=== PATIENT | male | born 1950 | race Caucasian/White ===

== ENCOUNTER 2021-10-22 11:35 | Emergency (ER) | payer MEDICARE, BC, SELFPAY ==
--- NOTE | ~2021-10-22 | XR_ITS ---
EXAMINATION: XR SHOULDER, RIGHT CLINICAL INFORMATION: Right shoulder pain. COMPARISON: None TECHNIQUE: Three views of the right shoulder. FINDINGS: Mild glenohumeral and acromioclavicular degenerative joint changes are seen. Mild calcifications are noted at the insertion of the rotator cuff on the greater tuberosity. No acute fracture or dislocation. The visualized right ribs are intact. The soft tissues are unremarkable. XR/XR shoulder RT min 2V IMPRESSION: Mild degenerative joint changes without acute abnormality.
[2021-10-22 12:38] VITALS: BP 130/67; PULSE 84; RESP 18; TEMP 36.7; O2SAT 96; BMI 29.2
--- NOTE | 2021-10-22 13:32 | ED_ITS ---
HPI - General Adult General Chief complaint: Extremity Injury, Upper Stated complaint: Numb R shoulder Time Seen by Provider: 10/22/21 13:21 Source: patient Mode of arrival: ambulatory Limitations: no limitations History of Present Illness HPI narrative: 70-year-old male with history of hypertension, asthma, congestive heart failure presents with right shoulder pain the last few days with radiation down the inner upper arm. No known injury or trauma. No numbness, tingling or weakness. Patient taking Tylenol home with continued symptoms. Related Data Previous Rx's Medication Instructions Recorded oxycodone 5 mg tablet 5 mg PO BEDTIME PRN pain #14 tabs 10/22/21 Allergies Allergy/AdvReac Type Severity Reaction Status Date / Time meperidine [From Demerol] Allergy Intermediate Rash Verified 10/22/21 12:37 Review of Systems Review of Systems: Yes all other systems are reviewed and are negative Constitutional: Constitutional: Reports no additional constitutional complaints, Denies body ache(s), Denies chills, Denies fever(s), Denies headache(s) and Denies weakness Eyes: Eyes: Reports no additional eye complaints and Denies change in vision ENT: Reports system reviewed and no additional complaints, except as documented, Denies dizziness, Denies headache(s), Denies nasal congestion, Ranjeet es nasal discharge and Denies neck pain Cardiovascular: Cardiovascular: Reports no additional cardiovascular complaints, Denies chest pain, Denies leg edema and Denies dyspnea Respiratory: Respiratory: Reports no additional respiratory complaints, Denies cough and Denies dyspnea Gastrointestinal: Gastrointestinal: Reports no additional gastrointestinal complaints, Denies abdominal pain, Denies diarrhea, Denies nausea and Denies vomiting Genitourinary: Genitourinary: Denies urinary incontinence Musculoskeletal: Musculoskeletal: Reports no additional musculoskeletal complaints, Denies back pain, Reports arthralgias, Denies joint swelling, Denies neck pain, Denies numbness and Denies tingling Integumentary/Breasts: Skin/Breast: Reports system reviewed and no additional complaints, except as docu and Denies rash Neurologic: Reports system reviewed and no additional complaints, except as documented, Denies dizziness, Denies headache(s), Denies numbness, Denies tingling and Denies weakness [facility] Past Medical History Attestation statement: The following information was validated with the patient. Source: old records reviewed and nursing notes reviewed Social History Social History Advance Directives: No Advance Directives Information Provided: Yes Physical Exam ED Vital Signs: Vital Signs - 24 hr 10/22/21 12:38 Temperature 98.1 F Pulse Rate 84 Respiratory Rate 18 Blood Pressure 130/67 Pulse Oximetry 96 Oxygen Delivery Method Room Air BMI result Body Mass Index 29.2 Const General: cooperative, healthy appearing, comfortable and no acute distress Orientation/consciousness: patient oriented x3 Limitations: no limitations HENMT Head: Yes normal to inspection Ears: hearing grossly normal bilaterally Eyes General: appearance normal, both eyes and all related structures Pupils: Equal, round and reactive pupils present Neck Neck: Yes normal visual inspection, Yes full ROM, Yes no lymphadenopathy and Yes no meningeal signs Chest Chest palpation & inspection: normal inspection of the chest Resp Effort & Inspection: normal respiratory effort Auscultation: clear to auscultation bilaterally Cardio Rate: regular rate Rhythm: regular rhythm Peripheral pulses: Peripheral pulses 2+ throughout GI Inspection: Yes normal to inspection Palpation (GI): Soft to palpation and nontender Back/Spine/Pelvis Thoracic/Lumbar Spine: thoracic and lumbar spine normal to inspection Skin General skin exam: no rashes or lesions noted Neuro General: patient oriented x3, moves all extremities and no meningeal signs Cranial nerves: Yes Equal, round and reactive pupils present Cognition (Neuro): normal cognition Gait exam (Neuro): Normal gait present Extrem Other: Tenderness over the proximal humerus of the right upper extremity. Pain is worsened with abduction of the extremity. Palpable radial and ulnar pulses. S ensation intact. 5/5 strength upper extremities Mild swelling noted dependently No warmth or redness General: Yes normal to inspection Course Course Course Narrative: X-ray show Mild glenohumeral and acromioclavicular degenerative joint changes are seen. Mild calcifications are noted at the insertion of the rotator cuff on the greater tuberosity. N -no acute fracture or dislocation -there is slight swelling to the hand which is likely dependent. No redness or warmth or swelling concerning for DVT. I spoke to patient. He did speak to his orthopedic doctor adriana at [facility]. He has appointment with him in 2 weeks. He tells me he has been taking Tylenol but having difficulty sleeping due to pain. Will give small supply of oxycodone which she has tolerated in the past before. He does have a cardiac MRI in the next upcoming weeks and so I did remind him to speak to his orthopedic before any procedures. Reviewed worrisome signs and symptoms of when to return to the emergency department. Comfortable discharge home. Medical Decision Making MDM Narrative Medical decision making narrative: 70-year-old male here with atraumatic right shoulder pain for the last few days unrelieved with home Tylenol. Will check x-rays Consider bursitis, tendonitis, OA Medical Records Medical records reviewed: Yes I reviewed the patient's medical records. Lab Data Lab results reviewed: Yes I reviewed the patient's lab results. Imaging Data shoulder x-ray: Attestation: I personally reviewed and interpreted this imaging study as follows: Radiologist's impression: [address] [address] XRay Report Signed Patient: Alfonzo Matute MR#: [id number] : 1950 Acct:[id number] Age/Sex: 70 / M ADM Date: 10/22/21 Loc: HO.ED Attending Dr: Ordering Physician: Vincent Stubbs MD Date of Service: 10/22/21 Procedure(s): XR shoulder RT min 2V Accession Number(s): [id number] cc: Vincent Stubbs MD~ EXAMINATION: XR SHOULDER, RIGHT CLINICAL INFORMATION: Right shoulder pain.? COMPARISON: None? TECHNIQUE: Three views of the right shoulder. FINDINGS: Mild glenohumeral and acromioclavicular degenerative joint changes are seen. Mild calcifications are noted at the insertion of the rotator cuff on the greater tuberosity. No acute fracture or dislocation. The visualized right ribs are intact. The soft tissues are unremarkable. XR/XR shoulder RT min 2V IMPRESSION: Mild degenerative joint changes without acute abnormality. Discharge Plan Discharge Clinical Impression: Osteoarthritis of right shoulder region, Rotator cuff arthropathy of right shoulder Patient Disposition: Home, Self-Care Instructions: Osteoarthritis (ED), Shoulder Pain (ED), Rotator Cuff Injury Exercises (DC) Additional Instructions: Follow-up with your own orthopedic Heat to the area See stretches attached Continue Tylenol throughout the day Prescriptions: New oxycodone 5 mg tablet 5 mg PO BEDTIME PRN (Reason: pain) Qty: 14 0RF Rx Instructions: Partial Fill upon patient request. Referrals: [facility] [Provider Group] Interventions: ED Discharge Assessment Last Done: 10/22/21 14:42 Discharge Date/Time: 10/22/21 14:43
== END 2021-10-22 14:43 | disposition home or self-care (01) ==
PROVIDERS: Emergency Provider Internal Medicine; PCP Internal Medicine
DX: M19.011 Primary osteoarthritis, right shoulder (principal); M25.511 Pain in right shoulder
CPT/HCPCS: 73030; 99282; 99283

== ENCOUNTER 2023-05-12 08:17 | Outpatient (AMB) | payer MEDICARE, BC, SELFPAY ==
--- NOTE | 2023-05-12 08:19 | MHC.OFFVIS ---
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 The patient has had cortisone injections given into both of his shoulders in the past. He states that he 1st noticed his left shoulder pain several weeks ago when he was put on levofloxacin for treatment of a renal stone. The patient states that when he stopped the levofloxacin his pain dissipated significantly. At this point he has minimal discomfort. He denies any weakness. Allergies meperidine [From Demerol] Allergy (Intermediate, Verified 10/22/21 12:37) Rash Medication List - Last Reconciled 05/12/23 by Bandar Carroll MD atorvastatin 20 mg PO DAILY clotrimazole-betamethasone 1-0.05 % appl topical BEDTIME dapagliflozin propanediol (Farxiga) 10 mg PO DAILY fluticasone propion-salmeterol 100-50 mcg/dose (Wixela Inhub) 1 ea inhalation BID furosemide 20 mg PO DAILY hydrocortisone-acetic acid 1-2 % 3 drps otic (ears) QID PRN levofloxacin mg PO sacubitril-valsartan 49-51 mg (Entresto) 1 tab PO BID spironolactone 12.5 mg PO DAILY tiotropium bromide 1 cap inhalation DAILY PFSH Surgical History (Updated 05/12/23 @ 08:36 by Kristine Murphy CMA) Hx of cardiac catheterization (~05/2021) Social History (Updated 05/12/23 @ 08:33 by Kristine Murphy CMA) Patient Tobacco Use Status: Never used Tobacco Physical Exam Vital Signs: BMI result Body Mass Index 27.2 Const Other: Well-nourished well-developed very friendly male awake alert and oriented x3 in no acute distress Extrem Other: Bilateral upper extremity examination shows good capillary refill, no skin lesions noted, normal sensation light touch Left shoulder examination shows almost full range of motion when compared to his right shoulder, minimal discomfort with range of motion, positive impingement signs, 5/5 strength with supraspinatus testing, no instability Results Reviewed Results Reviewed: X-rays of the patient's left shoulder taken today show moderate acromioclavicular joint narrowing, a type 2 acromion, no acute bony abnormalities Assessment & Plan Assessment & Plan (1) Left shoulder pain: Code(s): M25.512 - Pain in left shoulder Plan Mr. Matute presents with left shoulder discomfort most likely due to impingement syndrome and possible side effect from the levofloxacin. I had a lengthy discussion with the patient regarding the treatment options. At this point the patient's symptoms are tolerable to him. We will hold off on a cortisone injection. Will continue with his home stretching program to prevent stiffness. He will follow up with me on an as-needed basis should his symptoms worsen in any way. Feel free to call me time should questions regarding his orthopedic management arise. I spent 22 minutes in reviewing the patient's records and imaging studies, seeing the patient and documenting in the medical record. Orders: Orders XR shoulder LT min 2V Today M25.512 - Pain in left shoulder Coding Level of Care Code New Pt Level 2 (99664) Diagnoses Left shoulder pain M25.512
[2023-05-12 08:27] VITALS: BMI 27.2
== END 2023-05-12 08:57 | disposition home or self-care (01) ==
PROVIDERS: PCP Internal Medicine; Visit Provider Orthopaedic Surgery
DX: M25.512 Pain in left shoulder (principal)
CPT/HCPCS: 99202

== ENCOUNTER 2023-05-12 13:51 | Outpatient (REF) | payer MEDICARE, BC, SELFPAY ==
--- NOTE | ~2023-05-12 | XR_ITS ---
EXAMINATION: XR SHOULDER, LEFT CLINICAL INFORMATION: Pain. COMPARISON: None available. TECHNIQUE: AP neutral and scapular Y views of the left shoulder are submitted. FINDINGS: Bony alignment and mineralization are normal. The glenohumeral joint is intact. The acromioclavicular and coracoclavicular intervals are normal. No fracture or dislocation is seen. There is mild cortical irregularity of the greater tuberosity of the proximal left humerus. No soft tissue calcification or foreign body is seen. There is no left pneumothorax. XR/XR shoulder LT min 2V IMPRESSION: 1. No acute fracture or spondylolisthesis is seen. 2. Findings suggest possible mild left rotator cuff impingement, without christ calcific tendinitis noted.
== END 2023-05-12 13:52 | disposition home or self-care (01) ==
LOC: HO.HOSX 13:51
PROVIDERS: Visit Provider Orthopaedic Surgery
DX: M25.512 Pain in left shoulder (principal); Z79.899 Other long term (current) drug therapy
CPT/HCPCS: 73030; 99202

== ENCOUNTER 2023-07-05 10:40 | Inpatient (IN) | payer MEDICARE, BC, SELFPAY ==
--- NOTE | ~2023-07-05 | XR_ITS ---
EXAMINATION: XR FOOT, RIGHT CLINICAL INFORMATION: Pain. COMPARISON: None available. TECHNIQUE: AP, lateral, and oblique views of the right foot. FINDINGS: The bones and soft tissues are normal. No fracture. There is a prominent heel spur. Alignment is anatomic. Joint spaces are maintained. XR/XR foot RT 2V IMPRESSION: No significant abnormality identified.
--- NOTE | ~2023-07-05 | US_ITS ---
EXAMINATION: US VENOUS ULTRASOUND WITH DOPPLER LOWER EXTREMITY, BILATERAL CLINICAL INFORMATION: Bilateral leg pain. COMPARISON: None available. TECHNIQUE: Ultrasound of the deep veins is performed from the hip to the calf with compression sonography and color and pulse Doppler assessment. Spectral analysis with color-flow imaging is performed. FINDINGS: RIGHT: There is normal venous compression and respiratory variation and augmented flow. The visualized common femoral vein, superficial femoral vein, profunda femoral vein, popliteal vein, and the trifurcation region shows no evidence of deep venous thrombosis. There is no significant popliteal fossa cyst. LEFT: There is normal venous compression and respiratory variation and augmented flow. The visualized common femoral vein, superficial femoral vein, profunda femoral vein, popliteal vein, and the trifurcation region shows no evidence of deep venous thrombosis. There is no significant popliteal fossa cyst. If the patient's symptoms persist, followup ultrasound in 5 days 7 days might be of value to exclude proximal propagation from a non-visualized calf vein. US/US venous duplex LE BI IMPRESSION: No DVT demonstrated in the bilateral lower extremities.
--- NOTE | ~2023-07-05 | XR_ITS ---
EXAMINATION: XR TIBIA AND FIBULA, RIGHT CLINICAL INFORMATION: Pain. COMPARISON: None available. TECHNIQUE: AP and lateral views of the right tibia and fibula were obtained. FINDINGS: The bones and soft tissues are normal. No fracture. No osseous lesions. XR/XR tibia fibula RT 2V IMPRESSION: No significant abnormality identified.
--- NOTE | ~2023-07-05 | CT_ITS ---
EXAMINATION: CT ABDOMEN AND PELVIS WITHOUT CONTRAST CLINICAL INFORMATION: Elevated white blood cell count. COMPARISON: None available. TECHNIQUE: Multidetector volumetric imaging was performed from the superior aspect of the liver through the pubic symphysis. Sagittal and coronal reformatted images were obtained on the technologist's workstation. This CT examination was performed using dose optimization techniques as appropriate, variously including the following: *Automated exposure control *Adjustment of mA and/or kV according to patient size (this includes techniques or standardized protocols for targeted exams where dose is matched to indication/reason for exam; i.e. extremities or head) *Use of iterative reconstruction technique DLP: 549 mGy-cm FINDINGS: LUNG BASES: There is scarring and/or subsegmental atelectasis at the right base. LIVER, GALLBLADDER, AND BILIARY TREE: There is a 3 cm cyst left lobe of the liver and a 2.3 cm cyst right lobe of the liver. There is no intrahepatic biliary duct dilatation. The gallbladder is unremarkable with no evidence of radiopaque gallstones, gallbladder wall thickening, or obvious pericholecystic inflammatory changes. PANCREAS: Fatty infiltrated. SPLEEN: Unremarkable. ADRENAL GLANDS: Unremarkable. KIDNEYS AND URETERS: The kidneys are normal in size, shape, and attenuation. There is a 2 mm nonobstructing calculus lower pole right kidney. There is a 2.7 cm cyst lower pole right kidney. There is no hydronephrosis. BLADDER: There is mild urinary bladder wall thickening. GASTROINTESTINAL TRACT: There are diverticula of the transverse, descending and the sigmoid colon without diverticulitis. The appendix is not confidently seen as a separate structure. ABDOMINAL WALL: There is a small umbilical hernia containing fat. LYMPH NODES: Normal. VASCULAR: Unremarkable. PELVIC VISCERA: There is mild prostate gland enlargement with multiple prostate calcifications. OSSEOUS STRUCTURES: Unremarkable. CT/CT abdomen pelvis wo IV con IMPRESSION: Diverticulosis without evidence of diverticulitis. Small nonobstructing right renal calculus. Mild urinary bladder wall thickening. Fleischner guidelines were followed.
--- NOTE | ~2023-07-05 | XR_ITS ---
EXAMINATION: XR FOOT, LEFT CLINICAL INFORMATION: Pain. COMPARISON: None available. TECHNIQUE: AP, lateral, and oblique views of the left foot. FINDINGS: The bones and soft tissues are normal. No fracture. Alignment is anatomic. Joint spaces are maintained. XR/XR foot LT 2V IMPRESSION: No significant abnormality identified.
--- NOTE | ~2023-07-05 | XR_ITS ---
EXAMINATION: XR TIBIA AND FIBULA, LEFT CLINICAL INFORMATION: Pain. COMPARISON: None available. TECHNIQUE: AP and lateral views of the left tibia and fibula were obtained. FINDINGS: The bones and soft tissues are normal. No fracture. No osseous lesions. XR/XR tibia fibula LT 2V IMPRESSION: No significant abnormality identified.
[2023-07-05 10:56] VITALS: BP 120/80; PULSE 97; O2SAT 96
[2023-07-05 11:14] VITALS: BP 114/67; PULSE 92; RESP 18; TEMP 36.6; O2SAT 98; BMI 27.2
--- NOTE | 2023-07-05 11:14 | ED_ITS ---
HPI - General Adult General Chief complaint: General Medical Stated complaint: BILATERAL FOOT PAIN Time Seen by Provider: 07/05/23 23:53 Source: patient Mode of arrival: ambulatory Limitations: no limitations History of Present Illness HPI narrative: 72-year-old male with past medical history my cholesterol, CHF, kidney steones presents to ED for multiple complaints such as bilateral foot pain, mild hematuria, and painful to walk on feet, and bilateral flank pain. Patient denies any recent trauma, chest pain, shortness of breath, weakness, or dizziness. Related Data Home Medications Medication Instructions Recorded Confirmed atorvastatin 20 mg tablet 20 mg PO DAILY 05/12/23 07/06/23 dapagliflozin propanediol 10 mg 10 mg PO DAILY 05/12/23 07/06/23 tablet (Farxiga) fluticasone 100 mcg-salmeterol 50 1 ea inhalation BID 05/12/23 07/06/23 mcg/dose blistr powdr for inhalation (Wixela Inhub) furosemide 20 mg tablet 20 mg PO DAILY 05/12/23 07/06/23 sacubitril 49 mg-valsartan 51 mg 1 tab PO BID 05/12/23 07/06/23 tablet (Entresto) spironolactone 25 mg tablet 12.5 mg PO DAILY 05/12/23 07/06/23 tiotropium bromide 18 mcg capsule 1 cap inhalation DAILY 05/12/23 07/06/23 with inhalation device carvedilol 6.25 mg tablet 6.25 mg PO BID 07/06/23 07/06/23 Previous Rx's Medication Instructions Recorded cefuroxime axetil 250 mg tablet 250 mg PO BID #14 tabs 07/06/23 naproxen 500 mg tablet 500 mg PO BID PRN pain 7 days #14 07/06/23 tabs Allergies Allergy/AdvReac Type Severity Reaction Status Date / Time meperidine [From Demerol] Allergy Intermediate Rash Verified 10/22/21 12:37 levofloxacin Allergy Swelling Verified 07/05/23 11:14 Penicillins Allergy Unknown Verified 07/05/23 11:14 Review of Systems 2 Review of Systems: bilateral feet pain, bliateral flank pain, mild hematuria Yes all other systems are reviewed and are negative PMFSH Past Medical History Surgical History Hx of cardiac catheterization (~05/2021) Social History Social History Household Members: Spouse Housing: Apartment Do you presently have visiting nurse or other home services: No Patient Tobacco Use Status: Former Tobacco user service: No Physical Exam ED Vital Signs: Vital Signs - 24 hr 07/05/23 11:14 07/05/23 18:52 07/05/23 22:59 Temperature 97.8 F 97.4 F 97.8 F Pulse Rate 92 90 99 Respiratory Rate 18 18 18 Blood Pressure 114/67 110/60 128/74 Pulse Oximetry 98 97 99 Oxygen Delivery Method Room Air Room Air Room Air 07/05/23 22:59 07/06/23 02:42 Temperature 97.8 F 99.4 F Pulse Rate 99 76 Respiratory Rate 18 18 Blood Pressure 128/74 120/71 Pulse Oximetry 99 99 Oxygen Delivery Method Room Air Room Air BMI result Body Mass Index 27.2 Const General: cooperative, healthy appearing, comfortable, no acute distress, well developed, alert and awake Orientation/consciousness: oriented to person, oriented to place, oriented to time and patient oriented x3 HENIN Head: Yes normal to inspection, Yes No palpable skull fracture present, Yes normocephalic and Yes atraumatic Eyes General: appearance normal, both eyes and all related structures Neck Neck: Yes normal visual inspection, Yes full ROM, Yes no lymphadenopathy, Yes no meningeal signs, Yes trachea midline, Yes supple, No anterior neck swelling and No tender Chest Chest palpation & inspection: normal inspection of the chest and normal palpation of entire chest wall Resp Effort & Inspection: normal respiratory effort and able to speak in complete sentences Auscultation: clear to auscultation bilaterally Cardio Jugular venous distension: no JVD Heart sounds: S1 normal heart sound present and S2 normal heart sound present GI Inspection: Yes normal to inspection Palpation (GI): Soft to palpation, not firm, nontender, no guarding and not rigid General: No CVA tenderness and Yes no CVA tenderness Back/Spine/Pelvis Back: no CVA tenderness, No CVA tenderness and No back tenderness Skin General skin exam: no rashes or lesions noted, elasticity normal and turgor normal Neuro General: oriented to person, oriented to place, oriented to time, patient oriented x3, gait normal, tone normal, moves all extremities, Normal light touch and pain sensation, no meningeal signs, no focal motor deficits, CN's II-XI intact bilaterally and normal sensation to monofilament Extrem Other: Positive for bilateral foot tenderness on palpation. Negative for any swelling, redness, ecchymosis, crepitus, or deformity right foot and right lower extremity. Motor/neuro/vascular exam intact. Psych Appearance: grossly normal, well kempt and not disheveled Course Course Course Narrative: RME performed by Ashley Sweet PA-C. Patient is a 72 year old assigned male at presenting to the emergency department with bilateral foot pain and hematuria. Detailed physical exam and review of systems are deferred to the corpsman. Labs ordered. Patient placed back in the waiting room pending room availability and results. Medications Administered Generic Name Dose Route Start Last Admin Trade Name Freq PRN Reason Stop Dose Admin Atorvastatin Calcium 20 mg 07/06/23 15:30 07/07/23 07:56 Atorvastatin Calcium 20 Mg Tablet PO 20 mg DAILY UNRULY Administration Carvedilol 6.25 mg 07/06/23 21:00 07/07/23 21:19 Carvedilol 6.25 Mg Tablet PO 6.25 mg BID UNRULY Administration Protocol Empagliflozin 10 mg 07/07/23 09:00 07/07/23 07:55 Empagliflozin 10 Mg Tablet PO 10 mg DAILY UNRULY Administration Fluticasone/Vilanterol 1 puff 07/07/23 08:00 07/07/23 08:18 Fluticasone/Vilanterol 100/25 Blst.W.Dev INHALE 1 puff RDAILY UNRULY Administration Furosemide 20 mg 07/06/23 15:30 07/07/23 07:57 Furosemide 20 Mg Tablet PO 20 mg DAILY UNRULY Administration Protocol Heparin Sodium (Porcine) 5,000 unit 07/06/23 06:15 07/07/23 21:08 Heparin Sodium,Porcine 5,000 Unit/Ml Vial SUBCUT 5,000 unit Q8H UNRULY Administration Ceftriaxone Sodium 1 gm/ 50 mls @ 100 mls/hr 07/07/23 08:00 07/07/23 09:29 Sodium Chloride IV Infused Q24H UNRULY Infusion Methylprednisolone Sodium Succinate 60 mg 07/06/23 20:15 07/07/23 21:21 Methylprednisolone Sod Succ 125 Mg/2 Ml Vial IVPUSH 60 mg Q6H UNRULY Administration Oxycodone HCl 5 mg 07/06/23 13:56 07/06/23 23:09 Oxycodone Hcl Immed Release 5 Mg Tablet PO 5 mg Q4H PRN Administration Pain, Moderate(Pain Scale 4-6) Sacubitril/Valsartan 1 tab 07/06/23 21:00 07/07/23 21:20 Sacubitril/Valsartan 49/51 1 Tab Tablet PO 1 tab BID UNRULY Administration Protocol Sodium Chloride 3 ml 07/06/23 08:00 07/07/23 21:06 0.9 % Sodium Chloride Flush 3 Ml Syringe IVFLUSH 3 ml QSHIFT [facility] Administration Spironolactone 12.5 mg 07/06/23 15:30 07/07/23 07:55 Spironolactone 25 Mg Tablet PO 12.5 mg DAILY [facility] Administration Protocol Discontinued Medications Generic Name Dose Route Start Last Admin Trade Name Freq PRN Reason Stop Dose Admin Carvedilol 6.25 mg 07/06/23 03:23 07/06/23 03:32 Carvedilol 6.25 Mg Tablet PO 07/06/23 03:24 6.25 mg ONCE ONE Administration Protocol Cefuroxime Axetil 250 mg 07/06/23 03:23 07/06/23 03:32 Cefuroxime Axetil 250 Mg Tablet PO 07/06/23 03:24 250 mg ONCE ONE Administration Sodium Chloride 1,000 mls @ 999 mls/hr 07/06/23 06:05 07/06/23 08:19 Ns IVCONT 07/06/23 07:05 Infused .Q1H1M ONE Infusion Ceftriaxone Sodium 1 gm/ 50 mls @ 100 mls/hr 07/06/23 06:05 07/06/23 08:19 Sodium Chloride IV 07/06/23 06:34 Infused ONCE ONE Infusion Methylprednisolone Sodium Succinate 125 mg 07/06/23 14:06 07/06/23 15:03 Methylprednisolone Sod Succ 125 Mg/2 Ml Vial IVPUSH 07/06/23 14:07 125 mg ONCE ONE Administration Morphine Sulfate 4 mg 07/06/23 08:40 07/06/23 09:00 Morphine Sulfate 4 Mg/Ml Cartridge IVPUSH 07/06/23 08:41 4 mg ONCE ONE Administration Protocol Sacubitril/Valsartan 1 tab 07/06/23 03:23 07/06/23 03:53 Sacubitril/Valsartan 49/51 1 Tab Tablet PO 07/06/23 03:24 1 tab ONCE ONE Administration Protocol Medical Decision Making Medical Decision Making [facility] Narrative: 9-year-old male presents to ED for bilateral feet pain, bilateral flank pain, in mild hematuria on urination. Patient has history of kidney stones. Patient denies any trauma. Patient states no fever or chills. Lower extremity negative for signs of DVT or fracture but was sent for x-ray and ultrasound. Will sent for abdominal CT scan to rule out kidney stone I received sign-out from my colleague JEFRY virk -my interpretation of CT scan: No kidney stones -my interpretation of ultrasound of the lower extremities, no obvious DVT -patient was given p.o. cefuroxime. Plan per JEFRY virk, patient's will slate picker the patient in the morning. -patient's vitals stable, no fever, no episodes of hypotension. Given patient's set of symptoms and a positive urine, patient clinically has pyelonephritis. Sepsis is not suspected. -at 06:00, I was informed by the patient's nurses and techs that the patient is too weak to walk. I spoke with the patient, patient states that he has been weak since yesterday. 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 Every day he tries to get 10,000 steps in, but since yesterday he has been too fatigued to do so I discussed with the patient that his weakness is likely secondary to the UTI/pyelonephritis. -patient will be giving fluids based on ideal weight of 64 kg, patient will be given IV antibiotics. As mentioned above, vitals stable, sepsis not suspected, lactic acid and blood cultures are pending -I discussed the patient with Dr. Stokes from the Medicine team, patient being admitted for symptomatic UTI/pyelonephritis Differential Diagnosis Differential Diagnoses: The differential diagnosis associated with the presentation includes (UTI, pyelonephritis, lower extremity DVT) Admission/Observation Consideration of admission/observation: Escalation of care including admission/observation considered Consult Healthcare Provider Management of the patient was discussed with: Hospitalist Lab Data [facility] Lab Attestation statement: I reviewed the patient's lab results. 07/07/23 06:06 07/07/23 06:06 Labs: Lab Results 07/05/23 07/06/23 Range/Units 11:42 02:44 WBC 15.8 H (4.8-10.8) X10*3/uL RBC 5.75 (4.60-5.80) X10*6/uL Hgb 17.1 (14.0-18.0) g/dl Hct 51.1 (42.0-52.0) % MCV 88.9 (80.0-98.0) fL MCH 29.7 (27.0-33.0) pg MCHC 33.5 (31.0-36.0) g/dl RDW 13.6 (11.0-16.0) % Plt Count 334 (160-400) X10*3/uL MPV 9.8 (9.4-12.4) fL Immature Gran % (Auto) 0.4 (0.0-0.4) % Neut % (Auto) 76.6 H (45-73) % Lymph % (Auto) 10.4 L (20-40) % [place] % (Auto) 9.6 (2-11) % Eos % (Auto) 2.5 (0-4) % Baso % (Auto) 0.5 (0-2) % Lymph # (Auto) 1.6 (1.2-4.9) X10*3/uL [place] # (Auto) 1.5 H (0.1-1.2) X10*3/uL Eos # (Auto) 0.4 (0.0-0.4) X10*3/uL Baso # (Auto) 0.1 (0.0-0.2) X10*3/uL Abs Immat Gran (auto) 0.06 H (0.00-0.03) X10*3/uL Absolute Neuts (auto) 12.1 H (2.0-8.3) x10*3/uL Absolute Nucleated RBC 0.000 (0.0-0.012) X10*3/uL Nucleated RBC % (auto) 0.0 (0.0-0.2) /100WBC Smear Tech's Comments VERIFIED Sodium 138 (135-145) mmol/L Potassium 4.6 (3.3-5.1) mmol/L Chloride 103 (96-108) mmol/L Carbon Dioxide 27 (22-29) mmol/L Anion Gap 13 (12-20) BUN 24 H (9-16) mg/dL Creatinine 1.03 (0.5-1.4) mg/dL Estim Creat Clear Calc 71.0 Estimated GFR > 60 Random Glucose 106 (60-115) mg/dL Calcium 10.1 (8.4-10.2) mg/dL Magnesium 2.1 (1.6-2.6) mg/dL Total Bilirubin 1.1 H (0.0-1.0) mg/dL AST 21 (5-37) U/L ALT 27 (0-40) U/L Alkaline Phosphatase 81 (39-117) U/L Troponin I High Sens < 2.7 (<3.5-35.0) ng/L Total Protein 8.3 H (6.5-8.0) g/dL Albumin 4.0 (3.5-5.0) g/dL Urine Color Yellow Urine Appearance Turbid Urine pH 5.5 (5.0-9.0) Ur Specific [place] >= 1.030 H (1.005-1.025) Urine Protein 30 (1+) H (Neg-Trace) mg/dL Urine Glucose (UA) >=1000 H (Negative) mg/dL Urine Ketones Trace (Negative) mg/dL Urine Blood Small (1+) H (Negative) Urine Nitrite Negative (Negative) Ur Leukocyte Esterase Moderate (2+) H (Negative) Urine RBC 3-5 H (0-2) /HPF Urine WBC >50 (0-5) /HPF Ur Squamous Epith Cells 3-5 (0-2) /HPF Urine Bacteria Trace (None Seen) Hyaline Casts 0-2 (0-2) /LPF Influenza Type A (PCR) NEGATIVE (Negative) Influenza Type B (PCR) NEGATIVE (Negative) RSV RNA Qual (PCR) NEGATIVE (Negative) SARS-CoV-2 RNA (RT-PCR) NEGATIVE (Negative) Independent Interpretation I performed an independent interpretation of an: Ultrasound and CT Scan Radiology Impression Discussion of test interpretation with radiology: I have reviewed the radiologist's reading. Radiologist Impression: RIGHT: There is normal venous compression and respiratory variation and augmented flow. The visualized common femoral vein, superficial femoral vein, profunda femoral vein, popliteal vein, and the trifurcation region shows no evidence of deep venous thrombosis. There is no significant popliteal fossa cyst. LEFT: There is normal venous compression and respiratory variation and augmented flow. The visualized common femoral vein, superficial femoral vein, profunda femoral vein, popliteal vein, and the trifurcation region shows no evidence of deep venous thrombosis. There is no significant popliteal fossa cyst. If the patient's symptoms persist, followup ultrasound in 5 days 7 days might be of value to exclude proximal propagation from a non-visualized calf vein. US/US venous duplex LE BI IMPRESSION: No DVT demonstrated in the bilateral lower extremities. FINDINGS: LUNG BASES: There is scarring and/or subsegmental atelectasis at the right base. LIVER, GALLBLADDER, AND BILIARY TREE: There is a 3 cm cyst left lobe of the liver and a 2.3 cm cyst right lobe of the liver. There is no intrahepatic biliary duct dilatation. The gallbladder is unremarkable with no evidence of radiopaque gallstones, gallbladder wall thickening, or obvious pericholecystic inflammatory changes. PANCREAS: Fatty infiltrated. SPLEEN: Unremarkable. ADRENAL GLANDS: Unremarkable. KIDNEYS AND URETERS: The kidneys are normal in size, shape, and attenuation. There is a 2 mm nonobstructing calculus lower pole right kidney. There is a 2.7 cm cyst lower pole right kidney. There is no hydronephrosis. BLADDER: There is mild urinary bladder wall thickening. GASTROINTESTINAL TRACT: There are diverticula of the transverse, descending and the sigmoid colon without diverticulitis. The appendix is not confidently seen as a separate structure. ABDOMINAL WALL: There is a small umbilical hernia containing fat. LYMPH NODES: Normal. VASCULAR: Unremarkable. PELVIC VISCERA: There is mild prostate gland enlargement with multiple prostate calcifications. OSSEOUS STRUCTURES: Unremarkable. CT/CT abdomen pelvis wo IV con IMPRESSION: Diverticulosis without evidence of diverticulitis. Small nonobstructing right renal calculus. Mild urinary bladder wall thickening. Fleischner guidelines were followed. Critical Care Time Critical Care Time Critical Care Time: Yes Total Critical Care Time: 60 Attestation: I have personally provided critical care time. Time includes review of lab data, radiology results, discussion with consultants, and monitoring for potential decompensation. Intervention performed as documented. Discharge Plan Discharge Clinical Impression: Bilateral foot pain, Heel spur, Acute pyelonephritis, Weakness Patient Disposition: Admitted As Inpatient Interventions: Admission Worksheet (ED) Last Done: 07/06/23 20:27 Discharge Date/Time: 07/06/23 21:36
[2023-07-05 11:51] LABS: Basophils Absolute Auto 0.1 X10*3/uL (0.0-0.2); Basophils Percent Auto 0.5 % (0-2); Eosinophils Absolute Auto 0.4 X10*3/uL (0.0-0.4); Eosinophils Percent Auto 2.5 % (0-4); Hematocrit 51.1 % (42.0-52.0); Hemoglobin 17.1 g/dl (14.0-18.0); Imm Gran Abs Auto 0.06 X10*3/uL (0.00-0.03); Imm Gran Pct Auto 0.4 % (0.0-0.4); Lymphocytes Absolute Auto 1.6 X10*3/uL (1.2-4.9); Lymphocytes Percent Auto 10.4 % (20-40); MANUAL DIFF FLAG SCAN; Mean Corpuscular HGB Conc 33.5 g/dl (31.0-36.0); Mean Corpuscular Hemoglobin 29.7 pg (27.0-33.0); Mean Corpuscular Volume 88.9 fL (80.0-98.0); Mean Platelet Volume 9.8 fL (9.4-12.4); Monocytes Absolute Auto 1.5 X10*3/uL (0.1-1.2); Monocytes Percent Auto 9.6 % (2-11); Neutrophils Absolute Auto 12.1 x10*3/uL (2.0-8.3); Neutrophils Percent Auto 76.6 % (45-73); Platelet Count 334 X10*3/uL (160-400); Red Blood Count 5.75 X10*6/uL (4.60-5.80); Red Cell Distribution Width 13.6 % (11.0-16.0); SCAN SMEAR FLAG 1; White Blood Count 15.8 X10*3/uL (4.8-10.8)
[2023-07-05 12:04] LABS: Alanine Aminotransferase 27 U/L (0-40); Alkaline Phosphatase 81 U/L (39-117); Anion Gap 13 (12-20); Aspartate Amino Transferase 21 U/L (5-37); Bilirubin Total 1.1 mg/dL (0.0-1.0); Blood Urea Nitrogen 24 mg/dL (9-16); Calcium 10.1 mg/dL (8.4-10.2); Carbon Dioxide 27 mmol/L (22-29); Chloride 103 mmol/L (96-108); Estimated Glomerular Filt Rate > 60; Glucose Random 106 mg/dL (60-115); Magnesium 2.1 mg/dL (1.6-2.6); Potassium 4.6 mmol/L (3.3-5.1); Sodium 138 mmol/L (135-145); Total Protein 8.3 g/dL (6.5-8.0)
[2023-07-05 12:14] LABS: Troponin-I High Sensitivity < 2.7 ng/L (<3.5-35.0)
[2023-07-05 12:19] LABS: SLIDE REVIEW VERIFIED
[2023-07-05 12:32] LABS: Influenza A PCR NEGATIVE (Negative); Influenza B PCR NEGATIVE (Negative); Resp Syncy Virus RNA Qual PCR NEGATIVE (Negative); SARS COV2 PCR INHOUSE NEGATIVE (Negative)
[2023-07-05 18:52] VITALS: BP 110/60; PULSE 90; RESP 18; TEMP 36.3; O2SAT 97
[2023-07-05 22:59] VITALS: BP 128/74; PULSE 99; RESP 18; TEMP 36.6; O2SAT 99
--- NOTE | 2023-07-06 02:24 | ECG_ITS ---
Test Reason : FOOT PAIN Blood Pressure : / mmHG Vent. Rate : 104 BPM Atrial Rate : 104 BPM P-R Int : 152 ms QRS Dur : 132 ms QT Int : 382 ms P-R-T Axes : 049 -12 124 degrees QTc Int : 502 ms Sinus tachycardia Left bundle branch block Abnormal ECG No previous ECGs available Referred By: Riky Hong Electronically Signed By:ANNETTE NIETO
[2023-07-06 02:42] VITALS: BP 120/71; PULSE 76; RESP 18; TEMP 37.4; O2SAT 99
[2023-07-06 02:54] LABS: Appearance Urine Turbid; Color Urine Yellow; Glucose Urine UA >=1000 mg/dL (Negative); Leukocyte Esterase Urine Moderate (2+) (Negative); Nitrite Urine Negative (Negative); PH 5.5 (5.0-9.0); Specific Gravity - Urine >= 1.030 (1.005-1.025); UMIC TRIGGER UACC YES; Urine Blood Small (1+) (Negative); Urine Ketones Trace mg/dL (Negative); Urine Protein 30 (1+) mg/dL (Neg-Trace)
[2023-07-06 03:19] LABS: Bacteria Urine Trace (None Seen); Hyaline Casts Urine 0-2 /LPF (0-2); UACC Culture Trigger YES; WBC Urine >50 /HPF (0-5)
[2023-07-06] MEDS: carvediloL 6.25 MG TABLET PO ×2 (03:32→22:48)
[2023-07-06] MEDS: cefuroxime axetiL 250 MG TABLET PO (03:32)
[2023-07-06] MEDS: Sacubitril/Valsartan 49/51 1 TAB TABLET PO ×2 (03:53→22:49)
--- NOTE | 2023-07-06 05:38 | MHC.EDTECH ---
Late Entry, this tech took over care of patient at 0130AM,hourly rounds completed, patient was given a cup of gingerale and crackers. Patient urinated 300mls in urinal. Call felix in reach
[2023-07-06 06:00] VITALS: BP 115/61; PULSE 95; RESP 18; TEMP 37.1; O2SAT 98
--- NOTE | 2023-07-06 06:05 | PC.NURSE ---
attempted to ambulate with patient prior to possible discharge however pt extremely weak, reports pain/pressure to knees when trying to bear weight. difficulty ambulating even with 2 staff assist. MD Laura aware - pt to be admitted medically for UTI requiring iv abx . pt aware of plan
[2023-07-06] MEDS: Heparin Sodium,Porcine 5,000 UNIT/ML VIAL 5000 UNIT SUBCUT ×3 (06:23→22:49)
[2023-07-06] MEDS: cefTRIAXone sodium 1 GM in 0.9 % Sodium Chloride 50 ML IV (06:23)
[2023-07-06] MEDS: 0.9 % Sodium Chloride 1,000 ML 999 ML IVCONT (06:23)
--- NOTE | 2023-07-06 06:27 | MHC.EDTECH ---
This tech attempted to ambulate patient,patient was unsteady and unable to bear weight on feet RN at bedside to assist. Patient brought to bathroom in a wheelchair, patient urinated. Blood Cultures and lactic obtained and sent to lab. Belongings list completed. Vitals taken and call felix in reach.
[2023-07-06 06:46] LABS: Lactic Acid 1.5 mmol/L (0.5-2.0)
[2023-07-06] MEDS: 0.9 % Sodium Chloride Flush 3 ML SYRINGE IVFLUSH ×3 (08:25→22:49)
[2023-07-06] MEDS: Morphine Sulfate 4 MG/ML CARTRIDGE IVPUSH (09:00)
--- NOTE | 2023-07-06 09:02 | PC.NURSE ---
this RN resumed care of pt at this time. a&ox4. vss and up to date. pt c/o 01/26 left foot pain. admitting provider notified/aware that pt is requesting medication. medication administered per provider order. effectiveness pending. pt repositioned/pillow placed under pt's LLE. no sob/wob noted. respirations even and unlabored. pt waiting to be seen by admitting provider. plan of care ongoing. call felix placed within reach.
--- NOTE | 2023-07-06 09:40 | PC.NURSE ---
pt verbalizing no change of pain level despite medication administration. pt still verbalizing 9/10 pain. pt seen by admitting provider/aware of plan of care in regards to being admitted at this time. plan of care ongoing. respirations even and unlabored. call felix placed within reach.
--- NOTE | 2023-07-06 09:49 | PHA.MEDREC ---
Pharmacy Consult ? Medication Reconciliation Pharmacy has completed the medication reconciliation.
--- NOTE | 2023-07-06 12:11 | PC.NURSE ---
pt speaking w/ case management at this time.
--- NOTE | 2023-07-06 12:28 | MHC.CM.PN ---
PT REPORTS HE LIVES WITH HIS AND IS INDEPENDENT WITH CARE HE USES NO DME AND HAS NO SERVICES HE REPORTS HE HAS A HCP, COPY REQUESTED PCP: ANNE MARIE SETH IMM DELIVERED DCP PENDING PT EVAL HOME ? [facility] VS STR VS SHUTTLE TRANSPORT ( RECOVERING FROM SHOULDER SURGERY AND CURRENTLY ILL, SO MAY NOT BE AVAILABLE TO TRANSPORT)
[2023-07-06 13:22] VITALS: BP 105/69; PULSE 92; RESP 16; TEMP 36.9; O2SAT 97
--- NOTE | 2023-07-06 13:57 | P.HPHOSP_ITS ---
History of Present Illness Date of Service: 07/06/23 Chief Complaint: Bilateral foot pain 72-year-old male with past medical history my cholesterol, CHF, kidney steones presents to ED for multiple complaints such as bilateral foot pain, mild hematuria, and painful to walk on feet, and bilateral flank pain. Patient denies any recent trauma, chest pain, shortness of breath, weakness, or dizziness. When questioned, does endorse history of gout. In the emergency room workup consistent with active urinary sediment. Attempted to ambulate patient on successfully. Given history of gout, 1 dose methylprednisolone and morphine for pain. Review of Systems 2 Review of Systems: Denies chest pain Denies shortness of breath Denies nausea vomiting diarrhea Denies fever chills PMFSH Surgical History Hx of cardiac catheterization (~05/2021) Social History Patient Tobacco Use Status: Never used Tobacco Smoked in Last 30 Days: No Use of substances other than those prescribed or required for medical reasons: No Advance Directives: No Advance Directives Information Provided: Yes Nutrition Risks: No Nutritional Risk service: No Meds Allergies Allergy/AdvReac Type Severity Reaction Status Date / Time meperidine [From Demerol] Allergy Intermediate Rash Verified 10/22/21 12:37 levofloxacin Allergy Swelling Verified 07/05/23 11:14 Penicillins Allergy Unknown Verified 07/05/23 11:14 Active Medications: Current Medications Heparin Sodium (Porcine) (Heparin Sodium,Porcine 5,000 Unit/Ml Vial) 5,000 unit SUBCUT Q8H [facility] Last Admin: 07/06/23 06:23 Dose: 5,000 unit Ceftriaxone Sodium 1 gm/ (Sodium Chloride) 50 mls @ 100 mls/hr IV Q24H [facility] Oxycodone HCl (Oxycodone Hcl Immed Release 5 Mg Tablet) 5 mg PO Q4H PRN PRN Reason: Pain, Moderate(Pain Scale 4-6) Sodium Chloride (0.9 % Sodium Chloride Flush 3 Ml Syringe) 3 ml IVFLUSH QSHIFT [facility] Last Admin: 07/06/23 08:25 Dose: 3 ml Home Medications Medication Instructions Recorded Confirmed Last Taken Type atorvastatin 20 mg tablet 20 mg PO DAILY 05/12/23 07/06/23 07/05/23 History dapagliflozin propanediol 10 mg 10 mg PO DAILY 05/12/23 07/06/23 Unknown History tablet (Farxiga) fluticasone 100 mcg-salmeterol 50 1 ea inhalation BID 05/12/23 07/06/23 07/05/23 History mcg/dose blistr powdr for inhalation ([place] Inhub) furosemide 20 mg tablet 20 mg PO DAILY 05/12/23 07/06/23 07/05/23 History sacubitril 49 mg-valsartan 51 mg 1 tab PO BID 05/12/23 07/06/23 07/05/23 History tablet (Entresto) spironolactone 25 mg tablet 12.5 mg PO DAILY 05/12/23 07/06/23 07/05/23 History tiotropium bromide 18 mcg capsule 1 cap inhalation DAILY 05/12/23 07/06/23 07/05/23 History with inhalation device carvedilol 6.25 mg tablet 6.25 mg PO BID 07/06/23 07/06/23 07/05/23 History Physical Exam 2 Vital Signs and Narrative: Vital Signs: Last Vital Signs Temp 98.4 F 07/06/23 13:22 Pulse 92 07/06/23 13:22 Resp 16 07/06/23 13:22 BP 105/69 07/06/23 13:22 Pulse Ox 97 07/06/23 13:22 O2 Del Method Room Air 07/06/23 13:22 BMI result Body Mass Index 27.2 Const: Other: Awake alert uncomfortable appearing Resp: Other: Clear to auscultation bilaterally no rales rhonchi or wheezes Cardio: Other: No S4; positive S1-S2; no S3 murmurs rubs or gallops GI: Other: Soft nontender nondistended normoactive bowel sounds Extrem: Other: Tender bilaterally right greater than left 1st MTP Results Labs 07/05/23 11:42 07/05/23 11:42 Labs: Laboratory Results - last 24 hr 07/06/23 07/06/23 02:44 06:22 Lactic Acid 1.5 Urine Color Yellow Urine Appearance Turbid Urine pH 5.5 Ur Specific [place] >= 1.030 H Urine Protein 30 (1+) H Urine Glucose (UA) >=1000 H Urine Ketones Trace Urine Blood Small (1+) H Urine Nitrite Negative Ur Leukocyte Esterase Moderate (2+) H Urine RBC 3-5 H Urine WBC >50 Ur Squamous Epith Cells 3-5 Urine Bacteria Trace Hyaline Casts 0-2 Imaging Radiologist's Impressions: Impressions Foot X-Ray 07/06/23 00:54 IMPRESSION: No significant abnormality identified. Foot X-Ray 07/06/23 00:54 IMPRESSION: No significant abnormality identified. Tibia/Fibula X-Ray 07/06/23 00:54 IMPRESSION: No significant abnormality identified. Tibia/Fibula X-Ray 07/06/23 00:54 IMPRESSION: No significant abnormality identified. Abdomen/Pelvis CT 07/06/23 01:15 IMPRESSION: Diverticulosis without evidence of diverticulitis. Small nonobstructing right renal calculus. Mild urinary bladder wall thickening. Fleischner guidelines were followed. Venous Duplex 07/06/23 02:20 IMPRESSION: No DVT demonstrated in the bilateral lower extremities. Assessment and Plan (1) Bilateral foot pain: Status: Acute (2) CAD (coronary artery disease): Qualifiers: Coronary Disease-Associated Artery/Lesion type: unspecified vessel or lesion type [place] vs. transplanted heart: [place] heart Associated angina: w [facility] angina Qualified Code(s): I25.10 - Atherosclerotic heart disease of [place] coronary artery without angina pectoris Status: Acute (3) Diabetes type 2, controlled: Qualifiers: Diabetes mellitus prison insulin use: without long term care phlebotomist use Diabetes mellitus complication status: without complication Qualified Code(s): E11.9 - Type 2 diabetes mellitus without complications Status: Acute Plan 72-year-old male with past medical history my cholesterol,kidney steones presents to ED for multiple complaints such as bilateral foot pain, mild hematuria, and painful to walk on feet, and bilateral flank pain. Unable to ambulate in ER secondary to pain. Workup consistent with a urinalysis demonstrating active urinary sediment likely UTI. 1. Active urinary sediment -admit to general medical floor -ceftriaxone 1 g IV daily (2) -await urine and blood cultures 2. CAD -stable and well compensated -continue current therapies adjust as indicated -cardiology follow-up at [facility] 3. Diabetes type 2 -acceptable control on current therapies -lispro correctional scale -adjust as indicated 4. Bilateral foot pain (over MTPs ) question gout -IV methylprednisolone -follow clinically Full code Lovenox Patient requires 2 midnights going for inpatient stay to treat UTI with IV antibiotics pending cultures. He also will be receiving IV steroids for likely acute gouty flare. This can not be achieved a lesser acute setting Quality Stroke Does the patient have a stroke diagnosis?: No VTE Prior VTE?: No VTE Risk Level:: Medical - moderate - high VTE Device Contraindication: Treatment Not Indicated VTE Drug Contraindication: N/A - Med Ordered
[2023-07-06] MEDS: methylPREDNISolone Sod Succ 125 MG/2 ML VIAL IVPUSH (15:03)
[2023-07-06 15:09] VITALS: BP 126/70; PULSE 95; RESP 16; TEMP 36.9; O2SAT 98
--- NOTE | 2023-07-06 15:11 | PC.NURSE ---
vss and up to date. medication administered per provider order. pt continues to wait for bed assignment at this time. respirations remain even and unlabored. call felix placed within reach.
[2023-07-06] MEDS: Furosemide 20 MG TABLET PO (16:39)
[2023-07-06] MEDS: Atorvastatin Calcium 20 MG TABLET PO (16:39)
[2023-07-06] MEDS: Spironolactone 25 MG TABLET 12.5 MG PO (16:39)
--- NOTE | 2023-07-06 16:42 | PC.NURSE ---
medication administered per provider order.
--- NOTE | 2023-07-06 18:01 | PC.NURSE ---
pt resting comfortably w/ eyes closed/in no apparent distress at this time. respirations remain even and unlabored. plan of care ongoing. call felix placed within reach.
[2023-07-06 18:44] VITALS: BP 117/67; PULSE 98; RESP 16; TEMP 37.4; O2SAT 96
[2023-07-06] MEDS: methylPREDNISolone Sod Succ 125 MG/2 ML VIAL 60 MG IVPUSH (20:34)
[2023-07-06 22:25] VITALS: BP 120/62; PULSE 99; RESP 18; TEMP 36.6; O2SAT 93
[2023-07-06] MEDS: oxyCODONE HCl Immed Release 5 MG TABLET PO (23:09)
[2023-07-07] VITALS: BP 116/55; PULSE 104; RESP 16; TEMP 36.8; O2SAT 95
[2023-07-07] MEDS: methylPREDNISolone Sod Succ 125 MG/2 ML VIAL 60 MG IVPUSH ×4 (02:06→21:21)
[2023-07-07 03:07] VITALS: BP 116/63; PULSE 96; RESP 16; TEMP 36.3; O2SAT 93
[2023-07-07] MEDS: Heparin Sodium,Porcine 5,000 UNIT/ML VIAL 5000 UNIT SUBCUT ×3 (06:06→21:08)
[2023-07-07 06:37] LABS: MANUAL DIFF FLAG NO
[2023-07-07 06:41] LABS: Basophils Percent Auto 0.1 % (0-2); Hematocrit 44.3 % (42.0-52.0); Hemoglobin 14.9 g/dl (14.0-18.0); Imm Gran Abs Auto 0.17 X10*3/uL (0.00-0.03); Imm Gran Pct Auto 0.9 % (0.0-0.4); Lymphocytes Absolute Auto 1.3 X10*3/uL (1.2-4.9); Lymphocytes Percent Auto 6.9 % (20-40); Mean Corpuscular HGB Conc 33.6 g/dl (31.0-36.0); Mean Corpuscular Hemoglobin 29.4 pg (27.0-33.0); Mean Corpuscular Volume 87.4 fL (80.0-98.0); Mean Platelet Volume 11.3 fL (9.4-12.4); Monocytes Absolute Auto 0.5 X10*3/uL (0.1-1.2); Monocytes Percent Auto 2.9 % (2-11); Neutrophils Absolute Auto 16.7 x10*3/uL (2.0-8.3); Neutrophils Percent Auto 89.2 % (45-73); Platelet Count 239 X10*3/uL (160-400); Red Blood Count 5.07 X10*6/uL (4.60-5.80); Red Cell Distribution Width 13.4 % (11.0-16.0); White Blood Count 18.7 X10*3/uL (4.8-10.8)
[2023-07-07 06:54] VITALS: BP 127/60; PULSE 84; RESP 16; TEMP 36.1; O2SAT 93
[2023-07-07 07:04] LABS: Alanine Aminotransferase 17 U/L (0-40); Albumin Level 3.3 g/dL (3.5-5.0); Alkaline Phosphatase 63 U/L (39-117); Anion Gap 12 (12-20); Aspartate Amino Transferase 15 U/L (5-37); Bilirubin Total 0.6 mg/dL (0.0-1.0); Blood Urea Nitrogen 29 mg/dL (9-16); Calcium 9.4 mg/dL (8.4-10.2); Carbon Dioxide 22 mmol/L (22-29); Chloride 103 mmol/L (96-108); Creatinine Clr Calc Pharmacy 88.2; Estimated Glomerular Filt Rate > 60; Glucose Random 205 mg/dL (60-115); Potassium 4.2 mmol/L (3.3-5.1); Sodium 133 mmol/L (135-145); Total Protein 7.3 g/dL (6.5-8.0)
[2023-07-07] MEDS: cefTRIAXone sodium 1 GM in 0.9 % Sodium Chloride 50 ML IV (07:52)
[2023-07-07] MEDS: 0.9 % Sodium Chloride Flush 3 ML SYRINGE IVFLUSH ×3 (07:52→21:06)
[2023-07-07] MEDS: Spironolactone 25 MG TABLET 12.5 MG PO (07:55)
[2023-07-07] MEDS: Empagliflozin 10 MG TABLET PO (07:55)
[2023-07-07] MEDS: Atorvastatin Calcium 20 MG TABLET PO (07:56)
[2023-07-07] MEDS: Sacubitril/Valsartan 49/51 1 TAB TABLET PO ×2 (07:56→21:20)
[2023-07-07] MEDS: carvediloL 6.25 MG TABLET PO ×2 (07:56→21:19)
[2023-07-07] MEDS: Furosemide 20 MG TABLET PO (07:57)
[2023-07-07] MEDS: Fluticasone/Vilanterol 100/25 BLST.W.DEV 1 PUFF INHALE (08:18)
[2023-07-07 08:21] VITALS: PULSE 84; RESP 16
--- NOTE | 2023-07-07 12:54 | MHC.CM.PN ---
PER MEDICAL ROUNDS, PLAN IS DC HOME BY TOMORROW (07/08/23) PENDING CULTURES.
--- NOTE | 2023-07-07 15:05 | HO.PM.IMPN ---
Subjective Subjective Date of Service: 07/07/23 Interval History: Notes marked improvement in foot pain overnight with steroid; able to ambulate with walker Review of Systems Denies chest pain Denies shortness of breath Denies nausea vomiting diarrhea Denies fever chills Physical Exam Vital Signs: Vital Signs: Last Vital Signs Temp 97 F 07/07/23 06:54 Pulse 84 07/07/23 06:54 Resp 16 07/07/23 08:21 BP 127/60 07/07/23 06:54 Pulse Ox 93 07/07/23 06:54 O2 Del Method Room Air 07/07/23 06:54 BMI result Body Mass Index 27.2 Const: Other: Awake alert uncomfortable appearing Resp: Other: Clear to auscultation bilaterally no rales rhonchi or wheezes Cardio: Other: No S4; positive S1-S2; no S3 murmurs rubs or gallops GI: Other: Soft nontender nondistended normoactive bowel sounds Extrem: Other: Tender bilaterally right greater than left 1st MTP Objective Data Active Medications Atorvastatin Calcium (Atorvastatin Calcium 20 Mg Tablet) 20 mg PO DAILY [facility] Last Admin: 07/07/23 07:56 Dose: 20 mg Documented By: CLARE Carvedilol (Carvedilol 6.25 Mg Tablet) 6.25 mg PO BID [facility]; Protocol Last Admin: 07/07/23 07:56 Dose: 6.25 mg Documented By: CLARE Empagliflozin (Empagliflozin 10 Mg Tablet) 10 mg PO DAILY [facility] Last Admin: 07/07/23 07:55 Dose: 10 mg Documented By: CLARE Fluticasone/Vilanterol (Fluticasone/Vilanterol 100/25 Blst.W.Dev) 1 puff INHALE RDAILY [facility] Last Admin: 07/07/23 08:18 Dose: 1 puff Documented By: BABS Furosemide (Furosemide 20 Mg Tablet) 20 mg PO DAILY [facility]; Protocol Last Admin: 07/07/23 07:57 Dose: 20 mg Documented By: CLARE Heparin Sodium (Porcine) (Heparin Sodium,Porcine 5,000 Unit/Ml Vial) 5,000 unit SUBCUT Q8H [facility] Last Admin: 07/07/23 13:43 Dose: 5,000 unit Documented By: CLARE Ceftriaxone Sodium 1 gm/ (Sodium Chloride) 50 mls @ 100 mls/hr IV Q24H [facility] Last Infusion: 07/07/23 09:29 Dose: Infused Documented By: CLARE Methylprednisolone Sodium Succinate (Methylprednisolone Sod Succ 125 Mg/2 Ml Vial) 60 mg IVPUSH Q6H [facility] Last Admin: 07/07/23 13:43 Dose: 60 mg Documented By: CLARE Oxycodone HCl (Oxycodone Hcl Immed Release 5 Mg Tablet) 5 mg PO Q4H PRN PRN Reason: Pain, Moderate(Pain Scale 4-6) Last Admin: 07/06/23 23:09 Dose: 5 mg Documented By: TONY Sacubitril/Valsartan (Sacubitril/Valsartan 49/51 1 Tab Tablet) 1 tab PO BID [facility]; Protocol Last Admin: 07/07/23 07:56 Dose: 1 tab Documented By: CLARE Sodium Chloride (0.9 % Sodium Chloride Flush 3 Ml Syringe) 3 ml IVFLUSH QSHIFT [facility] Last Admin: 07/07/23 07:52 Dose: 3 ml Documented By: CLARE Spironolactone (Spironolactone 25 Mg Tablet) 12.5 mg PO DAILY [facility]; Protocol Last Admin: 07/07/23 07:55 Dose: 12.5 mg Documented By: CLARE Labs 07/07/23 06:06 07/07/23 06:06 Labs: Laboratory Results - last 24 hr 07/07/23 06:06 MCV 87.4 MCH 29.4 MCHC 33.6 RDW 13.4 Plt Count 239 D MPV 11.3 Immature Gran % (Auto) 0.9 H Neut % (Auto) 89.2 H Lymph % (Auto) 6.9 L [place] % (Auto) 2.9 Eos % (Auto) 0.0 Baso % (Auto) 0.1 Lymph # (Auto) 1.3 [place] # (Auto) 0.5 Eos # (Auto) 0.0 Baso # (Auto) 0.0 Abs Immat Gran (auto) 0.17 H Absolute Neuts (auto) 16.7 H Absolute Nucleated RBC 0.000 Nucleated RBC % (auto) 0.0 Anion Gap 12 Estim Creat Clear Calc 88.2 Estimated GFR > 60 Random Glucose 205 H Calcium 9.4 D Total Bilirubin 0.6 AST 15 ALT 17 Alkaline Phosphatase 63 Total Protein 7.3 Albumin 3.3 L Microbiology Microbiology Results: Microbiology 07/06/23 Unknown Urine Culture - Preliminary Urine clean catch - Urine brownlee top Enterococcus/Streptococcus sp 07/06/23 06:22 Blood Culture - Preliminary Blood - Venous No growth after 24 hours. 07/06/23 06:22 Blood Culture - Preliminary Blood - Venous No growth after 24 hours. Assessment and Plan (1) UTI (urinary tract infection): Status: Acute (2) Bilateral foot pain: Status: Acute Plan 72-year-old male with past medical history my cholesterol,kidney steones presents to ED for multiple complaints such as bilateral foot pain, mild hematuria, and painful to walk on feet, and bilateral flank pain. Unable to ambulate in ER secondary to pain. Workup consistent with a urinalysis demonstrating active urinary sediment likely UTI. 1. UTI; prelim Enterococcus/Streptococcus -ceftriaxone 1 g IV daily (2) -await urine and blood cultures 2. CAD -stable and well compensated -continue current therapies adjust as indicated -cardiology follow-up at [facility] 3. Diabetes type 2 -acceptable control on current therapies -lispro correctional scale -adjust as indicated 4. Bilateral foot pain (over MTPs ) likely gout given response to steroids -IV methylprednisolone with good results -follow clinically Full code Myranox Requires ongoing hospitalization for IV antibiotics pending identification of urological pathogen and IV steroids for acute gouty inflammation Quality Stroke Does the patient have a stroke diagnosis?: No VTE Prior VTE?: No VTE Risk Level:: Medical - moderate - high VTE Device Contraindication: Treatment Not Indicated VTE Drug Contraindication: N/A - Med Ordered
[2023-07-07 15:49] VITALS: BP 109/64; PULSE 92; RESP 18; TEMP 36.6; O2SAT 92
[2023-07-07 19:47] VITALS: BP 135/63; PULSE 96; RESP 18; TEMP 36.5; O2SAT 93
[2023-07-08] MEDS: methylPREDNISolone Sod Succ 125 MG/2 ML VIAL 60 MG IVPUSH ×3 (02:23→13:38)
[2023-07-08 03:03] VITALS: BP 129/72; PULSE 79; RESP 16; TEMP 36.1; O2SAT 94
[2023-07-08] MEDS: Heparin Sodium,Porcine 5,000 UNIT/ML VIAL 5000 UNIT SUBCUT (06:20)
[2023-07-08 06:32] LABS: Basophils Percent Auto 0.2 % (0-2); Hematocrit 44.5 % (42.0-52.0); Hemoglobin 15.3 g/dl (14.0-18.0); Imm Gran Abs Auto 0.17 X10*3/uL (0.00-0.03); Imm Gran Pct Auto 0.7 % (0.0-0.4); Lymphocytes Absolute Auto 1.1 X10*3/uL (1.2-4.9); Lymphocytes Percent Auto 4.4 % (20-40); MANUAL DIFF FLAG SCAN; Mean Corpuscular HGB Conc 34.4 g/dl (31.0-36.0); Mean Corpuscular Hemoglobin 29.7 pg (27.0-33.0); Mean Corpuscular Volume 86.4 fL (80.0-98.0); Monocytes Absolute Auto 0.8 X10*3/uL (0.1-1.2); Monocytes Percent Auto 3.1 % (2-11); Neutrophils Absolute Auto 22.5 x10*3/uL (2.0-8.3); Neutrophils Percent Auto 91.6 % (45-73); Platelet Count 375 X10*3/uL (160-400); Red Blood Count 5.15 X10*6/uL (4.60-5.80); Red Cell Distribution Width 13.5 % (11.0-16.0); SCAN SMEAR FLAG 1; White Blood Count 24.6 X10*3/uL (4.8-10.8)
[2023-07-08 06:46] LABS: Alanine Aminotransferase 41 U/L (0-40); Albumin Level 3.4 g/dL (3.5-5.0); Alkaline Phosphatase 72 U/L (39-117); Anion Gap 14 (12-20); Aspartate Amino Transferase 35 U/L (5-37); Bilirubin Total 0.3 mg/dL (0.0-1.0); Blood Urea Nitrogen 35 mg/dL (9-16); Calcium 9.4 mg/dL (8.4-10.2); Carbon Dioxide 19 mmol/L (22-29); Chloride 107 mmol/L (96-108); Creatinine Clr Calc Pharmacy 96.3; Estimated Glomerular Filt Rate > 60; Glucose Fasting 181 mg/dL (60-99); Potassium 3.9 mmol/L (3.3-5.1); Sodium 136 mmol/L (135-145); Total Protein 7.3 g/dL (6.5-8.0)
[2023-07-08 06:49] LABS: SLIDE REVIEW VERIFIED
[2023-07-08 07:08] VITALS: BP 132/74; PULSE 76; RESP 14; TEMP 36.3; O2SAT 95
[2023-07-08] MEDS: cefTRIAXone sodium 1 GM in 0.9 % Sodium Chloride 50 ML IV (08:11)
[2023-07-08] MEDS: Spironolactone 25 MG TABLET 12.5 MG PO (08:11)
[2023-07-08] MEDS: Empagliflozin 10 MG TABLET PO (08:12)
[2023-07-08] MEDS: Furosemide 20 MG TABLET PO (08:12)
[2023-07-08] MEDS: carvediloL 6.25 MG TABLET PO (08:12)
[2023-07-08] MEDS: Atorvastatin Calcium 20 MG TABLET PO (08:12)
[2023-07-08] MEDS: Sacubitril/Valsartan 49/51 1 TAB TABLET PO (08:13)
[2023-07-08] MEDS: 0.9 % Sodium Chloride Flush 3 ML SYRINGE IVFLUSH (08:14)
[2023-07-08 09:12] VITALS: PULSE 88; RESP 18; O2SAT 94
[2023-07-08] MEDS: Fluticasone/Vilanterol 100/25 BLST.W.DEV 1 PUFF INHALE (09:12)
--- NOTE | 2023-07-08 13:08 | P.DS_ITS ---
DS: Providers Provider Date of Service: 07/08/23 Date of admission: 07/06/23 06:08 Date of discharge: 07/08/23 Primary care physician: Beatriz Bee MD Attending physician on discharge: Anthony Tesfaye Discharging clinician: Janel Padilla DS: Diagnosis Discharge Diagnosis (1) UTI (urinary tract infection): Status: Acute (2) Bilateral foot pain: Status: Acute DS: Summary Hospital Course Hospital Course: From H&P on the day of admission 72-year-old male with past medical history my cholesterol, CHF, kidney steones presents to ED for multiple complaints such as bilateral foot pain, mild hematuria, and painful to walk on feet, and bilateral flank pain. Patient denies any recent trauma, chest pain, shortness of breath, weakness, or dizziness. When questioned, does endorse history of gout. In the emergency room workup consistent with active urinary sediment. Attempted to ambulate patient on successfully. Given history of gout, 1 dose methy lprednisolone and morphine for pain. UTI growing Enterococcus faecalis CT with small nonobstructing right renal calculus. No sepsis. Initially treated with IV ceftriaxone. UTI grew enterococcus faecalis 50,000 to 1000,000 CFU but due to symptoms of dysuria will treat with course of antibiotics. allergy to Levaquin and penicillin. Blood cultures negative to date. Has outpatient follow-up with urologist next week. Will discharge to complete course of antibiotics. White count trending up likely due to steroids. has remained afebrile. Bilateral foot pain likely gout given response to steroids Initially treated with IV Solu-Medrol. Will discharge with course of prednisone. Will recommend outpatient follow-up with PCP. Time Attestation Discharge Coordination Time (in mins): 35 Quality: Safe Use of Opioids Does Pt have an Active Cancer Diagnosis on the Problem List?: No Quality: Stroke Does the patient have a stroke diagnosis?: No Physical Exam Vital Signs: Vital Signs: Last Vital Signs Temp 97.3 F 07/08/23 07:08 Pulse 76 07/08/23 07:08 Resp 18 07/08/23 09:12 BP 132/74 07/08/23 07:08 Pulse Ox 95 07/08/23 07:08 O2 Del Method Room Air 07/08/23 07:08 BMI result Body Mass Index 27.2 Const: General: cooperative, comfortable, no acute distress, alert and awake Nutritional Appearance: average body habitus Orientation/consciousness: patient oriented x3 Resp: Effort & Inspection: normal respiratory effort, able to speak in complete sentences, no respiratory distress and no use of accessory muscles Cardio: Rate: regular rate GI: Inspection: No distended Palpation (GI): Soft to palpation and nontender Neuro: General: patient oriented x3, moves all extremities and CN's II-XI intact bilaterally Extrem: General: Yes no pedal edema DS: Data Data Completed and Pending Labs on day of discharge: Laboratory Results - last 24 hr 07/08/23 06:13 WBC 24.6 H RBC 5.15 Hgb 15.3 Hct 44.5 MCV 86.4 MCH 29.7 MCHC 34.4 RDW 13.5 Plt Count 375 D MPV 10.0 Immature Gran % (Auto) 0.7 H Neut % (Auto) 91.6 H Lymph % (Auto) 4.4 L [place] % (Auto) 3.1 Eos % (Auto) 0.0 Baso % (Auto) 0.2 Lymph # (Auto) 1.1 L [place] # (Auto) 0.8 Eos # (Auto) 0.0 Baso # (Auto) 0.0 Abs Immat Gran (auto) 0.17 H Absolute Neuts (auto) 22.5 H Absolute Nucleated RBC 0.000 Nucleated RBC % (auto) 0.0 Smear Tech's Comments VERIFIED Sodium 136 Potassium 3.9 Chloride 107 Carbon Dioxide 19 L Anion Gap 14 BUN 35 H Creatinine 0.76 Estim Creat Clear Calc 96.3 Estimated GFR > 60 Fasting Glucose 181 H Calcium 9.4 Total Bilirubin 0.3 AST 35 ALT 41 H Alkaline Phosphatase 72 Total Protein 7.3 Albumin 3.4 L Preliminary micro results at discharge 07/06/23 06:22 Blood Culture - Preliminary Blood - Venous No growth after 48 hours. 07/06/23 06:22 Blood Culture - Preliminary Blood - Venous No growth after 48 hours. Discharge Plan Discharge Anticipated Discharge Date/Time: 07/08/23 13:16 Patient Disposition: Home, Self-Care Discharge Diagnosis: UTI bilateral foot pain possible gout Referrals: Beatriz Bee MD [Primary Care Provider] - 1 Week Discharge Medications: New nitrofurantoin monohyd/m-cryst [Macrobid] 100 mg capsule 100 mg PO Q12H 10 Days Qty: 20 0RF Rx Instructions: must administer with a meal/food prednisone 10 mg tablet See Taper PO DIRECTED Qty: 30 0RF Taper: Prednisone 40 mg daily for 3 Days and 0 Hour 30 mg daily for 3 Days and 0 Hour 20 mg daily for 3 Days and 0 Hour 10 mg daily for 3 Days and 0 Hour Rx Instructions: see taper instructions Continued carvedilol 6.25 mg tablet 6.25 mg PO BID Entresto 49-51 mg tablet 1 tab PO BID furosemide 20 mg tablet 20 mg PO DAILY fluticasone propion-salmeterol [[place] Inhub] 100-50 mcg/dose blister with device 1 ea inhalation BID Farxiga 10 mg tablet 10 mg PO DAILY atorvastatin 20 mg tablet 20 mg PO DAILY spironolactone 25 mg tablet 12.5 mg PO DAILY tiotropium bromide 18 mcg capsule, w/inhalation device 1 cap inhalation DAILY Discharge Orders: Discharge Order (Routine); Ordered 07/08/23 Ordered By: Janel Padilla Activity on Discharge: As tolerated Print Language: Hungarian Care Plan Goals: see below Health Concerns: UTI probable gout Plan of Treatment: Complete course of antibiotics as prescribed Take prednisone as prescribed for possible gout Keep follow-up appointment with urologist Call to schedule follow-up appointment with PCP Assessment: see discharge summary Patient Instructions: Urinary Tract Infection in Men (ED), Arthralgia (ED), Heel Spur (ED)
--- NOTE | 2023-07-08 13:52 | MHC.CM.PN ---
PT CLEARED TO DC HOME TODAY WITH NO SERVICES
--- NOTE | 2023-07-09 04:04 | PM.EVENT ---
Event Note Date of Service: 07/09/23 Event Note: 3:50 AM - I contacted Mr. Matute after I was informed that BC X1 growing gram (+) cocci in clusters. I advised him to return to the emergency department to repeat his blood culture and treatment empirically. He agreed and told me he will come back to the hospital for further evaluation and treatment. Time Spent With Patient Time: Total time managing care of this patient today ____ minutes.
== END 2023-07-08 14:30 | disposition home or self-care (01) | DRG 554 ==
LOC: HO.ED 07-06 06:11 → HO.EDOVER 07-06 06:14 → HO.S3 07-06 20:10
PROVIDERS: Emergency Medicine; Hospitalist; Physician Assistant Medical; Admitting Provider Internal Medicine; Emergency Provider Internal Medicine; PCP Internal Medicine; Visit Provider Physician Assistant Medical
DX: M10.9 Gout, unspecified (principal); N39.0 Urinary tract infection, site not specified; R78.81 Bacteremia; R31.9 Hematuria, unspecified; E11.9 Type 2 diabetes mellitus without complications; I25.10 Atherosclerotic heart disease of native coronary artery without angina pectoris; B95.2 Enterococcus as the cause of diseases classified elsewhere; Z20.822 Contact with and (suspected) exposure to COVID-19; Z87.891 Personal history of nicotine dependence; Z88.0 Allergy status to penicillin; Z79.51 Long term (current) use of inhaled steroids; Z79.899 Other long term (current) drug therapy
CPT/HCPCS: 0241U; 36415; 73590; 73620; 74176; 80053; 81001; 83605; 83735; 84484; 85025; 87040; 87086; 87088; 87147; 87186; 87205; 93005; 93970; 94640; 99285; J0696; J1644; J2270; J2930; J3370

== ENCOUNTER → 2023-07-06 02:24 | Outpatient (BNV) | payer MEDICARE, BC, SELFPAY | PROVIDERS: Admitting Provider Internal Medicine; Emergency Provider Internal Medicine; Visit Provider Internal Medicine | DX: M79.671 Pain in right foot (principal); M79.672 Pain in left foot | CPT/HCPCS: 93010 ==

== ENCOUNTER → 2023-07-06 06:08 | Outpatient (BNV) | payer MEDICARE, BC, SELFPAY | PROVIDERS: Admitting Provider Internal Medicine; Emergency Provider Internal Medicine; Visit Provider Hospitalist | DX: N39.0 Urinary tract infection, site not specified (principal); M79.671 Pain in right foot; M79.672 Pain in left foot | CPT/HCPCS: 99222; 99223; 99239 ==

== ENCOUNTER 2023-07-09 04:46 | Inpatient (IN) | payer MEDICARE, BC, SELFPAY ==
[2023-07-09] VITALS (7 sets, daily range): BP systolic 109–137; BP diastolic 58–82; PULSE 52–83; RESP 16–20; TEMP 36.1–36.4; O2SAT 94–97; BMI 26.5; BMI 26.0
--- NOTE | 2023-07-09 04:51 | ED_ITS ---
HPI - Male Genitourinary General Chief complaint: Recheck/Abnormal Lab/Rx Stated complaint: abnormal labs Time Seen by Provider: 07/09/23 04:48 Source: patient Mode of arrival: ambulatory History of Present Illness HPI Narrative: 72-year-old male who was called back in for bacteremia from a urinary source, patient states that he has not been feeling very well. Related Data Home Medications Medication Instructions Recorded Confirmed atorvastatin 20 mg tablet 20 mg PO DAILY 05/12/23 07/09/23 dapagliflozin propanediol 10 mg 10 mg PO DAILY 05/12/23 07/09/23 tablet (Farxiga) fluticasone 100 mcg-salmeterol 50 1 ea inhalation BID 05/12/23 07/09/23 mcg/dose blistr powdr for inhalation (Wixela Inhub) furosemide 20 mg tablet 20 mg PO DAILY 05/12/23 07/09/23 sacubitril 49 mg-valsartan 51 mg 1 tab PO BID 05/12/23 07/09/23 tablet (Entresto) spironolactone 25 mg tablet 12.5 mg PO DAILY 05/12/23 07/09/23 tiotropium bromide 18 mcg capsule 1 cap inhalation DAILY 05/12/23 07/09/23 with inhalation device carvedilol 6.25 mg tablet 6.25 mg PO BID 07/06/23 07/09/23 Previous Rx's Medication Instructions Recorded nitrofurantoin 100 mg PO Q12H 10 days #20 caps 07/08/23 monohydrate/macrocrystals 100 mg capsule (Macrobid) prednisone 10 mg tablet See Taper PO DIRECTED #30 tabs 07/08/23 Allergies Allergy/AdvReac Type Severity Reaction Status Date / Time meperidine [From Demerol] Allergy Intermediate Rash Verified 07/09/23 04:51 levofloxacin Allergy Swelling Verified 07/09/23 04:51 Penicillins Allergy Unknown Verified 07/09/23 04:51 Review of Systems 2 Review of Systems: Pertinent positives and negatives as stated in HPI [facility] Past Medical History Source: nursing notes reviewed Surgical History Hx of cardiac catheterization (~05/2021) Social History Social History Household Members: Spouse Housing: Apartment Do you presently have visiting nurse or other home services: No Alcohol intake: never Patient Tobacco Use Status: Former Tobacco user Smoked in Last 30 Days: No Use of substances other than those prescribed or required for medical reasons: No Advance Directives: Yes Advance Directives Information Provided: Yes Advance Directives on File: No Nutrition Risks: No Nutritional Risk service: No Physical Exam 2 Vital Signs: Vital Signs: Last Vital Signs Temp 97.5 F 07/09/23 04:51 Pulse 79 07/09/23 04:51 Resp 20 07/09/23 04:51 BP 117/74 07/09/23 04:51 Pulse Ox 94 07/09/23 04:51 O2 Del Method Room Air 07/09/23 04:51 BMI result Body Mass Index 26.5 VITAL SIGNS: Reviewed. GENERAL: Well developed, well nourished, in no acute distress. HEAD: Normocephalic/atraumatic EYES: PERRLA, EOMI LUNGS: Normal breath sounds. No adventitious sounds or accessory muscle use. SpO2<94> CARDIOVASCULAR: Regular rate and rhythm without noted murmurs ABDOMEN: Soft, non-tender, non-distended with bowel sounds. MUSCULOSKELETAL: No tenderness, deformities, or effusions noted on gross inspection. EXTREMITIES: No cyanosis, clubbing or edema. SKIN: Inspection of the skin reveals no rashes NEUROLOGIC: Alert and oriented x 4. Strength and sensation to light touch were grossly intact x 4. Medical Decision Making Medical Decision Making [facility] Narrative: 72-year-old male with history and clinical presentation consistent with bacteremia secondary to urinary tract infection, lactic acid/blood culture/antibiotics ordered and initiated. Inpatient hospitalist is currently at bedside and has admitted the patient. Differential Diagnosis Differential Diagnoses: The differential diagnosis associated with the presentation includes Please see the discussion above Admission/Observation Consideration of admission/observation: Escalation of care including admission/observation considered Please see the discussion Consult Healthcare Provider Management of the patient was discussed with: Hospitalist Please see the discussion above Lab Data [facility] Lab Attestation statement: I reviewed the patient's lab results. Please see the discussion above 07/09/23 05:20 07/09/23 05:20 Labs: Lab Results 07/09/23 Range/Units 05:20 WBC 17.0 H (4.8-10.8) X10*3/uL RBC 5.29 (4.60-5.80) X10*6/uL Hgb 15.5 (14.0-18.0) g/dl Hct 45.3 (42.0-52.0) % MCV 85.6 (80.0-98.0) fL MCH 29.3 (27.0-33.0) pg MCHC 34.2 (31.0-36.0) g/dl RDW 13.6 (11.0-16.0) % Plt Count 390 (160-400) X10*3/uL MPV 9.9 (9.4-12.4) fL Immature Gran % (Auto) 0.6 H (0.0-0.4) % Neut % (Auto) 88.6 H (45-73) % Lymph % (Auto) 5.3 L (20-40) % [place] % (Auto) 5.1 (2-11) % Eos % (Auto) 0.3 (0-4) % Baso % (Auto) 0.1 (0-2) % Lymph # (Auto) 0.9 L (1.2-4.9) X10*3/uL [place] # (Auto) 0.9 (0.1-1.2) X10*3/uL Eos # (Auto) 0.1 (0.0-0.4) X10*3/uL Baso # (Auto) 0.0 (0.0-0.2) X10*3/uL Abs Immat Gran (auto) 0.10 H (0.00-0.03) X10*3/uL Absolute Neuts (auto) 15.1 H (2.0-8.3) x10*3/uL Absolute Nucleated RBC 0.000 (0.0-0.012) X10*3/uL Nucleated RBC % (auto) 0.0 (0.0-0.2) /100WBC Sodium 138 (135-145) mmol/L Potassium 4.0 (3.3-5.1) mmol/L Chloride 108 (96-108) mmol/L Carbon Dioxide 20 L (22-29) mmol/L Anion Gap 14 (12-20) BUN 31 H (9-16) mg/dL Creatinine 0.83 (0.5-1.4) mg/dL Estim Creat Clear Calc 88.2 Estimated GFR > 60 Random Glucose 155 H (60-115) mg/dL Lactic Acid 1.2 (0.5-2.0) mmol/L Calcium 10.8 H D (8.4-10.2) mg/dL Total Bilirubin 0.5 (0.0-1.0) mg/dL AST 43 H (5-37) U/L ALT 65 H (0-40) U/L Alkaline Phosphatase 63 (39-117) U/L Total Protein 7.4 (6.5-8.0) g/dL Albumin 3.5 (3.5-5.0) g/dL External Record Review External record reviewed: Inpatient record, Outpatient record and Prior outpatient labs Critical Care Time Critical Care Time Critical Care Time: Yes Total Critical Care Time: 30 Attestation: I personally attest to this time spent taking care of the patient. Discharge Plan Discharge Clinical Impression: Acute UTI, Bacteremia Patient Disposition: Admitted As Inpatient
--- NOTE | 2023-07-09 05:12 | PC.NURSE ---
Med rec complete, Pt provided list and able to confirm meds.
[2023-07-09 05:26] LABS: MANUAL DIFF FLAG NO
[2023-07-09 05:27] LABS: Basophils Percent Auto 0.1 % (0-2); Eosinophils Absolute Auto 0.1 X10*3/uL (0.0-0.4); Eosinophils Percent Auto 0.3 % (0-4); Hematocrit 45.3 % (42.0-52.0); Hemoglobin 15.5 g/dl (14.0-18.0); Imm Gran Pct Auto 0.6 % (0.0-0.4); Lymphocytes Absolute Auto 0.9 X10*3/uL (1.2-4.9); Lymphocytes Percent Auto 5.3 % (20-40); Mean Corpuscular HGB Conc 34.2 g/dl (31.0-36.0); Mean Corpuscular Hemoglobin 29.3 pg (27.0-33.0); Mean Corpuscular Volume 85.6 fL (80.0-98.0); Mean Platelet Volume 9.9 fL (9.4-12.4); Monocytes Absolute Auto 0.9 X10*3/uL (0.1-1.2); Monocytes Percent Auto 5.1 % (2-11); Neutrophils Absolute Auto 15.1 x10*3/uL (2.0-8.3); Neutrophils Percent Auto 88.6 % (45-73); Platelet Count 390 X10*3/uL (160-400); Red Blood Count 5.29 X10*6/uL (4.60-5.80); Red Cell Distribution Width 13.6 % (11.0-16.0)
[2023-07-09 05:37] LABS: Lactic Acid 1.2 mmol/L (0.5-2.0)
[2023-07-09 05:42] LABS: Alanine Aminotransferase 65 U/L (0-40); Albumin Level 3.5 g/dL (3.5-5.0); Alkaline Phosphatase 63 U/L (39-117); Anion Gap 14 (12-20); Aspartate Amino Transferase 43 U/L (5-37); Bilirubin Total 0.5 mg/dL (0.0-1.0); Blood Urea Nitrogen 31 mg/dL (9-16); Calcium 10.8 mg/dL (8.4-10.2); Carbon Dioxide 20 mmol/L (22-29); Chloride 108 mmol/L (96-108); Creatinine Clr Calc Pharmacy 88.2; Estimated Glomerular Filt Rate > 60; Glucose Random 155 mg/dL (60-115); Sodium 138 mmol/L (135-145); Total Protein 7.4 g/dL (6.5-8.0)
[2023-07-09] MEDS: vancomycin/NS 2,000 MG/500 ML PLAST..BAG 250 MG IV (05:46)
--- NOTE | 2023-07-09 07:06 | PHA.PROG ---
Admission Date/Time: July 09, 2023 05:23 Indication: Bacteremia Weight in k.6 kg Adjusted body weight in Kg: [place] body weight in Kg: Obesity Dosing Indication % IBW: Serum Creatinine - Last 168 Hours 07/09/23 05:20 Creatinine 0.83 Estimated CrCl and GFR - Last 168 Hours 07/09/23 05:20 Estim Creat Clear Calc 88.2 Estimated GFR > 60 Vancomycin Loading Dose: 2000mg x 1 Current Vancomycin Dosing Regimen: 1000mg Q12H Vancomycin Monitoring using AUC goal of 400 - 600 range with trough as surrogate marker: 515 mg/L Date and Time for next Vancomycin Level to be drawn: 07/09 @1600 Pharmacist Comments on Vancomycin Plan: predicted trough of 16.5 mg/L; will continue to monitor renal function and adjust as necessary Vancomycin dosing will take advantage of [employer] as a clinical decision support tool that uses Bayesian modeling to calculate individual patient's pharmacokinetic parameters and forecast the patient's drug concentration time course with the target goal AUC 24 range of 400 - 600 mg/L/hr.
--- NOTE | 2023-07-09 07:15 | PHA.MEDREC ---
Pharmacy Consult ? Medication Reconciliation Pharmacy has reviewed the medication reconciliation.
--- NOTE | 2023-07-09 07:36 | PM.IMHP ---
History of Present Illness Date of Service: 07/09/23 Attending physician on admission: Bora Leo Chief Complaint: Abnormal blood culture Alfonzo Matute he is a 72 years old man with past medical history significant CHF, CAD, type 2 diabetes mellitus and hypercholesterolemia presents to emergency department after he was found to have Gram-positive cocci in clusters in a recent blood culture. He was recently hospitalized with diagnosis of urinary tract infection secondary to Enterococcus. He stated that he has not been feeling very well and has generalized weakness. He did not report any headache, shortness of breath, chest pain or palpitations He did receive IV steroids during recent hospitalization for presumed gout to his ankles. There is no fever or chills. In the ED, he was found to have normal vital signs. Blood workup showed leukocytosis, 17.0. Hemoglobin and lipase are normal. Transaminases slightly elevated. There is no lactic acidosis. Review of Systems Review of Systems: All 12 systems were reviewed and normal except as noted in HPI. [facility] Surgical History Hx of cardiac catheterization (~05/2021) Social History Household Members: Spouse Housing: Apartment Do you presently have visiting nurse or other home services: No Alcohol intake: never Patient Tobacco Use Status: Former Tobacco user Tobacco use type: Cigarette Smoked in Last 30 Days: No Second Hand Smoke Exposure: No Use of substances other than those prescribed or required for medical reasons: No Currently Displaying Signs/Symptoms of Drug Intoxication Withdrawal: No Any prior treatment program specific to substance use: No Have you been hit, kicked, punched, or otherwise hurt by someone within the past year? If so, by whom?: No Do you feel safe in your current relationship?: Yes Is there a partner from a previous relationship who is making you feel unsafe now?: No Are you made to feel afraid or neglected: No Advance Directives: Yes Advance Directives Information Provided: Yes Advance Directives on File: No Advance Directives Date on File: 07/09/23 Do you have thoughts of harming others: None Do you have a plan to hurt others: No Plan Recently lost weight without trying: No Eating poorly because of decreased appetite: No Nutrition Risks: No Nutritional Risk Poor oral hygiene: No service: No Meds Allergies Allergy/AdvReac Type Severity Reaction Status Date / Time meperidine [From Demerol] Allergy Intermediate Rash Verified 07/09/23 04:51 levofloxacin Allergy Swelling Verified 07/09/23 04:51 Penicillins Allergy Unknown Verified 07/09/23 04:51 Active Medications: Current Medications Acetaminophen (Acetaminophen 325 Mg Tablet) 650 mg PO Q6H PRN PRN Reason: Pain, Mild (Pain Scale 1-3) Atorvastatin Calcium (Atorvastatin Calcium 20 Mg Tablet) 20 mg PO DAILY [facility] Carvedilol (Carvedilol 6.25 Mg Tablet) 6.25 mg PO BID [facility]; Protocol Empagliflozin (Empagliflozin 10 Mg Tablet) 10 mg PO DAILY [facility] Fluticasone/Vilanterol (Fluticasone/Vilanterol 100/25 Blst.W.Dev) 1 puff INHALE RBID [facility] Furosemide (Furosemide 20 Mg Tablet) 20 mg PO DAILY [facility]; Protocol Vancomycin HCl (Vancomycin/Ns) 2,000 mg in 500 mls @ 250 mls/hr IV ONCE ONE Stop: 07/09/23 07:59 Last Admin: 07/09/23 05:46 Dose: 250 mls/hr Vancomycin HCl 1,000 mg/ (Sodium Chloride) 270 mls @ 270 mls/hr IV Q12H [facility] Pharmacy Consult (Consult Rx Vancomycin Dosing) 1 each MISCELLANE DAILY PRN PRN Reason: Consult order Sacubitril/Valsartan (Sacubitril/Valsartan 49/51 1 Tab Tablet) 1 tab PO BID [facility]; Protocol Sodium Chloride (0.9 % Sodium Chloride Flush 3 Ml Syringe) 3 ml IVFLUSH QSHIFT [facility] Spironolactone (Spironolactone 25 Mg Tablet) 12.5 mg PO DAILY [facility]; Protocol Tiotropium [place] (Tiotropium [place] 2.5 Mcg 1 Puff/2.5 Mcg Mist.Inhal) 2 puff INHALE DAILY [facility] Home Medications Medication Instructions Recorded Confirmed Last Taken Type atorvastatin 20 mg tablet 20 mg PO DAILY 05/12/23 07/09/23 1 Day Ago History ~07/08/23 dapagliflozin propanediol 10 mg 10 mg PO DAILY 05/12/23 07/09/23 1 Day Ago History tablet (Farxiga) ~07/08/23 fluticasone 100 mcg-salmeterol 50 1 ea inhalation BID 05/12/23 07/09/23 1 Day Ago History mcg/dose blistr powdr for ~07/08/23 inhalation (Moiambikaearl Inhleyla) furosemide 20 mg tablet 20 mg PO DAILY 05/12/23 07/09/23 1 Day Ago History ~07/08/23 sacubitril 49 mg-valsartan 51 mg 1 tab PO BID 05/12/23 07/09/23 1 Day Ago History tablet (Entresto) ~07/08/23 spironolactone 25 mg tablet 12.5 mg PO DAILY 05/12/23 07/09/23 1 Day Ago History ~07/08/23 tiotropium bromide 18 mcg capsule 1 cap inhalation DAILY 05/12/23 07/09/23 1 Day Ago History with inhalation device ~07/08/23 carvedilol 6.25 mg tablet 6.25 mg PO BID 07/06/23 07/09/23 1 Day Ago History ~07/08/23 Physical Exam Vital Signs and Narrative: Vital Signs: Last Vital Signs Temp 97.6 F 07/09/23 07:30 Pulse 53 07/09/23 07:30 Resp 18 07/09/23 07:30 BP 120/62 07/09/23 07:30 Pulse Ox 96 07/09/23 07:30 O2 Del Method Room Air 07/09/23 07:30 BMI result Body Mass Index 26.0 Results Labs 07/09/23 05:20 07/09/23 05:20 Labs: Laboratory Results - last 24 hr 07/09/23 05:20 MCV 85.6 MCH 29.3 MCHC 34.2 RDW 13.6 Plt Count 390 MPV 9.9 Immature Gran % (Auto) 0.6 H Neut % (Auto) 88.6 H Lymph % (Auto) 5.3 L [place] % (Auto) 5.1 Eos % (Auto) 0.3 Baso % (Auto) 0.1 Lymph # (Auto) 0.9 L [place] # (Auto) 0.9 Eos # (Auto) 0.1 Baso # (Auto) 0.0 Abs Immat Gran (auto) 0.10 H Absolute Neuts (auto) 15.1 H Absolute Nucleated RBC 0.000 Nucleated RBC % (auto) 0.0 Anion Gap 14 Estim Creat Clear Calc 88.2 Estimated GFR > 60 Random Glucose 155 H Lactic Acid 1.2 Calcium 10.8 H D Total Bilirubin 0.5 AST 43 H ALT 65 H Alkaline Phosphatase 63 Total Protein 7.4 Albumin 3.5 Assessment and Plan (1) Bacteremia: Status: Acute (2) Acute UTI: Status: Acute (3) UTI (urinary tract infection): Qualifiers: Urinary tract infection type: acute cystitis Hematuria presence: without hematuria Qualified Code(s): N30.00 - Acute cystitis without hematuria Status: Acute (4) Diabetes type 2, controlled: Qualifiers: Diabetes mellitus layout former insulin use: without layout former use Diabetes mellitus complication status: without complication Qualified Code(s): E11.9 - Type 2 diabetes mellitus without complications Status: Acute (5) CAD (coronary artery disease): Qualifiers: Coronary Disease-Associated Artery/Lesion type: unspecified vessel or lesion type [place] vs. transplanted heart: [place] heart Associated angina: without angina Qualified Code(s): I25.10 - Atherosclerotic heart disease of [place] coronary artery without angina pectoris Status: Acute Plan Alfonzo Matute he is a 72 years old man with past medical history significant CHF, CAD, type 2 diabetes mellitus and hypercholesterolemia Positive blood culture X1: Gram-positive cocci in clusters. Admit to hospitalist service. Blood cultures were repeated -will follow results. Start empiric IV antibiotic therapy with vancomycin. Urinary tract infection secondary to Enterococcus. Continue vancomycin. Type 2 diabetes mellitus. Continue Jardiance. Hyperlipidemia. Continue atorvastatin. Minimal ankle swelling. CAD/cardiomyopathy. Continue Entresto, statin and Coreg. Patient will need hospitalization for at least 2 midnights possible bacteremia tremor with IV antibiotics. Quality Stroke Does the patient have a stroke diagnosis?: No VTE Prior VTE?: No VTE Risk Level:: Medical - moderate - high VTE Device Contraindication: Treatment Not Indicated VTE Drug Contraindication: N/A - Med Ordered
[2023-07-09 07:59] LABS: Appearance Urine Clear; Color Urine Yellow; Glucose Urine UA >=1000 mg/dL (Negative); Leukocyte Esterase Urine Small (1+) (Negative); Nitrite Urine Negative (Negative); PH 5.5 (5.0-9.0); Specific Gravity - Urine >= 1.030 (1.005-1.025); UMIC TRIGGER UACC YES; Urine Blood Negative (Negative); Urine Ketones Negative (Negative); Urine Protein Negative (Neg-Trace)
[2023-07-09 08:02] LABS: Bacteria Urine None Seen (None Seen); Hyaline Casts Urine 0-2 /LPF (0-2); RBC Urine 0-2 /HPF (0-2); Squamous Epithelial Cell Urine 0-2 /HPF (0-2); UACC Culture Trigger YES; WBC Urine >50 /HPF (0-5)
[2023-07-09] MEDS: Sacubitril/Valsartan 49/51 1 TAB TABLET PO ×2 (09:10→20:53)
[2023-07-09] MEDS: Empagliflozin 10 MG TABLET PO (09:10)
[2023-07-09] MEDS: Spironolactone 25 MG TABLET 12.5 MG PO (09:10)
[2023-07-09] MEDS: Furosemide 20 MG TABLET PO (09:10)
[2023-07-09] MEDS: Atorvastatin Calcium 20 MG TABLET PO (09:11)
[2023-07-09] MEDS: carvediloL 6.25 MG TABLET PO ×2 (09:12→20:54)
[2023-07-09] MEDS: 0.9 % Sodium Chloride Flush 3 ML SYRINGE IVFLUSH (09:14)
--- NOTE | 2023-07-09 09:33 | MHC.CM.PN ---
IMM DELIVERED. PATIENT FROM HOME W/ . INDEPENDENT. DENIES USE OF SERVICES OR DME. PCP ANNE MARIE SETH MD PATIENT COMPLETED HCP NAMING AGENTS: 1) STARR AND 2) SON MADISON FLORES [phone] DP: GOAL IS HOME SELF CARE. TO TRANSPORT. CM WILL CONTINUE TO FOLLOW FOR DC NEEDS.
--- NOTE | 2023-07-09 10:19 | MHC.CLN ---
NUTRITION ADDED DM 2000 KCAL TO DIET ORDER. DIET=DIABETIC 2000 KCALS, CARDIAC.
[2023-07-09] MEDS: Fluticasone/Vilanterol 100/25 BLST.W.DEV 1 PUFF INHALE (12:16)
--- NOTE | 2023-07-09 13:19 | P.PNIM_ITS ---
Subjective Subjective Date of Service: 07/09/23 Interval History: seen and examined this morning follow up for bacteremia denies fever, chills; overall feels well Review of Systems Review of Systems: Yes all other systems are reviewed and are negative Constitutional Constitutional: Denies chills and Denies fever(s) Cardiovascular Cardiovascular: Denies chest pain, Denies palpitations and Denies dyspnea Respiratory Respiratory: Denies cough and Denies dyspnea Gastrointestinal Gastrointestinal: Denies abdominal pain Endocrine Endocrine: Denies palpitations Physical Exam 2 Vital Signs: Vital Signs: Last Vital Signs Temp 97.6 F 07/09/23 07:30 Pulse 83 07/09/23 12:16 Resp 16 07/09/23 12:16 BP 120/62 07/09/23 07:30 Pulse Ox 96 07/09/23 07:30 O2 Del Method Room Air 07/09/23 07:30 BMI result Body Mass Index 26.0 Const: General: cooperative, comfortable, no acute distress, alert and awake Nutritional Appearance: average body habitus Orientation/consciousness: p atient oriented x3 Resp: Effort & Inspection: normal respiratory effort, able to speak in complete sentences, no respiratory distress and no use of accessory muscles Cardio: Rate: regular rate GI: Inspection: No distended Palpation (GI): Soft to palpation and nontender Neuro: General: patient oriented x3, moves all extremities and CN's II-XI intact bilaterally Extrem: General: Yes no pedal edema Objective Data Active Medications Acetaminophen (Acetaminophen 325 Mg Tablet) 650 mg PO Q6H PRN PRN Reason: Pain, Mild (Pain Scale 1-3) Atorvastatin Calcium (Atorvastatin Calcium 20 Mg Tablet) 20 mg PO DAILY [facility] Last Admin: 07/09/23 09:11 Dose: 20 mg Documented By: KELLEE Carvedilol (Carvedilol 6.25 Mg Tablet) 6.25 mg PO BID [facility]; Protocol Last Admin: 07/09/23 09:12 Dose: 6.25 mg Documented By: KELLEE Empagliflozin (Empagliflozin 10 Mg Tablet) 10 mg PO DAILY [facility] Last Admin: 07/09/23 09:10 Dose: 10 mg Documented By: KELLEE Fluticasone/Vilanterol (Fluticasone/Vilanterol 100/25 Blst.W.Dev) 1 puff INHALE RBID [facility] Last Admin: 07/09/23 12:16 Dose: 1 puff Documented By: IRIS Furosemide (Furosemide 20 Mg Tablet) 20 mg PO DAILY [facility]; Protocol Last Admin: 07/09/23 09:10 Dose: 20 mg Documented By: KELLEE Vancomycin HCl 1,000 mg/ (Sodium Chloride) 270 mls @ 270 mls/hr IV Q12H [facility] Pharmacy Consult (Consult Rx Vancomycin Dosing) 1 each MISCELLANE DAILY PRN PRN Reason: Consult order Sacubitril/Valsartan (Sacubitril/Valsartan 49/51 1 Tab Tablet) 1 tab PO BID [facility]; Protocol Last Admin: 07/09/23 09:10 Dose: 1 tab Documented By: KELLEE Sodium Chloride (0.9 % Sodium Chloride Flush 3 Ml Syringe) 3 ml IVFLUSH QSHIFT [facility] Last Admin: 07/09/23 09:14 Dose: 3 ml Documented By: KELLEE Spironolactone (Spironolactone 25 Mg Tablet) 12.5 mg PO DAILY [facility]; Protocol Last Admin: 07/09/23 09:10 Dose: 12.5 mg Documented By: KELLEE Comments: Tiotropium [place] (Tiotropium [place] 2.5 Mcg 1 Puff/2.5 Mcg Mist.Inhal) 2 puff INHALE DAILY [facility] Last Admin: 07/09/23 12:17 Dose: Not Given Documented By: IRIS Non-Admin Reason: Med Not Available Labs 07/09/23 05:20 07/09/23 05:20 Labs: Laboratory Results - last 24 hr 07/09/23 07/09/23 05:20 07:48 MCV 85.6 MCH 29.3 MCHC 34.2 RDW 13.6 Plt Count 390 MPV 9.9 Immature Gran % (Auto) 0.6 H Neut % (Auto) 88.6 H Lymph % (Auto) 5.3 L [place] % (Auto) 5.1 Eos % (Auto) 0.3 Baso % (Auto) 0.1 Lymph # (Auto) 0.9 L [place] # (Auto) 0.9 Eos # (Auto) 0.1 Baso # (Auto) 0.0 Abs Immat Gran (auto) 0.10 H Absolute Neuts (auto) 15.1 H Absolute Nucleated RBC 0.000 Nucleated RBC % (auto) 0.0 Anion Gap 14 Estim Creat Clear Calc 88.2 Estimated GFR > 60 Random Glucose 155 H Lactic Acid 1.2 Calcium 10.8 H D Total Bilirubin 0.5 AST 43 H ALT 65 H Alkaline Phosphatase 63 Total Protein 7.4 Albumin 3.5 Urine Color Yellow Urine Appearance Clear Urine pH 5.5 Ur Specific [place] >= 1.030 H Urine Protein Negative Urine Glucose (UA) >=1000 H Urine Ketones Negative Urine Blood Negative Urine Nitrite Negative Ur Leukocyte Esterase Small (1+) H Urine RBC 0-2 Urine WBC >50 H Ur Squamous Epith Cells 0-2 Urine Bacteria None Seen Hyaline Casts 0-2 Assessment and Plan (1) Bacteremia: Status: Acute (2) Acute UTI: Status: Acute Plan This is a 72 year old male with history of CHF, CAD, and hypercholesterolemia, discharged from hospital 07/07 after treatment for UTI/gout and called to return after blood cultures turned positive Bacteremia 1/2 growing Gram-positive cocci in clusters continue IV vancomycin. Urinary tract infection secondary to Enterococcus. Continue vancomycin. gout flare diagnosed previous admission. foot pain improved continue po prednisone taper prilosec for GI ppx Hyperlipidemia. Continue atorvastatin. CAD/cardiomyopathy. Continue Entresto, statin and Coreg, jardiance denies history of DM takes jardiance for heart disease dvt ppx - early ambulation, mechanical devices Patient requires ongoing inpatient stay for possible bacteremia for treatment with IV antibiotics. Quality Stroke Does the patient have a stroke diagnosis?: No VTE Prior VTE?: No VTE Risk Level:: Medical - moderate - high VTE Device Contraindication: Treatment Not Indicated VTE Drug Contraindication: N/A - Med Ordered
[2023-07-09] MEDS: vancomycin HCL 1,000 MG in 0.9 % Sodium Chloride 250 ML 270 MG IV (18:16)
[2023-07-10 03:35] VITALS: BP 102/66; PULSE 60; RESP 18; TEMP 36.3; O2SAT 95
[2023-07-10] MEDS: vancomycin HCL 1,000 MG in 0.9 % Sodium Chloride 250 ML 270 MG IV (05:38)
[2023-07-10] MEDS: Omeprazole 20 MG CAPSULE.DR PO (05:40)
[2023-07-10 05:51] LABS: MANUAL DIFF FLAG NO
[2023-07-10 06:00] LABS: Basophils Percent Auto 0.1 % (0-2); Eosinophils Absolute Auto 0.2 X10*3/uL (0.0-0.4); Eosinophils Percent Auto 1.3 % (0-4); Hematocrit 46.9 % (42.0-52.0); Hemoglobin 15.4 g/dl (14.0-18.0); Imm Gran Abs Auto 0.05 X10*3/uL (0.00-0.03); Imm Gran Pct Auto 0.4 % (0.0-0.4); Lymphocytes Absolute Auto 2.8 X10*3/uL (1.2-4.9); Lymphocytes Percent Auto 24.3 % (20-40); Mean Corpuscular HGB Conc 32.8 g/dl (31.0-36.0); Mean Corpuscular Hemoglobin 29.1 pg (27.0-33.0); Mean Corpuscular Volume 88.5 fL (80.0-98.0); Mean Platelet Volume 9.6 fL (9.4-12.4); Monocytes Absolute Auto 1.3 X10*3/uL (0.1-1.2); Monocytes Percent Auto 11.1 % (2-11); Neutrophils Absolute Auto 7.3 x10*3/uL (2.0-8.3); Neutrophils Percent Auto 62.8 % (45-73); Platelet Count 396 X10*3/uL (160-400); Red Cell Distribution Width 13.8 % (11.0-16.0); White Blood Count 11.7 X10*3/uL (4.8-10.8)
[2023-07-10 07:16] VITALS: BP 123/73; PULSE 62; RESP 18; TEMP 36.1; O2SAT 95
[2023-07-10] MEDS: Tiotropium Bromide 2.5 mcg 1 PUFF/2.5 MCG MIST.INHAL 2 PUFF INHALE (08:25)
[2023-07-10 08:28] VITALS: PULSE 64; RESP 16; O2SAT 96
[2023-07-10] MEDS: 0.9 % Sodium Chloride Flush 3 ML SYRINGE IVFLUSH (09:28)
[2023-07-10] MEDS: Sacubitril/Valsartan 49/51 1 TAB TABLET PO (09:29)
[2023-07-10] MEDS: carvediloL 6.25 MG TABLET PO (09:29)
[2023-07-10] MEDS: predniSONE 20 MG TABLET 40 MG PO (09:29)
[2023-07-10] MEDS: Spironolactone 25 MG TABLET 12.5 MG PO (09:29)
[2023-07-10] MEDS: Atorvastatin Calcium 20 MG TABLET PO (09:29)
[2023-07-10] MEDS: Furosemide 20 MG TABLET PO (09:29)
[2023-07-10] MEDS: Empagliflozin 10 MG TABLET PO (09:29)
--- NOTE | 2023-07-10 10:26 | P.DS_ITS ---
DS: Providers Provider Date of Service: 07/10/23 Date of admission: 07/09/23 05:23 Date of discharge: 07/10/23 Primary care physician: Beatriz Bee MD Attending physician on discharge: Jenny Lizarraga Discharging clinician: Janel Padilla DS: Diagnosis Discharge Diagnosis (1) Bacteremia: Status: Acute (2) Acute UTI: Status: Acute DS: Summary Hospital Course Hospital Course: From H&P on the day of admission Alfonoz Matute he is a 72 years old man with past medical history significant CHF, CAD, type 2 diabetes mellitus and hypercholesterolemia presents to emergency department after he was found to have Gram-positive cocci in clusters in a recent blood culture. He was recently hospitalized with diagnosis of urinary tract infection secondary to Enterococcus. He stated that he has not been feeling very well and has generalized weakness. He did not report any headache, shortness of breath, chest pain or palpitations He did receive IV steroids during recent hospitalization for presumed gout to his ankles. There is no fever or chills. In the ED, he was found to have normal vital signs. Blood workup showed leukocytosis, 17.0. Hemoglobin and lipase are normal. Transaminases slightly elevated. There is no lactic acidosis. Bacteremia. / blood cultures from 07/05 (from previous admission) were positive and growing Gram-positive cocci in clusters, he was initially treated with IV vancomycin. Blood culture ultimately grew coagulase negative staph, likely contaminant. Repeat blood cultures from 07/08 05/21 negative x 24 hours. Patient has remained afebrile and feels weel. White count likely due to steroid use but also trending down to 11.7. Urinary tract infection secondary to Enterococcus. diagnosed on previous admission, treated with vancomycin during this admission. can resume previous antibiotics as previously prescribed. gout flare. diagnosed previous admission. foot pain improved. Can continue po prednisone taper as previously prescribed. mild transaminitis. recommend outpatient follow up with PCP Time Attestation Discharge Coordination Time (in mins): 32 Quality: Safe Use of Opioids Does Pt have an Active Cancer Diagnosis on the Problem List?: No Quality: Stroke Does the patient have a stroke diagnosis?: No Physical Exam Vital Signs: Vital Signs: Last Vital Signs Temp 96.9 F 07/10/23 07:16 Pulse 64 07/10/23 08:28 Resp 16 07/10/23 08:28 BP 123/73 07/10/23 07:16 Pulse Ox 95 07/10/23 07:16 O2 Del Method Room Air 07/10/23 07:16 BMI result Body Mass Index 26.0 Const: General: cooperative, comfortable, no acute distress, alert and awake Nutritional Appearance: average body habitus Orientation/consciousness: patient oriented x3 Resp: Effort & Inspection: normal respiratory effort, able to speak in complete sentences, no respiratory distress and no use of accessory muscles Cardio: Rate: regular rate GI: Inspection: No distended Palpation (GI): Soft to palpation and nontender Neuro: General: patient oriented x3, moves all extremities and CN's II-XI intact bilaterally Extrem: General: Yes no pedal edema DS: Data Data Completed and Pending Labs on day of discharge: Laboratory Results - last 24 hr 07/10/23 05:18 WBC 11.7 H RBC 5.30 Hgb 15.4 Hct 46.9 MCV 88.5 MCH 29.1 MCHC 32.8 RDW 13.8 Plt Count 396 MPV 9.6 Immature Gran % (Auto) 0.4 Neut % (Auto) 62.8 Lymph % (Auto) 24.3 [place] % (Auto) 11.1 H Eos % (Auto) 1.3 Baso % (Auto) 0.1 Lymph # (Auto) 2.8 [place] # (Auto) 1.3 H Eos # (Auto) 0.2 Baso # (Auto) 0.0 Abs Immat Gran (auto) 0.05 H Absolute Neuts (auto) 7.3 Absolute Nucleated RBC 0.000 Nucleated RBC % (auto) 0.0 Preliminary micro results at discharge 07/09/23 05:28 Blood Culture - Preliminary Blood - Venous No growth after 24 hours. 07/09/23 05:20 Blood Culture - Preliminary Blood - Venous No growth after 24 hours. Discharge Plan Discharge Anticipated Discharge Date/Time: 07/10/23 10:35 Patient Disposition: Home, Self-Care Discharge Diagnosis: bacteremia Referrals: Beatriz Bee MD [Primary Care Provider] - 1 Week Discharge Medications: New omeprazole 20 mg Capsule,Delayed Release(Dr/Ec) 20 mg PO DAILY@0630 10 Days Qty: 10 0RF Continued carvedilol 6.25 mg tablet 6.25 mg PO BID nitrofurantoin monohyd/m-cryst [Macrobid] 100 mg capsule 100 mg PO Q12H 10 Days Qty: 20 0RF Rx Instructions: must administer with a meal/food prednisone 10 mg tablet See Taper PO DIRECTED Qty: 30 0RF Taper: Prednisone 40 mg daily for 3 Days and 0 Hour 30 mg daily for 3 Days and 0 Hour 20 mg daily for 3 Days and 0 Hour 10 mg daily for 3 Days and 0 Hour Rx Instructions: see taper instructions Entresto 49-51 mg tablet 1 tab PO BID furosemide 20 mg tablet 20 mg PO DAILY fluticasone propion-salmeterol [Wixela Inhub] 100-50 mcg/dose blister with device 1 ea inhalation BID Farxiga 10 mg tablet 10 mg PO DAILY atorvastatin 20 mg tablet 20 mg PO DAILY spironolactone 25 mg tablet 12.5 mg PO DAILY tiotropium bromide 18 mcg capsule, w/inhalation device 1 cap inhalation DAILY Discharge Orders: Discharge Order (Routine); Ordered 07/10/23 Ordered By: Janel Padilla Activity on Discharge: As tolerated Stand Alone Forms: Patient Portal Discharge page Care Plan Goals: see below Health Concerns: concern for bacteremia - ruled out, bacteria in blood culture is due to contamination. No change to antibiotics necessary Plan of Treatment: UTI - previously diagnosed continue antibiotics as previously prescribed, as he received 1 additional day of antibiotics in the hospital can decrease oral antibiotics by 1 day Gout flare-resume prednisone taper at 30 mg dose and incomplete as previously prescribed. can use prilosec daily while taking steroids for GI protection. call to schedule follow up appointment with your PCP mild elevation in liver enzymes - follow up with PCP Assessment: see discharge summary
--- NOTE | 2023-07-10 11:33 | MHC.CM.PN ---
IMM 07/08/22 Patient is discharged to home self care. He has arranged for his to povide transportation home.
[2023-07-10] MEDS: Fluticasone/Vilanterol 100/25 BLST.W.DEV 1 PUFF INHALE (12:24)
[2023-07-10 12:26] VITALS: PULSE 88; RESP 18; O2SAT 97
== END 2023-07-10 13:35 | disposition home or self-care (01) | DRG 690 ==
LOC: HO.ED 05:16 → HO.EDOVER 05:30 → HO.S3 05:48
PROVIDERS: Admitting Provider Internal Medicine; Emergency Provider Student in an Organized Health Care Education/Training Program; PCP Internal Medicine; Visit Provider Physician Assistant Medical
DX: N39.0 Urinary tract infection, site not specified (principal); R78.81 Bacteremia; I42.9 Cardiomyopathy, unspecified; M10.9 Gout, unspecified; R74.01 Elevation of levels of liver transaminase levels; E78.00 Pure hypercholesterolemia, unspecified; I25.10 Atherosclerotic heart disease of native coronary artery without angina pectoris; B95.2 Enterococcus as the cause of diseases classified elsewhere; Z88.0 Allergy status to penicillin; Z88.1 Allergy status to other antibiotic agents; Z79.51 Long term (current) use of inhaled steroids; Z79.899 Other long term (current) drug therapy
CPT/HCPCS: 36415; 80053; 81001; 81003; 83605; 85025; 87040; 87086; 94640; 99285; J3370

== ENCOUNTER → 2023-07-09 05:23 | Outpatient (BNV) | payer MEDICARE, BC, SELFPAY | PROVIDERS: Admitting Provider Internal Medicine; Emergency Provider Student in an Organized Health Care Education/Training Program; PCP Internal Medicine; Visit Provider Internal Medicine | DX: R78.81 Bacteremia (principal); N39.0 Urinary tract infection, site not specified | CPT/HCPCS: 99221; 99239; 99499 ==

== ENCOUNTER 2023-07-27 13:25 | Outpatient (REF) | payer MEDICARE, BC, SELFPAY ==
--- NOTE | ~2023-07-27 | XR_ITS ---
EXAMINATION: XR FOOT, RIGHT CLINICAL INFORMATION: Pain, swelling and difficulty walking COMPARISON: Previous x-ray June 2023 TECHNIQUE: AP, lateral, and oblique views of the right foot. FINDINGS: Bone alignment is normal. No fracture or dislocation. Mild degenerative changes at the first MTP and naviculocuneiform joints. Joint spaces otherwise normal. Large plantar calcaneal spurs. Soft tissues otherwise unremarkable. XR/XR foot RT min 3V IMPRESSION: No fracture or dislocation. Mild degenerative changes of the first MTP and navicular cuneiform joints. Large plantar calcaneal spurs.
[2023-07-27 13:47] LABS: MANUAL DIFF FLAG NO
[2023-07-27 13:58] LABS: Basophils Percent Auto 0.3 % (0-2); Eosinophils Absolute Auto 0.4 X10*3/uL (0.0-0.4); Eosinophils Percent Auto 5.5 % (0-4); Hematocrit 42.4 % (42.0-52.0); Hemoglobin 14.2 g/dl (14.0-18.0); Imm Gran Abs Auto 0.02 X10*3/uL (0.00-0.03); Imm Gran Pct Auto 0.3 % (0.0-0.4); Lymphocytes Absolute Auto 1.7 X10*3/uL (1.2-4.9); Lymphocytes Percent Auto 23.3 % (20-40); Mean Corpuscular HGB Conc 33.5 g/dl (31.0-36.0); Mean Corpuscular Hemoglobin 29.8 pg (27.0-33.0); Mean Corpuscular Volume 88.9 fL (80.0-98.0); Mean Platelet Volume 9.2 fL (9.4-12.4); Monocytes Absolute Auto 0.8 X10*3/uL (0.1-1.2); Monocytes Percent Auto 10.8 % (2-11); Neutrophils Absolute Auto 4.4 x10*3/uL (2.0-8.3); Neutrophils Percent Auto 59.8 % (45-73); Platelet Count 288 X10*3/uL (160-400); Red Blood Count 4.77 X10*6/uL (4.60-5.80); Red Cell Distribution Width 13.8 % (11.0-16.0); White Blood Count 7.3 X10*3/uL (4.8-10.8)
[2023-07-27 14:18] LABS: C Reactive Protein 6.14 mg/dL (< or = 0.50)
[2023-07-27 14:46] LABS: Erythrocyte Sedimentation Rate 45 MM/HR (0-15)
[2023-07-27 15:42] LABS: Appearance Urine Clear; Color Urine Yellow; Glucose Urine UA >=1000 mg/dL (Negative); Leukocyte Esterase Urine Moderate (2+) (Negative); Nitrite Urine Negative (Negative); Specific Gravity - Urine 1.015 (1.005-1.025); UMIC TRIGGER UACC YES; Urine Blood Negative (Negative); Urine Ketones Negative (Negative); Urine Protein Negative (Neg-Trace)
[2023-07-27 16:34] LABS: Bacteria Urine None Seen (None Seen); Hyaline Casts Urine 0-2 /LPF (0-2); RBC Urine 0-2 /HPF (0-2); Squamous Epithelial Cell Urine 0-2 /HPF (0-2); UACC Culture Trigger YES
== END 2023-07-27 13:26 | disposition home or self-care (01) ==
LOC: HO.LAB 13:25
PROVIDERS: PCP Internal Medicine; Visit Provider Internal Medicine
DX: M79.671 Pain in right foot (principal); R78.81 Bacteremia; N39.0 Urinary tract infection, site not specified
CPT/HCPCS: 36415; 73630; 81001; 85025; 85652; 86140; 87086

== ENCOUNTER 2024-05-10 13:30 | Outpatient (REF) | payer MEDICARE, BC, SELFPAY ==
--- OUTSIDE RECORDS SUMMARY | 2024-05-10 16:45 | XMS_ITS | Clinical Summary ---
Author Organization [address] Address [address] [place] [address] Phone Care Team Providers Care Chief Of Internal Medicine Name Role Phone Beatriz Bee MD Primary Care Provider [phone] Allergies Active Allergy Reactions Criticality Noted Date [...] Department Care Team Description 04/28/2024 Lab Requisition [facility] - Main Lab [address] [facility] [place] [phone] Gigi Leung MD Gross hematuria [facility] [address] [phone] Britton Knowles [place] [facility] [address] [place] [phone] Britton Knowles MA from Last 3 Months Surgical History Surgery Date Site/Laterality Comments APPENDECTOMY PROCEDURE:APPENDECTOMY OTHER SURGICAL HISTORY PROCEDURE:cardiac cath APPENDECTOMY PROCEDURE: HISTORICAL APPENDECTOMY LITHOTRIPSY PROCEDURE: HISTORICAL LITHOTRIPSY Medical History Medical History Date Comments Asthma DX:Asthma COPD (chronic obstructive pu lmonary disease) ([facility]) DX:COPD (chronic obstructive pulmonary disease) ([facility]) High blood pressure DX:High bloo d pressure Arthritis DX:Arthritis Chronic obstructive pulmonar y disease ([facility]) 11/09/2016 DX:Chronic obstructive pulmo nary disease ([facility]) Alopecia DX:Alopecia KASSANDRA (obstructive sleep apnea) 07/01/2016 [...] 8:45 AM EDT Office Visit Pulmonolgy - [place] 175 [facility] [address] [place] [phone] Zonia Concepcion MD 175 [facility] [address] [place] [address] Health Maintenance Due Date Last Done Comments [...] Acute inflammation present. 05/01/2024 6:02 PM EST [facility] Clinical Information Gross hematuria R31.0 Urine cytology with reflex UroVysion (AUC/SHGUC) 05/01/2024 6:02 PM EST [facility] Gross Description A. Urine, Voided, (UP25-7): Received is one ThinPrep slide for cytology. 05/01/2024 6:02 PM EST [facility] Disclaimer Unless otherwise specified, all tissue is 10% NB formalin fixed and paraffin embedded. Technical pathology services provided by [facility] at [address], [place] [address] (CLIA #[id number]/Paolo Omer MD, Hay Stacker) 05/01/2024 6:02 PM EST [facility] Tissue Urine specimen from urethra / Unknown 04/20/2024 04/28/2024 9:55 AM EST Gigi Leung MD LAB PATHOLOGY ORDERA BLES [facility] [address] [place] [address], from Last 3 Months Care Teams Chief Of Internal Medicine Relationship Specialty Start Date End Date Beatriz Bee MD [address] [place] [address] PCP - General Internal Medicine 02/17/17
--- OUTSIDE RECORDS SUMMARY | 2024-05-10 16:45 | XMS_ITS | Clinical Summary ---
Author Organization [facility] Address [address] [place] [address] Care Team Providers Care Accordion Repairer Name Role Phone Beatriz Bee MD Primary Care Provider [phone] Allergies Active Allergy Reactions Criticality Noted Date Comments Meperidine 04/02/2017 Penicillins 04/02/2017 Medications Medication Sig Dispensed Refills Start Date End Date Status baclofen (LIORESAL) 10 MG tablet TAKE 1 TABLET BY MOUTH AT BEDTIME NEEDED 0 03/01/2017 Active ADVAIR DISKUS 100-50 MCG/DOSE DISKUS 0 04/02/2017 Active ibuprofen (ADVIL,MOTRIN) 600 MG tablet TAKE 1 TABLET BY MOUTH EVERY 6 HOURS NEEDED FOR SEVERE PAIN (MAX 4 A DAY) 0 02/23/2017 Active methocarbamol (ROBAXIN) 750 MG tablet TAKE 1 TABLET BY MOUTH 4 TIMES A DAY NEEDED FOR SPASMS 0 02/23/2017 Active SPIRIVA HANDIHALER 18 MCG inhalation capsule USE 1 INHALATION DAILY 11 03/21/2017 Active albuterol 108 (90 Base) MCG/ACT inhaler Inhale 2 puffs into the lungs. 0 08/07/2021 Active carvedilol (COREG) 6.25 MG tablet TAKE 1 TABLET BY MOUTH TWICE A DAY WITH FOOD FOR 90 DAYS 0 10/16/2021 Active furosemide (LASIX) 20 MG tablet TAKE 1 TABLET (20 MG) BY ORAL ROUTE ONCE PER DAY 0 10/06/2021 Active oxyCODONE (ROXICODONE) 5 MG immediate release tablet TAKE 1 TABLET BY MOUTH DAILY AT BEDTIME NEEDED FOR PAIN PARTIAL FILL UPON PATIENT REQUEST. 0 10/22/2021 Active sacubitril-valsartan (ENTRESTO) 49-51 MG per tablet Take by mouth. 0 07/02/2021 Active spironolactone (ALDACTONE) tablet 25 mg TAKE 1/2 TABLET BY MOUTH DAILY 0 10/16/2021 Active tiotropium (Spiriva HandiHaler) [address] 18 mcg into inhaler and inhale. 0 02/07/2021 Active Active Problems Problem Noted Date Diagnosed Date Biceps tendinitis of left shoulder 04/02/2017 Subacromial bursitis of left shoulder joint 03/19 Calcific tendinitis of left shoulder 04/02/2017 Family History Medical History Relation Name Comments ALS Mother Cancer Mother Relation Name Status Comments Mother Social History Tobacco Use Types Packs/Day Years Used Date Smoking Tobacco: Never Assessed Sex and Gender Information Value Date Recorded Sex Assigned at Not on file Gender Identity Not on file Sexual Orientation Not on file Job Start Date Occupation Industry Not on file Not on file Not on file Last Filed Vital Signs Vital Sign Reading Time Taken Comments Blood Pressure - - Pulse - - Temperature - - Respiratory Rate - - Oxygen Saturation - - Inhaled Oxygen Concentration - - Weight 90.7 kg (200 lb) 11/04/2021 1:10 PM EDT Height 180.3 cm (5' 11 ) 11/04/2021 1:10 PM EDT Body Mass Index 27.89 11/04/2021 1:10 PM EDT Plan of Treatment Health Maintenance Due Date Last Done Comments Hepatitis C Screening 1950 COVID-19 Vaccine (#1) 04/30/1951 Depression Screening 1964 Preventative Health Evaluation 1970 DTap / Tdap / Td (1 - Tdap) 10/29/1971 Colon Cancer Screening (Colonoscopy) 1997 Shingrix-Zoster Vaccine (1 of 2) 2002 Fall Risk Assessment 2017 Pneumococcal Vaccine (2 of 2 - PCV) 2017 10/10/2009 Influenza Vaccine (#1) 2023 RSV Adult > 60+ Yrs or Pregn ant (1 - 1-dose 75+ series) 10/29/2027 Hepatitis B Vaccines Aged Out No long er eligible based on patient's age to complete this topic RSV Ped < 20 months Aged Out No longe r eligible based on patient's age to complete this topic Care Teams Accordion Repairer Relationship Specialty Start Date End Date Beatriz Bee MD [address] [place] [address] [address] [place] [address] PCP - General Internal Medicine 02/23/17
--- OUTSIDE RECORDS SUMMARY | 2024-05-10 16:45 | XMS_ITS | Encounter Summary ---
Author Organization [facility] Address [address] [place] [address] Care Team Providers Care Food Safety Officer Name Role Phone Beatriz Bee MD Primary Care Provider [phone] Encounter Details Date Type Department Care Team (Late st Contact Info) Description 04/28/2024 Lab Requisition [facility] - Main Lab [address] [facility] [place] [address] Gigi Leung MD 100 [facility] [address] [place] [address] Gross hematuria Social History Tobacco [...] 8:45 AM EDT Office Visit Pulmonol - [place] 175 [facility] [address] [place] [address] Zonia Concepcion MD 175 [facility] [address] [place] [address] documented as of this encounter Procedures Procedure Name Priority Date/Time Associated Diagnosis Comments AP OUTSIDE CONSULT Routine 04/20/2024 12 :00 AM EST Gross hematuria documented in this encounter Results * Anatomic pathology outside consult (04/20/2024 12:00 AM EST) Final Diagnosis A. Urine, Voided, (UP25-7): Negative for high grade urothelial carcinoma. Acute inflammation present. 05/01/2024 6:02 PM EST [facility] Clinical Information Gross hematuria R31.0 Urine cytology with reflex UroVysion (AUC/SHGUC) 05/01/2024 6:02 PM EST [facility] Gross Description A. Urine, Voided, (UP25-7): Received is one ThinPrep slide for cytology. 05/01/2024 6:02 PM EST [facility] Disclaimer Unless otherwise specified, all tissue is 10% NB formalin fixed and paraffin embedded. Technical pathology services provided by [facility] [address] [facility] [address] [place] [address] (CLIA #[id number]/Paolo Omer MD, Honing Job Setter) 05/01/2024 6:02 PM EST [facility] Tissue Urine specimen from urethra / Unknown 04/20/2024 04/28/2024 9:55 AM EST Gigi Leung MD LAB PATHOLOGY ORDERA BLES [facility] [address] [place] [address], documented in this encounter Visit Diagnoses Diagnosis Gross hematuria documented in this encounter Care Teams Food Safety Officer Relationship Specialty Start Date End Date Beatriz Bee MD [address] [place] [address] PCP - General Internal Medicine 02/17/17 documented as of this encounter
[2024-05-10 17:42] LABS: MANUAL DIFF FLAG NO
[2024-05-10 17:49] LABS: Basophils Absolute Auto 0.1 X10*3/uL (0.0-0.2); Basophils Percent Auto 0.8 % (0-2); Eosinophils Absolute Auto 0.7 X10*3/uL (0.0-0.4); Eosinophils Percent Auto 8.6 % (0-4); Hematocrit 49.6 % (42.0-52.0); Hemoglobin 16.3 g/dl (14.0-18.0); Imm Gran Abs Auto 0.01 X10*3/uL (0.00-0.03); Imm Gran Pct Auto 0.1 % (0.0-0.4); Lymphocytes Absolute Auto 1.8 X10*3/uL (1.2-4.9); Lymphocytes Percent Auto 21.9 % (20-40); Mean Corpuscular HGB Conc 32.9 g/dl (31.0-36.0); Mean Corpuscular Hemoglobin 29.2 pg (27.0-33.0); Mean Corpuscular Volume 88.9 fL (80.0-98.0); Monocytes Absolute Auto 0.7 X10*3/uL (0.1-1.2); Monocytes Percent Auto 9.3 % (2-11); Neutrophils Absolute Auto 4.8 x10*3/uL (2.0-8.3); Neutrophils Percent Auto 59.3 % (45-73); Platelet Count 333 X10*3/uL (160-400); Red Blood Count 5.58 X10*6/uL (4.60-5.80); Red Cell Distribution Width 13.2 % (11.0-16.0)
[2024-05-10 17:57] LABS: Alanine Aminotransferase 29 U/L (0-40); Aspartate Amino Transferase 29 U/L (5-37); C Reactive Protein 0.26 mg/dL (< or = 0.50); Estimated Glomerular Filt Rate > 60
[2024-05-10 18:44] LABS: Erythrocyte Sedimentation Rate 7 MM/HR (0-15)
[2024-05-11 07:59] LABS: HBS Num1 0.23 mIU/mL (0-7.99); HBc Num1 0.22 S/CO (0.00-0.79); HBsAGNum1 0.49 S/CO (0.00-0.99); Hepatitis B Core Antibody Nonreactive (Nonreactive); Hepatitis B Surface Antigen Negative (Negative); ~HepC Num1 0.11 S/CO (0.00-0.79); ~Hepatitis B Surface Antibody NONREACTIVE (Nonreactive); ~Hepatitis C Antibody Nonreactive (Nonreactive)
[2024-05-13 12:54] LABS: TS Negative Control Passed; TS Panel A 3; TS Panel B 1; TS Positive Control Passed; TSpotTB Negative (Negative)
== END 2024-05-10 13:31 | disposition home or self-care (01) ==
LOC: HO.HKASLDS 13:30
PROVIDERS: PCP Internal Medicine; Visit Provider Internal Medicine Rheumatology
DX: M02.3 Reiter's disease (principal); M65.341 Trigger finger, right ring finger; Z79.60 Long term (current) use of unspecified immunomodulators and immunosuppressants; Z79.899 Other long term (current) drug therapy
CPT/HCPCS: 36415; 82565; 84450; 84460; 85025; 85652; 86140; 86481; 86704; 86706; 86803; 87340; 99212

== ENCOUNTER 2024-05-10 13:30 | Outpatient (AMB) | payer MEDICARE, BC, SELFPAY ==
[2024-05-10 13:41] VITALS: BP 118/68; PULSE 68; O2SAT 97; BMI 27.5
--- NOTE | 2024-05-10 13:41 | MHC.OFFVIS ---
Vital Signs 05/10/24 13:41 Height 5 ft 11 in Weight 197 lb BMI 27.5 BP 118/68 Blood Pressure Location Lt brachial Position Sitting Pulse 68 Pulse Source Pulse Oximeter Pulse Oximetry (%) 97 Oxygen Delivery Method Room Air Intake Visit Reasons: RA Intake Note: Patient presents for follow up on RA today. Patient last saw Dr. Lomas on 10/2023. Patient would like to talk about Naproxen, has medical questions. Allergies meperidine [From Demerol] Allergy (Intermediate, Verified 05/10/24 13:47) Rash levofloxacin Allergy (Verified 05/10/24 13:47) Swelling Penicillins Allergy (Verified 05/10/24 13:47) Unknown HPI HPI RA: Details: He was on naproxen 500mg BID for 6 weeks after October 2023 appointment. He saw chromosomal disorders counselor who told him to be cautious with NSAIDs so he discontinued it for a month. He restarted it due to increase foot, ankle, calf pain and stiffness. No new joint swelling. Right 4th finger started triggering yesterday. [facility] Medical History (Updated 05/10/24 @ 21:51 by Tyree Lomas MD) Diabetes type 2, controlled CAD (coronary artery disease) Surgical History Hx of cardiac catheterization (~05/2021) Social History Household Members: Spouse Housing: Apartment Do you presently have visiting nurse or other home services: No Alcohol intake: never Patient Tobacco Use Status: Former Tobacco user Tobacco use type: Cigarette Second Hand Smoke Exposure: No Advance Directives Date on File: 07/09/23 service: No Review of Systems Const All systems reviewed & are unremarkable except as noted in HPI and below Physical Exam Vital Signs: Last Vital Signs Pulse 68 05/10/24 13:41 BP 118/68 05/10/24 13:41 Pulse Ox 97 05/10/24 13:41 Oxygen Delivery Method Room Air 05/10/24 13:41 BMI result Body Mass Index 27.5 Const Other: General: Comfortable CVS: RRR Respiratory: clear to auscultation bilaterally. Good respiratory effort Skin: No lesions seen MSK: Right 4th fingers triggering. He has tenderness on palpation of palmar aspect of 4th MCP without nodule palpated. Shoulder abduction 160 degrees bilateral. Good internal external rotation. No synovitis of any joints. Limited full external rotation of bilateral hips. Good knee flexion. Tender bilateral ankles and MTPs. Assessment & Plan Assessment & Plan (1) Reactive arthritis: Comment: Affecting bilateral feet and ankle with onset 07/05/2023 while having UTI with bacteremia. He presented to ER and received nitrofurantoin and prednisone course, with resolution of joint swelling. Diagnostic arthrocentesis right first MTP 07/29/2023 did not reveal crystals. He only had enough synovial fluid to do crystal analysis. He had multiple recurrent episodes of synovitis in bilateral ankles and feet, which responded to Depo-Medrol, prednisone course and naproxen on separate occasions. Off of naproxen he has had increase pain and stiffness. We discussed next steps in management with DMARD therapy sulfasalazine. Discussed side effects, benefits and drug monitoring. Code(s): M02.30 - Park's disease, unspecified site Category: Medical Qualifiers: Reactive arthritis location: foot Laterality: unspecified laterality Qualified Code(s): M02.379 - Park's disease, unspecified ankle and foot Plan: He will continues naproxen 500 mg twice a day with food with plan to discontinue once his symptoms are controlled on DMARD therapy Baseline labs ordered prior to starting DMARD therapy. After lab results are back, I will send prescription for sulfasalazine 500 mg twice a day 1 month supply. He will also need labs 1 month after starting sulfasalazine (CBC, creatinine, AST, ALT, ESR, CRP). PT ordered for strengthening exercise program of lower extremities Return to clinic in 3 month (2) Other superintendent terminal (current) drug therapy: Comment: NSAID Code(s): Z79.899 - Other care home (current) drug therapy Category: Medical Plan: Labs ordered for drug monitoring on chronic NSAID See above (3) Trigger finger, right ring finger: Comment: Recurrent. He received cortisone injection to right ring finger 05/08/2020 and 09/2023 in the past for treatment of trigger finger. We discussed conservative management. 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) use of unspecified immunomodulators and immunosuppressants Aspartate Amino Transferase Today Z79.60 - 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 (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) use of unspecified immunomodulators and immunosuppressants Creatinine Today Z79.60 - care home (current) use of unspecified immunomodulators and immunosuppressants T Spot TB Today M02.30 - Park's disease, unspecified site, Z79.899 - Other superintendent terminal (current) drug therapy Hepatitis B,C Profile Today M02.30 - Park's disease, unspecified site, Z79.899 - Other superintendent terminal (current) drug therapy PT Evaluation and Treatment Today M02.30 - Park's disease, unspecified site, Z79.899 - Other superintendent terminal (current) drug therapy Complete Blood Count Auto Diff Today Z79.60 - 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
--- OUTSIDE RECORDS SUMMARY | 2024-05-10 15:36 | XMS_ITS | Data Portability ---
Author Organization [place] - [facility], Allergy Address [address] [place] [address] Care Team Providers Care Helper Shear Operator Name Role Phone ANNE MARIE SETH Primary Care Provider Assessment Encounter Date Assessment Date Assessment LastModified by Organization Details LastModified Time 01/13/2024 01/13/2024 Physical exam reveals evidence of eczematous and ceruminous debris, which was cleared from the ears to achieve a limited view of the medial canal. Audiometric testing demonstrates neurosensory loss on the right and mixed loss on the left. Suspect there is residual debris in the left medial EAC. Recommend mineral oil QHS x 7-10 days and return for further debridement and repeat audiometric testing on the left. In future, patient likely would benefit from cerumen removal under the microscope. Not available 01/13/2024 13:11:22 02/10/2024 02/10/2024 Cerumen and squamous debris removed in routine fashion, which patient tolerated well. Skin intact today without significant erythema. No evidence of otitis externa. Recommend continued dry ear precautions and intermittent use of fluocinolone. No refills needed today. Recommend 3 month recheck, sooner with issues. Not available 02/10/2024 13:08:59 Plan of Treatment Reminders Order Date Submit Date Provider Last Modified By Organization Details Last Modified Time Details Appointments Establish ed 15 2024 10:30A M DEEDEE MIRANDA PA-C Not available Not available Not available Lab None recorded. Referral None recorded. Procedures None recorded. Surgeries None recorded. Imaging None recorded. Medication Orders fluocinol one acetonide oil 0.01 % ear drops 2023 [facility]/Pharmacy #[id number], [address] [place], [address], 10/13/2023 11:43:13 clotrimaz ole-betam ethasone 1 %-0.05 % topical cream 2023 024 [facility]/Pharmacy #[id number], [address] [place], [address], 10/13/2023 11:43:14 Patient TargetsNo targets recorded. Patient Instructions Encounter Date Encounter Id Patient Instructions Last Modified By Organization Details Last Modified Time 10/13/2023 [id number] Reviewed pathophysiology of eczema and the rationale for Q-tip avoidance and dry ear precautions. Recommend a few drops of fluocinolone twice daily for 2 weeks then as needed, and Lotrisone cream applied to meatus with a clean finger twice daily for two weeks then as needed. Follow up in 3 months, sooner with concerns Not available 10/13/2023 11:58:30 Reason for Referral None Reported. Results Created Date Observation Date Name Description Value Unit Range Abnormal Flag Note LastModifiedBy Organization Detail LastModifiedTime 12/09/19 24 06/21/2020 carleyi belem/miladys chavez tic resul t No observ ation record ed. [email or web address] Not Available 19:35:33 01/14/20 24 audio gram No observ ation record ed. [email or web address] Not Available 2023 16:31:00 Result Notes None recorded. 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 76502093874 51704 Active 2019 Other acquired stenosis of external ear canal, bilateral ; Note: Date Diagnosed : 0 10:53 AM (H61.393) Not Available [facility] 4 02:56:30 Scar condition s and fibrosis of skin 967342978 Active 2020 Scar condition s and fibrosis of skin; Note: Date Diagnosed : 05/16/2020 5:22 PM (L90.5) Not Available [facility] 4 02:56:28 Itching of skin 188110895 Active 2022 Other pruritus; Note: Date Diagnosed : 3 3:01 PM (L29.8) Not Available [facility] 4 02:56:28 Dermatiti s NOS Active 2019 Dermatiti s, unspecifi ed; Note: Date Diagnosed : 0 10:53 AM (L30.9) Not Available [facility] 4 02:56:27 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 28171659624 42361 Active 2020 Acquired stenosis of external ear canal secondary to inflammat ion and infection , bilateral ; Note: Date Diagnosed : 05/16/2020 5:22 PM (H61.323) Not Available [facility] 4 02:56:30 Stenosis of bilateral external ear canals due to and following inflammat ion 36023982812 84903 Active 2020 Acquired stenosis of external ear canal secondary to inflammat ion and infection , bilateral ; Note: Date Diagnosed : 05/16/2020 5:22 PM (H61.323) Not Available [facility] 4 02:56:30 Impacted cerumen of bilateral ears 61485952714 20530 Active 2022 Impacted cerumen, bilateral ; Note: Date Diagnosed : 3 3:00 PM (H61.23) Not Available [facility] 4 02:56:29 Otorrhea of bilateral ears 69358773819 02372 Active 2020 Otorrhea, bilateral ; Note: Date Diagnosed : 05/16/2020 5:22 PM (H92.13) Not Available [facility] 4 02:56:29 Eczema 27370921 Active 2020 Other specified dermatiti s; Note: Date Diagnosed : 05/16/2020 5:22 PM (L30.8) Not Available [facility] 4 02:56:30 Superfici al mycosis 531490204 Active 2020 Other specified superfici al mycoses; Note: Date Diagnosed : 05/16/2020 5:22 PM (B36.8) Not Available [facility] 4 02:56:27 Chronic eczema of external auditory canal 391156198 Active 2023 DEEDEE MIRANDA PA-C [address], [place], [address] , [place] - [facility] 4 11:42:00 Sensorine ural hearing loss of bilateral ears 158791048 Active 2023 AGNES CHRISTIANSEN, AUD [address], [facility] [place], [address] , [place] - [facility] 4 11:35:19 Mixed conductiv e and sensorine ural hearing loss of left ear 52971440722 107 Active 2023 AGNES CHRISTIANSEN, AUD [address], [place], [address] , [place] - [facility] 4 11:40:54 Mixed conductiv e and sensorine ural hearing loss, bilateral 175727873 Active 2023 AGNES CHRISTIANSEN, AUD [address] [facility][note 3], [facility] [place], [address] , [place] - [facility] 4 11:45:31 Problem Notes None recorded. Procedures Surgical History Date Name Laterality Status Provider Name and Address Organization Details Recorded Time 4 Cerumen removal without microscope bilat completed DEEDEE MIRANDA PA-C [address],[place] [address], [place], [address], [place] - [facility] 02/10/2024 13:06:49 4 Comp Audio with Tymps (70987 & 31551) completed AGNES CHRISTIANSEN AUD [address] [facility] [address] [facility][note 3], [place], [address], [place] - [facility] 01/13/2024 11:35:22 4 Cerumen removal without microscope bilat completed DEEDEE MIRANDA PA-C [address] [facility] [address] [facility][note 3], [place], [address], [place] - [facility] 01/13/2024 11:56:50 Imaging Results Imaging Date Name Status LastModified by Organiz ation Details LastModified Time 06/21/2020 imaging/diagno stic result completed [email or web address] Information not available 12/09/2023 19:35:33 01/14/2024 audiogram completed [email or web address] Information no t available 01/14/2024 16:31:00 Procedure Notes None recorded. Medical Equipment None Reported. Allergies Allergen ID Allergen Name Allergen Category Reaction Reaction Severity Criticality Documentation Date Start Date Code Code System Note Provider Name and Address Organization Details Recorded Time 217095 Demerol medicatio n other Not available Not available 08/31/2023 71573 1 RxNorm React ion: other react ion, Unkno wn; Not Available [facility] 4 01:14:39 987968 Product containin g penicilli n and antibioti c (product) medicatio n other Not available Not available 08/31/2023 44522 05 SNOMED React ion: other react ion, Unkno wn; Not Available [facility] 4 01:14:43 Medications Name Sig Start Date Stop Date Status Note LastModified by Organization Details LastModified Time carvedilo l 6.25 mg tablet TAKE 1 TABLET BY MOUTH TWICE A DAY WITH FOOD FOR 90 DAYS active Not Available Not Available No t Available prednison e 10 mg tablet PLEASE SEE ATTACHED FOR DETAILED DIRECTIO NS active Not Available Not Available No t Available atorvasta tin 20 mg tablet TAKE 1 TABLET BY MOUTH EVERY DAY FOR 90 DAYS active Not Available Not Available No t Available azithromy bennett 250 mg tablet active Not Available Not Available No t Available prednison e 5 mg tablet PLEASE SEE ATTACHED FOR DETAILED DIRECTIO NS active Not Available Not Available No t Available levofloxa bennett 250 mg tablet TAKE 2 TABLETS BY MOUTH EVERY DAY active Not Available Not Available No t Available doxycycli ne monohydra te 100 mg tablet TAKE 1 TABLET BY MOUTH TWICE A DAY FOR 7 DAYS 01/12 completed Not Available Not Available Not Available spironola ctone 25 mg tablet TAKE 1/2 TABLET BY MOUTH DAILY active Not Available Not Available No t Available tamsulosi n 0.4 mg capsule 2019 active Medicati on ID: [id number] B rand Name: tamsulos in Send Method: E-Prescr ibed Sub s Allowed: subs OK Medic ationGen ericName : tamsulos in Not Available Not Available Not Available hydrocort isone-jelly tic acid 1 %-2 % ear drops INSTILL 3 DROP INTO BOTH EARS FOUR TIMES A DAY NEEDED FOR ITCHY EARS active Not Available Not Available No t Available benzonata te 100 mg capsule TAKE 1 CAPSULE BY MOUTH 3 TIMES A DAY NEEDED COUGH active Not Available Not Available No t Available clotrimaz ole-betam ethasone 1 %-0.05 % topical cream PLEASE SEE ATTACHED FOR DETAILED DIRECTIO NS active Not Available Not Available No t Available metronida zole 0.75 % topical cream APPLY TO THE AFFECTED AREAS OF THE FACE BEFORE BEDTIME active Not Available Not Available No t Available clotrimaz ole 1 % topical solution 2020 active Medicati on ID: [id number] D uration Value: 14 Prescri bed By Name: RACHEL Stokes nd Name: clotridylan [place] Method: E-Prescr ibed Sub s Allowed: subs OK Speci al Instruct ion: 4 drops to affected ear three times a day X 14 days Med icationG enericNa me: clotrima zole Not Available Not Available Not Available gabapenti n 300 mg capsule TAKE 1 CAPSULE BY MOUTH EVERYDAY AT BEDTIME active Not Available Not Available No t Available omeprazol e 20 mg capsule,d elayed release TAKE 1 CAPSULE BY MOUTH EVERY DAY AT 6:30AM FOR 10 DAYS 01/12 completed Not Available Not Available Not Available ammonium lactate 12 % topical cream APPLY TO AFFECTED AREA EXTERNAL LY TWICE A DAY TO DRY AREAS OF SKIN ON FEET active Not Available Not Available No t Available codeine 10 mg-guaife nesin 100 mg/5 mL oral liquid TAKE 2 TEASPOON SFUL (10 ML) BY MOUTH EVERY 4 TO 6 HOURS FOR 4 DAYS 01/12 completed Not Available Not Available Not Available furosemid e 20 mg tablet TAKE 1 TABLET BY MOUTH EVERY DAY active Not Available Not Available No t Available loratadin e 10 mg tablet 2019 active Medicati on ID: [id number] B rand Name: caprice griffin Send Method: E-Prescr ibed Sub s Allowed: subs OK Speci al Instruct ion: TAKE 1 TABLET BY MOUTH EVERY DAY Medi cationGe nericNam e: loratadi ne Not Available Not Available Not Available naproxen 500 mg tablet TAKE 1 TABLET TWICE A DAY BY MOUTH WITH FOOD UNTIL FOOT PAIN RESOLVES active Not Available Not Available No t Available tiotropiu m bromide 18 mcg capsule with inhalatio n device INHALE THE CONTENTS OF ONE CAPSULE VIA INHALER EVERY DAY active Not Available Not Available No t Available nitrofura ntoin monohydra te/macroc rystals 100 mg capsule TAKE 1 CAPSULE ORALLY EVERY 12 HOURS FOR 10 DAYS MUST ADMINIST ER WITH A MEAL/PAT D active Not Available Not Available No t Available fluocinol one acetonide oil 0.01 % ear drops Instill 2 drop into both ears twice a week as directed active Not Available Not Available No t Available Advair HFA 2019 active Medicati on ID: [id number] B rand Name: Advair HFA Send Method: E-Prescr ibed Sub s Allowed: subs OK Medic ationGen ericName : Advair HFA Not Available Not Available Not Available Farxiga 10 mg tablet TAKE 1 TABLET BY MOUTH EVERY DAY FOR 90 DAYS active Not Available Not Available No t Available Entresto 49 mg-51 mg tablet TAKE 1 TABLET TWICE A DAY active Not Available Not Available No t Available Wixela Inhub 100 mcg-50 mcg/dose powder for inhalatio n INHALE 1 PUFF BY MOUTH TWICE A DAY active Not Available Not Available No t Available Paxlovid 300 mg (150 mg x 2)-100 mg tablets in a dose pack TAKE 2 NIRMATRE LVIR TABS BY MOUTH W/1 RITONAVI R TAB,WITH ALL 3 TABS TAKEN TOGETHER 2X DAILY X5 DAYS active Not Available Not Available No t Available Vitals Date Recorded Body height Body mass index (BMI) Body weight Provider Name and Address Organization Details Last Updated DateTime 10/13/2023 180.34 cm 26.5 kg/m2 93294.55 g Shayna Avina [place] - [facility] 10/13/2023 11:38:33 Date Recorded Body height Body mass index (BMI) Body weight Provider Name and Address Organization Details Last Updated DateTime 01/13/2024 180.34 cm 26.5 kg/m2 47995.55 g Tristan Dudley [facility] 01/13/2024 11:01:57 Date Recorded Body height Body mass index (BMI) Body weight Provider Name and Address Organization Details Last Updated DateTime 02/10/2024 180.34 cm 26.5 kg/m2 26570.55 g Ai Andrews [place] - [facility] 02/10/2024 11:37:16 Social History None recorded. Functional Status None recorded. Mental Status None recorded. Family History Nothing Reported. Medical History No medical history recorded. 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 112 Alfonzo F Giovani [id number] Alfonzo F Giovani 01/13/2024 1 [place] [facility] Alfonzo F Giovani [id number] Alfonzo F Giovani 01/13/2024 2 [place] [employer] [facility] 112 Alfonzo F Giovani [id number] Alfonzo F Giovani 01/13/2024 1 [place] [facility] Alfonzo F Giovani [id number] Alfonzo F Giovani 01/13/2024 2 [place] 112 Alfonzo F Giovani [id number] Alfonzo F Giovani 02/10/[address] [facility] 112 Alfonzo F Giovani [id number] Alfonzo F Giovani 02/10/2024 1 [place] [facility] Alfonzo F Giovani [id number] Alfonzo F Giovani Notes Date Note Type Note Provider Name and Address Organization Details Recorded Time 10/13/2023 text/html 72 year old male presents for evaluation of ears. Reports the canal is often somewhat tender and there is flaking skin and some discharge at times. He intermittently uses Vaseline-coated cotton ball for bathing. No christ otorrhea nor otalgia recently. Hearing is at baseline. Patient reports that he recently underwent a course of oral prednisone for another issue and this cleared up the skin of the ears nicely. CRUZ ALVES MD [address] [facility],[address], [address], [facility] 10/13/2023 12:29:33 01/13/2024 text/html 73-year-old male presents for evaluation of the ears. Reports decrease in hearing in the past few days; concurs. There is no otalgia nor otorrhea but the ears feel full and itchy. Reports he has been using fluocinolone and Lotrisone intermittently with partial relief. He does not wear hearing aids but thinks perhaps he might need them. Denies Q-tip use. BIMAL ALVARADO MD [address] [place] [address],[address], [address], [facility] 01/14/2024 09:20:07 02/10/2024 text/html 73 year old male presents for cerumen removal. History of eczema in the ear canal, uses his fluocinolone sometimes with good effect. Denies current otalgia, otorrhea, itching, and change in hearing. DALLIN KIRKLAND MD [address] [place] [address],[address], [address], [facility] 02/10/2024 17:30:09
--- OUTSIDE RECORDS SUMMARY | 2024-05-10 15:37 | XMS_ITS ---
Author Organization [facility] Address [address] [place] [address] Care Team Providers Care General Road Production Manager Name Role Phone Beatriz Bee MD Primary Care Provider Unavailabl e Black, Crista Unavailable [phone] Allergies Allergen (clinical drug ingredient) Drug/Non Drug Allergy documented on EMR Reaction Allergy Type Onset Date Status meperidine Demerol rash Drug Allergy Active Penicillin Unknown Drug Allergy Active REASON FOR VISIT Painful nail(s) aggrevated by shoes and causing difficulty standing/walking., Skin problem(s) Medications Medication SIG (Take, Route, Frequency, Duration) Notes Start Date End Date Status Co Q 10 Active Advair HFA Active Spiriva HandiHaler 18 MCG 1 capsule by i nhaling the contents of the capsule using the HandiHaler device Inhalation Once a day Active Loratadine 10 MG 1 tablet Orally Once a day for 30 day(s) Active Wixela Inhub spiriva Active Vitamin C Active Albuterol Sulfate HFA Active Ammonium Lactate 12 % 1 application to a ffected area Externally Twice a day to dry areas of skin on feet for 30 days Active Naproxen 500 MG Oral for 30 Days Active Social History Tobacco Use: Social History Observation Description Date Details (start date - stop date) Former Smoker NA - NA Tobacco Use/Smoking Question Answer Notes Are you a: former smoker Additional Findings: Tobacco Non-User Current no n-smoker Alcohol Screen Question Answer Notes Did you have a drink containing alcohol in the p ast year? No Points 0 Interpretation Negative Tobacco use other than smoking: Question Answer Notes Are you an other tobacco user? No Vital Signs Height 6ft in 02/28/2024 Weight 188 lbs 02/28/2024 BMI 25.49 kg/m2 02/28/2024 Blood pressure systolic 120 mm Hg 02/28/20 24 Blood pressure diastolic 75 mm Hg 024 Procedures Procedure Date Ordered Date Performed Result Body Sit e 50295-JBVUOCD NAIL, 6 OR MORE 02/28/2024 N/A Encounters Encounter Location Date Provider Diagnosis [facility] [address] [address] 02/28/2024 Crista Garcia Tinea unguium B35.1 ; Xerosis cutis L85.3 ; Pain in right toe(s) M79.674 and Pain in left toe(s) M79.675 Assessments Encounter Date Diagnosis (ICD Code) Assessment Notes Treatment Notes Treatment Clinical Notes Section Notes 02/28/2024 Tinea unguium (ICD-10 - B35.1) 02/28/2024 Xerosis cutis (ICD-10 - L85.3) 02/28/2024 Pain in right toe(s) (ICD-10 - M79.674) 02/28/2024 Pain in left toe(s) (ICD-10 - M79.675) Plan Of Treatment Medication Medication Name Sig Start Date Stop Date Notes Ammonium Lactate 12 % 1 application to a ffected area Externally Twice a day to dry areas of skin on feet for 30 days Pending Test Test Name Order Date [id number] NAIL, 6 OR MORE 02/28/2024 Next Appt Details Follow Up: prn, Reason: Provider Name:Crista Garcia , 06/01/2024 03:00:00 PM, [address] [place] [address], [id number], Procedure Notes * Category Sub-Category Detail Notes Debride Nail 6-10 Nail debridement Performance o f this nail treatment by a nonprofessional would put this patients foot and overall health at risk. Therefore, debridement to affected nail(s), as described in exam, was performed extensively to reduce/remove overall nail length, girth, thickness, subungual debris, and necrotic tissue, by manual and/or electrical means through the use of a nail nipper and/or dremel-type tankage grinder, to a more viable healthy nail plate or bed tissue 6-10. Silver nitrate used for any petechial bleeding as necessary. Definitive antifungal treatment options have been reviewed and discussed with the patient. The patient chooses, no pharmaceutical tx - 22326 Progress Notes * Idalia ALLENOB:[birth year] (73 yo M)Acc No.[id number]:02/28/2024 Progress Note Patient:?Alfonzo ALLEN Provider:?Crista Garcia DPM :1950???Age:73 Y???Sex:Male Duke e:02/28/2024 Address:[address] [place], [place] [id number] Pcp:Beatriz Bee MD Subjective: * Chief Complaints: * ???Painful nail(s) aggrevate d by shoes and causing difficulty standing/walking.Skin problem(s) * HPI: ???Painful Nails:?Pt States Last PCP Visit:?Date:?10/18/2023 ???Skin problems:?Nature:?dryness.?Location:?B/L .?Duration:?several months.?Onset/Cause:?unknown.?Course:?, improved, at 70%.?Treatments:?medication ( AM Lactin ), states adherence to recommended treatment application.? * ROS:?General/Constitutional:?Nausea?denies.?Vomiting?denies.?Hunger Thirst?denies.?Loss appetite?denies.?Chills?denies.?Fatigue?denies.?Fever?denies.?Night Sweats?denies.?Unexplained weight loss?denies.?Unexplained weight gain?denies.?HEENTM:?Dentures?admits.?Dizziness?denies.?Glasses/contacts?admits.?Retinopathy?de nies.?Blurred/double vision?denies.?TMJ?denies.?Discharge/drainage?denies.?Implants?denies.?Sore throat?denies.?Dental implants?denies.?Hard of hearing ?denies.?Difficulty chewing/swallowing/speaking?denies.?Nose bleeds?denies.?Sore mouth?denies.?Respiratory:?On Oxygen?denies.?Pneumonia/pleurisy?denies.?Bronchitis?denies.?Emphysema?admits.?C oughing?denies.?Cough blood?denies.?Shortness of breath?admits.?Wheezing?admits.?Cardiovascular:?Pacemaker?denies.?MVP?denies.?WPW?denies.?CHF?denies.?Heart attack?denies.?Septal defect?denies.?Rapid beat?denies.?Chest pain ?denies.?Atrial Fib.?denies.?Murmur/Palpitations?admits.?Gastrointestinal:?Hemorrhoids?denies.?Stomach/Abdominal pain?denies.?Dark blood stool?denies.?Irritable bowel ?denies.?Constipation?denies.?Diarrhea?denies.?Hematology:?Swelling?denies.?Clots?denies.?Varicose Veins?denies.?Bruising?denies.?Bleeding problem?denies.?Genitourinary:?Blood urine?admits.?Frequent/Painfu/urination/bladder control?denies.?Kidney stones?admits.?Infection (UTI)?admits.?Nephropathy?denies.?sex trans dis (STD)?denies.?Prostate?admits.?Musculoskeletal:?Hammertoes?denies.?Bunions?denies.?Back Pain?denies.?Muscle Cramps/ Resting?denies.?Muscle cramps / walking?denies.?Generalized aches and pains?admits.?Weakness?denies.?Integ.:?Baez?denies.?Scars?denies.?Corns/calluses?denies.?Ingrown nails?denies.?Painful nails?admits.?Open Sores?denies.?Rashes?denies.?Neurologic:?Difficulty sleeping?denies.?Brain disorder?denies.?Numbness?denies.?Balance trouble?denies.?Confusion?denies.?Fainting/blackouts?denies.?Tingling?denies.?Tr emors?denies.? * Medical History:? * Surgical History:?trigger fi nger surgery 10/01/2020[facility] 05/02/2020 * Hospitalization/Major Diagno stic Procedure:?[facility]- phneumonia 11/05/23 * Family History:?Mother: unkn own.?Father: unknown.?Spouse: , diagnosed with Diabetic - NIDDM.?Children: diagnosed with Diabetic - NIDDM.? * Social History:?Tobacco Use:?Tobacco Use/Smoking?Are you a:?former smoker ?Additional Findings: Tobacco Non-User?Current non-smoker ?Tobacco use other than smoking?Are you an other tobacco user??No ???Drugs/Alcohol:?Drugs?Have you used drugs other than those for medical reasons in the past 12 months??No ?Alcohol Screen?Did you have a drink containing alcohol in the past year??No ?Points?0 ?Interpretation?Negative ???Miscellaneous:?Caffeine: yes, frequency:, 2-3 cups per day. ?Children: yes, 2. ?Exercise: yes, hiking. ?Marital status: . ?Occupation: Retired- [employer]. * Medications:?TakingVitamin C Co Q 10 Advair HFA Spiriva HandiHaler 18 MCG Capsule 1 capsule by inhaling the contents of the capsule using the HandiHaler device Inhalation Once a day Loratadine 10 MG Tablet 1 tablet Orally Once a day Brady Ludwig , Notes to Pharmacist: spirivaAlbuterol Sulfate HFA Naproxen 500 MG Tablet Oral Ammonium Lactate 12 % Cream 1 application to affected area Externally Twice a day to dry areas of skin on feet Medication List reviewed and reconciled with the patientTaking Vitamin C Taking Co Q 10 Taking Advair HFA Taking Spiriva HandiHaler 18 MCG Capsule 1 capsule by inhaling the contents of the capsule using the HandiHaler device Inhalation Once a day Taking Loratadine 10 MG Tablet 1 tablet Orally Once a day Taking Moixearl Ludwig , Notes to Pharmacist: spirivaTaking Albuterol Sulfate HFA Taking Naproxen 500 MG Tablet Oral Taking Ammonium Lactate 12 % Cream 1 application to affected area Externally Twice a day to dry areas of skin on feet Medication List reviewed and reconciled with the patient * Allergies:?PenicillinDemerol : rashyes[Allergies Verified] Objective: * Vitals:?Ht: 6ft, Wt:188, BMI :25.49, Shoe size: 10.5, BP:120/75mm Hg, Ht-cm: 182.88 cm, Wt-k.28 kg. * Examination: ???General Examination: ?GENERAL APPEARANCE:?good attention to hygiene, no acute distress, well developed, well nourished.?Vascular: ?DP PULSES(B):?2/4, B/L.?PT PULSES(B):?2/4, B/L.?CAPILLARY FILL TIME:?3 secs. per digit, B/L.?TROPHIC CONDITION-TEXTURE/ELASTICITY/TURGOR/HAIR GROWTH(B):?normal, B/L.?Neurological: ?SENSORY:?Neurological exam reveals intact sensorium, pain sensation normal, vibration sensation intact, pinprick sensation is normal in the lower extremities, Pt denies, anesthesia, burning, paresthesia, tingling, B/L, Neurological exam demonstrates pop righth 4/5th toes .?Dermatologic: ?SKIN FINDINGS:?Skin shows sign(s) of, dryness, scaling, in a stocking fashion, no fissure(s) present, B/L, approximately 70% LESS.?Nails: ?NAILS are:?elongated,overgrown,dystrophic,greater than 3mm thick,discolored and friable with crumbly malodorous subungual debris, with pain on palpation, 1-5 Right foot, T1, T2, T3.? 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 Plan: * Treatment: 2.?Tinea unguium?Procedure: [id number]-[id number] NAIL, 6 OR MORE * Procedures:?Debride Nail 6-10:?Nail debridement?Performance of this nail treatment by a nonprofessional would put this patients foot and overall health at risk. Therefore, debridement to affected nail(s), as described in exam, was performed extensively to reduce/remove overall nail length, girth, thickness, subungual debris, and necrotic tissue, by manual and/or electrical means through the use of a nail nipper and/or dremel-type tankage grinder, to a more viable healthy nail plate or bed tissue 6-10. Silver nitrate used for any petechial bleeding as necessary. Definitive antifungal treatment options have been reviewed and discussed with the patient. The patient chooses, no pharmaceutical tx - 82557.? * Procedure Codes:?87462 DEBRI DE NAIL, 6 OR MORE, Modifiers: XS * Preventive Medicine:? ??Counseling:?Discussion:?-12: Office or other outpatient visit for the evaluation and management of an established patient, which required a medically appropriate history and/or examination and STRAIGHTFORWARD level of MEDICAL DECISION MAKING, 1 SELF-LIMITED OR MINOR PROBLEM, MINIMAL- NO AMOUNT/COMPLEXITY OF DATA TO BE REVIEWED/ANALYZED, AND MINIMAL RISK OF COMPLICATION/MORBIDITY. The visit on the day of the encounter encompassed interpreting the data and educating the patient as to the nature of their condition, treatment options available according to their individual PMH, meds, allergies, and overall health/living conditions, as well as any potential risks or complications that may occur from a failure to adhere to, and participate in, the recommended course of therapy. The discussion included a complete verbal, and/or written explanation of the examination results, any x-rays taken, the proposed diagnosis, and outline of the treatment plan. A schedule for future care needs was also explained. The patient verbalized an understanding of the instructions at this time and agreed to be an active participant in their treatment. If the patient should think of any questions or concerns after the visit, I have encouraged the patient to call the office.?Xerosis:?Given recent successful results to treatment, The patient is to cont the rx cream as directed.? ??Screening/Special Tests:?Fall Risk?Assessment:?Performed ?Screening:?No falls in the past year ?FALLS: Screening for Future Fall Risk?Have you had two or more falls in the past year??No ?Have you had any falls with injury in the past year??No * Follow Up:?prn * * Sign off status: Completed true * Provider:?Crista Garcia DPM Date:?2023 Generated for Tory patricia/Anne/Camille on:?05/10/2024 03:36 PM EST History and Physical Notes * HPI (History of Present Illness) Category Sub-Category Detail Notes Category Not es Painful Nails Pt States Last PCP Visit: Date:: 10/18/2023 Skin problems Nature: dryness Location: B/L Duration: several months Onset/Cause: unknown Course: , improved, at 70% Treatments: medication ( AM Lact in ), states adherence to recommended treatment application Examination Category Sub-Category Detail Notes Category Not es Neurological SENSORY: Neurological exa m reveals intact sensorium, pain sensation normal, vibration sensation intact, pinprick sensation is normal in the lower extremities, Pt denies, anesthesia, burning, paresthesia, tingling, B/L, Neurological exam demonstrates pop righth 4/5th toes Dermatologic SKIN FINDINGS: Skin shows sign( s) of, dryness, scaling, in a stocking fashion, no fissure(s) present, B/L, approximately 70% LESS General Examination GENERAL APPEARANCE: good att ention to hygiene, no acute distress, well developed, well nourished Vascular DP PULSES (B): 2/4, B/L PT PULSES (B): 2/4, B/L CAPILLARY FILL TIME: 3 secs. per digit, B/L TROPHIC CONDITION-TEXTURE/ELASTICITY/TUR GOR/HAIR GROWTH (B): normal, B/L Nails NAILS are: elongated,overgr own,dystrophic,greater than 3mm thick,discolored and friable with crumbly malodorous subungual debris, with pain on palpation, 1-5 Right foot, T1, T2, T3
--- OUTSIDE RECORDS SUMMARY | 2024-05-10 15:37 | XMS_ITS ---
Author Organization [facility] Address [address] [place] [address] Care Team Providers Care Cell Operation Supervisor Name Role Phone Beatriz Bee MD Primary Care Provider UnavailCrista Corey Unavailable [phone] Encounters Encounter Location Date Provider Diagnosis [address] [address] 11/18/2023 Crista Garcia Plan Of Treatment Next Appt Details Provider Name:Crista Garcia , 06/01/2024 03:00:00 PM, [address] [place] [address], [phone], Progress Notes * Idalia ALLENOB:[birth year] (73 yo M)Acc No.[id number]:11/18/2023 Patient:?GiovaniScottin :1950???Age:73 Y???Sex:Male Address:[address] [place] [address] [address], [place], [address] * true * Date:? Generated for Lawrencei belem/Anne/eTransmitting on:?05/10/2024 03:37 PM EST
--- OUTSIDE RECORDS SUMMARY | 2024-05-10 15:37 | XMS_ITS ---
Author Organization [facility] Address [address] [place] [address] Care Team Providers Care Binding Bench Worker Name Role Phone Beatriz Bee MD Primary Care Provider Unavailabl e Black, Crista Unavailable [phone] Allergies Allergen (clinical drug ingredient) Drug/Non Drug Allergy documented on EMR Reaction Allergy Type Onset Date Status meperidine Demerol rash Drug Allergy Active Penicillin Unknown Drug Allergy Active REASON FOR VISIT Painful nail(s) aggrevated by shoes and causing difficulty standing/walking., Skin problem(s) Medications Medication SIG (Take, Route, Frequency, Duration) Notes Start Date End Date Status Loratadine 10 MG 1 tablet Orally Once a day for 30 day(s) Active Wixela Inhub spiriva Active Albuterol Sulfate HFA Active Spiriva HandiHaler 18 MCG 1 capsule by i nhaling the contents of the capsule using the HandiHaler device Inhalation Once a day Active Naproxen 500 MG Oral for 30 Days Active Ammonium Lactate 12 % 1 application to a ffected area Externally Twice a day to dry areas of skin on feet for 30 days 11/18/2023 Active Vitamin C Active Co Q 10 Active Advair HFA Active Social History Tobacco Use: Social History Observation Description Date Details (start date - stop date) Former Smoker NA - NA Tobacco Use/Smoking Question Answer Notes Are you a: former smoker Additional Findings: Tobacco Non-User Current no n-smoker Tobacco use other than smoking: Question Answer Notes Are you an other tobacco user? No Vital Signs Height 6ft in 11/18/2023 Weight 188 lbs 11/18/2023 BMI 25.49 kg/m2 11/18/2023 Blood pressure systolic 101 mm Hg 11/18/19 24 Blood pressure diastolic 70 mm Hg 024 Procedures Procedure Date Ordered Date Performed Result Body Sit e 55037-OUEBHOC NAIL, 6 OR MORE 11/18/2023 N/A Encounters Encounter Location Date Provider Diagnosis [facility] [address] [place] [address] 11/18/2023 Crista Garcia Tinea unguium B35.1 ; Xerosis cutis L85.3 ; Pain in right toe(s) M79.674 and Pain in left toe(s) M79.675 Assessments Encounter Date Diagnosis (ICD Code) Assessment Notes Treatment Notes Treatment Clinical Notes Section Notes 11/18/2023 Tinea unguium (ICD-10 - B35.1) 11/18/2023 Xerosis cutis (ICD-10 - L85.3) 11/18/2023 Pain in right toe(s) (ICD-10 - M79.674) 11/18/2023 Pain in left toe(s) (ICD-10 - M79.675) Plan Of Treatment Medication Medication Name Sig Start Date Stop Date Notes Ammonium Lactate 12 % 1 application to a ffected area Externally Twice a day to dry areas of skin on feet for 30 days 11/18/2023 Pending Test Test Name Order Date [id number] NAIL, 6 OR MORE 11/18/2023 Next Appt Details Follow Up: 3 Months, Reason: Provider Name:Crista Garcia , 06/01/2024 03:00:00 PM, [address] [place], [address], Procedure Notes * Category Sub-Category Detail Notes Debride Nail 6-10 Nail debridement Nail debridem ent performed extensively to reduce/remove overall nail length and girth, subungual debris, and necrotic tissue, by manual and electrical means with use of a nail nipper and/or dremel, to more viable healthy nail plate or bed tissue 6-10. Silver nitrate used for any petechial bleeding as necessary. Patient chooses, no pharmaceutical tx (85465) Progress Notes * Yvonne ALLEN:[birth year] (73 yo M)Acc No.[id number]:11/18/2023 Progress Note Patient:?Alfonzo ALLEN Provider:?Crista Garcia DPM :1950???Age:73 Y???Sex:Male Duke e:11/18/2023 Address:[address] [place] [address] [place], [place] [id number] Pcp:Beatriz Bee MD Subjective: * Chief Complaints: * ???Painful nail(s) aggrevate d by shoes and causing difficulty standing/walking.Skin problem(s) * HPI: ???Painful Nails:?Pt States Last PCP Visit:?Date:?10/18/2023 ???Skin problems:?Nature:?dryness.?Location:?B/L .?Duration:?several months.?Onset/Cause:?unknown.?Course:?worsened.? * ROS:?General/Constitutional:?Nausea?denies.?Vomiting?denies.?Hunger Thirst?denies.?Loss appetite?denies.?Chills?denies.?Fatigue?denies.?Fever?denies.?Night Sweats?denies.?Unexplained weight loss?denies.?Unexplained [...] History:? * Surgical History:?trigger fi nger surgery 1renews 05/02/2020 * Hospitalization/Major Diagno stic Procedure:?[facility]- phneumonia 11/05/23 * Family History:?Mother: unkn own.?Father: unknown.?Spouse: , diagnosed with Diabetic - NIDDM.?Children: diagnosed with Diabetic - NIDDM.? * Social History:?Tobacco Use:?Tobacco Use/Smoking?Are you a:?former smoker ?Additional Findings: Tobacco Non-User?Current non-smoker ?Tobacco use other than smoking?Are you an other tobacco user??No ???Miscellaneous:?Caffeine: yes, frequency:, 2-3 cups per day. [...] Sulfate HFA Naproxen 500 MG Tablet Oral Medication List reviewed and reconciled with the patientTaking Vitamin C Taking Co Q 10 Taking Advair HFA Taking Spiriva HandiHaler 18 MCG Capsule 1 capsule by inhaling the contents of the capsule using the HandiHaler device Inhalation Once a day Taking Loratadine 10 MG Tablet 1 tablet Orally Once a day Taking Brady Ludwig , Notes to Pharmacist: spirivaTaking Albuterol Sulfate HFA Taking Naproxen 500 MG Tablet Oral Medication List reviewed and reconciled with the patient * Allergies:?PenicillinDemerol : rashyes[Allergies Verified] Objective: * Vitals:?Ht: 6ft, Wt:188, BMI :25.49, Shoe size: 10.5, BP:101/70mm Hg, Ht-cm: 182.88 cm, Wt-k.28 kg. * Examination: ???General Examination: ?GENERAL APPEARANCE:?good attention to hygiene, no acute distress, well developed, well nourished.?Vascular: ?DP PULSES (B):?2/4, B/L.?PT PULSES (B):?2/4, B/L.?CAPILLARY FILL TIME:?3 secs. per digit, B/L.?TROPHIC CONDITION-TEXTURE/ELASTICITY/TURGOR/HAIR GROWTH (B):?normal, B/L.?TEMPERTURE GRADIENT (C):?warm to cool, proximal to distal, B/L.?PIGMENTATION:?normal, B/L.?EDEMA (C):?absent, B/L.?Neurological: ?SENSORY:?Neurological exam reveals intact sensorium, pain sensation normal, vibration sensation intact, pinprick sensation is normal in the lower extremities, Pt denies, anesthesia, burning, paresthesia, tingling, B/L, Neurological exam demonstrates pop righth 4/5th toes .?Dermatologic: ?SKIN FINDINGS:?Skin exam reveals normal texture, elasticity, and tugor. There are no masses. The interspaces are clear , Skin shows sign(s) of, dryness, scaling, in a stocking fashion, no fissure(s) present, B/L.?Nails: ?NAILS are:?elongated,overgrown,dystrophic,greater than 3mm thick,discolored and friable with crumbly malodorous subungual debris, with pain on palpation, 1-5 Right foot, T1, T2, T3.? 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 Plan: * Treatment: 2.?Tinea unguium?Procedure: 19580-[id number] NAIL, 6 OR MORE * Procedures:?Debride Nail 6-10:?Nail debridement?Nail debridement performed extensively to reduce/remove overall nail length and girth, subungual debris, and necrotic tissue, by manual and electrical means with use of a nail nipper and/or dremel, to more viable healthy nail plate or bed tissue 6-10. Silver nitrate used for any petechial bleeding as necessary. Patient chooses, no pharmaceutical tx (34540).? * Procedure Codes:?25842 DEBRI DE NAIL, 6 OR MORE, Modifiers: XS * Preventive Medicine:? ??Counseling:?Discussion:?-13: Office or other outpatient visit for the evaluation and management of an established patient, which required a medically appropriate history and/or examination and LOW level of DECISION MAKING for: 1 STABLE ACUTE UNCOMPLICATED PROBLEM, 2 OR MORE MINOR PROBLEMS, OR 1 STABLE CHRONIC PROBLEM, THAT POSE(S) A LOW RISK FOR MORBIDITY/MORTALITY. The visit on the day of the [...] have encouraged the patient to call the office.?Xerosis:?The patient was counseled on the diagnosis, potential etiologies, and treatment options for their skin condition. We discussed the risks and benefits of each option from performing no treatment, to utilizing OTC topical skin creams/ointments, to utilizing prescription topical creams/ointments, to utilizing customized compounded topical medications and use of nocturnal occlusion with any/all previously detailed therapies. We discussed the advantages and disadvantages of each possible treatment and importance for adherence to all the recommended therapies for optimum success and avoid potential complications such as open sore/infection/possible hospitalization. We discussed the potential effectiveness of each topical preparation as well as each ones possible side effects and/or patient medication interactions. Patient questions re: use, dosage, successful outcomes, and application consistency were reviewed and the patient verbalized that all answers were clearly understood. The patient has decided to apply Rx skin creams to their feet save the interspaces while paying special attention to the heels. Such was sent to their pharmacy at the time of visit.? * Follow Up:?3 Months * Images: * Sign off status: Completed true * Provider:?Crista Garcia DPM Date:?2023 Generated for Tory patricia/Anne/Camille on:?05/10/2024 03:37 PM EST History and Physical Notes * HPI (History of Present Illness) Category Sub-Category Detail Notes Category Not es Painful Nails Pt States Last PCP Visit: Date:: 10/18/2023 Skin problems Nature: dryness Location: B/L Duration: several months Onset/Cause: unknown Course: worsened Examination Category Sub-Category Detail Notes Category Not es Neurological SENSORY: Neurological exa m reveals intact sensorium, pain sensation normal, vibration sensation intact, pinprick sensation is normal in the lower extremities, Pt denies, anesthesia, burning, paresthesia, tingling, B/L, Neurological exam demonstrates pop righth 4/5th toes Dermatologic SKIN FINDINGS: Skin exam reveal s normal texture, elasticity, and tugor. There are no masses. The interspaces are clear , Skin shows sign(s) of, dryness, scaling, in a stocking fashion, no fissure(s) present, B/L General Examination GENERAL APPEARANCE: good att ention to hygiene, no acute distress, well developed, well nourished Vascular DP PULSES (B): 2/4, B/L PT PULSES (B): 2/4, B/L CAPILLARY FILL TIME: 3 secs. per digit, B/L TEMPERTURE GRADIENT (C): warm to cool, p roximal to distal, B/L TROPHIC CONDITION-TEXTURE/ELASTICITY/TURGOR/HAIR GROWTH (B): normal, B/L EDEMA (C): absent, B/L PIGMENTATION: normal, B/L Nails NAILS are: elongated,overgr own,dystrophic,greater than 3mm thick,discolored and friable with crumbly malodorous subungual debris, with pain on palpation, 1-5 Right foot, T1, T2, T3
--- OUTSIDE RECORDS SUMMARY | 2024-05-10 15:37 | XMS_ITS | Clinical Summary ---
Author Organization [address] Address [address] [place] [phone] Phone Care Team Providers Care Lead Miner Name Role Phone Beatriz Bee MD Primary Care Provider [phone] Allergies Active Allergy Reactions Criticality Noted Date Comments Meperidine 07/01/2016 Penicillins 07/01/2016 Medications Medication Sig Dispensed Refills Start Date End Date Status azithromycin (ZITHROMAX) 250 mg tablet 2 tab po x 1 and then 1 tab po qd x 4 days Active fluticasone propion-salmetero L (Wixela Inhub) 100-50 mcg/dose diskus inhaler INHALE 1 PUFF BY MOUTH TWICE A DAY Active tiotropium (Spiriva with HandiHaler) 18 mcg per inhalation capsule Place 18 mcg into inhaler and inhale. Active sacubitriL-valsar rincon (Entresto) 49-51 mg per tablet Take by mouth 2 times daily. Active ipratropium-albut Nicholas (DUONEB) 0.5-2.5 mg/3 mL nebulizer solution Inhale 3 mL into the lungs once for 1 dose. Active loratadine (CLARITIN) 10 mg tablet 10 mg. Active montelukast (SINGULAIR) 10 mg tablet 10 mg. Active multivitamin (MULTIPLE VITAMINS ORAL) Active omeprazole (PriLOSEC) [address] capsule 20 mg. Active tamsulosin (FLOMAX) 0.4 mg 24 hr capsule 0.4 mg. Active albuterol HFA (PROAIR HFA ; PROVENTIL HFA ; VENTOLIN HFA) 90 mcg/actuation inhaler Inhale 2 puffs by mouth every 6 (six) hours if needed for wheezing or shortness of breath (cough and chest tightness). 18 g 3 04/17/2024 Active albuterol HFA (PROAIR HFA ; PROVENTIL HFA ; VENTOLIN HFA) 90 mcg/actuation inhaler Inhale 2 puffs by mouth every 6 (six) hours if needed for wheezing or shortness of breath (cough and chest tightness). 08/07/2021 04/17/2024 Discontinued (Reorder) Active Problems Problem Noted Date Diagnosed Date Alopecia 03/30/2024 Pulmonary nodules 06/11/2017 Overview (03/30/2024): CT 08/20/2010 GERD (gastroesophageal reflux disease) 7 Chronic obstructive pulmonary disease 11/09/2016 KASSANDRA (obstructive sleep apnea) 07/01/2016 Encounters Date Type Department Care Team Description 04/28/2024 Lab Requisition [facility] - Main Lab [address] [facility] [place] [phone] Gigi Leung MD Gross hematuria [facility] [address] [phone] Britton Knowles [place] [facility] [address] [place] [phone] Britton Knowles MA from Last 3 Months Surgical History Surgery Date Site/Laterality Comments APPENDECTOMY PROCEDURE:APPENDECTOMY OTHER SURGICAL HISTORY PROCEDURE:cardiac cath APPENDECTOMY PROCEDURE: HISTORICAL APPENDECTOMY LITHOTRIPSY PROCEDURE: HISTORICAL LITHOTRIPSY Medical History Medical History Date Comments Asthma DX:Asthma COPD (chronic obstructive pu lmonary disease) ([facility]) DX:COPD (chronic obstructive pulmonary disease) ([facility]) High blood pressure DX:High bloo d pressure Arthritis DX:Arthritis Chronic obstructive pulmonar y disease ([facility]) 11/09/2016 DX:Chronic obstructive pulmo nary disease ([facility]) Alopecia DX:Alopecia KASSANDRA (obstructive sleep apnea) 07/01/2016 DX :KASSANDRA (obstructive sleep apnea) GERD (gastroesophageal reflu x disease) 03/29/2017 DX:GERD (gastroesophageal re flux disease) History of kidney stones 06/11/2017 DX:Hist ory of kidney stones History of pneumonia 10/01/2016 DX:History of pneumonia History of hepatitis 06/11/2017 DX:History of hepatitis Pulmonary nodules 06/11/2017 DX:Pulmonary n odules; COMMENT: CT 08/20/2010 Family History Medical History Relation Name Comments ALS Mother Cancer Mother Relation Name Status Comments Mother Social History Tobacco Use Types Packs/Day Years Used Date Smoking Tobacco: Former Cigarettes Q uit: 04/19/2007 Smokeless Tobacco: Never Alcohol Use Standard Drinks/Week Comments No 0 (1 standard drink = 0.6 oz pur e alcohol) Sex and Gender Information Value Date Recorded Sex Assigned at Not on file Gender Identity Not on file Sexual Orientation Not on file Obstetrics History Last Filed Vital Signs Vital Sign Reading Time Taken Comments Blood Pressure 116/70 02/01/2024 8:43 AM EDT Pulse 91 02/01/2024 8:43 AM EDT Temperature - - Respiratory Rate - - Oxygen Saturation - - Inhaled Oxygen Concentration - - Weight 89.4 kg (197 lb 2 oz) 02/01/2024 8:43 AM EDT Height 180.3 cm (5' 11 ) 02/01/2024 8:43 AM EDT Body Mass Index 27.49 02/01/2024 8:43 AM EDT Plan of Treatment Upcoming Encounters Date Type Department Care Team (Late st Contact Info) Description 08/02/2024 8:45 AM EDT Office Visit Pulmonolgy - [place] [address] [facility] [address] [place] [phone] Zonia Concepcion MD [address] [facility] [address] [place] [address] Health Maintenance Due Date Last Done Comments Pneumococcal Vaccine: 65+ Ye ars (1 of 2 - PCV) 1958 DTaP,Tdap,and Td Vaccines (1 - Tdap) 10/29/1971 Zoster Vaccines (1 of 2) 2002 RSV Immunization Patients 60 + Years Old (1 - Risk 60-74 years 1-dose series) 2012 Abdominal Aortic Aneurysm (A AA) Screen 03/28/2022 Cholesterol Screening (Lipid Panel) 03/28/2022 Colorectal Cancer Screening: Colonoscopy 03/28/2022 Depression Screening 03/28/2022 Falls Risk Assessment 03/28/2022 Hepatitis C Screening 03/28/2022 Medicare Annual Wellness Visit 03/28/2022 Social Influencers of Health Screening 03/28/2022 COVID-19 Vaccine ( - 2023-2 5 season) 2023 Influenza Vaccine (#1) 2023 HIB Vaccines Aged Out No longer eligi ble based on patient's age to complete this topic HPV Vaccines Aged Out No longer eligi ble based on patient's age to complete this topic Hepatitis A Vaccines Aged Out No long er eligible based on patient's age to complete this topic Hepatitis B Vaccines Aged Out No long er eligible based on patient's age to complete this topic IPV Vaccines Aged Out No longer eligi ble based on patient's age to complete this topic MMR Vaccines Aged Out No longer eligi ble based on patient's age to complete this topic Meningococcal ACWY Vaccine Aged Out N o longer eligible based on patient's age to complete this topic RSV Immunization Patients Un madina 20 months Aged Out No longer eligible b ased on patient's age to complete this topic Varicella Vaccines Aged Out No longer eligible based on patient's age to complete this topic Procedures Procedure Name Priority Date/Time Associated Diagnosis Comments AP OUTSIDE CONSULT Routine 04/20/2024 12 :00 AM EST Gross hematuria from Last 3 Months Results * Anatomic pathology outside consult (04/20/2024 12:00 AM EST) Final Diagnosis A. Urine, Voided, (UP25-7): Negative for high grade urothelial carcinoma. Acute inflammation present. 05/01/2024 6:02 PM EST [facility] Clinical Information Gross hematuria R31.0 Urine cytology with reflex UroVysion (AUC/SHGUC) 05/01/2024 6:02 PM EST [facility] Gross Description A. Urine, Voided, (UP25-7): Received is one ThinPrep slide for cytology. 05/01/2024 6:02 PM EST [facility] Disclaimer Unless otherwise specified, all tissue is 10% NB formalin fixed and paraffin embedded. Technical pathology services provided by [facility] at [address], [place] [address] (CLIA #[id number]/Paolo Omer MD, Car Wash Supervisor) 05/01/2024 6:[address] [facility] Tissue Urine specimen from urethra / Unknown 04/20/2024 04/28/2024 9:55 AM EST Gigi Leung MD LAB PATHOLOGY ORDER[facility] BLES [facility]) [facility] [address] [place] [address], from Last 3 Months Care Teams Lead Miner Relationship Specialty Start Date End Date Beatriz Bee MD [address] [place] [address] PCP - General Internal Medicine 02/17/17
--- OUTSIDE RECORDS SUMMARY | 2024-05-10 15:37 | XMS_ITS | Encounter Summary ---
Author Organization [facility] Address [address] [place] [address] Care Team Providers Care Map Maker Name Role Phone Beatriz Bee MD Primary Care Provider [phone] Encounter Details Date Type Department Care Team (Late st Contact Info) Description 04/28/2024 Lab Requisition [facility] - Main Lab [address] [facility] [place] [address] Gigi Leung MD 100 [facility] [address] [place] [address] Gross hematuria Social History Tobacco Use Types Packs/Day Years Used Date Smoking Tobacco: Former Cigarettes Q uit: 04/19/2007 Smokeless Tobacco: Never Alcohol Use Standard Drinks/Week Comments No 0 (1 standard drink = 0.6 oz pur e alcohol) Sex and Gender Information Value Date Recorded Sex Assigned at Not on file Gender Identity Not on file Sexual Orientation Not on file documented as of this encounter Plan of Treatment Upcoming Encounters Date Type Department Care Team (Late st Contact Info) Description 08/02/2024 8:45 AM EDT Office Visit Pulmonol - [place] 175 [facility] [address] [place] [address] Zonia Concepcion MD 175 [facility] [address] [place] [address] documented as of this encounter Procedures Procedure Name Priority Date/Time Associated Diagnosis Comments AP OUTSIDE CONSULT Routine 04/20/2024 12 :00 AM EST Gross hematuria documented in this encounter Results * Anatomic pathology outside consult (04/20/2024 12:00 AM EST) Final Diagnosis A. Urine, Voided, (UP25-7): Negative for high grade urothelial carcinoma. Acute inflammation present. 05/01/2024 6:02 PM EST [facility] Clinical Information Gross hematuria R31.0 Urine cytology with reflex UroVysion (AUC/SHGUC) 05/01/2024 6:02 PM EST [facility] Gross Description A. Urine, Voided, (UP25-7): Received is one ThinPrep slide for cytology. 05/01/2024 6:02 PM EST [facility] Disclaimer Unless otherwise specified, all tissue is 10% NB formalin fixed and paraffin embedded. Technical pathology services provided by [facility] at [address] [facility] [address] [place] [address] (CLIA #[id number]/Paolo Omer MD, Agricultural Extension Specialist) 05/01/2024 6:02 PM EST [facility] Tissue Urine specimen from urethra / Unknown 04/20/2024 04/28/2024 9:55 AM EST Gigi Leung MD LAB PATHOLOGY ORDERA BLES [facility] [address] [place] [address], documented in this encounter Visit Diagnoses Diagnosis Gross hematuria documented in this encounter Care Teams Map Maker Relationship Specialty Start Date End Date Beatriz Bee MD [address] [place] [address] PCP - General Internal Medicine 02/17/17 documented as of this encounter
--- OUTSIDE RECORDS SUMMARY | 2024-05-10 15:38 | XMS_ITS | Patient Health Record ---
[facility] Address [address] [place] [address] Care Team Providers Care Slate Splitter Name Role Phone Rohit VELÁSQUEZ, Beatriz Primary Care Provider Unavailabl maria c Garcia, Crista Unavailable [phone] Christos Negro Unavailable [phone] Allergies Allergen (clinical drug ingredient) Drug/Non Drug Allergy documented on EMR Reaction Allergy Type Onset Date Status meperidine Demerol rash Drug Allergy Active Penicillin Unknown Drug Allergy Active Reason For Referral No Information Medications Medication SIG (Take, Route, Frequency, Duration) Notes Start Date End Date Status Vitamin C Active Co Q 10 Active Advair HFA Active Spiriva HandiHaler 18 MCG 1 capsule by i nhaling the contents of the capsule using the HandiHaler device Inhalation Once a day Active Loratadine 10 MG 1 tablet Orally Once a day for 30 day(s) Active Wixela Inhub spiriva Active Albuterol Sulfate HFA Active Ammonium Lactate [...] Are you an other tobacco user? No Problems Problem Type SNOMED Code ICD Code Onset Dates Problem Status W/U Status Risk Notes Problem Localized, primary osteoarthritis of the ankle and/or foot (003599635) Primary osteoarthrit is, right ankle and foot (M19.071) Active confirmed Problem Localized, primary osteoarthritis of the ankle and/or foot (115007134) Primary osteoarthrit is, left ankle and foot (M19.072) Active confirmed Problem Acquired hammer toe of right foot (5907933672634371) Other hammer toe(s) (acquired), right foot (M20.41) Active confirmed Problem Acquired hammer toe of left foot (4783429395222098) Other hammer toe(s) (acquired), left foot (M20.42) Active confirmed Vital Signs Blood pressure diastolic 75 mm Hg 02/28/2024 Height 6ft in 02/28/2024 Blood pressure systolic 120 mm Hg 02/28/2024 Weight 188 lbs 02/28/2024 BMI 25.49 kg/m2 02/28/2024 Procedures Procedure Date Ordered Date Performed Result Body Sit e 06851-PITYOPC NAIL, 6 OR MORE 11/18/2023 N/A 21547-HURHSAX NAIL, 6 OR MORE 02/28/2024 N/A Encounters Encounter Location Date Provider Diagnosis [address] [address] 08/11/2023 ChristosRivas Tinea unguium B35.1 ; Primary osteoarthritis, left ankle and foot M19.072 ; Pain in right toe(s) M79.674 ; Pain in left toe(s) M79.675 ; Xerosis cutis L85.3 ; Primary osteoarthritis, right ankle and foot M19.071 ; Other hammer toe(s) (acquired), left foot M20.42 and Other hammer toe(s) (acquired), right foot M20.[address] [address] 11/18/2023 Crista Black Tinea unguium B35.1 ; Xerosis cutis L85.3 ; Pain in right toe(s) M79.674 and Pain in left toe(s) M79.[address] [address] 02/28/2024 Crista Black Tinea unguium B35.1 ; Xerosis cutis L85.3 ; Pain in right toe(s) M79.674 and Pain in left toe(s) M79.675 [facility] [address] [place] [address] 11/18/2023 Crista Black Assessments Encounter Date Diagnosis (ICD Code) Assessment Notes Treatment Notes Treatment Clinical Notes Section Notes 08/11/2023 Tinea unguium (ICD-10 - B35.1) 08/11/2023 Primary osteoarthritis, left ankle and foot (ICD-10 - M19.072) 11/18/2023 Tinea unguium (ICD-10 - B35.1) 11/18/2023 Xerosis cutis (ICD-10 - L85.3) 02/28/2024 Tinea unguium (ICD-10 - B35.1) 02/28/2024 Xerosis cutis (ICD-10 - L85.3) 11/18/2023 Pain in right toe(s) (ICD-10 - M79.674) 08/11/2023 Pain in right toe(s) (ICD-10 - M79.674) 08/11/2023 Pain in left toe(s) (ICD-10 - M79.675) 11/18/2023 Pain in left toe(s) (ICD-10 - M79.675) 02/28/2024 Pain in right toe(s) (ICD-10 - M79.674) 02/28/2024 Pain in left toe(s) (ICD-10 - M79.675) 08/11/2023 Xerosis cutis (ICD-10 - L85.3) 08/11/2023 Primary osteoarthritis, right ankle and foot (ICD-10 - M19.071) 08/11/2023 Other hammer toe(s) (acquired), left foot (ICD-10 - M20.42) 08/11/2023 Other hammer toe(s) (acquired), right foot (ICD-10 - M20.41) Plan Of Treatment Pending Test Test Name Order Date [id number] NAIL, 6 OR MORE 03/24/2021 59333-APJNZDA NAIL, 6 OR MORE 11/18/2023 43653-[id number] NAIL, 6 OR MORE 02/28/2024 Next Appt Details Provider Name:Crista Garcia , 06/01/2024 03:00:00 PM, [address] [place], [address], Insurance Providers Payer Name Payer Address Payer Phone Subscriber Number Group Number Insured Name Patient Relationship to Insured Coverage Start Date Coverage End Date Medicare National Govt Svcs Inc [address] [place] [address] [id number] Alfonzo Lynch Self - patient is the insured [facility] [address] [place] [address] [id number] Alfonzo Lynch Self - patient is the insured Medical (General) History Medical History History ICD Code Arthritis asthma Heart disease Lung disease- COPD Psoriasis/eczema Measles Mumps Chicken pox Surgical History Surgery Date(Month/Year) trigger finger surgery 10/01/2020 renews 05/02/2020 Hospitalization History Reason Date(Month/Year) [facility]- phneumonia 11/05/23
== END 2024-05-10 14:19 | disposition home or self-care (01) ==
PROVIDERS: PCP Internal Medicine; Visit Provider Internal Medicine Rheumatology
DX: M02.3 Reiter's disease (principal); Z79.899 Other long term (current) drug therapy; M65.341 Trigger finger, right ring finger
CPT/HCPCS: 99214; G2211

== ENCOUNTER 2024-06-14 16:18 | Outpatient (REF) | payer MEDICARE, BC, SELFPAY ==
[2024-06-14 16:32] LABS: MANUAL DIFF FLAG NO
[2024-06-14 17:13] LABS: Basophils Absolute Auto 0.1 X10*3/uL (0.0-0.2); Basophils Percent Auto 1.4 % (0-2); Eosinophils Absolute Auto 0.5 X10*3/uL (0.0-0.4); Eosinophils Percent Auto 5.2 % (0-4); Hematocrit 45.4 % (42.0-52.0); Hemoglobin 15.4 g/dl (14.0-18.0); Imm Gran Abs Auto 0.03 X10*3/uL (0.00-0.03); Imm Gran Pct Auto 0.3 % (0.0-0.4); Lymphocytes Percent Auto 20.5 % (20-40); Mean Corpuscular HGB Conc 33.9 g/dl (31.0-36.0); Mean Corpuscular Hemoglobin 29.8 pg (27.0-33.0); Monocytes Absolute Auto 0.9 X10*3/uL (0.1-1.2); Monocytes Percent Auto 9.3 % (2-11); Neutrophils Absolute Auto 6.2 x10*3/uL (2.0-8.3); Neutrophils Percent Auto 63.3 % (45-73); Platelet Count 295 X10*3/uL (160-400); Red Blood Count 5.16 X10*6/uL (4.60-5.80); Red Cell Distribution Width 13.5 % (11.0-16.0); White Blood Count 9.8 X10*3/uL (4.8-10.8)
[2024-06-14 17:33] LABS: Alanine Aminotransferase 23 U/L (0-40); Aspartate Amino Transferase 22 U/L (5-37); Estimated Glomerular Filt Rate > 60
--- OUTSIDE RECORDS SUMMARY | 2024-06-14 19:41 | XMS_ITS | Patient Health Record ---
Author Organization [facility] Address [address] [place] [address] Care Team Providers Care Diesel Maintenance Electrician Name Role Phone Rohit VELÁSQUEZ, Beatriz Primary Care Provider Unavailabl e Jose, Crista Unavailable [phone] Christos Negro Unavailable [phone] Allergies Allergen (clinical drug ingredient) Drug/Non Drug [...] Inhub spiriva Active Albuterol Sulfate HFA Active Naproxen 500 MG Oral for 30 Days Active Ammonium Lactate 12 % 1 application to a ffected area Externally Twice a day to dry areas of skin on feet for 30 days Active Vitamin C Active Social History Tobacco Use: Social History Observation Description Date Details (start date - stop date) Never Smoker NA - NA Alcohol Screen Question Answer Notes Did you have a drink containing alcohol in the p ast year? No Points 0 Interpretation Negative Tobacco use other than smoking: Question Answer Notes Are you an other tobacco user? No Tobacco Control (Standard) Question Answer Notes Tobacco use: Nonsmoker Problems Problem Type SNOMED Code ICD Code Onset Dates Problem Status W/U Status Risk Notes Problem Localized, primary osteoarthritis of the ankle and/or foot (810951337) Primary osteoarthrit is, right ankle and foot (M19.071) Active confirmed Problem Localized, primary osteoarthritis of the ankle and/or foot (435511192) Primary osteoarthrit is, left ankle and foot (M19.072) Active confirmed Problem Acquired hammer toe of right foot (3919465424961692) Other hammer toe(s) (acquired), right foot (M20.41) Active confirmed Problem Acquired hammer toe of left foot (9230640156438535) Other hammer toe(s) (acquired), left foot (M20.42) Active confirmed Vital Signs Blood pressure diastolic 68 mm Hg 06/01/2024 Height 6ft in 06/01/2024 Blood pressure systolic 116 mm Hg 06/01/2024 Weight 190 lbs 06/01/2024 BMI 25.77 kg/m2 06/01/2024 Procedures Procedure Date Ordered Date Performed Result Body Sit e 69839-BWJAMZF NAIL, 6 OR MORE 11/18/2023 N/A 76612-GRJKYRP NAIL, 6 OR MORE 02/28/2024 N/A 01298-BPLRQRV NAIL, 6 OR MORE 06/01/2024 N/A Encounters Encounter Location Date Provider Diagnosis [address] [address] 08/11/2023 Christos Negro Tinea unguium B35.1 ; Primary osteoarthritis, left ankle and foot M19.072 ; Pain in right toe(s) M79.674 ; Pain in left toe(s) M79.675 ; Xerosis cutis L85.3 ; Primary osteoarthritis, right ankle and foot M19.071 ; Other hammer toe(s) (acquired), left foot M20.42 and Other hammer toe(s) (acquired), right foot M20.[address] [address] 11/18/2023 Crista Black Tinea unguium B35.1 ; Xerosis cutis L85.3 ; Pain in right toe(s) M79.674 and Pain in left toe(s) M79.675 [address] [place] [address] 02/28/2024 Crista Black Tinea unguium B35.1 ; Xerosis cutis L85.3 ; Pain in right toe(s) M79.674 and Pain in left toe(s) M79.[address] [address] 06/01/2024 Crista Black Tinea unguium B35.1 ; Pain in right toe(s) M79.674 and Pain in left toe(s) M79.[address] [address] 11/18/2023 Crista Black Assessments Encounter Date Diagnosis (ICD Code) Assessment Notes Treatment Notes Treatment Clinical Notes Section Notes 11/18/2023 Tinea unguium (ICD-10 - B35.1) 11/18/2023 Xerosis cutis (ICD-10 - L85.3) 02/28/2024 Tinea unguium (ICD-10 - B35.1) 06/01/2024 Tinea unguium (ICD-10 - B35.1) 06/01/2024 Pain in right toe(s) (ICD-10 - M79.674) 08/11/2023 Tinea unguium (ICD-10 - B35.1) 08/11/2023 Primary osteoarthritis, left ankle and foot (ICD-10 - M19.072) 08/11/2023 Pain in right toe(s) (ICD-10 - M79.674) 06/01/2024 Pain in left toe(s) (ICD-10 - M79.675) 02/28/2024 Xerosis cutis (ICD-10 - L85.3) 11/18/2023 Pain in right toe(s) (ICD-10 - M79.674) 11/18/2023 Pain in left toe(s) (ICD-10 - M79.675) 02/28/2024 Pain in right toe(s) (ICD-10 - M79.674) 08/11/2023 Pain in left toe(s) (ICD-10 - M79.675) 08/11/2023 Xerosis cutis (ICD-10 - L85.3) 02/28/2024 Pain in left toe(s) (ICD-10 - M79.675) 08/11/2023 Primary osteoarthritis, right ankle and foot (ICD-10 - M19.071) 08/11/2023 Other hammer toe(s) (acquired), left foot (ICD-10 - M20.42) 08/11/2023 Other hammer toe(s) (acquired), right foot (ICD-10 - M20.41) Plan Of Treatment Pending Test Test Name Order Date [id number] NAIL, 6 OR MORE 03/24/2021 51455-DSVWDVG NAIL, 6 OR MORE 11/18/2023 84842-[id number] NAIL, 6 OR MORE 02/28/2024 40067-QVCBVSJ NAIL, 6 OR MORE 06/01/2024 Next Appt Details Provider Name:Crista Garcia , 09/21/2024 11:15:00 AM, [address] [place], [address], Insurance Providers Payer Name Payer Address Payer Phone Subscriber Number Group Number Insured Name Patient Relationship to Insured Coverage Start Date Coverage End Date Medicare National Govt Svcs Inc [address] [facility] [place] [address] [id number] Alfonzo Lynch Self - patient is the insured [facility] [address] [place] [address] [id number] Alfonzo Lynch Self - patient is the insured Medical (General) History Medical History History ICD Code Arthritis asthma Heart disease Lung disease- COPD Psoriasis/eczema Measles Mumps Chicken pox Surgical History Surgery Date(Month/Year) trigger finger surgery 10/01/2020 renews 05/02/2020 Hospitalization History Reason Date(Month/Year) [facility]- phneumonia 11/05/23
--- OUTSIDE RECORDS SUMMARY | 2024-06-14 19:41 | XMS_ITS ---
Author Organization [facility] Address [address] [place] [address] Care Team Providers Care Painter Decorator Name Role Phone Beatriz Bee MD Primary Care Provider Unavailabl e Black, Crista Unavailable [phone] Allergies Allergen (clinical drug ingredient) Drug/Non Drug [...] Ordered Date Performed Result Body Sit e 58695-AEMGINA NAIL, 6 OR MORE 02/28/2024 N/A Encounters Encounter Location Date Provider Diagnosis [facility] [address] [address] 02/28/2024 Crista Garcia Tinea unguium B35.1 ; [...] days Pending Test Test Name Order Date [id number] NAIL, 6 OR MORE 02/28/2024 Next Appt Details Follow Up: prn, Reason: Provider Name:Crista Garcia , 09/21/2024 11:15:00 AM, [address] [place] [address], [phone], Procedure Notes * Category Sub-Category Detail Notes [...] use of a nail nipper and/or dremel-type wood grinder operator, to a more viable healthy nail plate or bed tissue 6-10. Silver nitrate used for any petechial bleeding as necessary. Definitive antifungal treatment options have been reviewed and discussed with the patient. The patient chooses, no pharmaceutical tx - [address] Progress Notes * Idalia ALLENOB:[birth year] (73 yo M)Acc No.[id number]:02/28/2024 Progress Note Patient:?Alfonzo ALLEN Provider:?Crista Garcia DPM :1950???Age:73 Y???Sex:Male Duke e:02/28/2024 Address:[address] [place], [place] [id number] Pcp:Beatriz Bee MD Subjective: * Chief Complaints: [...] - M79.675??? Plan: * Treatment: 2.?Tinea unguium?Procedure: [id number] NAIL, 6 OR MORE * Procedures:?Debride Nail [...] use of a nail nipper and/or dremel-type wood grinder operator, to a more viable healthy nail plate or bed tissue 6-10. Silver nitrate used for any petechial bleeding as necessary. Definitive antifungal treatment options have been reviewed and discussed with the patient. The patient chooses, no pharmaceutical tx - [address]18.? * Procedure Codes:?92444 DEBRI DE NAIL, 6 OR MORE, Modifiers: [...] Garcia DPM Date:?2023 Generated for Tory patricia/Anne/Camille on:?06/14/2024 07:40 PM EST History and Physical Notes * [...]
--- OUTSIDE RECORDS SUMMARY | 2024-06-14 19:41 | XMS_ITS | Clinical Summary ---
Author Organization [address] Address [address] [place] [address] Phone Care Team Providers Care Family Practice Physician Assistant Name Role Phone Beatriz Bee MD Primary Care Provider [phone] Allergies Active Allergy Reactions Criticality Noted Date Comments Meperidine 07/01/2016 Penicillins 07/01/2016 Medications azithromycin (ZITHROMAX) 250 mg tablet 2 tab po x 1 and then 1 tab po qd x 4 days Active fluticasone propion-salmete roL (Wixela Inhub) 100-50 mcg/dose diskus inhaler INHALE 1 PUFF BY MOUTH TWICE A DAY Active tiotropium (Spiriva with HandiHaler) 18 mcg per inhalation capsule Place 18 mcg into inhaler and inhale. Active sacubitriL-vals kelsea (Entresto) 49-51 mg per tablet Take by mouth 2 times daily. Active ipratropium-alb uteroL (DUONEB) 0.5-2.5 mg/3 mL nebulizer solution Inhale 3 mL into the lungs once for 1 dose. Active loratadine (CLARITIN) 10 mg tablet 10 mg. Active montelukast (SINGULAIR) 10 mg tablet 10 mg. Active multivitamin (MULTIPLE VITAMINS ORAL) Activ e omeprazole (PriLOSEC) [address] capsule 20 mg. Active tamsulosin (FLOMAX) 0.4 mg 24 hr capsule 0.4 mg. Active albuterol HFA (PROAIR HFA ; PROVENTIL HFA ; VENTOLIN HFA) 90 mcg/actuation inhaler Inhale 2 puffs by mouth every 6 (six) hours if needed for wheezing or shortness of breath (cough and chest tightness). 18 g 3 4 Active Active Problems Problem Noted Date Diagnosed Date Alopecia 03/30/2024 Pulmonary nodules 06/11/2017 Overview (03/30/2024): CT 08/20/2010 GERD (gastroesophageal reflux disease) 7 Chronic obstructive pulmonary disease 11/09/2016 KASSANDRA (obstructive sleep apnea) 07/01/2016 Encounters Date Type Department Care Team Description 05/15/2024 Lab Requisition [facility] Lab [address] [place] [phone] Gigi Leung MD Gross hematuria 04/28/2024 Lab Requisition [facility] Lab [address] [place] [phone] Gigi Leung MD Gross hematuria 03/20/2024 Telephone Pulmonolgy - [place] [address] [facility] [address] [place] [phone] Britton Knowles MA from Last 3 Months Surgical History Surgery Date Site/Laterality Comments APPENDECTOMY PROCEDURE:APPENDECTOMY OTHER SURGICAL HISTORY PROCEDURE:cardiac cath APPENDECTOMY PROCEDURE: HISTORICAL APPENDECTOMY LITHOTRIPSY PROCEDURE: HISTORICAL LITHOTRIPSY Medical History Medical History Date Comments Asthma DX:Asthma COPD (chronic obstructive pu lmonary disease) ([facility]) DX:COPD (chronic obstructive pulmonary disease) ([facility]) High blood pressure DX:High bloo d pressure Arthritis DX:Arthritis Chronic obstructive pulmonar y disease ([facility]) 11/09/2016 DX:Chronic obstructive pulmo nary disease ([facility]) Alopecia DX:Alopecia KASSANDRA (obstructive sleep apnea) [...] Recorded Sex Assigned at Not on file Legal Sex Male 6:03 PM EST Gender Identity Not on file Sexual Orientation [...] 8:45 AM EDT Office Visit Pulmonol - [place] [address] [facility] [address] [place] [phone] Zonia Concepcion MD [address] [facility] [address] [place] [address] Health Maintenance Due Date Last Done Comments DTaP,Tdap,and Td Vaccines (1 - Tdap) 10/29/1971 Pneumococcal Vaccine: 50+ Ye ars (1 of 2 - PCV) 10/29/1971 Zoster Vaccines (1 of 2) 2002 RSV Immunization Patients 60 + Years Old (1 - Risk 60-74 years 1-dose series) 2012 Abdominal Aortic Aneurysm (A AA) Screen 03/28/2022 Cholesterol Screening (Lipid Panel) 03/28/2022 Colorectal Cancer Screening: Colonoscopy 03/28/2022 Depression Screening 03/28/2022 Falls Risk Assessment 03/28/2022 Hepatitis C Screening 03/28/2022 Medicare Annual Wellness Visit 03/28/2022 Social Influencers of Health Screening 03/28/2022 COVID-19 Vaccine (2023-2 5 season) 2023 Influenza Vaccine (#1) 2023 [...] patient's age to complete this topic Meningococcal B Vacine Aged Out No lo nger eligible based on patient's age to complete this topic RSV Immunization Patients Un madina 20 months Aged Out No longer eligible b ased on patient's age to complete this topic Varicella Vaccines Aged Out No longer eligible based on patient's age to complete this topic Procedures Procedure Name Priority Date/Time Associated Diagnosis Comments AP OUTSIDE CONSULT Routine 05/11/2024 12 :00 AM EST Gross hematuria AP OUTSIDE CONSULT Routine 04/20/2024 12 :00 AM EST Gross hematuria from Last 3 Months Results * Anatomic pathology outside consult (05/11/2024 12:00 AM EST) Only the most recent of2 resultswithin the time period is included. Final Diagnosis Urine, Voided, ([id number]): Negative for high grade urothelial carcinoma. Acute inflammation present. 05/24/2024 2:46 PM EST [facility] ([facility]) [facility] Clinical Information Gross hematuria R31.0 Urine cytology with reflex UroVysion ([facility]/SHGUC) 05/24/2024 2:46 PM EST [facility] Gross Description A. Urine, Voided, ([id number]): Received one ThinPrep slide for cytology. 05/24/2024 2:46 PM EST [facility] Disclaimer Unless otherwise specified, all tissue is 10% NB formalin fixed and paraffin embedded. Technical pathology services provided by [facility] at [address], [place] [address] (CLIA #[id number]/Paolo Omer MD, Medical Practice Administrator) 05/24/2024 2:46 PM EST [facility] Tissue Urine specimen from urethra / Unknown 05/11/2024 05/15/2024 11:43 AM EST us Gigi Leung MD LAB PATHOLOGY ORDERABLES Final Result [facility] ([facility]) [facility] [address] [place] [address], from Last 3 Months Insurance MEDICARE [facility] Care Teams Family Practice Physician Assistant Relationship Specialty Start Date End Date Beatriz Bee MD [address] [place] [address] PCP - General Internal Medicine 02/17/17
--- OUTSIDE RECORDS SUMMARY | 2024-06-14 19:41 | XMS_ITS ---
Author Organization [facility] Address [address] [place] [address] Care Team Providers Care Geological Scout Name Role Phone Beatriz Bee MD Primary Care Provider Unavailabl e Black, Cirsta Unavailable [phone] Allergies Allergen (clinical drug ingredient) Drug/Non Drug [...] Ordered Date Performed Result Body Sit e 60449-ZARGGUH NAIL, 6 OR MORE 11/18/2023 N/A Encounters Encounter Location Date Provider Diagnosis [facility] [place] [address] [place] [address] 11/18/2023 Crista Garcia Tinea unguium B35.1 ; [...] 11/18/2023 Pending Test Test Name Order Date [id number] NAIL, 6 OR MORE 11/18/2023 Next Appt Details Follow Up: 3 Months, Reason: Provider Name:Crista Garcia , 09/21/2024 11:15:00 AM, [address] [place], [address], Procedure Notes * Category Sub-Category Detail Notes [...] as necessary. Patient chooses, no pharmaceutical tx (95171) Progress Notes * Yvonne ALLEN:[birth year] (73 yo M)Acc No.[id number]:11/18/2023 Progress Note Patient:?Alfonzo ALLEN Provider:?Crista Garcia DPM :1950???Age:73 Y???Sex:Male Duke e:11/18/2023 Address:[address] [place] [address] [place], [place] [phone] Pcp:Beatriz Bee MD Subjective: * Chief Complaints: [...] - M79.675??? Plan: * Treatment: 2.?Tinea unguium?Procedure: 05265-LFZVAOP NAIL, 6 OR MORE * Procedures:?Debride Nail 6-10:?Nail debridement?Nail debridement performed extensively to reduce/remove overall nail length and girth, subungual debris, and necrotic tissue, by manual and electrical means with use of a nail nipper and/or dremel, to more viable healthy nail plate or bed tissue 6-10. Silver nitrate used for any petechial bleeding as necessary. Patient chooses, no pharmaceutical tx (72267).? * Procedure Codes:?45788 DEBRI DE NAIL, 6 OR MORE, Modifiers: [...]
--- OUTSIDE RECORDS SUMMARY | 2024-06-14 19:41 | XMS_ITS ---
Author Organization [facility] Address [address] [place] [address] Care Team Providers Care Automatic Corn Grinder Operator Name Role Phone Beatriz Bee MD Primary Care Provider Unavailabl e Black, Crista Unavailable [phone] Allergies Allergen (clinical drug ingredient) Drug/Non Drug Allergy documented on EMR Reaction Allergy Type Onset Date Status meperidine Demerol rash Drug Allergy Active Penicillin Unknown Drug Allergy Active REASON FOR VISIT Painful nail(s) aggrevated by shoes and causing difficulty standing/walking. Medications Medication SIG (Take, Route, Frequency, Duration) [...] skin on feet for 30 days Active Co Q 10 Active Advair HFA Active Spiriva HandiHaler 18 MCG 1 capsule by i nhaling the contents of the capsule using the HandiHaler device Inhalation Once a day Active Vitamin C Active Social History Tobacco Use: Social History Observation Description Date Details (start date - stop date) Never Smoker NA - NA Tobacco use other than smoking: Question Answer Notes Are you an other tobacco user? No Tobacco Control (Standard) Question Answer Notes Tobacco use: Nonsmoker Vital Signs Height 6ft in 06/01/2024 Weight 190 lbs 06/01/2024 BMI 25.77 kg/m2 06/01/2024 Blood pressure systolic 116 mm Hg 06/01/19 25 Blood pressure diastolic 68 mm Hg 025 Procedures Procedure Date Ordered Date Performed Result Body Sit e 41230-NFUBJQK NAIL, 6 OR MORE 06/01/2024 N/A Encounters Encounter Location Date Provider Diagnosis [facility] [address] [phone] 06/01/2024 Crista aGrcia Tinea unguium B35.1 ; Pain in right toe(s) M79.674 and Pain in left toe(s) M79.675 Assessments Encounter Date Diagnosis (ICD Code) Assessment Notes Treatment Notes Treatment Clinical Notes Section Notes 06/01/2024 Tinea unguium (ICD-10 - B35.1) 06/01/2024 Pain in right toe(s) (ICD-10 - M79.674) 06/01/2024 Pain in left toe(s) (ICD-10 - M79.675) Plan Of Treatment Pending Test Test Name Order Date 99020-BPQMNHW NAIL, 6 OR MORE 06/01/2024 Next Appt Details Follow Up: prn, Reason: Provider Name:Crista Garcia , 09/21/2024 11:15:00 AM, [address] [place] [address], [phone], Procedure Notes * Category Sub-Category Detail Notes Debride Nail 6-10 Nail debridement Due to the cl inical pathology outlined in the exam findings, performance of this nail treatment is medically necessary as its management by an unskilled/untrained nonprofessional would put this patients foot and overall health at risk. Therefore, debridement to affected nail(s), as described in exam ( T5, T6, T7, T8, T9, T1, T2, T3), was performed exclusively by the physician of record to reduce/remove overall nail length, girth, thickness, subungual debris, and necrotic tissue, by manual and/or electrical means through the use of a nail nipper and/or dremel-type watch parts grinder, to a more viable healthy nail plate or bed tissue 6-10 nails in total. Silver nitrate was used for any petechial bleeding as necessary. Definitive antifungal treatment options, both pharmaceutical and surgical, have been reviewed and discussed with the patient. The patient solely prefers the use of intermittent/as needed professional debridement services for their nail condition and understands the need for additional periodic treatments to maintain effectiveness in symptomatic relief - 43630 Progress Notes * Idalia ALLENOB:[birth year] (73 yo M)Acc No.[id number]:06/01/2024 Progress Note Patient:Alfonzo CUNNINGHAM Provider:?Crista Garcia DPM :1950???Age:73 Y???Sex:Male Duke e:06/01/2024 Address:[address] [place], [place] [phone] Pcp:Beatriz Bee MD Subjective: * Chief Complaints: * ???Painful nail(s) aggrevate d by shoes and causing difficulty standing/walking. * HPI: ???Painful Nails:?Pt States Last PCP Visit:?Date:?10/18/2023 * ROS:?General/Constitutional:?Nausea?denies.?Vomiting?denies.?Hunger Thirst?denies.?Loss appetite?denies.?Chills?denies.?Fatigue?denies.?Fever?denies.?Night Sweats?denies.?Unexplained weight loss?denies.?Unexplained [...] Diabetic - NIDDM.? * Social History:?Tobacco Use:?Tobacco use other than smoking?Are you an other tobacco user??No ?Tobacco Control (Standard)?Tobacco use:?Nonsmoker ???Miscellaneous:?Caffeine: yes, frequency:, 2-3 cups per day. [...] : rashyes[Allergies Verified] Objective: * Vitals:?Ht: 6ft, Wt:190, BMI :25.77, Shoe size: 10.5, BP:116/68mm Hg, Ht-cm: 182.88 cm, Wt-k.18 kg. * Examination: ???General Examination: ?GENERAL APPEARANCE:?good attention to hygiene, no acute distress, well developed, well nourished.?Vascular: ?DP PULSES (B):?2/4, B/L.?PT PULSES (B):?2/4, B/L.?CAPILLARY FILL TIME:?3 secs. per digit, B/L.?TROPHIC CONDITION-TEXTURE/ELASTICITY/TURGOR/HAIR GROWTH (B):?normal, B/L.?Neurological: ?SENSORY:?Neurological exam reveals intact sensorium, pain sensation normal, vibration sensation intact, pinprick sensation is normal in the lower extremities, Pt denies, anesthesia, burning, paresthesia, tingling, B/L, \.?Dermatologic: ?SKIN FINDINGS:?Skin exam reveals normal color, texture, elasticity, and turgor. There are no masses, nor excrescences. The interspaces are clear, B/L.?Nails: ?NAILS are:?elongated,overgrown,dystrophic,greater than 3mm thick,discolored and friable with crumbly malodorous subungual debris, with pain on palpation,T5, T6, T7, T8, T9, T1, T2, T3.? Assessment: * Assessment: 1.?Tinea unguium - B35.1 (Pr imary)???2.?Pain in right toe(s) - M79.674???3.?Pain in left toe(s) - M79.675??? Plan: * Treatment: * Procedures:?Debride Nail 6-10:?Nail debridement?Due to the clinical pathology outlined in the exam findings, performance of this nail treatment is medically necessary as its management by an unskilled/untrained nonprofessional would put this patients foot and overall health at risk. Therefore, debridement to affected nail(s), as described in exam ( T5, T6, T7, T8, T9, T1, T2, T3), was performed exclusively by the physician of record to reduce/remove overall nail length, girth, thickness, subungual debris, and necrotic tissue, by manual and/or electrical means through the use of a nail nipper and/or dremel-type watch parts grinder, to a more viable healthy nail plate or bed tissue 6-10 nails in total. Silver nitrate was used for any petechial bleeding as necessary. Definitive antifungal treatment options, both pharmaceutical and surgical, have been reviewed and discussed with the patient. The patient solely prefers the use of intermittent/as needed professional debridement services for their nail condition and understands the need for additional periodic treatments to maintain effectiveness in symptomatic relief - 73270.? * Procedure Codes:?43947 DEBRI DE NAIL, 6 OR MORE * Preventive Medicine:? ??Screening/Special Tests:?Fall Risk?Screening:?No falls in the past year ?FALLS: Screening for Future Fall Risk?Have you had any falls with injury in the past year??No * Follow Up:?prn * Images: * Sign off status: Completed true * Provider:?Crista Garcia DPM Date:?2024 Generated for Tory patricia/Anne/Camille on:?06/14/2024 07:41 PM EST History and Physical Notes * HPI (History of Present Illness) Category Sub-Category Detail Notes Category Not es Painful Nails Pt States Last PCP Visit: Date:: 10/18/2023 Examination Category Sub-Category Detail Notes Category Not es Neurological SENSORY: Neurological exa m reveals intact sensorium, pain sensation normal, vibration sensation intact, pinprick sensation is normal in the lower extremities, Pt denies, anesthesia, burning, paresthesia, tingling, B/L, \ Dermatologic SKIN FINDINGS: Skin exam reveal s normal color, texture, elasticity, and turgor. There are no masses, nor excrescences. The interspaces are clear, B/L General Examination GENERAL APPEARANCE: good att ention to hygiene, no acute distress, well developed, well nourished Vascular DP PULSES (B): 2/4, B/L PT PULSES (B): 2/4, B/L CAPILLARY FILL TIME: 3 secs. per digit, B/L TROPHIC CONDITION-TEXTURE/ELASTICITY/TUR GOR/HAIR GROWTH (B): normal, B/L Nails NAILS are: elongated,overgr own,dystrophic,greater than 3mm thick,discolored and friable with crumbly malodorous subungual debris, with pain on palpation,T5, T6, T7, T8, T9, T1, T2, T3
--- OUTSIDE RECORDS SUMMARY | 2024-06-14 19:41 | XMS_ITS | Encounter Summary ---
Author Organization [facility] Address [address] [place] [address] Care Team Providers Care Automotive Brake Specialist Name Role Phone Beatriz Bee MD Primary Care Provider [phone] Encounter Details Date Type Department Care Team (Late st Contact Info) Description 05/15/2024 Lab Requisition [facility] - Main Lab [address] [facility] [place] [address] Gigi Leung MD [address] [facility] [address] [place] [address] Gross hematuria Social History Tobacco [...] Encounters Date Type Department Care Team (Late Contact Info) Description 08/02/2024 8:45 AM EDT Office Visit Pulmonol - [place] [address] [facility] [address] [place] [address] Zonia Concepcion MD [address] [facility] [address] [place] [address] documented as of this encounter Procedures Procedure Name Priority Date/Time Associated Diagnosis Comments AP OUTSIDE CONSULT Routine 05/11/2024 12 :00 AM EST Gross hematuria documented in this encounter Results * Anatomic pathology outside consult (05/11/2024 12:00 AM EST) Final Diagnosis Urine, Voided, ([id number]): Negative for high grade urothelial carcinoma. Acute inflammation present. 05/24/2024 2:46 PM EST [facility] Clinical Information Gross hematuria R31.0 Urine cytology with reflex UroVysion ([facility]/SHGUC) 05/24/2024 2:46 PM EST [facility] Gross Description A. Urine, Voided, ([id number]): Received one ThinPrep slide for cytology. 05/24/2024 2:46 PM EST [facility] Disclaimer Unless otherwise specified, all tissue is 10% NB formalin fixed and paraffin embedded. Technical pathology services provided by [facility] at [address], [place] [address] (CLIA #[id number]/Paolo Omer MD, Export Freight Specialist) 05/24/2024 2:46 PM EST [facility] Tissue Urine specimen from urethra / Unknown 05/11/2024 05/15/2024 11:43 AM EST us Gigi Leung MD LAB PATHOLOGY ORDERABLES Final Result [facility] [address] [place] [address], documented in this encounter Visit Diagnoses Diagnosis Gross hematuria documented in this encounter Care Teams Automotive Brake Specialist Relationship Specialty Start Date End Date Beatriz Bee MD [address] [place] [address] PCP - General Internal Medicine 02/17/17 documented as of this encounter
--- OUTSIDE RECORDS SUMMARY | 2024-06-14 19:41 | XMS_ITS | Encounter Summary ---
Author Organization [facility] Address [address] [place] [address] Care Team Providers Care Director Prison Name Role Phone Beatriz Bee MD Primary Care Provider [phone] Encounter Details Date Type Department Care Team (Late st Contact Info) Description 04/28/2024 Lab Requisition [facility] - Main Lab [address] [facility] [place] [address] Gigi Leung MD 100 [facility] [address] [place] [address] Gross hematuria Social History Tobacco [...] 8:45 AM EDT Office Visit Pulmonol - [place] [address] [facility] [address] [place] [address] Zonia Concepcion MD [address] [facility] [address] [place] [address] documented as of this encounter Procedures Procedure Name Priority Date/Time Associated Diagnosis Comments AP OUTSIDE CONSULT Routine 04/20/2024 12 :00 AM EST Gross hematuria documented in this encounter Results * Anatomic pathology outside consult (04/20/2024 12:00 AM EST) Final Diagnosis A. Urine, Voided, ([id number]): Negative for high grade urothelial carcinoma. Acute inflammation present. 05/01/2024 6:02 PM EST [facility] Clinical Information Gross hematuria R31.0 Urine cytology with reflex UroVysion ([facility]/SHGUC) 05/01/2024 6:02 PM EST [facility] Gross Description A. Urine, Voided, ([id number]): Received is one ThinPrep slide for cytology. 05/01/2024 6:02 PM EST [facility] Disclaimer Unless otherwise specified, all tissue is 10% NB formalin fixed and paraffin embedded. Technical pathology services provided by [facility] at [address], [place] [address] (CLIA #[id number]/Paolo Omer MD, Insurance Loss Adjuster) 05/01/2024 6:02 PM [facility] Tissue Urine specimen from urethra / Unknown 04/20/2024 04/28/2024 9:55 AM EST us Gigi Leung MD LAB PATHOLOGY ORDERABLES Final Result [facility] [address] [place] [address], documented in this encounter Visit Diagnoses Diagnosis Gross hematuria documented in this encounter Care Teams Director Prison Relationship Specialty Start Date End Date Beatriz Bee MD [address] [place] [address] PCP - General Internal Medicine 02/17/17 documented as of this encounter
--- OUTSIDE RECORDS SUMMARY | 2024-06-14 19:41 | XMS_ITS | Continuity of Care Document ---
Author Organization [place] - [facility], [facility] Address [address] [place] [address] Care Team Providers Care Tipple Worker Name Role Phone ANNE MARIE SETH Primary Care Provider Assessment Encounter Date Assessment Date Assessment LastModified by Organization Details LastModified Time 05/22/2024 05/22/2024 Cerumen and squamous debris removed bilaterally, which patient tolerated well. Otologic exam otherwise remarkable for dry, flaking skin and collapsing, stenotic canals. Recommend continued use of Lotrisone cream. Will also prescribe fluocinolone; rationale, risks, and how to use were reviewed and patient understands. For the eustachian tube dysfunction on the left side, recommend daily fluticasone therapy utilizing crossed hand technique demonstrated today. Follow-up in 3 to 4 months for cerumen removal, sooner with issues. Will be due for audiometric testing in December. Not available 05/22/2024 10:53:51 Plan of Treatment Reminders Order Date Submit Date Provider Last Modified By Organization Details Last Modified Time Details Appointments Establish ed 15 2024 01:15P M SANJAY MINAYA PA-C Not available Not available Not available Lab None recorded. Referral None recorded. Procedures None recorded. Surgeries None recorded. Imaging None recorded. Medication Orders fluocinol one acetonide oil 0.01 % ear drops 2024 025 [facility]/Pharmacy #[id number], [address], [place], [address], 05/22/2024 10:44:51 fluticaso ne propionat e 50 mcg/actua tion nasal spray,jayjay pension 2024 025 [facility]/Pharmacy #[id number], [address], [place], [address], 05/22/2024 10:45:52 Patient TargetsNo targets recorded. Patient InstructionsNo instructions recorded. Reason for Referral None Reported. 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 90502484620 66259 Active 2019 Other acquired stenosis of external ear canal, bilateral ; Note: Date Diagnosed : 0 10:53 AM (H61.393) Not Available [facility] 4 02:56:30 Scar condition s and fibrosis of skin 455488646 Active 2020 Scar condition s and fibrosis of skin; Note: Date Diagnosed : 05/16/2020 5:22 PM (L90.5) Not Available [facility] 4 02:56:28 Itching of skin 478273027 Active 2022 Other pruritus; Note: Date Diagnosed : 3 3:01 PM (L29.8) Not Available [facility] 4 02:56:28 Dermatiti s NOS Active 2019 Dermatiti s, unspecifi ed; Note: Date Diagnosed : 0 10:53 AM (L30.9) Not Available [facility] 4 02:56:27 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 42973678279 41710 Active 2020 Acquired stenosis of external ear canal secondary to inflammat ion and infection , bilateral ; Note: Date Diagnosed : 05/16/2020 5:22 PM (H61.323) Not Available [facility] 4 02:56:30 Stenosis of bilateral external ear canals due to and following inflammat ion 22428791859 32775 Active 2020 Acquired stenosis of external ear canal secondary to inflammat ion and infection , bilateral ; Note: Date Diagnosed : 05/16/2020 5:22 PM (H61.323) Not Available [facility] 4 02:56:30 Impacted cerumen of bilateral ears 01937931130 89754 Active 2022 Impacted cerumen, bilateral ; Note: Date Diagnosed : 3 3:00 PM (H61.23) Not Available [facility] 4 02:56:29 Otorrhea of bilateral ears 41050986538 49909 Active 2020 Otorrhea, bilateral ; Note: Date Diagnosed : 05/16/2020 5:22 PM (H92.13) Not Available [facility] 4 02:56:29 Eczema 21755847 Active 2020 Other specified dermatiti s; Note: Date Diagnosed : 05/16/2020 5:22 PM (L30.8) Not Available [facility] 4 02:56:30 Superfici al mycosis 636488504 Active 2020 Other specified superfici al mycoses; Note: Date Diagnosed : 05/16/2020 5:22 PM (B36.8) Not Available [facility] 4 02:56:27 Chronic eczema of external auditory canal 857260848 Active 2023 DEEDEE MIRANDA PA-C [address] [facility],[place] [address], [place], [address] , [facility] - [facility] 4 11:42:00 Sensorine ural hearing loss of bilateral ears 071677565 Active 2023 CARMELO CAROLINA [address] [facility],[place] [address], [address] , [facility] - [facility] 4 11:35:19 Mixed conductiv e and sensorine ural hearing loss of left ear 40408414637 107 Active 2023 AGNES CHRISTIANSEN AUD [address] [facility],[place] [address], [address] , [facility] - [facility] 4 11:40:54 Mixed conductiv e and sensorine ural hearing loss, bilateral 944805534 Active 2023 CARMELO CAROLINA [address] [facility],[place] [address], [address] , [place] - [facility] 4 11:45:31 Disorder of left Eustachia n tube 07398527017 47373 Active 2024 DEEDEE MIRANDA PA-C [address] [facility],[place] [address], [place], [address] , [place] - [facility] 5 10:45:07 Problem Notes None recorded. Procedures Surgical History Date Name Laterality Status Provider Name and Address Organization Details Recorded Time 5 Cerumen removal without microscope bilat completed DEEDEE MIRANDA PA-C [address] [facility],[place] [address], [place], [address], [place] - [facility] 05/22/2024 10:54:37 4 Cerumen removal without microscope bilat completed DEEDEE MIRANDA PA-C [address] [place] [address],[address], [address], [place] - [facility] 02/10/2024 13:06:49 4 Comp Audio with Tymps (67674 & 40273) completed CARMELO CAROLINA [address] [facility],[address], [address], [place] - [facility] 01/13/2024 11:35:22 4 Cerumen removal without microscope bilat completed DEEDEE MIRANDA PA-C [address] [place] [address],[address], [address], [place] - [facility] 01/13/2024 11:56:50 Imaging Results None recorded. Procedure Notes None recorded. Medical Equipment None Reported. Allergies Allergen ID Allergen Name Allergen Category Reaction Reaction Severity Criticality Documentation Date Start Date Code Code System Note Provider Name and Address Organization Details Recorded Time 982906 Demerol medicatio n other Not available Not available 08/31/2023 24089 1 RxNorm React ion: other react ion, Unkno wn; Not Available [facility] 4 01:14:39 968348 Product containin g penicilli n (product) medicatio n other Not available Not available 08/31/2023 28673 8001 SNOMED React ion: other react ion, Unkno wn; Not Available [facility] 4 01:14:43 Medications Name Sig Start Date Stop Date Status Note LastModified by Organization Details LastModified Time carvedilo l 6.25 mg tablet TAKE 1 TABLET BY MOUTH TWICE A DAY WITH FOOD FOR 90 DAYS active Not Available Not Available No t Available prednison e 10 mg tablet PLEASE SEE ATTACHED FOR DETAILED DIRECTIO NS 05/22 completed Not Available Not Available Not Available atorvasta tin 20 mg tablet TAKE 1 TABLET BY MOUTH EVERY DAY FOR 90 DAYS active Not Available Not Available No t Available azithromy bennett 250 mg tablet TAKE 2 TABLETS BY MOUTH TODAY, THEN TAKE 1 TABLET DAILY FOR 4 DAYS DIRECTED 05/22 completed Not Available Not Available Not Available prednison e 20 mg tablet TAKE 2 TABLETS BY MOUTH DAILY FOR 5 DAYS 05/22 completed Not Available Not Available Not Available prednison e 5 mg tablet PLEASE SEE ATTACHED FOR DETAILED DIRECTIO NS 05/22 completed Not Available Not Available Not Available sulfasala zine 500 mg tablet,de layed release TAKE 1 TABLET ORALLY 2 TIMES A DAY CHECK LABS IN 4 WEEKS AT [facility] active Not Available Not Available No t Available levofloxa bennett 250 mg tablet TAKE 2 TABLETS BY MOUTH EVERY DAY active Not Available Not Available No t Available doxycycli ne monohydra te 100 mg tablet TAKE 1 TABLET BY MOUTH TWICE A DAY FOR 7 DAYS 05/22 completed Not Available Not Available Not Available spironola ctone 25 mg tablet TAKE 1/2 TABLET DAILY BY MOUTH FOR 90 DAYS active Not Available Not Available No t Available tamsulosi n 0.4 mg capsule 2019 active Medicati on ID: [id number] B rand Name: tamsulos in Send Method: [...] mg capsule TAKE 1 CAPSULE BY MOUTH THREE TIMES A DAY FOR 5 DAYS 05/22 completed Not Available Not Available Not Available clotrimaz ole-betam ethasone 1 %-0.05 % topical cream PLEASE SEE ATTACHED FOR DETAILED DIRECTIO NS active Not Available Not Available No t Available metronida zole 0.75 % topical cream APPLY TO THE AFFECTED AREAS OF THE FACE BEFORE BEDTIME active Not Available Not Available No t Available clotrimaz ole 1 % topical solution 2020 active Medicati on ID: [id number] D uration Value: 14 Prescri bed By Name: RACHEL Stokes nd Name: duran tammymaria c Sen d Method: E-Prescr ibed Sub s Allowed: subs OK Speci al Instruct ion: 4 drops to affected ear three times a day X 14 days Med icationG enericNa me: clotrima zole Not Available Not Available Not Available gabapenti n 300 mg capsule TAKE 1 CAPSULE BY MOUTH EVERYDAY AT BEDTIME 05/22 completed Not Available Not Available Not Available omeprazol e 20 mg capsule,d elayed release TAKE 1 CAPSULE BY MOUTH EVERY DAY AT 6:30AM FOR 10 DAYS 01/12 completed Not Available Not Available Not Available cephalexi n 500 mg tablet TAKE 1 TABLET BY MOUTH THREE TIMES A DAY FOR 7 DAYS 05/22 completed Not Available Not Available Not Available [...] Not Available Not Available No t Available albuterol sulfate HFA 90 mcg/actua tion aerosol inhaler INHALE 2 PUFFS 4 TIMES A DAY active Not Available Not Available No t Available fluticaso ne propionat e 50 mcg/actua tion nasal spray,jayjay pension SPRAY 2 SPRAYS INTRANAS ALLY EVERY DAY IN THE MORNING active Not Available Not Available No t Available loratadin e 10 mg tablet 2019 active Medicati on ID: [id number] B rand Name: caprice Valencia Method: E-Prescr ibed Sub s Allowed: subs [...] MUST ADMINIST ER WITH A MEAL/PAT D 05/22 completed Not Available Not Available Not Available fluocinol one acetonide oil 0.01 % ear drops INSTILL 2-3 DROPS INTO BOTH EARS TWICE DAILY FOR TWO WEEKS THEN NEEDED active Not Available Not Available No t Available Advair HFA 2019 active Medicati on ID: [id number] B rand Name: Advair HFA Send Method: [...] TABS TAKEN TOGETHER 2X DAILY X5 DAYS 05/22 completed Not Available Not Available Not Available Vitals Date Recorded Body height Body mass index (BMI) Body weight Provider Name and Address Organization Details Last Updated DateTime 05/22/2024 180.34 cm 26.5 kg/m2 03940.55 g Trina Bales [place] - [facility] 05/22/2024 10:36:58 Social History None recorded. Functional Status None recorded. Mental Status None recorded. Family History Nothing Reported. Medical History No medical history recorded. Past Encounters Encounter ID Performer Location Encounter Start Date Encounter Closed Date Diagnosis/Indication Diagnosis SNOMED-CT Code Diagnosis ICD10 Code Diagnosis Note [id number] BIMAL ALVARADO MD [facility] of [address] [address] 05/22/2024 10:29:29 05/22/2024 10:47:22 Chronic eczema of external auditory canal 443298712 H60.8X9 Impacted c erumen of bilateral ears 1368922870 662241 H61.23 Disorder o f left Eustachian tube 7435343183 388331 H69.92 Stenosis o f bilateral external ear canals due to and following infection 8399823828 910199 H61.323 Health Concerns Section Related Observation LastModified by Organization Detai ls LastModified Time None Recorded Concern Status LastModified by Organization Details LastModified Time None Recorded Payers Encounter Date Sequence Insurance Name Policy Number Policy Tineo Covered Member ID Tineo Member ID Guarantor Name 05/22/2024 2 [facility]) [id number] Alfonzo Rachel Giovani [id number] Alfonzo Rachel Giovani 05/22/2024 1 [place] [employer] Alfonzo Rachel Giovani [id number] Alfonzo Virginie Giovani Notes Date Note Type Note Provider Name and Address Organization Details Recorded Time 05/22/2024 text/html 73-year-old male presents with for evaluation of the ears. He reports they continue to be itchy at times. He utilizes the Lotrisone cream with good effect. He reports the left ear continues to pop frequently. Intermittent plugging on that side with resultant diminished hearing. There is no otalgia nor otorrhea. BIMAL ALVARADO MD [address] [place] [address], [place], [address], [facility] - [facility] 05/22/2024 17:04:41
--- OUTSIDE RECORDS SUMMARY | 2024-06-14 19:41 | XMS_ITS | Clinical Summary ---
Author Organization [facility] Address [address] [place] [address] Care Team Providers Care Sleep Lab Technician Name Role Phone Beatriz Bee MD Primary Care Provider [phone] Allergies Active Allergy Reactions Criticality Noted Date [...] age to complete this topic Care Teams Sleep Lab Technician Relationship Specialty Start Date End Date Beatriz Bee MD [address] [place] [address] [address] [place] [address] PCP - General Internal Medicine 02/23/17
== END 2024-06-14 16:19 | disposition home or self-care (01) ==
LOC: HO.LAB 16:18
PROVIDERS: PCP Internal Medicine; Visit Provider Internal Medicine Rheumatology
DX: Z13.9 Encounter for screening, unspecified (principal); Z79.60 Long term (current) use of unspecified immunomodulators and immunosuppressants
CPT/HCPCS: 36415; 82565; 84450; 84460; 85025

== ENCOUNTER 2024-06-28 08:51 | Outpatient (RCR) | payer MEDICARE, BC, SELFPAY | END 2024-08-02 10:31 | disposition home or self-care (01) | LOC: HO.PT 08:51 | PROVIDERS: PCP Internal Medicine; Visit Provider Internal Medicine Rheumatology | DX: M02.30 Reiter's disease, unspecified site (principal); Z79.899 Other long term (current) drug therapy | CPT/HCPCS: 97110; 97161; 97530 ==

== ENCOUNTER 2024-08-09 12:37 | Outpatient (AMB) | payer MEDICARE, BC, SELFPAY ==
[2024-08-09 12:40] VITALS: BP 100/62; PULSE 95; O2SAT 96; BMI 27.3
--- NOTE | 2024-08-09 12:40 | MHC.OFFVIS ---
Vital Signs 08/09/24 12:40 Height 5 ft 11 in Weight 195 lb 12.328 oz BMI 27.3 BP 100/62 Blood Pressure Location Lt brachial Position Sitting Pulse 95 Pulse Source Pulse Oximeter Pulse Oximetry (%) 96 Oxygen Delivery Method Room Air Intake Visit Reasons: follow up Intake Note: Patient presents for follow up on RA today. Pt states taht he has been having pain in both hands ever since April when he had kidney stones. Telecasting Technician Required: No Allergies meperidine [From Demerol] Allergy (Intermediate, Verified 08/09/24 12:44) Rash levofloxacin Allergy (Verified 08/09/24 12:44) Swelling Penicillins Allergy (Verified 08/09/24 12:44) Unknown Medication List - Last Reconciled 08/09/24 by Tyree Lomas MD atorvastatin 20 mg PO DAILY carvedilol 6.25 mg PO BID dapagliflozin propanediol (Farxiga) 10 mg PO DAILY fluticasone propion-salmeterol 100-50 mcg/dose (Wixela Inhub) 1 ea inhalation BID furosemide 20 mg PO DAILY naproxen 500 mg PO BID omeprazole 20 mg PO DAILY@0630 10 days prednisone See Taper mg PO DIRECTED sacubitril-valsartan 49-51 mg (Entresto) 1 tab PO BID spironolactone 12.5 mg PO DAILY sulfasalazine 2 grams PO BID tiotropium bromide 1 cap inhalation DAILY HPI HPI follow up: Details: SSZ 1000mg BID started 07/13 He has developed swelling and pain in hands. Having a hard time holding laundry basket. Pulse is over 100s since increasing SSZ dose. He had echo recently. [facility] Medical History Diabetes type 2, controlled CAD (coronary artery disease) Surgical History Hx of cardiac catheterization (~05/2021) Social History Household Members: Spouse Housing: Apartment Do you presently have visiting nurse or other home services: No Alcohol intake: never Patient Tobacco Use Status: Former Tobacco user Tobacco use type: Cigarette Second Hand Smoke Exposure: No Advance Directives Date on File: 07/09/23 service: No Physical Exam Vital Signs: Last Vital Signs Pulse 95 08/09/24 12:40 BP 100/62 08/09/24 12:40 Pulse Ox 96 08/09/24 12:40 Oxygen Delivery Method Room Air 08/09/24 12:40 BMI result Body Mass Index 27.3 Const Other: General: Comfortable CVS: RRR Respiratory: clear to auscultation bilaterally. Good respiratory effort Skin: No lesions seen MSK: Tender right 3rd and 4th PIP and 3rd and 4th DIPJ. Synovitis present bilateral 3rd PIP and right wrists. Tender left 3rd PIP. Tender left shoulder. Shoulder abduction 160 degrees bilateral. Good internal external rotation. Limited full external rotation of bilateral hips. Good knee flexion. Tender bilateral ankles and MTPs. Results Reviewed Results Reviewed: Labs from 06/14/2024 reviewed. Assessment & Plan Assessment & Plan (1) Reactive arthritis: Comment: Inflammatory arthritis has progressed to involve bilateral hands. He recently increased sulfasalazine dose. He is undergoing cardiac evaluation for increased heart rate 90s. Rheumatology history: Chronic reactive arthritis affecting bilateral feet and ankle with onset 07/05/2023 while having UTI with bacteremia progressed to involving hands 07/2024. He presented to ER and received nitrofurantoin and prednisone course, with resolution of joint swelling. Diagnostic arthrocentesis right first MTP 07/29/2023 did not reveal crystals. He only had enough synovial fluid to do crystal analysis. He had multiple recurrent episodes of synovitis in bilateral ankles and feet, which responded to Depo-Medrol, prednisone course and naproxen on separate occasions. Off of naproxen he has had increase pain and stiffness. Hairspring Adjuster prefers patient not take NSAIDs. 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 Information given to patient Return to clinic in 3 months Orders: Orders Alanine Aminotransferase 2 Months Z79.60 - detention (current) use of unspecified immunomodulators and immunosuppressants Aspartate Amino Transferase 2 Months Z79.60 - marine oil terminal superintendent (current) use of unspecified immunomodulators and immunosuppressants Complete Blood Count Auto Diff 2 Months Z79.60 - detention (current) use of unspecified immunomodulators and immunosuppressants Creatinine 2 Months Z79.60 - marine oil terminal superintendent (current) use of unspecified immunomodulators and immunosuppressants Erythrocyte Sedimentation Rate 2 Months Z79.899 - Other termite control representative (current) drug therapy C Reactive Protein 2 Months Z79.899 - Other termite control representative (current) drug therapy XR hand LT min 3V Today M02.379 - Park's disease, unspecified ankle and foot XR hand RT min 3V Today M02.379 - Park's disease, unspecified ankle and foot Medications: New prednisone Take 4 tablets daily 5 days, 3 tablets daily 5 days, 2 tablets daily 5 days, 1 tablet daily 5 days then stop. Take prednisone with food. 5 mg PO DIRECTED 50 tabs 0RF M02.379 - Park's disease, unspecified ankle and foot Changed From sulfasalazine 2 grams PO BID To sulfasalazine 1.5 grams (3 x 500 mg) PO BID 30 days 180 tabs 1RF Discontinued nitrofurantoin monohyd/m-cryst 100 mg (Macrobid) must administer with a meal/food Discontinued Reason: Doctor's Order 100 mg PO Q12H 10 days 20 caps 0RF Coding Level of Care Code Est Pt Level 4 (38608) Complex EM visit Add On G2211 Diagnoses Reactive arthritis of foot, unspecified laterality M02.379 Reactive arthritis location: foot Laterality: unspecified laterality
--- OUTSIDE RECORDS SUMMARY | 2024-08-09 14:54 | XMS_ITS | Encounter Summary ---
Author Organization [facility] Address [address] [place] [address] Care Team Providers Care Box Toe Maker Name Role Phone Beatriz Bee MD Primary Care Provider [phone] Encounter Details Date Type Department Care Team (Late st Contact Info) Description 07/03/2024 Lab Requisition [facility] - Main Lab [address] [facility] [place] [address] Alfonzo Tam PA [address] [place] [address] Gross hematuria; Urinary tract infection, site not specified Social History Tobacco Use Types Packs/Day Years [...] Care Team (Late st Contact Info) Description 02/01/2025 8:45 AM EDT Office Visit Pulmonolgy - [place] [address] [facility] [address] [place] [address] Zonia Concepcion MD [address] [facility] [address] [place] [address] documented as of this encounter Procedures Procedure Name Priority Date/Time Associated Diagnosis Comments CULTURE URINE Routine 07/03/2024 9:00 AM EDT Gross hematuria Urinary tract infection, site not specified documented in this encounter Results * (ABNORMAL) Culture urine (07/03/2024 9:00 AM EDT) Culture, Urine >100,000 CFU/mL Enterococcus faecalis(A) LETTY 07/05/2024 9:38 AM EDT [facility] Comment: Edited result: Previously reported as Gram Positive Cocci on 07/04/2024 at 0943 EDT. Urine Urine specimen obtained by clean catch procedure / Unknown 07/03/2024 9:00 AM EDT 07/03/2024 1:15 PM EDT Narrative Organism Antibiotic Method Susceptibility Enterococcus faecalis Benzylpenicillin LETTY 1 ug/ml: Susceptible Enterococcus faecalis Ampicillin LETTY <=2 ug/ml: Susceptible Enterococcus faecalis Ciprofloxacin LETTY 1 ug/ml: Susceptible Enterococcus faecalis Levofloxacin LETTY 2 ug/ml: Susceptible Enterococcus faecalis Linezolid LETTY 2 ug/ml: Susceptible Enterococcus faecalis Vancomycin LETTY 1 ug/ml: Susceptible Enterococcus faecalis Tetracycline LETTY <=1 ug/ml: Susceptible Enterococcus faecalis Nitrofurantoin LETTY 32 ug/ml: Susceptible Alfonzo [facility] MICROBIOLOGY - NERAL ORDERABLES Final Result [facility] [address] [place] [address], documented in this encounter Visit Diagnoses Diagnosis Gross hematuria Urinary tract infection, site not specified documented in this encounter Care Teams Box Toe Maker Relationship Specialty Start Date End Date Beatriz Bee MD [address] [place] [address] PCP - General Internal Medicine 02/17/17 documented as of this encounter
--- OUTSIDE RECORDS SUMMARY | 2024-08-09 14:54 | XMS_ITS | Encounter Summary ---
Author Organization [facility] Address [address] [place] [address] Care Team Providers Care Social Staff Worker Name Role Phone Beatriz Bee MD Primary Care Provider [phone] Encounter Details Date Type Department Care Team (Late st Contact Info) Description 05/15/[address] [facility] - Main Lab [address] [facility] [place] [address] Gigi Leung MD 100 [facility] [address] [place] [address] Gross hematuria Social History Tobacco [...] Description 02/01/2025 8:45 AM EDT Office Visit [facility] [address] [facility] [address] [place] [address] Zonia Concepcion MD [address] [facility] [address] [place] [address] documented as of this encounter Procedures Procedure Name Priority Date/Time Associated Diagnosis Comments AP OUTSIDE CONSULT Routine 05/11/2024 12 :00 AM EST Gross hematuria documented in this encounter Results * Anatomic pathology outside consult (05/11/2024 12:00 AM EST) Final Diagnosis Urine, Voided, ([id number]): Negative for high grade urothelial carcinoma. Acute inflammation present. 05/24/2024 2:46 PM EST [facility] Clinical Information Gross hematuria R31.0 Urine cytology with reflex UroVysion ([facility]) 05/24/2024 2:46 PM EST [facility] Gross Description A. Urine, Voided, ([id number]): Received one ThinPrep slide for cytology. 05/24/2024 2:46 PM [facility] Disclaimer Unless otherwise specified, all tissue is 10% NB formalin fixed and paraffin embedded. Technical pathology services provided by [facility] at [address] [facility] [address], [place] [address] (CLIA #[id number]/Paolo Omer MD, Soc Analyst) 05/24/2024 2:46 PM [facility] Tissue Urine specimen from urethra / Unknown 05/11/2024 05/15/2024 11:43 AM EST us Gigi Leung MD LAB PATHOLOGY ORDERABLES Final Result [facility] [address] [place] [address], documented in this encounter Visit Diagnoses Diagnosis Gross hematuria documented in this encounter Care Teams Social Staff Worker Relationship Specialty Start Date End Date Beatriz Bee MD [address] [place] [address] PCP - General Internal Medicine 02/17/17 documented as of this encounter
--- OUTSIDE RECORDS SUMMARY | 2024-08-09 14:54 | XMS_ITS ---
Author Organization [facility] Address [address] [place] [address] Care Team Providers Care Lace Sewer Name Role Phone Beatriz Bee MD Primary Care Provider Unavailabl e Black, Crista Unavailable [phone] Allergies Allergen (clinical drug ingredient) Drug/Non Drug [...] Ordered Date Performed Result Body Sit e 73986-YLHYNYN NAIL, 6 OR MORE 06/01/2024 N/A Encounters Encounter Location Date Provider Diagnosis [facility] [address] [address] 06/01/2024 Crista Garcia Tinea unguium B35.1 ; Pain in right toe(s) M79.674 and Pain in left toe(s) M79.675 Assessments Encounter Date Diagnosis (ICD Code) Assessment Notes Treatment Notes Treatment Clinical Notes Section Notes 06/01/2024 Tinea unguium (ICD-10 - B35.1) 06/01/2024 Pain in right toe(s) (ICD-10 - M79.674) 06/01/2024 Pain in left toe(s) (ICD-10 - M79.675) Plan Of Treatment Pending Test Test Name Order Date 43771-IKZEGXI NAIL, 6 OR MORE 06/01/2024 Next Appt Details Follow Up: prn, Reason: Provider Name:Crista Garcia , 09/21/2024 11:15:00 AM, [address] [place] [address], [phone], Procedure Notes * Category Sub-Category Detail Notes [...] use of a nail nipper and/or dremel-type regrinder, to a more viable healthy nail plate [...] to maintain effectiveness in symptomatic relief - 04599 Progress Notes * Idalia ALLENOB:[birth year] (73 yo M)Acc No.[id number]:06/01/2024 Progress Note Patient:Alfonzo CUNNINGHAM Provider:?Crista Garcia DPM :1950???Age:73 Y???Sex:Male Duke e:06/01/2024 Address:[address] [place], [place] [id number] Pcp:Beatriz Bee MD Subjective: * Chief Complaints: [...] use of a nail nipper and/or dremel-type regrinder, to a more viable healthy nail plate [...] to maintain effectiveness in symptomatic relief - 11170.? * Procedure Codes:?72623 DEBRI DE NAIL, 6 OR MORE * Preventive Medicine:? ??Screening/Special Tests:?Fall Risk?Screening:?No falls in the past year ?FALLS: Screening for Future Fall Risk?Have you had any falls with injury in the past year??No * Follow Up:?prn * Images: * Sign off status: Completed true * Provider:?Crista Garcia DPM Date:?2024 Generated for Tory patricia/Anne/Camille on:?08/09/2024 02:54 PM EDT History and Physical Notes * HPI (History [...]
--- OUTSIDE RECORDS SUMMARY | 2024-08-09 14:54 | XMS_ITS | Encounter Summary ---
Author Organization [facility] Address [address] [place] [address] Care Team Providers Care Potato Loader Name Role Phone Beatriz Bee MD Primary Care Provider [phone] Encounter Details Date Type Department Care Team (Late st Contact Info) Description 07/04/2024 Lab Requisition [facility] - Main Lab 299 [facility] [place] [address] Alfonzo Tam PA [address] [place] [address] Gross hematuria Social History Tobacco Use Types [...] 8:45 AM EDT Office Visit [facility] [place] [address] [facility] [address] [place] [address] Zonia Concepcion MD [address] [facility] [address] [place] [address] documented as of this encounter Procedures Procedure Name Priority Date/Time Associated Diagnosis Comments AP OUTSIDE CONSULT Routine 06/30/2024 12 :00 AM EDT Gross hematuria documented in this encounter Results * Anatomic pathology outside consult (06/30/2024 12:00 AM EDT) Final Diagnosis A. Urine, Voided, ([id number]) Negative for high grade urothelial carcinoma. Acute inflammation present. 07/05/2024 11:35 AM EDT [facility] Clinical Information Gross hematuria R31.0 Urine cytology with reflex UroVysion ([facility]) 07/05/2024 11:35 AM EDT [facility] Gross Description A. Urine, Voided, ([id number]): Received is one ThinPrep slide for cytology. 07/05/2024 11:35 AM EDT [facility] Disclaimer Unless otherwise specified, all tissue is 10% NB formalin fixed and paraffin embedded. Technical pathology services provided by [facility] at [address], [place] [address] (CLIA #[id number]/Paolo Omer MD, Catering Sales Manager) 07/05/2024 11:35 AM EDT [facility] Tissue Urine specimen from urethra / Unknown 06/30/2024 07/04/2024 1:01 PM EDT Alfonzo CAPPS LAB PATHOLOGY ORDERAB LES Final Result [facility] [address] [place] [address], documented in this encounter Visit Diagnoses Diagnosis Gross hematuria documented in this encounter Care Teams Potato Loader Relationship Specialty Start Date End Date Beatriz Bee MD [address] [place] [address] PCP - General Internal Medicine 02/17/17 documented as of this encounter
--- OUTSIDE RECORDS SUMMARY | 2024-08-09 14:54 | XMS_ITS | Clinical Summary ---
Author Organization [facility] Address [address] [place] [address] Care Team Providers Care Globe Mounter Name Role Phone Beatriz Bee MD Primary Care Provider [phone] Allergies Active Allergy Reactions Criticality Noted Date [...] age to complete this topic Care Teams Globe Mounter Relationship Specialty Start Date End Date Beatriz Bee MD [address] [place] [address] [address] [place] [address] PCP - General Internal Medicine 02/23/17
--- OUTSIDE RECORDS SUMMARY | 2024-08-09 14:54 | XMS_ITS | Clinical Summary ---
Author Organization [address] Address [address] [place] [phone] Phone Care Team Providers Care Hot Patcher Name Role Phone Beatriz Bee MD Primary Care Provider [phone] Allergies Active Allergy Reactions Criticality Noted Date [...] GERD (gastroesophageal reflux disease) 7 Chronic obstructive pulmonar y disease ([facility], [facility] V28) 11/09/2016 KASSANDRA (obstructive sleep apnea) 07/01/2016 Encounters Date Type Department Care Team Description 08/02/2024 8:45 AM EDT Office Visit Pulmonolgy - [place] [address] [facility] [address] [place] [phone] Zonia Concepcion MD Chronic obstructive pulmonary disease, unspecified COPD type ([facility] V24, [facility] V28) (Primary Dx); KASSANDRA (obstructive sleep apnea) 07/04/2024 Lab Requisition [facility] [address] [place] [phone] Alfonzo Tam PA Gross hematuria 07/03/2024 Lab Requisition [facility] [address] [place] [phone] Alfonzo Tam PA Gross hematuria; Urinary tract infection, site not specified 05/15/2024 Lab Requisition [facility] [address] [place] [phone] Gigi Leung MD Gross hematuria from Last 3 Months Surgical History Surgery Date Site/Laterality Comments APPENDECTOMY PROCEDURE:APPENDECTOMY OTHER SURGICAL HISTORY PROCEDURE:cardiac cath APPENDECTOMY PROCEDURE: HISTORICAL APPENDECTOMY LITHOTRIPSY PROCEDURE: HISTORICAL LITHOTRIPSY Medical History Medical History Date Comments Asthma DX:Asthma COPD (chronic obstructive pu lmonary disease) ([facility] V24, [facility] V28) DX:COPD (chronic o bstructive pulmonary disease) ([facility]) High blood pressure DX:High bloo d pressure Arthritis DX:Arthritis Chronic obstructive pulmonar y disease ([facility] V24, [facility] V28) 11/09/2016 DX:Chronic obstructive pulm onary disease (HCC) Alopecia DX:Alopecia KASSANDRA (obstructive sleep apnea) 07/01/2016 [...] Sign Reading Time Taken Comments Blood Pressure 100/62 08/02/2024 8:59 AM EDT Pulse 84 08/02/2024 8:59 AM EDT Temperature 36.4 ??C (97.6 ??F) 08/02/2024 8:59 AM ED T Respiratory Rate 20 08/02/2024 8:59 AM EDT Oxygen Saturation 93% 08/02/2024 8:59 AM EDT Inhaled Oxygen Concentration - - Weight 89.4 kg (197 lb 3.2 oz) 08/02/2024 8:59 A M EDT Height 180.3 cm (5' 11 ) 08/02/2024 8:59 AM EDT Body Mass Index 27.5 08/02/2024 8:59 AM EDT Plan of Treatment Upcoming Encounters Date Type Department Care Team (Late st Contact Info) Description 02/01/2025 8:45 AM EDT Office Visit Pulmonolgy - [place] [address] [facility] [address] [place] [phone] Zonia Concepcion MD [address] [facility] [address] [place], [place] [phone] Health Maintenance Due Date Last Done Comments Zoster Vaccines (2 of 2) 09/24/2020 07/30/2020 Pneumococcal Vaccine: 50+ Years (2 of 2 - PCV) 02/13/2022 02/13/2021, 10/10/2009 Abdominal Aortic Aneurysm (AAA) Screen 03/28/2022 Cholesterol Screening (Lipid Panel) 03/28/2022 Colorectal Cancer Screening: Colonoscopy 03/28/2022 Depression Screening 03/28/2022 Falls Risk Assessment 03/28/2022 Hepatitis C Screening 03/28/2022 Medicare Annual Wellness Visit 03/28/2022 Social Influencers of Health Screening 03/28/2022 COVID-19 Vaccine (10 - Mixed Product risk season) 2024 12/19/2023, 09/24/2023, 02/10/2023, Additional history exists Influenza Vaccine (Season Ended) 2024 02/10/2023, 12/17/2021, 02/13/2021, Additional history exists DTaP,Tdap,and Td Vaccines (2 - Td or Tdap) 02/26/2027 02/26/2017 RSV Immunization Adult Patients Completed 02/10/2023 HIB Vaccines Aged Out No longer eligi [...] age to complete this topic Meningococcal B Vaccine Aged Out No l onger eligible based on patient's age to complete this topic RSV Immunization Patients Under 20 months Aged Out No longer eligible based on patient's age to complete this topic Varicella Vaccines Aged Out No longer eligible based on patient's age to complete this topic Procedures Procedure Name Priority Date/Time Associated Diagnosis Comments CULTURE URINE Routine 07/03/2024 9:00 AM EDT Gross hematuria Urinary tract infection, site not specified AP OUTSIDE CONSULT Routine 06/30/2024 12 :00 AM EDT Gross hematuria AP OUTSIDE CONSULT Routine 05/11/2024 12 :00 AM EST Gross hematuria from Last 3 Months Results * (ABNORMAL) Culture urine (07/03/2024 9:00 AM EDT) Culture, Urine >100,000 CFU/mL Enterococcus faecalis(A) LETTY 07/05/2024 9:38 AM EDT [facility] Comment: Edited result: Previously reported [...] LAB MICROBIOLOGY - NERAL ORDERABLES Final Result [facility] [address] [place] [address], * Anatomic pathology outside consult (06/30/2024 12:00 AM EDT) Only the most recent of2 resultswithin the time period is included. Final Diagnosis A. Urine, Voided, ([id number]) Negative for high grade urothelial carcinoma. Acute inflammation present. 07/05/2024 11:35 AM EDT [facility] Clinical Information Gross hematuria R31.0 Urine cytology with reflex UroVysion ([facility]) 07/05/2024 11:35 AM EDT [facility] Gross Description A. Urine, Voided, ([id number]): Received is one ThinPrep slide for cytology. 07/05/2024 11:35 AM EDT [facility] Disclaimer Unless otherwise specified, all tissue is 10% NB formalin fixed and paraffin embedded. Technical pathology services provided by [facility] at [address], [place] [address] (CLIA #[id number]/Paolo Omer MD, Oil Dispatcher) 07/05/2024 11:35 AM EDT [facility] Tissue Urine specimen from urethra / Unknown 06/30/2024 07/04/2024 1:01 PM EDT Alfonzo CAPPS LAB PATHOLOGY ORDERAB LES Final Result [facility] [address] [place] [address], from Last 3 Months Insurance MEDICARE [facility] Care Teams Hot Patcher Relationship Specialty Start Date End Date Beatriz Bee MD [address] [place] [address] PCP - General Internal Medicine 02/17/17
--- OUTSIDE RECORDS SUMMARY | 2024-08-09 14:54 | XMS_ITS | Encounter Summary ---
Author Organization [facility] Address [address] [place] [address] Care Team Providers Care Ball Truing Machine Operator Name Role Phone Beatriz Bee MD Primary Care Provider [phone] Encounter Details Date Type Department Care Team (Late st Contact Info) Description 04/28/2024 Lab Requisition [facility] - Main Lab [address] [facility] [place] [address] [facility] Leung MD [facility] [address] [place] [address] Gross hematuria Social History Tobacco [...] Description 02/01/2025 8:45 AM EDT Office Visit [facility] [address] [facility] [address] [place] [address] Zonia Concepcion MD [address] [facility] [address] [place] [address] documented as of this encounter Procedures Procedure Name Priority Date/Time Associated Diagnosis Comments AP OUTSIDE CONSULT Routine 04/20/2024 12 :00 AM EST Gross hematuria documented in this encounter Results * Anatomic pathology outside consult (04/20/2024 12:00 AM EST) Final Diagnosis A. Urine, Voided, ([id number]): Negative for high grade urothelial carcinoma. Acute inflammation present. 05/01/2024 6:[address] [facility] Clinical Information Gross hematuria R31.0 Urine cytology with reflex UroVysion ([facility]) 05/01/2024 6:02 PM [facility] Gross Description A. Urine, Voided, ([id number]): Received is one ThinPrep slide for cytology. 05/01/2024 6:02 PM [facility] Disclaimer Unless otherwise specified, all tissue is 10% NB formalin fixed and paraffin embedded. Technical pathology services provided by [facility] at [address] [facility] [address] [place] [address] (CLIA #[id number]/Paolo Omer MD, Business Account Leader) 05/01/2024 6:02 PM [facility] Tissue Urine specimen from urethra / Unknown 04/20/2024 04/28/2024 9:55 AM EST us Gigi Leung MD LAB PATHOLOGY ORDERABLES Final Result [facility] [address] [place] [address], documented in this encounter Visit Diagnoses Diagnosis Gross hematuria documented in this encounter Care Teams Ball Truing Machine Operator Relationship Specialty Start Date End Date Beatriz Bee MD [address] [place] [address] PCP - General Internal Medicine 02/17/17 documented as of this encounter
== END 2024-08-09 13:19 | disposition home or self-care (01) ==
LOC: HO.RHES 12:37
PROVIDERS: PCP Internal Medicine; Visit Provider Internal Medicine Rheumatology
DX: M02.3 Reiter's disease (principal)
CPT/HCPCS: 99214; G2211

== ENCOUNTER → 2024-08-09 12:37 | Outpatient (BNVA) | payer MEDICARE, BC, SELFPAY | PROVIDERS: PCP Internal Medicine; Visit Provider Internal Medicine Rheumatology | DX: M79.642 Pain in left hand (principal); M79.641 Pain in right hand; M02.3 Reiter's disease; Z79.60 Long term (current) use of unspecified immunomodulators and immunosuppressants; Z79.899 Other long term (current) drug therapy | CPT/HCPCS: 99212 ==

== ENCOUNTER 2024-09-27 11:15 | Outpatient (REF) | payer MEDICARE, BC, SELFPAY ==
--- NOTE | ~2024-09-27 | XR_ITS ---
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 Small juxta-articular erosions at right 2nd and 5th metacarpal phalangeal joints. Vascular calcifications and soft tissue calcifications noted, including right wrist. No acute fracture or dislocation. Soft tissue swelling and prominence nonspecific including hypothenar regions. IMPRESSION: 1. Small juxta-articular erosions at right 2nd and 5th metacarpal phalangeal joints. 2. Mild osteoarthritis including imaged wrists. This document has been electronically signed by: Juan M Hightower MD on 09/27/2024 20:11:32
[2024-09-27 11:26] LABS: MANUAL DIFF FLAG NO
[2024-09-27 11:50] LABS: Basophils Absolute Auto 0.1 X10*3/uL (0.0-0.2); Basophils Percent Auto 1.2 % (0-2); Eosinophils Absolute Auto 0.7 X10*3/uL (0.0-0.4); Eosinophils Percent Auto 7.3 % (0-4); Hematocrit 46.1 % (42.0-52.0); Imm Gran Abs Auto 0.05 X10*3/uL (0.00-0.03); Imm Gran Pct Auto 0.5 % (0.0-0.4); Lymphocytes Absolute Auto 1.7 X10*3/uL (1.2-4.9); Lymphocytes Percent Auto 17.4 % (20-40); Mean Corpuscular HGB Conc 32.5 g/dl (31.0-36.0); Mean Corpuscular Hemoglobin 30.2 pg (27.0-33.0); Mean Corpuscular Volume 92.9 fL (80.0-98.0); Mean Platelet Volume 10.5 fL (9.4-12.4); Monocytes Absolute Auto 0.9 X10*3/uL (0.1-1.2); Monocytes Percent Auto 8.5 % (2-11); Neutrophils Absolute Auto 6.5 x10*3/uL (2.0-8.3); Neutrophils Percent Auto 65.1 % (45-73); Platelet Count 291 X10*3/uL (160-400); Red Blood Count 4.96 X10*6/uL (4.60-5.80); Red Cell Distribution Width 13.3 % (11.0-16.0)
[2024-09-27 12:26] LABS: Alanine Aminotransferase 24 U/L (0-40); Aspartate Amino Transferase 26 U/L (5-37); C Reactive Protein 1.22 mg/dL (< or = 0.50); Estimated Glomerular Filt Rate > 60
[2024-09-27 12:28] LABS: Erythrocyte Sedimentation Rate 4 MM/HR (0-15)
--- OUTSIDE RECORDS SUMMARY | 2024-09-27 12:58 | XMS_ITS | Encounter Summary ---
Author Organization [facility] Address [address] [place] [address] Care Team Providers Care Lace Winder Name Role Phone Beatriz Bee MD Primary Care Provider [phone] Encounter Details Date Type Department Care Team (Late st Contact Info) Description 07/04/2024 Lab Requisition [facility] - Main Lab 299 [facility] [place] [address] Alfonzo Tam PA [address] [place] [address] Gross hematuria Social History Tobacco [...] 8:45 AM EDT Office Visit Pulmonolgy - [place] [address] [facility] [address] [place] [address] Zonia Concepcion MD [address] [facility] [address] [place] [address] documented as of this encounter Procedures Procedure Name Priority Date/Time Associated Diagnosis Comments AP OUTSIDE CONSULT Routine 06/30/2024 12 :00 AM EDT Gross hematuria documented in this encounter Results * Anatomic pathology outside consult (06/30/2024 12:00 AM EDT) Final Diagnosis A. Urine, Voided, ([id number]) Negative for high grade urothelial carcinoma. Acute inflammation present. 07/05/2024 11:35 AM EDT [facility] Clinical Information Gross hematuria R31.0 Urine cytology with reflex UroVysion ([facility]) 07/05/2024 11:35 AM EDT [facility] Gross Description A. Urine, Voided, ([id number]): Received is one ThinPrep slide for cytology. 07/05/2024 11:35 AM EDT [facility] Disclaimer Unless otherwise specified, all tissue is 10% NB formalin fixed and paraffin embedded. Technical pathology services provided by [facility] at [address], [place] [address] (CLIA #[id number]/Paolo Omer MD, Chain Hooker) 07/05/2024 11:35 AM EDT [facility] Tissue Urine specimen from urethra / Unknown 06/30/2024 07/04/2024 1:01 PM EDT Alfonzo CAPPS LAB PATHOLOGY ORDERAB LES Final Result [facility] [address] [place] [address], documented in this encounter Visit Diagnoses Diagnosis Gross hematuria documented in this encounter Care Teams Lace Winder Relationship Specialty Start Date End Date Beatriz Bee MD [address] [place] [address] PCP - General Internal Medicine 02/17/17 documented as of this encounter
== END 2024-09-27 11:16 | disposition home or self-care (01) ==
LOC: HO.XRAY 11:15
PROVIDERS: PCP Internal Medicine; Visit Provider Internal Medicine Rheumatology
DX: Z96.60 Presence of unspecified orthopedic joint implant (principal); Z79.899 Other long term (current) drug therapy
CPT/HCPCS: 36415; 73130; 82565; 84450; 84460; 85025; 85652; 86140

== ENCOUNTER → 2024-09-27 11:26 | Outpatient (BNV) | payer MEDICARE, BC, SELFPAY | PROVIDERS: PCP Internal Medicine; Visit Provider Radiology Neuroradiology | DX: M15.4 Erosive (osteo)arthritis (principal) | CPT/HCPCS: 73130 ==

== ENCOUNTER 2024-11-14 12:53 | Outpatient (AMB) | payer MEDICARE, BC, SELFPAY ==
--- NOTE | 2024-11-14 12:58 | A.OFFVIS_ITS ---
Vital Signs 11/14/24 12:59 Height 5 ft 11 in Weight 195 lb 4 oz BMI 27.2 BP 122/60 Blood Pressure Location Rt brachial Position Sitting Pulse 88 Pulse Source Pulse Oximeter Pulse Oximetry (%) 98 Oxygen Delivery Method Room Air Intake Visit Reasons: 3 Months Intake Note: Patient presents for follow up on RA today. Pt states that his finger have been tender and locking up on him when he is trying to do things such as opening a cabinet. Allergies meperidine (From Demerol) Allergy (Intermediate, Verified 11/14/24 12:58) Rash levofloxacin Allergy (Verified 11/14/24 12:58) Swelling Penicillins Allergy (Verified 11/14/24 12:58) Unknown HPI HPI 3 Months: Details: Off of SSZ for UTI treatment. Naproxen did not help. He is having difficulty with gripping hands and reaching. He is being worked up for recurrent UTIs by urology. Hand swelling started 5 weeks ago. Feet are not hurting. He felt that sulfasalazine maintain his foot pain and swelling. He is experiencing triggering of right 3rd and 4th finger and left 3rd finger. [facility] Medical History Diabetes type 2, controlled CAD (coronary artery disease) Surgical History Hx of cardiac catheterization (~05/2021) Social History Household Members: Spouse Housing: Apartment Do you presently have visiting nurse or other home services: No Alcohol intake: never Patient Tobacco Use Status: Former Tobacco user Tobacco use type: Cigarette Second Hand Smoke Exposure: No Advance Directives Date on File: 07/09/23 service: No Physical Exam Vital Signs: Last Vital Signs Pulse 88 11/14/24 12:59 BP 122/60 11/14/24 12:59 Pulse Ox 98 11/14/24 12:59 Oxygen Delivery Method Room Air 11/14/24 12:59 BMI result Body Mass Index 27.2 Const Other: General: Comfortable CVS: RRR Respiratory: clear to auscultation bilaterally. Good respiratory effort Skin: No lesions seen MSK: Tender right 5th MCP. Synovitis present right wrist. Shoulder abduction 160 degrees bilateral. Good internal external rotation. Limited full external rotation of bilateral hips. Good knee flexion. Tender left MTP. Assessment & Plan Assessment & Plan (1) Reactive arthritis: Comment: Inflammatory arthritis involving his hands exacerbated with recent prolonged UTI. He is currently being worked up by Urology at [facility] for recurrent UTIs. Rheumatology history: Chronic reactive arthritis affecting bilateral feet and ankle with onset 07/05/2023 while having UTI with bacteremia progressed to involving hands 07/2024. He presented to ER and received nitrofurantoin and prednisone course, with resolution of joint swelling. Diagnostic arthrocentesis right first MTP 07/29/2023 did not reveal crystals. He only had enough synovial fluid to do crystal analysis. He had multiple recurrent episodes of synovitis in bilateral ankles and feet, which responded to Depo-Medrol, prednisone course and naproxen on separate occasions. Off of naproxen he has had increase pain and stiffness. Barge Loader prefers patient not take NSAIDs. 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 - Park's disease, unspecified ankle and foot, Z79.899 - Other group home (current) drug therapy Creatinine 6 Weeks M02.379 - Park's disease, unspecified ankle and foot, Z79.899 - Other group home (current) drug therapy Erythrocyte Sedimentation Rate 6 Weeks M02.379 - Park's disease, unspecified ankle and foot, Z79.899 - Other compliance intern (current) drug therapy Alanine Aminotransferase 6 Weeks M02.379 - Park's disease, unspecified ankle and foot, Z79.899 - Other group home (current) drug therapy Aspartate Amino Transferase 6 Weeks M02.379 - Park's disease, unspecified ankle and foot, Z79.899 - Other group home (current) drug therapy C Reactive Protein 6 Weeks 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 Take prednisone with food. 10 mg PO DIRECTED 32 tabs 0RF Coding Level of Care Code Est Pt Level 4 (36356) Complex EM visit Add On G2211 Diagnoses Reactive arthritis of foot, unspecified laterality M02.379 Reactive arthritis location: foot Laterality: unspecified laterality Other compliance intern (current) drug therapy Z79.899
[2024-11-14 12:59] VITALS: BP 122/60; PULSE 88; O2SAT 98; BMI 27.2
--- OUTSIDE RECORDS SUMMARY | 2024-11-14 13:38 | XMS_ITS | Encounter Summary ---
Author Organization [facility] Address [address] [place] [address] Care Team Providers Care Exchange Engineer Name Role Phone Beatriz Bee MD Primary Care Provider [phone] Encounter Details Date Type Department Care Team (Late st Contact Info) Description 07/04/2024 Lab Requisition [facility] - Main Lab [address] [facility] [place] [address] Alfonzo Tam PA [address] [place] [address] Gross hematuria Social History Tobacco [...] 8:45 AM EDT Office Visit Pulmonolgy - [place] [address] [facility] [address] [place] [address] Zonia Concepcion MD [address] [facility] [address] [place] [address] documented as of this encounter Procedures Procedure Name Priority Date/Time Associated Diagnosis Comments AP OUTSIDE CONSULT Routine 06/30/2024 12 :00 AM EDT Gross hematuria documented in this encounter Results * Anatomic pathology outside consult (06/30/2024 12:00 AM EDT) Final Diagnosis A. Urine, Voided, ([id number]) Negative for high grade urothelial carcinoma. Acute inflammation present. 07/05/2024 11:35 AM EDT [facility] Clinical Information Gross hematuria R31.0 Urine cytology with reflex UroVysion (AUC/SHGUC) 07/05/2024 11:35 AM EDT [facility] Gross Description A. Urine, Voided, ([id number]): Received is one ThinPrep slide for cytology. 07/05/2024 11:35 AM EDT [facility] Disclaimer Unless otherwise specified, all tissue is 10% NB formalin fixed and paraffin embedded. Technical pathology services provided by [facility] at [address], [place] [address] (CLIA #[id number]/Paolo Omer MD, Fur Stretcher) 07/05/2024 11:35 AM EDT [facility] Tissue Urine specimen from urethra / Unknown 06/30/2024 07/04/2024 1:01 PM EDT [facility] ORDERAB LES Final Result [facility] [address] [place] [address], documented in this encounter Visit Diagnoses Diagnosis Gross hematuria documented in this encounter Care Teams Exchange Engineer Relationship Specialty Start Date End Date Beatriz Bee MD [address] [place] [address] PCP - General Internal Medicine 02/17/17 documented as of this encounter
--- OUTSIDE RECORDS SUMMARY | 2024-11-14 13:39 | XMS_ITS | Data Portability ---
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 Not available 05/22/2024 10:53:51 09/04/2024 09/04/2024 73-year-old male with stenotic ear canals and chronic mycotic otitis externa presents for evaluation of the ears. Cerumen and left fungal debris removed bilaterally, which patient tolerated well. Otologic exam otherwise remarkable for dry, flaking skin and collapsing, stenotic canals. Recommend continued use of Lotrisone cream and starting topical clotrimazole in the left ear. Follow-up in 2-3 weeks to assess for infection resolution. Patient would like to return for evaluation with Dr. Kirkland to discuss long-term management of chronic mycotic otitis externa and stenotic ear canals. [email or web address] Not available 09/04/2024 17:16:55 09/20/2024 09/20/2024 73-year-old male with stenotic ear canals and chronic mycotic otitis externa presents for evaluation of the ears. He trialed topical clotrimazole without symptom improvement. Denies otalgia. Exam demonstrates EACs with fungal debris bilaterally, removed with suction. TMs are difficult to assess with acute infective otitis externa and medial canal stenosis. Placed topical Lotrisone into EAC's bilaterally. Reviewed dry ear precautions. Patient will follow-up in 2 weeks for reevaluation. Recommend updating audiometric testing when infection resolves. He is scheduled for evaluation with Dr. Kirkland in 2 months for surgical consult. [email or web address] Not available 09/20/2024 09:33:28 10/04/2024 10/04/2024 73-year-old male with stenotic ear canals and chronic mycotic otitis externa presents for reevaluation. He reports aural fullness and ear itchiness resolved with lotrisone for 3 weeks, then pruritus returned days ago. Hearing returned to baseline. Exam demonstrates collapsing canals with dry flaky dermatitis. Scant purulence in right EAC. TMs are normal to inspection. Recommend repeat Lotrisone placement into bilateral EACs. Reviewed dry ear precautions. Patient will follow-up in 3 weeks for reevaluation. Recommend updating audiometric testing when infection resolves. He is scheduled for evaluation with Dr. Kirkland in 6 weeks for surgical consult. [email or web address] Not available 10/04/2024 14:17:50 11/13/2024 11/13/2024 74-year-old male presents for reevaluation of chronic otitis externa. Examination of the ear canals reveals narrowing and collapsing canals bilaterally there is scant otorrhea on the right side with persistent flaking. More notable otorrhea on the left side which was cultured and will be followed. There is also canal edema which obscures the view of the TM. I have recommended Ciprodex drops to the left ear for bacterial OE. Will also call Lotrisone and instructed him to apply to the outer ear as there is signs of persistent fungal dermatitis externally. He has an appointment with Dr. Kirkland in several weeks to discuss canalplasty as it is believed that his collapsing canals are contributing to his recurrent otitis externa. Encouraged him to keep this appointment. In regard to his room spinning vertigo he has positive [place]-Hallpike on the left side and again with returning to sitting position. Jonn maneuver was performed today. He was provided and [facility] referral for further treatment. 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 Will call if he has any recurrent symptoms following therapy. [email or web address] Not available 11/13/2024 10:51:07 Plan of Treatment Reminders Order Date Submit Date Provider Last Modified By Organization Details Last Modified Time Details Appointments Establish ed 10 2024 08:30A M DALLIN KIRKLAND MD Not available Not available Not available Lab culture, bacterial 2024 A[facility] (Centralized Electronic Ordering - All Locations), Patient Can Go To The Location Of Their Choice, [id number] 11/13/2024 10:53:29 fungus, culture, unspecifi ed specimen 2024 025 [facility] (Centralized Electronic Ordering - All Locations), Patient Can Go To The Location Of Their Choice, [id number] 11/13/2024 10:53:29 Referral None recorded. Procedures None recorded. Surgeries None recorded. Imaging None recorded. Medication Orders Ciprodex 0.3 %-0.1 % ear drops,jayjay pension 2024 025 [facility]acy #[id number], [address] [place], [address], 11/13/2024 10:52:41 clotrimaz ole-betam ethasone 1 %-0.05 % topical cream 2024 025 [facility]acy #[id number], [address] [place], [address], 11/13/2024 10:52:40 clotrimaz ole 1 % topical solution 2024 025 [facility]acy #[id number], [address] [place], [address], 10/04/2024 12:59:14 fluocinol one acetonide oil 0.01 % ear drops 2024 025 [facility]/Pharmacy #[id number], [address] [place], [address], 05/22/2024 10:44:51 fluticaso ne propionat e 50 mcg/actua tion nasal spray,jayjay pension 2024 025 [facility]/Pharmacy #[id number], [address] [place], [address], 05/22/2024 10:45:52 Patient TargetsNo targets recorded. Patient InstructionsNo instructions recorded. Reason for Referral None Reported. 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 97884231125 34342 Active 2019 Other acquired stenosis of external ear canal, bilateral ; Note: Date Diagnosed : 0 10:53 AM (H61.393) Not Available [facility] 4 02:56:30 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 66644072574 48718 Active 2020 Acquired stenosis of external ear canal secondary to inflammat ion and infection , bilateral ; Note: Date Diagnosed : 05/16/2020 5:22 PM (H61.323) Not Available [facility] 4 02:56:30 Otorrhea of bilateral ears 65521613660 51996 Active 2020 Otorrhea, bilateral ; Note: Date Diagnosed : 05/16/2020 5:22 PM (H92.13) Not Available [facility] 4 02:56:29 Eczema 36878356 Active 2020 Other specified dermatiti s; Note: Date Diagnosed : 05/16/2020 5:22 PM (L30.8) Not Available [facility] 4 02:56:30 Superfici al mycosis 935247171 Active 2020 Other specified superfici al mycoses; Note: Date Diagnosed : 05/16/2020 5:22 PM (B36.8) Not Available [facility] 4 02:56:27 Itching of skin 328379279 Active 2022 Other pruritus; Note: Date Diagnosed : 3 3:01 PM (L29.8) Not Available [facility] 4 02:56:28 Impacted cerumen of bilateral ears 54540014699 19129 Active 2022 Impacted cerumen, bilateral ; Note: Date Diagnosed : 3 3:00 PM (H61.23) SANJAY MINAYA PA-C [address], [place], [address] , [place] [facility] 5 17:17:51 Chronic eczema of external auditory canal 718074361 Active 2023 DEEDEE MIRANDA PA-C [address], [place], [address] , [place] [facility] 4 11:42:00 Sensorine ural hearing loss of bilateral ears 822052987 Active 2023 AGNES CHRISTIANSEN, AUD [address], [place], [place], [address] , [place] - [facility] 4 11:35:19 Mixed conductiv e and sensorine ural hearing loss, bilateral 462753402 Active 2023 AGNES CHRISTIANSEN, AUD [address], [place], [address] , [place] [facility] 4 11:45:31 Disorder of left Eustachia n tube 44926707579 85039 Active 2024 DEEDEE MIRANDA PA-C [address], [place], [place], [address] , [place] [facility] 5 10:45:07 Chronic mycotic otitis externa 867282840 Active 2024 SANJAY MINAYA PA-C [address], [place], [address] , [place] [facility] 5 13:52:40 Dermal mycosis 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 - [facility] 5 13:52:40 Benign paroxysma l positiona l vertigo 049428633 Active 2024 ELO JULES PA-C [address] [facility],[place] [address], [place], [address] , [place] [facility] 5 10:51:38 Problem Notes None recorded. Procedures Surgical History Date Name Laterality Status Provider Name and Address Organization Details Recorded Time 5 Cerumen removal without microscope bilat completed SANJAY MINAYA PA-C [address] [facility],[place] [address], [place], [address], [place] [facility] 09/04/2024 17:12:03 5 Cerumen removal without microscope bilat completed DEEDEE MIRANDA PA-C [address] [facility],[address], [address], [place] [facility] 05/22/2024 10:54:37 4 Cerumen removal without microscope bilat completed DEEDEE MIRANDA PA-C [address] [facility],[place] [address], [place], [address], [place] [facility] 02/10/2024 13:06:49 4 Comp Audio with Tymps - 11297 & 54139 completed CARMELO CAROLINA [address] [facility],[address], [address], [place] [facility] 01/13/2024 11:35:22 4 Cerumen removal without microscope bilat completed DEEDEE MIRANDA PA-C [address] [facility],[address], [address], [place] [facility] 01/13/2024 11:56:50 Imaging Results None recorded. Procedure Notes None recorded. Medical Equipment None Reported. Allergies Allergen ID Allergen Name Allergen Category Reaction Reaction Severity Criticality Documentation Date Start Date Code Code System Note Provider Name and Address Organization Details Recorded Time 077862 Demerol medicatio n other Not available Not available 08/31/2023 73246 1 RxNorm React ion: other react ion, Unkno wn; Not Available [facility] 4 01:14:39 769006 Product containin g penicilli n (product) medicatio n other Not available Not available 08/31/2023 65144 8001 SNOMED React ion: other react ion, Unkno wn; Not Available [facility] 4 01:14:43 Medications Name Sig [...] Not Available Not Available No t Available cefpodoxi me 200 mg tablet TAKE 1 TABLET BY MOUTH TWICE A DAY 10/04 completed Not Available Not Available Not Available azithromy bennett 250 mg tablet TAKE 2 TABLETS BY MOUTH TODAY, THEN TAKE 1 TABLET DAILY FOR 4 DAYS DIRECTED 05/22 completed Not Available Not Available Not Available prednison e 20 mg tablet TAKE 2 TABLETS BY MOUTH DAILY FOR 5 DAYS 05/22 completed Not Available Not Available Not Available prednison e 5 mg tablet PLEASE SEE ATTACHED FOR DETAILED DIRECTIO NS 10/04 completed Not Available Not Available Not Available sulfasala zine 500 mg tablet,de layed release TAKE 3 TABLETS BY MOUTH TWICE A DAY FOR 30 DAYS active Not Available Not Available No t Available levofloxa bennett 250 mg tablet TAKE 2 TABLETS BY MOUTH EVERY DAY 09/20 completed Not Available Not Available Not Available doxycycli ne monohydra te 100 mg tablet TAKE 1 TABLET BY MOUTH TWICE A DAY FOR 7 DAYS 05/22 completed Not Available Not Available Not Available spironola ctone 25 mg tablet TAKE 1/2 TABLET DAILY BY MOUTH FOR 90 DAYS active Not Available Not Available No t Available tamsulosi n 0.4 mg capsule 2019 active Medicati on ID: [id number] B rand Name: tamsulos in Send Method: E-Prescr ibed Sub s Allowed: subs OK Medic ationGen ericName : tamsulos in Not Available Not Available Not Available hydrocort isone-jelly tic acid 1 %-2 % ear drops INSTILL 3 DROP INTO BOTH EARS FOUR TIMES A DAY NEEDED FOR ITCHY EARS 10/04 completed Not Available Not Available Not Available benzonata te 100 mg capsule TAKE 1 CAPSULE BY MOUTH THREE TIMES A DAY FOR 5 DAYS 05/22 completed Not Available Not Available Not Available clotrimaz ole-betam ethasone 1 %-0.05 % topical cream APPLY TO THE AFFECTED AND SURROUND ING AREAS OF SKIN with finger tip 2 TIMES PER DAY IN THE MORNING AND EVENING FOR 2 WEEKS 2024 active Not Available Not Available Not Avai lable metronida zole 0.75 % topical cream APPLY TO FACE TWICE A DAY 10/04 completed Not Available Not Available Not Available clotrimaz ole 1 % topical solution APPLY 4 DROPS TO THE AFFECTED EAR 3 TIMES A DAY FOR 2 WEEKS 10/04 completed Not Available Not Available Not Available gabapenti [...] Not Available Not Available No t Available finasteri de 5 mg tablet TAKE 1 EVERY DAY IN THE MORNING active Not Available Not Available No t Available loratadin e 10 mg tablet 2019 active Medicati on ID: [id number] B rand Name: caprice griffin Send Method: E-Prescr ibed Sub s Allowed: subs OK Speci al Instruct ion: TAKE 1 TABLET BY MOUTH EVERY DAY Medi cationGe nericNam e: loratadi ne Not Available Not Available Not Available naproxen 500 mg tablet TAKE 1 TABLET BY MOUTH TWICE A DAY active Not Available Not Available No t Available azelaic acid 15 % topical gel APPLY TOPICALL Y TO THE FACE TWICE A DAY 10/04 completed Not Available Not Available Not Available Ciprodex 0.3 %-0.1 % ear drops,jayjay pension 4 drops twice daily for 2 weeks 2024 active Not Available Not Available Not Avai lable tiotropiu m bromide 18 mcg capsule with inhalatio n device INHALE THE CONTENTS OF ONE CAPSULE VIA INHALER EVERY DAY 10/04 completed Not Available Not Available Not Available nitrofura ntoin monohydra te/macroc rystals 100 mg capsule TAKE 1 CAPSULE BY MOUTH TWICE A DAY FOR 7 DAYS 11/10 completed Not Available Not Available Not Available fluocinol one acetonide oil 0.01 % ear drops INSTILL 2-3 DROPS INTO BOTH EARS TWICE DAILY FOR TWO WEEKS THEN NEEDED active Not Available Not Available No t Available Advair HFA 2019 active Medicati on ID: [id number] B rand Name: Advair HFA Send Method: E-Prescr ibed Sub s Allowed: subs OK Medic ationGen ericName : Advair HFA Not Available Not Available Not Available Farxiga 10 mg tablet TAKE 1 TABLET ONCE DAILY active Not Available Not Available No [...] Updated DateTime 05/22/2024 180.34 cm 26.5 kg/m2 89255.55 g Trina Bales [place] - [facility] 05/22/2024 10:36:58 Date Recorded Body height Body mass index (BMI) Body weight Provider Name and Address Organization Details Last Updated DateTime 09/04/2024 180.34 cm 26.5 kg/m2 33638.55 g Janel Alatorre [place] - [facility] 09/04/2024 13:16:16 Date Recorded Body height Body mass index (BMI) Body weight Provider Name and Address Organization Details Last Updated DateTime 09/20/2024 180.34 cm 26.5 kg/m2 00437.55 g Violet Loza [place] - [facility] 09/20/2024 09:04:44 Date Recorded Body height Body mass index (BMI) Body weight Provider Name and Address Organization Details Last Updated DateTime 10/04/2024 180.34 cm 26.5 kg/m2 75673.55 g Trina Bales [place] [facility] 10/04/2024 12:58:54 Date Recorded Body height Body mass index (BMI) Body weight Provider Name and Address Organization Details Last Updated DateTime 11/13/2024 180.34 cm 27.2 kg/m2 35398.51 g Violet Loza [place] [facility] 11/13/2024 09:59:42 Social History Question Answer Notes LastModified by Organizat ion Details LastModified Time Tobacco Smoking Status Former Smoker Janel montiel [place] - [facility] 09/04/2024 13:17:25 What Type Of Residential Solar Sales Consultant Do You Use? None [email or web address] Information not available 09/04/2024 When Did You Quit Smoking? 11-15yearssi madison [email or web address] Information not available 09/04/2024 What Is Your Current Pack Years? 10packyears [email or web address] Information not available 09/04/2024 Do You Have Any Pets? No Information not available 09/04/2024 At What Age Did You Start Smoking Tobacco? 22 [email or web address] Information not available 09/04/2024 Are You Passively Exposed To Smoke? No [email or web address] Information not available 09/04/2024 Are There Any Smokers In Your House? No [email or web address] Information not available 09/04/2024 How Much Tobacco Do You Smoke? No [email or web address] Information not available 09/04/2024 How Many Years Have You Smoked Tobacco? 15 [email or web address] Information not available 09/04/2024 Sex: Unknown Functional Status Question Answer Note LastModified by Organization Details LastModified Time Do you use any illicit or recreational drugs? No [email or web address] Information not available 09/04/2024 Do you or have you ever used any other forms of tobacco or nicotine? No Information not available 09/04/2024 What is your level of alcohol consumption? 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 [email or web address] Infor mation not available 09/04/2024 Mental Status None recorded. Family History Nothing Reported. Medical History Condition Response Allergies/Hayfever Y Heart Problems Y Anxiety N Tonsil Infections N Emphysema Y Migraines N Thyroid Problems N Glaucoma N Depression N COPD Y Developmental Delay N Nasal or Sinus Problems Y Anemia N Immune System Disorder Y Anesthesia Complications N Heart Attack ([place]) N Other Skin Condition N Diabetes N Rhinitis N Bleeding Disorder N Food Allergy N Arthritis Y Hearing Loss Y Hyperlipidemia N Cancer N Stroke N Dementia N Nasal polyps N Asthma Y Sleep Disorder Y GERD/Reflux N High Cholesterol N Liver Disease N Headaches N Fibromyalgia N Hypertension N Speech Delay N Kidney Disease N Past Encounters Encounter ID Performer Location Encounter Start Date Encounter Closed Date Diagnosis/Indication Diagnosis SNOMED-CT Code Diagnosis ICD10 Code Diagnosis Note [id number] DEEDEE MIRANDA PA-C [facility] [address] [address] 10/13/2023 11:34:05 10/13/2023 11:44:53 Chronic eczema of external auditory canal 622618234 H60.8X9 [id number] DEEEDE MIRANDA PA-C [facility] [address] [address] 01/13/2024 10:51:57 01/13/2024 12:16:11 Impacted cerumen of bilateral ears 2766727498 640663 H61.23 Chronic ec zema of external auditory canal 805433308 H60.8X9 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 3633887716 811170 H61.393 [id number] DEEDEE MIRANDA PA-C [facility] [address] [address] 05/22/2024 10:29:29 05/22/2024 10:47:22 Chronic eczema of external auditory canal 609586058 H60.8X9 Impacted c erumen of bilateral ears 9913631042 899767 H61.23 Disorder o f left Eustachian tube 8203893981 131271 H69.92 Stenosis o f bilateral external ear canals due to and following infection 2381932069 362861 H61.323 [id number] SANJAY MINAYA PA-C [facility] [address] [address] 09/04/2024 12:57:46 09/04/2024 13:57:07 Chronic mycotic otitis externa 105026197 H60.399 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 1859936888 456401 H61.393 Impacted c erumen of bilateral ears 6882783751 521199 H61.23 [id number] SANJAY MINAYA PA-C [facility] [address] [address] 09/20/2024 08:44:43 09/20/2024 09:28:02 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 0844367784 254210 H61.393 Chronic my cotic otitis externa 722793502 H60.399 Sensorineu ral hearing loss of bilateral ears 631481023 H90.3 [id number] SANJAY MINAYA PA-C [facility] [address] [address] 10/04/2024 12:44:36 10/04/2024 13:29:03 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 9196272644 516326 H61.393 Chronic my cotic otitis externa 282306745 H60.399 [id number] ELO JULES PA-C [facility] [address] [address] 11/13/2024 09:50:52 11/13/2024 10:36:33 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 2700335861 949855 H61.393 Otorrhea o f bilateral ears 1661093870 778979 H92.13 Chronic my cotic otitis externa 893403289 H60.399 Chronic ec zema of external auditory canal 781867833 H60.8X9 Benign par oxysmal positional vertigo 817659375 H81.12 Health Concerns Section Related Observation LastModified by Organization Detai ls LastModified Time None Recorded Concern Status LastModified by Organization Details LastModified Time None Recorded Advance Directives Directive None Recorded Payers Insurance Date Sequence Insurance Name Policy Number Policy Tineo Covered Member ID Tineo Member ID Guarantor Name 11/14/2024 2 [facility]GRAM (PPO) [id number] Alfonzo Rachel Giovani [id number] Alfonzo F Giovani 11/13/2024 1 [place] [facility] Alfonzo Garciamartin [id number] Alfonzo Rachel Giovani 02/10/2024 2 [facility] - FEP [id number] Alfonzo Garciamartin [id number] Alfonzo F Giovani
--- OUTSIDE RECORDS SUMMARY | 2024-11-14 13:39 | XMS_ITS | Clinical Summary ---
Author Organization [facility] Address [address] [place] [address] Care Team Providers Care Pathology Laboratory Director Name Role Phone Beatriz Bee MD Primary Care Provider [phone] Allergies Active Allergy Reactions Criticality Noted Date [...] - PCV) 2017 10/10/2009 Influenza Vaccine (#1) 2024 RSV Adult > 60+ Yrs or Pregn ant (1 - 1-dose 75+ series) 10/29/2027 Hepatitis B Vaccines Aged Out No long er eligible based on patient's age to complete this topic RSV Ped < 20 months Aged Out No longe r eligible based on patient's age to complete this topic Care Teams Pathology Laboratory Director Relationship Specialty Start Date End Date Beatriz Bee MD [address] [place] [address] 2 [place] [address] PCP - General Internal Medicine 02/23/17
--- OUTSIDE RECORDS SUMMARY | 2024-11-14 13:39 | XMS_ITS | Patient Health Record ---
Author Organization [facility] Address [address] [place] [address] Care Team Providers [facility] [employer] Officer Name Role Phone Rohit VELÁSQUEZ, Beatriz Primary Care Provider Unavailabl e Black, Crista Unavailable [phone] Allergies Allergen (clinical drug ingredient) Drug/Non Drug Allergy documented on EMR Reaction Allergy Type Onset Date Status meperidine Demerol rash Drug Allergy Active Penicillin Unknown Drug Allergy Active Reason For Referral No Information Medications Medication SIG (Take, Route, Frequency, Duration) Notes Start Date End Date Status Ammonium Lactate 12 % 1 application to affected area Externally Twice a day to dry areas of skin on feet; Duration: 30 days Active Naproxen 500 MG Oral; Duration: 30 Days Active Albuterol Sulfate HFA Active Wixela Inhub spiriva Active Loratadine 10 MG 1 tablet Orally Once a day; Duration: 30 day(s) Active Spiriva HandiHaler 18 MCG 1 capsule by inhaling the contents of the capsule using the HandiHaler device Inhalation Once a day Active Advair HFA Active Co Q 10 Active Vitamin C Not-Taking Farxiga Active Social History Tobacco Use: Social History [...] Problem Status W/U Status Risk Notes Problem Tinea unguium (315887259) Tinea unguium (B35.1) Active confirmed Vital Signs Blood pressure diastolic 70 mm Hg 09/21/2024 Height 6ft in 09/21/2024 Blood pressure systolic 117 mm Hg 09/21/2024 Weight 190 lbs 09/21/2024 BMI 25.77 kg/m2 09/21/2024 Procedures Procedure Date Ordered Date Performed Result Body Sit e 90021-[id number] NAIL, 6 OR MORE 11/18/2023 N/A [id number] NAIL, 6 OR MORE 02/28/2024 N/A [id number] NAIL, 6 OR MORE 06/01/2024 N/A [id number] NAIL, 6 OR MORE 09/21/2024 N/A Encounters Encounter Location Date Provider Diagnosis [address] [address] 11/18/2023 Crista Black Tinea unguium B35.1 ; Xerosis cutis L85.3 ; Pain in right toe(s) M79.674 and Pain in left toe(s) M79.[address] [address] 02/28/2024 Crista Black Tinea unguium B35.1 ; Xerosis cutis L85.3 ; Pain in right toe(s) M79.674 and Pain in left toe(s) M79.[address] [address] 06/01/2024 Crista Black Tinea unguium B35.1 ; Pain in right toe(s) M79.674 and Pain in left toe(s) M79.[address] [address] 09/21/2024 Crista Black Tinea unguium B35.1 ; Pain in right toe(s) M79.674 and Pain in left toe(s) M79.[address] [address] 11/18/2023 Crista Black Assessments Encounter Date Diagnosis (ICD Code) Assessment Notes Treatment Notes Treatment Clinical Notes Section Notes 11/18/2023 Tinea unguium (ICD-10 - B35.1) 11/18/2023 Xerosis cutis (ICD-10 - L85.3) 02/28/2024 Tinea unguium (ICD-10 - B35.1) 06/01/2024 Tinea unguium (ICD-10 - B35.1) 06/01/2024 Pain in right toe(s) (ICD-10 - M79.674) 09/21/2024 Tinea unguium (ICD-10 - B35.1) 09/21/2024 Pain in right toe(s) (ICD-10 - M79.674) 06/01/2024 Pain in left toe(s) (ICD-10 - M79.675) 02/28/2024 Xerosis cutis (ICD-10 - L85.3) 11/18/2023 Pain in right toe(s) (ICD-10 - M79.674) 11/18/2023 Pain in left toe(s) (ICD-10 - M79.675) 02/28/2024 Pain in right toe(s) (ICD-10 - M79.674) 09/21/2024 Pain in left toe(s) (ICD-10 - M79.675) 02/28/2024 Pain in left toe(s) (ICD-10 - M79.675) Plan Of Treatment Pending Test Test Name Order Date [id number] NAIL, 6 OR MORE 03/24/2021 [id number] NAIL, 6 OR MORE 11/18/2023 [id number] NAIL, 6 OR MORE 02/28/2024 [id number] NAIL, 6 OR MORE 06/01/2024 [id number] NAIL, 6 OR MORE 09/21/2024 Next Appt Details Provider Name:Crista Marte Jose , 01/04/2025 11:30:00 AM, [address] [facility], [place], [address], Insurance Providers Payer Name Payer Address Payer Phone Subscriber Number Group Number Insured Name Patient Relationship to Insured Coverage Start Date Coverage End Date [employer] [address] [place] [address] [id number] Alfonzo Lynch Self - patient is the insured [facility] [address] [place] [address] [id number] Oneida agudelo Alfonzo Self - patient is the insured Medical (General) History Medical History History ICD Code Arthritis asthma Heart disease Lung disease- COPD Psoriasis/eczema Measles Mumps Chicken pox Primary osteoarthritis, left ankle and f oot M19.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
== END 2024-11-14 13:44 | disposition home or self-care (01) ==
PROVIDERS: PCP Internal Medicine; Visit Provider Internal Medicine Rheumatology
DX: M02.3 Reiter's disease (principal); Z79.899 Other long term (current) drug therapy
CPT/HCPCS: 99214; G2211

== ENCOUNTER → 2024-11-14 12:53 | Outpatient (BNVA) | payer MEDICARE, BC, SELFPAY | PROVIDERS: PCP Internal Medicine; Visit Provider Internal Medicine Rheumatology | DX: M02.372 Reiter's disease, left ankle and foot (principal); M02.371 Reiter's disease, right ankle and foot; Z79.899 Other long term (current) drug therapy; Z79.52 Long term (current) use of systemic steroids | CPT/HCPCS: 99212 ==

== ENCOUNTER 2025-01-31 11:30 | Outpatient (REF) | payer MEDICARE, BC, SELFPAY ==
[2025-01-31 11:44] LABS: MANUAL DIFF FLAG NO
[2025-01-31 12:11] LABS: Hematocrit 46.4 % (42.0-52.0); Hemoglobin 15.0 g/dl (14.0-18.0); Imm Gran Abs Auto 0.01 X10*3/uL (0.00-0.03); Imm Gran Pct Auto 0.1 % (0.0-0.4); Lymphocytes Absolute Auto 1.6 X10*3/uL (1.2-4.9); Mean Corpuscular HGB Conc 32.3 g/dl (31.0-36.0); Mean Corpuscular Hemoglobin 29.8 pg (27.0-33.0); Mean Corpuscular Volume 92.1 fL (80.0-98.0); NRBC Abs Auto 0.000 X10*3/uL (0.0-0.012); NRBC Pct Auto 0.0 /100WBC (0.0-0.2); Platelet Count 283 X10*3/uL (160-400); Red Blood Count 5.04 X10*6/uL (4.60-5.80); White Blood Count 9.2 X10*3/uL (4.8-10.8)
[2025-01-31 12:40] LABS: Alanine Aminotransferase 31 U/L (0-40); Aspartate Amino Transferase 27 U/L (5-37); Estimated Glomerular Filt Rate > 60
--- OUTSIDE RECORDS SUMMARY | 2025-01-31 14:32 | XMS_ITS | Data Portability ---
Author Organization [place] - [facility], Allergy Address [address] [facility] [address] [place] [phone] Care Team Providers Care Pan Reclaim Processor Name Role Phone ANNE MARIE SETH Primary Care Provider Assessment Encounter Date Assessment Date Assessment LastModified by Organization Details LastModified Time 09/20/2024 09/20/2024 73-year-old male with stenotic ear [...] his room spinning vertigo he has positive Lincoln-Hallpike on the left side and again with returning to sitting position. Jonn maneuver was performed today. He was provided and ATI referral for further treatment. 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 Will call if he has any recurrent symptoms following therapy. [email or web address] Not available 11/13/2024 10:51:07 11/21/2024 11/21/2024 Patient with chronic inflammatory otitis externa which has resulted in severe thickening and scarring of the external auditory canals. This has resulted in significant external auditory canal stenosis with tendency towards bacterial and fungal infection. Patient currently has some fungal dermatitis of the meatus so I recommended he get the clotrimazole/betam ethasone cream that he has at home and use it in the meatus 3 times a day for 2 weeks. At this point I think he can stop the Ciprodex drops, as there does not appear to be obvious active bacterial infection at the moment. Going forward, I have recommended he create a mixture of white vinegar and rubbing alcohol 50-50 mix and apply 2 drops to both ears on a daily basis. This should act as a preventative measure for both bacterial and fungal infection. We discussed the fact that surgical intervention in this case would be unlikely to help due to the chronic thickening of the external auditory canals and high likelihood of recurrence of scar tissue and possibly worsening of his situation. Preventative cleaning going forward will be castro to reducing risk of flareups of infection. Follow-up with PA in 6 weeks. [email or web address] Not available 11/21/2024 08:59:53 01/15/2025 01/15/2025 74-year-old male presents for reevaluation. On examination persistent canal stenosis which inhibits view of TM fully. No obvious discharge or debris collection today. It seems that a one-to-one rubbing alcohol and white vinegar is working well for him. Continue this regimen and follow-up in 4 months. [email or web address] Not available 01/15/2025 13:05:31 Plan of Treatment Reminders Order Date Submit Date Provider Last Modified By Organization Details Last Modified Time Details Appointments Establish ed 15 2025 09:45A M ELO JULES PA-C Not available Not available Not available Lab culture, bacterial 2024 025 [facility] (Centralized Electronic Ordering - All Locations), Patient Can Go To The Location Of Their Choice, [id number] 12/04/2024 15:16:01 fungus, culture, unspecifi ed specimen 2024 025 ANAHI [facility] (Centralized Electronic Ordering - All Locations), Patient Can Go To The Location Of Their Choice, [id number] 12/12/2024 08:23:53 Referral None recorded. Procedures None recorded. Surgeries None recorded. Imaging None recorded. Medication Orders Ciprodex 0.3 %-0.1 % ear drops,jayjay pension 2024 025 ANAHI [facility]/Pharmacy #[id number], [address] [place], [address], 11/21/2024 08:26:26 clotrimaz ole-betam ethasone 1 %-0.05 % topical cream 2024 025 ANAHI [facility]/Pharmacy #[id number], [address] [place], [address], 01/15/2025 11:28:58 Patient TargetsNo targets recorded. Patient InstructionsNo instructions recorded. Reason for Referral None Reported. Results Created Date Observation Date Name Description Value Unit Range Abnormal Flag Note LastModifiedBy Organization Detail LastModifiedTime 11/14/1911/16/2024 ANAER OBIC AND AEROB IC CULTU RE aerobic culture Final report abnormal Not Available [facility] ([facility]) [address] [facility], [place], [address], 12/12/2024 08:23:52 11/14/19 25 11/16/2024 ANAER OBIC AND AEROB IC CULTU RE result 1 COMMEN T abnormal Pseud omona s aerug inosa Cefta zidim e-vijaya bacta m and cefto lozan e-mitchell obact am may be consi dered for thera py ONLY when multi -drug resis tance (MDR) is demon strat ed to merop enem and other teste d agent s. Heavy growt h Not Available [facility] ([facility]) [address] [facility], [place], [address], 12/12/2024 08:23:52 11/14/19 25 11/16/2024 ANAER OBIC AND AEROB IC CULTU RE antimicrobia l susceptibili ty Commen t S = Susce ptibl e; I = Inter media te; R = Resis tant P = Posit shannon; N = Negat shannon MICS are expre ssed in micro grams per mL Antib iotic RSLT# 1 RSLT# 2 RSLT# 3 RSLT# 4 Cefep cyn S Cefta zidim e S Cefta zidim e/vijaya bacta m S Cefto lozan e/mitchell obact am S Cipro floxa bennett R Levof loxac in R Merop enem S Piper acill in/Ta zobac myers S Tobra mycin S Not Available [facility] ([facility]) [address] [facility], [place], [address], 12/12/2024 08:23:52 11/14/19 25 11/18/2024 ANAER OBIC AND AEROB IC CULTU RE anaerobic culture Final report abnormal Not Available [facility] ([facility]) [address] [facility], [place], [address], 12/12/2024 08:23:52 11/14/19 25 11/18/2024 ANAER OBIC AND AEROB IC CULTU RE result 1 COMMEN T No anaer obic growt h in 72 hours . Not Available [facility] ([facility]) [address] [facility], [place], [address], 12/12/2024 08:23:52 11/14/19 25 11/18/2024 ANAER OBIC AND AEROB IC CULTU RE result 2 COMMEN T abnormal Beta hemol ytic Strep tococ cus, group B Penic illin and ampic illin are drugs of choic e for treat ment of beta- hemol ytic strep tococ primitivo infec tions . Susce ptibi lity testi ng of penic illin s and other beta- lacta m agent s appro orlin by the FDA for treat ment of beta- hemol ytic strep tococ primitivo infec tions need not be perfo rmed routi all becau se nonsu scept ible isola serene are extre brayan rare in any beta- hemol ytic strep tococ cus and have not been repor sole for Strep tococ cus pyoge tyrell (grou p A). (CLSI ) Moder ate growt h Not Available [facility] ([facility]) [address] [place], [address], 12/12/2024 08:23:52 11/14/19 25 11/14/2024 FUNGU S CULTU RE WITH STAIN fungus stain Final report Not Available [facility] ([facility]) [address] [place], [address], 12/12/2024 08:23:53 11/14/19 25 11/14/2024 FUNGU S CULTU RE WITH STAIN result 1 COMMEN T MARISSA/C alcof luor prepa ratio n: no fungu s obser orlin. Not Available [facility] ([facility]) [address] [facility], [place], [address], 12/12/2024 08:23:53 11/14/19 25 12/12/2024 FUNGU S CULTU RE WITH STAIN fungus (mycology) culture Final report Not Available [facility] ([facility]) [address] [facility], [place], [address], 12/12/2024 08:23:53 11/14/1912/12/2024 FUNGU S CULTU RE WITH STAIN result 1 COMMEN T No yeast or mold isola sole after 4 weeks . Not Available [facility] ([facility]) [address] [facility], [place], [address], 12/12/2024 08:23:53 Result Notes None recorded. 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 50460226525 71893 Active 2019 Other acquired stenosis of external ear canal, bilateral ; Note: Date Diagnosed : 0 10:53 AM (H61.393) ELO JULES PA-C [address] [place] [address], [facility] [place], [address] , [facility] - [facility] 5 13:05:34 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 45705805250 66831 Active 2020 Acquired stenosis of external ear canal secondary to inflammat ion and infection , bilateral ; Note: Date Diagnosed : 05/16/2020 5:22 PM (H61.323) Not Available [facility] 4 02:56:30 Otorrhea of bilateral ears 76410680716 01062 Active 2020 Otorrhea, bilateral ; Note: Date Diagnosed : 05/16/2020 5:22 PM (H92.13) Not Available [facility] 4 02:56:29 Eczema 07131751 Active 2020 Other specified dermatiti s; Note: Date Diagnosed : 05/16/2020 5:22 PM (L30.8) Not Available [facility] 4 02:56:30 Superfici al mycosis 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 Active 2020 Other specified superfici al mycoses; Note: Date Diagnosed : 05/16/2020 5:22 PM (B36.8) Not Available [facility] 4 02:56:27 Itching of skin 865809022 Active 2022 Other pruritus; Note: Date Diagnosed : 3 3:01 PM (L29.8) Not Available [facility] 4 02:56:28 Impacted cerumen of bilateral ears 43314377938 15800 Active 2022 Impacted cerumen, bilateral ; Note: Date Diagnosed : 3 3:00 PM (H61.23) SANJAY MINAYA PA-C [address], [place], [address] , [place] - [facility] 5 17:17:51 Chronic eczema of external auditory canal 961868732 Active 2023 Deedee montiel [place] - [facility] 4 11:42:00 Sensorine ural hearing loss of bilateral ears 726443249 Active 2023 AGNES CHRISTIANSEN, AUD [address], [place], [address] , [place] - [facility] 4 11:35:19 Mixed conductiv e and sensorine ural hearing loss, bilateral 258603176 Active 2023 AGNES CHRISTIANSEN, AUD [address], [place], [address] , [place] [facility] 4 11:45:31 Disorder of left Eustachia n tube 56706676603 83971 Active [address] - [facility] 5 10:45:07 Chronic mycotic otitis externa 400932344 Active 2024 ELO JULES PA-C [address], [place], [address] , [place] [facility] 5 13:05:39 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 SANJAY MINAYA PA-C [address], [place], [address] , [place] - [facility] 5 13:52:40 Benign paroxysma l positiona l vertigo 664786299 Active 2024 ELO JULES PA-C [address] [facility],[place] [address], [place], [address] , [place] [facility] 5 10:51:38 Bilateral external auditory canal chronic otitis externa 91034180373 09946 Active 2024 DALLIN KIRKLAND MD [address] [facility],[place] [address], [facility] [place], [address] , [place] [facility] 5 08:55:59 Problem Notes None recorded. Procedures Surgical History Date Name Laterality Status Provider Name and Address Organization Details Recorded Time 5 Debridement of Ear canal bilateral completed DALLIN KIRKLAND MD [address] [facility],[place] [address], [place], [address], [place] [facility] 11/21/2024 08:42:53 5 Cerumen removal without microscope bilat completed SANJAY MINAYA PA-C [address] [facility],[place] [address], [place], [address], [place] [facility] 09/04/2024 17:12:03 5 Cerumen removal without microscope bilat completed Deedee Cuellar CT - [facility] 05/22/2024 10:54:37 4 Cerumen removal without microscope bilat completed Deedee Cuellar CT - [facility] 02/10/2024 13:06:49 4 Comp Audio with Tymps - 04622 & 56558 completed CARMELO CAROLINA [address] [facility],[place] [address], [place], [address], [place] [facility] 01/13/2024 11:35:22 4 Cerumen removal without microscope bilat completed Deedee Cuellar CT - [facility] 01/13/2024 11:56:50 Imaging Results None recorded. Procedure Notes None recorded. Medical Equipment None Reported. Allergies Allergen ID Allergen Name Allergen Category Reaction Reaction Severity Criticality Documentation Date Start Date Code Code System Note Provider Name and Address Organization Details Recorded Time 519213 Demerol medicatio n other Not available Not available 08/31/2023 50595 1 RxNorm React ion: other react ion, Unkno wn; Not Available [facility] 4 01:14:39 913286 Product containin g penicilli n (product) medicatio n other Not available Not available 08/31/2023 58995 8001 SNOMED React ion: other react ion, [...] PLEASE SEE ATTACHED FOR DETAILED DIRECTIO NS 01/15 completed Not Available Not Available Not Available [...] layed release TAKE 3 TABLETS BY MOUTH 2 TIMES A DAY FOR 30 DAYS active Not [...] t Available tamsulosi n 0.4 mg capsule 11/21 completed Medicati on ID: [id number] B rand Name: malgorzata in Send Method: E-Prescr ibed Sub s Allowed: subs OK Medic ationGen ericName : malgorzata in Not Available Not Available Not Available [...] PLEASE SEE ATTACHED FOR DETAILED DIRECTIO NS 01/15 completed Not Available Not Available Not Available metronida zole 0.75 % topical cream [...] TO DRY AREAS OF SKIN ON FEET 01/15 completed Not Available Not Available Not Available codeine 10 mg-guaife nesin 100 mg/5 [...] INTRANAS ALLY EVERY DAY IN THE MORNING 01/15 completed Not Available Not Available Not Available finasteri de 5 mg tablet TAKE 1 EVERY DAY IN THE MORNING active Not Available Not Available No t Available loratadin e 10 mg tablet 11/21 completed Medicati on ID: [id number] B rand Name: caprice ne Send Method: E-Prescr ibed Sub s Allowed: [...] completed Not Available Not Available Not Available ciproflox acin 0.3 %-dexamet hasone 0.1 % ear drops,jayjay pension PLACE 4 DROPS INTO AFFECTED EARS TWICE A DAY FOR 2 WEEKS 11/21 completed Not Available Not Available Not Available tiotropiu m bromide 18 mcg capsule with inhalatio n device INHALE THE CONTENTS OF ONE CAPSULE VIA INHALER EVERY DAY 10/04 completed Not Available Not Available Not Available nitrofura ntoin monohydra te/macroc rystals 100 mg capsule TAKE 1 CAPSULE BY MOUTH TWICE A DAY DRINK WITH A FULL GLASS OF WATER active Not Available Not Available No t Available fluocinol one acetonide oil 0.01 % ear drops INSTILL 2-3 DROPS INTO BOTH EARS TWICE DAILY FOR TWO WEEKS THEN NEEDED 01/15 completed Not Available Not Available Not Available Advair HFA 2019 active Medicati on ID: [id number] B rand Name: Advair HFA Send Method: E-Prescr ibed Sub s Allowed: subs OK Medic ationGen ericName : Advair HFA Not Available Not Available Not Available tobramyci n 0.3 %-dexamet hasone 0.05 % eye drops,jayjay pension 4 drops twice daily for 2 weeks. 01/15 completed Not Available Not Available Not Available Farxiga [...] Updated DateTime 09/20/2024 180.34 cm 26.5 kg/m2 81441.[address] - [facility] 09/20/2024 09:04:44 Date Recorded Body height Body mass index (BMI) Body weight Provider Name and Address Organization Details Last Updated DateTime 10/04/2024 180.34 cm 26.5 kg/m2 40683.[address] - [facility] 10/04/2024 12:58:54 Date Recorded Body height Body mass index (BMI) Body weight Provider Name and Address Organization Details Last Updated DateTime 11/13/2024 180.34 cm 27.2 kg/m2 99269.[address] - [facility] 11/13/2024 09:59:42 Date Recorded Body height Body mass index (BMI) Body weight Provider Name and Address Organization Details Last Updated DateTime 11/21/2024 180.34 cm 27.2 kg/m2 33063.[address] - [facility] 11/21/2024 08:17:35 Date Recorded Body height Body mass index (BMI) Body weight Provider Name and Address Organization Details Last Updated DateTime 01/15/2025 180.34 cm 26.5 kg/m2 93613.[address] - [facility] 01/15/2025 11:28:32 Social History Question Answer Notes LastModified by Organizat ion Details LastModified Time Tobacco Smoking Status Former Smoker Janel montiel [facility] - [facility] 09/04/2024 13:17:25 What Type Of Bioinformatics Analyst Do You Use? None [email or web address] Information not available 09/04/2024 When Did You Quit Smoking? 11-15yearssi madison dacosta [email or web address] Information not available 09/04/2024 What Is Your Current Pack Years? 10packyears [email or web address] Information not available 09/04/2024 Do You Have Any Pets? No [email or web address] Information not available 09/04/2024 At What Age Did You Start Smoking Tobacco? 22 [email or web address] Information not available 09/04/2024 Are You Passively Exposed To Smoke? No [email or web address] Information not available 09/04/2024 Are There Any Smokers In Your House? No [email or web address] Information not available 09/04/2024 How Much Tobacco Do You Smoke? No [email or web address] Information not available 09/04/2024 How Many Years Have You Smoked Tobacco? 15 [email or web address] Information not available 09/04/2024 Sex: Unknown Functional Status Question Answer Note LastModified by Organization Details LastModified Time Do you use any illicit or recreational drugs? No Information not available 09/04/2024 Do you or have you ever used any other forms of tobacco or nicotine? No [email or web address] Information not available 09/04/2024 What is your level of alcohol consumption? 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 noExposureToExcessiveNoise [email or web address] Infor mation not available 09/04/2024 Mental Status None recorded. Family History Nothing Reported. Medical History Condition Response Allergies/Hayfever Y Heart Problems Y Anxiety N Tonsil Infections N Emphysema Y Migraines N Thyroid Problems N COPD Y Depression N Developmental Delay N Glaucoma N Nasal or Sinus Problems Y Anemia N Immune System Disorder Y Anesthesia Complications N Heart Attack ([place]) N Other Skin Condition N Diabetes N Rhinitis N Bleeding Disorder N Food Allergy N Hearing Loss Y Arthritis Y Hyperlipidemia N Cancer N Stroke N Dementia N Nasal polyps N Asthma Y Sleep Disorder Y High Cholesterol N GERD/Reflux N Liver Disease N Headaches N Fibromyalgia N Hypertension N Speech Delay N Kidney Disease N Past Encounters Encounter ID Performer Location Encounter Start Date Encounter Closed Date Diagnosis/Indication Diagnosis SNOMED-CT Code Diagnosis ICD10 Code Diagnosis IMO Codes Diagnosis Note [id number] DEEDEE CUELLAR PA-C [facility] [address] [address] 10/13/2023 11:34:05 10/13/2023 11:44:53 Chronic eczema of external auditory canal 859288122 H60.8X9 [id number] DEEDEE CUELLAR PA-C [facility] [address] [address] 01/13/2024 10:51:57 01/13/2024 12:16:11 Impacted cerumen of bilateral ears 4007579722 109145 H61.23 Chronic ec zema of external auditory canal 078060765 H60.8X9 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 5563510043 044138 H61.393 [id number] DEEDEE CUELLAR PA-C [facility] [address] [address] 05/22/2024 10:29:29 05/22/2024 10:47:22 Chronic eczema of external auditory canal 717066860 H60.8X9 Impacted c erumen of bilateral ears 3419059486 778229 H61.23 Disorder o f left Eustachian tube 5008213261 850630 H69.92 Stenosis o f bilateral external ear canals due to and following infection 1627219187 434040 H61.323 [id number] SANJAY MINAYA PA-C [facility] [address] [address] 09/04/2024 12:57:46 09/04/2024 13:57:07 Chronic mycotic otitis externa 514316475 H60.399 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 3490658685 128569 H61.393 Impacted c erumen of bilateral ears 1232142941 150588 H61.23 [id number] SANJAY MINAYA PA-C [facility] [address] [address] 09/20/2024 08:44:43 09/20/2024 09:28:02 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 5768990865 014732 H61.393 Chronic my cotic otitis externa 536330910 H60.399 Sensorineu ral hearing loss of bilateral ears 708682119 H90.3 [id number] SANJAY MINAYA PA-C [facility] [address] [address] 10/04/2024 12:44:36 10/04/2024 13:29:03 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 5906231192 610222 H61.393 Chronic my cotic otitis externa 869051871 H60.399 [id number] ELO JULES PA-C [facility] [address] [address] 11/13/2024 09:50:52 11/13/2024 10:36:33 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 3188851727 932654 H61.393 Otorrhea o f bilateral ears 6265986399 968580 H92.13 Chronic my cotic otitis externa 725685421 H60.399 Chronic ec zema of external auditory canal 032186908 H60.8X9 Benign par oxysmal positional vertigo 589525926 H81.12 [id number] DALLIN KIRKLAND MD [facility] [address] [address] 11/21/2024 08:10:01 11/21/2024 08:59:02 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 3922008481 867457 H61.393 Otorrhea o f bilateral ears 8248933091 508781 H92.13 Chronic ec zema of external auditory canal 308614585 H60.8X9 Bilateral external auditory canal chronic otitis externa 3889374084 230941 H60.313 [id number] ELO JULES PA-C [facility] [address] [address] 01/15/2025 11:19:38 01/15/2025 11:44:40 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 3230783697 964950 H61.393 Chronic my cotic otitis externa 639860614 H60.399 Health Concerns Section Related Observation LastModified by Organization Detai ls LastModified Time None Recorded Concern Status LastModified by Organization Details LastModified Time None Recorded Advance Directives Directive None Recorded Payers Insurance Date Sequence Insurance Name Policy Number Policy Tineo Covered Member ID Tineo Member ID Guarantor Name 01/15/2025 2 [place] [id number] Alfonzo Rachel Giovani [id number] Alfonzo Rachel Giovani 01/15/2025 1 [place] Alfonzo Rachel Giovani [id number] Alfonzo Rachel Giovani 11/21/2024 2 [place] [id number] Alfonzo Rachel Giovani [id number] Alfonzo Rachel Giovani Notes Date Note Type Note Provider Name and Address Organization Details Recorded Time 09/20/2024 text/html ROS as noted in the HPI 73-year-old male with stenotic ear canals and chronic mycotic otitis externa presents for evaluation of the ears. He trialed topical clotrimazole without symptom improvement. He reports associated muffled hearing and popping in the ears that started 5 days ago. Denies ear pain. Occasional ear itchiness. EDER PIKE MD [address] [facility],[address], [address], [facility] 09/20/2024 12:07:52 10/04/2024 text/html ROS as noted in the [facility] 73-year-old male with stenotic ear canals and chronic mycotic otitis externa presents for reevaluation. He reports aural fullness and ear itchiness resolved with lotrisone placement into ear canals last visit. Ears started itching again 3 days ago. Denies ear pain, drainage, or hearing concerns. EDER PIKE MD [address] [facility],[address], [address], [facility] 10/04/2024 15:23:13 11/13/2024 text/html ROS as noted in the [facility] 74-year-old male presents for reevaluation of chronic otitis externa. History of recurrent otitis externa and was most recently treated with 2 rounds of Lotrisone cream. His left ear is now painful and draining. Continues to have itching bilaterally as well. More recently over the last 10 days he has been having room spinning vertigo when he lies down at night and again when he gets up in the morning. It only lasts about 10 seconds and he has no other associated symptoms. BIMAL ALVARADO MD [facility],[address], [phone], [facility] 11/14/2024 08:55:23 11/21/2024 text/html Patient with collapsing external auditory canals resulting in stenosis and subsequent recurrent/chronic otitis externa. Patient has had both bacterial and fungal elements causing discharge. He has been treated with Ciprodex and clotrimazole/betam ethasone cream. Patient has been on both Ciprodex drops as well as oral prednisone (prescribed by his as400 developer) for about a week, and the ears have been feeling much better. He tends to do get out wax from his ear canals with his fingertip each morning.I evaluated this patient back in 2020 with CAT scan of the temporal bones. His disease is limited to the external auditory canal skin with no effect on the middle ear or mastoid. DALLIN KIRKLAND MD 100 [facility],[address], [address], [facility] - [facility] 11/21/2024 09:00:15 01/15/2025 text/html ROS as noted in the HPI 74-year-old male presents for ear cleaning. He has canal stenosis from chronic otitis externa. Has been using one-to-one rubbing alcohol and white vinegar which seems to be working very well. Also has Lotrisone for outer ears. RICHARD GUERRIER MD [address] [place] [address],[place] [address], [place], [address], [facility] - [facility] 01/16/2025 09:18:14
== END 2025-01-31 11:31 | disposition home or self-care (01) ==
LOC: HO.LAB 11:30
PROVIDERS: PCP Internal Medicine; Visit Provider Internal Medicine Rheumatology
DX: M02.3 Reiter's disease (principal); Z79.899 Other long term (current) drug therapy
CPT/HCPCS: 36415; 82565; 84450; 84460; 85025; 85652; 86140

== ENCOUNTER 2025-03-05 11:43 | Outpatient (REF) | payer MEDICARE, BC, SELFPAY ==
--- NOTE | ~2025-03-05 | XR_ITS ---
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 TECHNIQUE: PA, lateral, and oblique views of the right hand. FINDINGS: No fracture, dislocation, or suspicious bone lesion. No periarticular osteopenia. Normal alignment. Very subtle marginal erosions involving the second and fifth MCP joints, similar to the prior exam. The interphalangeal joints appear grossly normal. 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 Carpal joints otherwise normal. There is negative ulnar variance. No soft tissue abnormalities. XR/XR hand RT min 3V IMPRESSION: 1. Similar tiny marginal erosions involving the second and fifth MCP joints. 2. No significant change in very mild osteoarthrosis of the first CMC joint and STT joints. Electronically signed by: Gus Carpio MD 03/05/2025 02:03 PM [facility]
[2025-03-05 11:53] LABS: MANUAL DIFF FLAG NO
[2025-03-05 12:12] LABS: Hematocrit 48.8 % (42.0-52.0); Hemoglobin 15.6 g/dl (14.0-18.0); Imm Gran Abs Auto 0.02 X10*3/uL (0.00-0.03); Imm Gran Pct Auto 0.3 % (0.0-0.4); Lymphocytes Absolute Auto 1.5 X10*3/uL (1.2-4.9); Mean Corpuscular HGB Conc 32.0 g/dl (31.0-36.0); Mean Corpuscular Hemoglobin 30.9 pg (27.0-33.0); Mean Corpuscular Volume 96.6 fL (80.0-98.0); NRBC Abs Auto 0.000 X10*3/uL (0.0-0.012); NRBC Pct Auto 0.0 /100WBC (0.0-0.2); Platelet Count 288 X10*3/uL (160-400); Red Blood Count 5.05 X10*6/uL (4.60-5.80); White Blood Count 7.5 X10*3/uL (4.8-10.8)
[2025-03-05 12:59] LABS: Alanine Aminotransferase 40 U/L (0-40); Aspartate Amino Transferase 31 U/L (5-37); Estimated Glomerular Filt Rate > 60
--- OUTSIDE RECORDS SUMMARY | 2025-03-06 00:09 | XMS_ITS | Continuity of Care Document ---
Author Organization [place] - [facility], [facility] Address [address] [place] [phone] Care Team Providers Care [employer] Installer Name Role Phone ANNE MARIE SETH Primary Care Provider [phone] Assessment Encounter Date Assessment Date Assessment LastModified by Organization Details LastModified Time 01/15/2025 01/15/2025 74-year-old male presents for reevaluation. On examination persistent canal stenosis which inhibits view of TM fully. No obvious discharge or debris collection today. It seems that a one-to-one rubbing alcohol and white vinegar is working well for him. Continue this regimen and follow-up in 4 months. [email or web address] Not available 01/15/2025 13:05:31 Plan of Treatment Reminders Order Date Submit Date Provider Last Modified By Organization Details Last Modified Time Details Appointments Establish ed 15 2025 09:45A M ELO JULES PA-C Not available Not available Not available Lab None recorded. Referral None recorded. Procedures None recorded. Surgeries None recorded. Imaging None recorded. Medication Orders None recorded. Patient TargetsNo targets recorded. Patient InstructionsNo instructions recorded. Reason for Referral None Reported. 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 25716438443 77368 Active 2019 Other acquired stenosis of external ear canal, bilateral ; Note: Date Diagnosed : 0 10:53 AM (H61.393) ELO JULES PA-C [address] [place] [address], [facility] [place], [address] , [place] - [facility] 5 13:05:34 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 22251217295 02654 Active 2020 Acquired stenosis of external ear canal secondary to inflammat ion and infection , bilateral ; Note: Date Diagnosed : 05/16/2020 5:22 PM (H61.323) Not Available [facility] 4 02:56:30 Otorrhea of bilateral ears 14686843107 85190 Active 2020 Otorrhea, bilateral ; Note: Date Diagnosed : 05/16/2020 5:22 PM (H92.13) Not Available [facility] 4 02:56:29 Eczema 90629929 Active 2020 Other specified dermatiti s; Note: Date Diagnosed : 05/16/2020 5:22 PM (L30.8) Not Available [facility] 4 02:56:30 Superfici al mycosis 537003301 Active 2020 Other specified superfici al mycoses; Note: Date Diagnosed : 05/16/2020 5:22 PM (B36.8) Not Available [facility] 4 02:56:27 Itching of skin 322411659 Active 2022 Other pruritus; Note: Date Diagnosed : 3 3:01 PM (L29.8) Not Available [facility] 4 02:56:28 Impacted cerumen of bilateral ears 24727651675 58115 Active 2022 Impacted cerumen, bilateral ; Note: Date Diagnosed : 3 3:00 PM (H61.23) SANJAY MINAYA PA-C 100 [facility], [place], [address] , [place] - [facility] 5 17:17:51 Chronic eczema of external auditory canal 513728094 Active 2023 Petra montiel [place] - [facility] 4 11:42:00 Sensorine ural hearing loss of bilateral ears 483024501 Active 2023 CARMELO CAROLINA 100 [facility],[address], [place], [address] , [place] - [facility] 4 11:35:19 Mixed conductiv e and sensorine ural hearing loss, bilateral 041186554 Active 2023 AGNES CAMPBELLCARMELO REYEZ 100 [facility],[place] [address], [place], [address] , [facility] - [facility] 4 11:45:31 Disorder of left Eustachia n tube 62772855718 27846 Active 2024 Petra montiel, [place] - [facility] 5 10:45:07 Chronic mycotic otitis externa 569491144 Active 2024 ELO JULES PA-C [address] [facility],[place] [address], [place], [address] , [facility] - [facility] 5 13:05:39 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 SANAJY MINAYA PA-C 100 [facility],[place] [address], [place], [address] , [facility] - [facility] 5 13:52:40 Benign paroxysma l positiona l vertigo 884840978 Active 2024 ELO JULES PA-C 100 [facility],[place] [address], [place], [address] , [facility] - [facility] 5 10:51:38 Bilateral external auditory canal chronic otitis externa 11026704497 53744 Active 2024 DALLIN KIRKLAND MD [address] [facility],[place] [address], [place], [address] , [facility] - [facility] 5 08:55:59 Problem Notes None recorded. Procedures Surgical History Date Name Laterality Status Provider Name and Address Organization Details Recorded Time 5 Debridement of Ear canal bilateral completed DALLIN KIRKLAND MD 100 [facility],[place] [address], [place], [address], [place] - [facility] 11/21/2024 08:42:53 5 Cerumen removal without microscope bilat completed SANJAY MINAYA PA-C [facility],[address], [place], [address], [place] - [facility] 09/04/2024 17:12:03 5 Cerumen removal without microscope bilat completed Ptera Cuellar [place] - [facility] 05/22/2024 10:54:37 4 Cerumen removal without microscope bilat completed Petra Cuellar [place] - [facility] 02/10/2024 13:06:49 4 Comp Audio with Tymps - 37825 & 41478 completed CARMELO CAROLINA [facility] [place],[facility], [place], [address], [facility] - [facility] 01/13/2024 11:35:22 4 Cerumen removal without microscope bilat completed Petra Cuellar [place] - [facility] 01/13/2024 11:56:50 Imaging Results None recorded. Procedure Notes None recorded. Medical Equipment None Reported. Allergies Allergen ID Allergen Name Allergen Category Reaction Reaction Severity Criticality Documentation Date Start Date Code Code System Note Provider Name and Address Organization Details Recorded Time 339701 Demerol medicatio n other Not available Not available 08/31/2023 34594 1 RxNorm React ion: other react ion, Unkno wn; Not Available [facility] 4 01:14:39 711781 Product containin g penicilli n (product) medicatio n other Not available Not available 08/31/2023 34408 8001 SNOMED React ion: other react ion, Unkno wn; Not Available [facility] 4 01:14:43 Medications Name Sig Start Date [...] mg capsule 11/21 completed Medicati on ID: [id number] B rand Name: malgorzata in Send Method: [...] mg tablet 11/21 completed Medicati on ID: [id number] B rand Name: caprice griffin Send Method: [...] Advair HFA 2019 active Medicati on ID: [id number] B rand Name: Advair HFA Send Method: [...] Updated DateTime 01/15/2025 180.34 cm 26.5 kg/m2 15414.55 g Trina Bales [place] - [facility] 01/15/2025 11:28:32 Social History Question Answer Notes LastModified by Organizat ion Details LastModified Time Tobacco Smoking Status Former Smoker Janel montiel [place] - [facility] 09/04/2024 13:17:25 What Type Of Copper Tapper Do You Use? None [email or web address] Information not available 09/04/2024 When Did You Quit Smoking? 11-15yearssi madison dacosta [email or web address] Information not available 09/04/2024 What Is Your Current Pack Years? 10packyears [email or web address] Information not available 09/04/2024 Do You Have Any Pets? No [email or web address] Information not available 09/04/2024 At What Age Did You Start Smoking Tobacco? 22 [email or web address] Information not available 09/04/2024 Are You Passively Exposed To Smoke? No [email or web address] Information not available 09/04/2024 Are There Any Smokers In Your House? No Information not available 09/04/2024 How Much Tobacco Do You Smoke? No [email or web address] Information not available 09/04/2024 How Many Years Have You Smoked Tobacco? 15 [email or web address] Information not available 09/04/2024 Sex: Unknown Functional Status Question Answer Note LastModified by Organization Details LastModified Time Do you use any illicit or recreational drugs? No [email or web address] Information not available 09/04/2024 Do you or have you ever used any other forms of tobacco or nicotine? No [email or web address] Information not available 09/04/2024 What is your level of alcohol consumption? 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 noExposureToExcessiveNoise [email or web address] Infor mation not available 09/04/2024 Mental Status None recorded. Family History Nothing Reported. 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 4171297258 680300 H61.393 Chronic my cotic otitis externa 439477892 H60.399 Health Concerns Section Related Observation LastModified by Organization Detai ls LastModified Time None Recorded Concern Status LastModified by Organization Details LastModified Time None Recorded Payers Encounter Date Sequence Insurance Name Policy Number Policy Tineo Covered Member ID Tineo Member ID Guarantor Name 01/15/2025 2 [facility] ([place]) [id number] Alfonzo Aldanatin [id number] Alfonzo Garciamartin 01/15/2025 1 [place] [employer] Alfonzo Aldanatin [id number] Alfonzo F Giovani Notes Date Note Type Note Provider Name and Address Organization Details Recorded Time 01/15/2025 text/html ROS as noted in the HPI 74-year-old male presents for ear cleaning. He has canal stenosis from chronic otitis externa. Has been using one-to-one rubbing alcohol and white vinegar which seems to be working very well. Also has Lotrisone for outer ears. RICHARD GUERRIER MD [address] [place] [address], [phone], [facility] - [facility] 01/16/2025 09:18:14
--- OUTSIDE RECORDS SUMMARY | 2025-03-06 00:09 | XMS_ITS | Data Portability ---
Author Organization [place] - [facility], Allergy Address [address] [facility] [address] [place] [address] Care Team Providers Care Manager Subway Name Role Phone ANNE MARIE SETH Primary Care Provider [phone] Assessment Encounter Date Assessment Date Assessment LastModified [...] his room spinning vertigo he has positive [place]-Hallpike on the left side and again with returning to sitting position. Jonn maneuver was performed today. He was provided and ATI referral for further treatment. 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 Will call if he has any recurrent symptoms following therapy. [email or web address] Not available 11/13/2024 10:51:07 11/21/2024 11/21/2024 Patient [...] this regimen and follow-up in 4 months. [email or web address] Not available 01/15/2025 13:05:31 Plan of Treatment Reminders Order Date Submit Date Provider Last Modified By Organization Details Last Modified Time Details Appointments Establish ed 15 2025 09:45A M ELO JULES PA-C Not available Not available Not available Lab culture, bacterial 2024 025 [email or web address] [facility] (Centralized Electronic Ordering - All Locations), Patient Can Go To The Location Of Their Choice, [id number] 12/04/2024 15:16:01 fungus, culture, unspecifi ed specimen 2024 025 ANAHI [facility] (Centralized Electronic Ordering - All Locations), Patient Can Go To The Location Of Their Choice, [address] 12/12/2024 08:23:53 Referral None recorded. Procedures None recorded. Surgeries None recorded. Imaging None recorded. Medication Orders Ciprodex 0.3 %-0.1 % ear drops,jayjay pension 2024 025 ANAHI [facility]/Pharmacy #[id number], [address] [place], [address], 11/21/2024 08:26:26 clotrimaz ole-betam ethasone 1 %-0.05 % topical cream 2024 025 [facility]/Pharmacy #[id number], [address] [place], [address], 01/15/2025 11:28:58 Patient TargetsNo targets recorded. Patient InstructionsNo instructions recorded. Reason for Referral None Reported. Results Created Date Observation Date Name Description Value Unit Range Abnormal Flag Note LastModifiedBy Organization Detail LastModifiedTime 11/14/1911/16/2024 ANAER OBIC AND AEROB IC CULTU RE aerobic culture Final report abnormal Not Available [facility] ([facility]) [address] [facility] [place], [address], 12/12/2024 08:23:52 11/14/19 25 11/16/2024 ANAER OBIC [...] s. Heavy growt h Not Available [facility] ([facility]) [address] [facility] [place], [address], 12/12/2024 08:23:52 11/14/19 25 11/16/2024 ANAER OBIC [...] S Tobra mycin S Not Available [facility] ([facility]) [address] [facility], [place], [address], 12/12/2024 08:23:52 11/14/19 25 11/18/2024 ANAER OBIC AND AEROB IC CULTU RE anaerobic culture Final report abnormal Not Available [facility] ([facility]) [address] [facility] [place], [address], 12/12/2024 08:23:52 11/14/19 25 11/18/2024 ANAER OBIC AND AEROB IC CULTU RE result 1 COMMEN T No anaer obic growt h in 72 hours . Not Available [facility] ([facility]) [address] [facility] [place], [address], 12/12/2024 08:23:52 11/14/19 25 11/18/2024 ANAER OBIC [...] Moder ate growt h Not Available [facility] ([facility]) [address] [place], [address], 12/12/2024 08:23:52 11/14/19 25 11/14/2024 FUNGU S CULTU RE WITH STAIN fungus stain Final report Not Available [facility] ([facility]) [address] [place], [address], 12/12/2024 08:23:53 11/14/19 25 11/14/2024 FUNGU S CULTU RE WITH STAIN result 1 COMMEN T MARISSA/C alcof luor prepa ratio n: no fungu s obser orlin. Not Available [facility] ([facility]) [address] [facility] [place], [address], 12/12/2024 08:23:53 11/14/19 25 12/12/2024 FUNGU S CULTU RE WITH STAIN fungus (mycology) culture Final report Not Available [facility] ([facility]) [address] [facility] [place], [address], 12/12/2024 08:23:53 11/14/1912/12/2024 FUNGU S CULTU RE WITH STAIN result 1 COMMEN T No yeast or mold isola sole after 4 weeks . Not Available [facility] ([facility]) [address] [facility] [place], [address], 12/12/2024 08:23:53 Result Notes None recorded. 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 35947048750 65613 Active 2019 Other acquired stenosis of external ear canal, bilateral ; Note: Date Diagnosed : 0 10:53 AM (H61.393) ELO JULES PA-C [address] [place] [address], [place], [address] , [facility] - [facility] 5 13:05:34 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 47248671342 99172 Active 2020 Acquired stenosis of external ear canal secondary to inflammat ion and infection , bilateral ; Note: Date Diagnosed : 05/16/2020 5:22 PM (H61.323) Not Available [facility] 4 02:56:30 Otorrhea of bilateral ears 65800296070 97367 Active 2020 Otorrhea, bilateral ; Note: Date Diagnosed : 05/16/2020 5:22 PM (H92.13) Not Available [facility] 4 02:56:29 Eczema 18915135 Active 2020 Other specified dermatiti s; Note: Date Diagnosed : 05/16/2020 5:22 PM (L30.8) Not Available [facility] 4 02:56:30 Superfici al mycosis 634961935 Active 2020 Other specified superfici al mycoses; Note: Date Diagnosed : 05/16/2020 5:22 PM (B36.8) Not Available [facility] 4 02:56:27 Itching of skin 681569274 Active 2022 Other pruritus; Note: Date Diagnosed : 3 3:01 PM (L29.8) Not Available [facility] 4 02:56:28 Impacted cerumen of bilateral ears 35030827656 29846 Active 2022 Impacted cerumen, bilateral ; Note: Date Diagnosed : 3 3:00 PM (H61.23) SANJAY MINAYA PA-C [address], [place], [address] , [place] - [facility] 5 17:17:51 Chronic eczema of external auditory canal 962721057 Active 2023 Deedee montiel [place] - [facility] 4 11:42:00 Sensorine ural hearing loss of bilateral ears 937624316 Active 2023 AGNES CHRISTIANSEN, AUD [address], [place], [address] , [place] - [facility] 4 11:35:19 Mixed conductiv e and sensorine ural hearing loss, bilateral 030460140 Active 2023 AGNES CHRISTIANSEN, AUD [address], [place], [address] , [place] - [facility] 4 11:45:31 Disorder of left Eustachia n tube 25995185915 55729 Active 2024 Deedee montiel [place] - [facility] 5 10:45:07 Chronic mycotic otitis externa 294638550 Active 2024 ELO JULES PA-C [address], [place], [address] , [place] [facility] 5 13:05:39 Dermal mycosis 44272046 Active 2024 SANJAY MINAYA PA-C [address], [place], [address] , [place] - [facility] 5 13:52:40 Benign paroxysma l positiona l vertigo 460396576 Active 2024 ELO JULES PA-C [address] [facility],[place] [address], [place], [address] , [place] [facility] 5 10:51:38 Bilateral external auditory canal chronic otitis externa 54992084880 66583 Active 2024 DALLIN KIRKLAND MD [address] [facility],[place] [address], [facility] [place], [address] , [place] [facility] 5 08:55:59 Problem Notes None recorded. Procedures Surgical History Date Name Laterality Status Provider Name and Address Organization Details Recorded Time 5 Debridement of Ear canal bilateral completed DALLIN KIRKLAND MD [address] [facility],[place] [address], [place], [address], [place] - [facility] 11/21/2024 08:42:53 5 Cerumen removal without microscope bilat completed SANJAY MINAYA PA-C [address] [facility],[place] [address], [place], [address], [place] [facility] 09/04/2024 17:12:03 5 Cerumen removal without microscope bilat completed Deedee Cuellar [place] - [facility] 05/22/2024 10:54:37 4 Cerumen removal without microscope bilat completed Deedee Cuellar [place] - [facility] 02/10/2024 13:06:49 4 Comp Audio with Tymps - 30193 & 51218 completed CARMELO CAROLINA [address] [facility],[place] [address], [place], [address], [place] [facility] 01/13/2024 11:35:22 4 Cerumen removal without microscope bilat completed Deedee Cuellar [place] - [facility] 01/13/2024 11:56:50 Imaging Results None recorded. Procedure Notes None recorded. Medical Equipment None Reported. Allergies Allergen ID Allergen Name Allergen Category Reaction Reaction Severity Criticality Documentation Date Start Date Code Code System Note Provider Name and Address Organization Details Recorded Time 233491 Demerol medicatio n other Not available Not available 08/31/2023 52596 1 RxNorm React ion: other react ion, Unkno wn; Not Available [facility] 4 01:14:39 584439 Product containin g penicilli n (product) medicatio n other Not available Not available 08/31/2023 10872 8001 SNOMED React ion: other react ion, Unkno wn; Not Available [facility] 4 01:14:43 Medications Name Sig Start Date [...] mg capsule 11/21 completed Medicati on ID: [id number] B rand Name: malgorzata in Send Method: [...] mg tablet 11/21 completed Medicati on ID: [id number] B rand Name: caprice ne Send Method: [...] Advair HFA 2019 active Medicati on ID: [id number] B rand Name: Advair HFA Send Method: [...] Updated DateTime 09/20/2024 180.34 cm 26.5 kg/m2 05058.55 g Violet Loza [place] - [facility] 09/20/2024 09:04:44 Date Recorded Body height Body mass index (BMI) Body weight Provider Name and Address Organization Details Last Updated DateTime 10/04/2024 180.34 cm 26.5 kg/m2 75164.55 g Trina Bales [place] - [facility] 10/04/2024 12:58:54 Date Recorded Body height Body mass index (BMI) Body weight Provider Name and Address Organization Details Last Updated DateTime 11/13/2024 180.34 cm 27.2 kg/m2 18888.51 g Violet Loza [place] - [facility] 11/13/2024 09:59:42 Date Recorded Body height Body mass index (BMI) Body weight Provider Name and Address Organization Details Last Updated DateTime 11/21/2024 180.34 cm 27.2 kg/m2 41296.51 g Kike Conway [place] - [facility] 11/21/2024 08:17:35 Date Recorded Body height Body mass index (BMI) Body weight Provider Name and Address Organization Details Last Updated DateTime 01/15/2025 180.34 cm 26.5 kg/m2 77327.55 g Trina Bales [place] - [facility] 01/15/2025 11:28:32 Social History Question Answer Notes LastModified by Organizat ion Details LastModified Time Tobacco Smoking Status Former Smoker Janel montiel [place] - [facility] 09/04/2024 13:17:25 What Type Of Lamination Assembler Do You Use? None [email or web address] Information not available 09/04/2024 When Did You Quit Smoking? 11-15yearssi madison dacosta [email or web address] Information not available 09/04/2024 What Is Your Current Pack Years? 10packyears Information not available 09/04/2024 Do You Have Any Pets? No [email or web address] Information not available 09/04/2024 At What Age Did You Start Smoking Tobacco? 22 [email or web address] Information not available 09/04/2024 Are You Passively Exposed To Smoke? No [email or web address] Information not available 09/04/2024 Are There Any Smokers In Your House? No Information not available 09/04/2024 How Much Tobacco Do You Smoke? No Information not available 09/04/2024 How Many Years Have You Smoked Tobacco? 15 [email or web address] Information not available 09/04/2024 Sex: Unknown Functional Status Question Answer Note LastModified by Organization Details LastModified Time Do you use any illicit or recreational drugs? No [email or web address] Information not available 09/04/2024 Do you or have you ever used any other forms of tobacco or nicotine? No [email or web address] Information not available 09/04/2024 What is your level of alcohol consumption? 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 noExposureToExcessiveNoise [email or web address] Infor mation not available 09/04/2024 Mental Status None recorded. Family History Nothing Reported. Medical History Condition Response Allergies/Hayfever Y Heart Problems Y Anxiety N Tonsil Infections N Emphysema Y Migraines N Thyroid Problems N Depression N COPD Y Developmental Delay N Glaucoma N Nasal or Sinus Problems Y Anemia N Immune System Disorder Y Anesthesia Complications N Heart Attack (ME) N Other Skin Condition N Diabetes N [...] Note [id number] DEEDEE CUELLAR PA-C [facility] [address] [address] 10/13/2023 11:34:05 10/13/2023 11:44:53 Chronic eczema of external auditory canal 719642664 H60.8X9 [id number] DEEDEE CUELLAR PA-C [facility] [address] [address] 01/13/2024 10:51:57 01/13/2024 12:16:11 Impacted cerumen of bilateral ears 9945672463 994984 H61.23 Chronic ec zema of external auditory canal 479309720 H60.8X9 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 6528420067 834413 H61.393 [id number] DEEDEE CUELLAR PA-C [facility] [address] [address] 05/22/2024 10:29:29 05/22/2024 10:47:22 Chronic eczema of external auditory canal 106972379 H60.8X9 Impacted c erumen of bilateral ears 8607317483 426261 H61.23 Disorder o f left Eustachian tube 9466928436 750943 H69.92 Stenosis o f bilateral external ear canals due to and following infection 6363077594 441875 H61.323 [id number] SANJAY MINAYA PA-C [facility] [address] [address] 09/04/2024 12:57:46 09/04/2024 13:57:07 Chronic mycotic otitis externa 224748210 H60.399 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 3719929860 470831 H61.393 Impacted c erumen of bilateral ears 3499830827 379739 H61.23 [id number] SANJAY MINAYA PA-C [facility] [address] [address] 09/20/2024 08:44:43 09/20/2024 09:28:02 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 6987881844 403020 H61.393 Chronic my cotic otitis externa 098712588 H60.399 Sensorineu ral hearing loss of bilateral ears 508816377 H90.3 [id number] SANJAY MINAYA PA-C [facility] [address] [address] 10/04/2024 12:44:36 10/04/2024 13:29:03 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 2896581970 738939 H61.393 Chronic my cotic otitis externa 123798389 H60.399 [id number] ELO JULES PA-C [facility] [address] [address] 11/13/2024 09:50:52 11/13/2024 10:36:33 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 4730899955 775745 H61.393 Otorrhea o f bilateral ears 5863721866 038659 H92.13 Chronic my cotic otitis externa 021251929 H60.399 Chronic ec zema of external auditory canal 797779012 H60.8X9 Benign par oxysmal positional vertigo 160856226 H81.12 [id number] DALLIN KIRKLAND MD [facility] [address] [address] 11/21/2024 08:10:01 11/21/2024 08:59:02 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 8914357681 535757 H61.393 Otorrhea o f bilateral ears 1863725023 255440 H92.13 Chronic ec zema of external auditory canal 770599188 H60.8X9 Bilateral external auditory canal chronic otitis externa 5877459252 016772 H60.313 [id number] ELO JULES PA-C [facility] [address] [address] 01/15/2025 11:19:38 01/15/2025 11:44:40 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 3201164994 372393 H61.393 Chronic my cotic otitis externa 163716389 H60.399 Health Concerns Section Related Observation LastModified by Organization Detai ls LastModified Time None Recorded Concern Status LastModified by Organization Details LastModified Time None Recorded Advance Directives Directive None Recorded Payers Insurance Date Sequence Insurance Name Policy Number Policy Tineo Covered Member ID Tineo Member ID Guarantor Name 01/15/2025 2 [place]) [id number] Alfonzo Rachel Giovani [id number] Alfonzo Rachel Giovani 01/15/2025 1 [place] Alfonzo Rachel Giovani [id number] Alfonzo Rachel Giovani 11/21/2024 2 [place] [id number] Alfonzo Rachel Giovani [id number] Alfonzo Rachel Giovani Notes Date Note Type [...] Occasional ear itchiness. EDER PIKE MD [address] [facility],[address], [address], [facility] 09/20/2024 12:07:52 10/04/2024 text/html ROS as noted in the [facility] 73-year-old male with stenotic ear canals and chronic mycotic otitis externa presents for reevaluation. He reports aural fullness and ear itchiness resolved with lotrisone placement into ear canals last visit. Ears started itching again 3 days ago. Denies ear pain, drainage, or hearing concerns. EDER PIKE MD [address] [facility],[address], [address], [facility] 10/04/2024 15:23:13 11/13/2024 text/html ROS as noted in the [facility] 74-year-old male presents for reevaluation of chronic [...] other associated symptoms. BIMAL ALVARADO MD [address] [facility],[address], [address], [facility] 11/14/2024 08:55:23 11/21/2024 text/html Patient with collapsing external auditory canals resulting in stenosis and subsequent recurrent/chronic otitis externa. Patient has had both bacterial and fungal elements causing discharge. He has been treated with Ciprodex and clotrimazole/betam ethasone cream. Patient has been on both Ciprodex drops as well as oral prednisone (prescribed by his cigarette carton sealer) for about a week, and the ears [...] ear or mastoid. DALLIN KIRKLAND MD [address] [facility],[address], [address], [facility] - [facility] 11/21/2024 09:00:15 01/15/2025 text/html ROS as noted in the HPI 74-year-old male presents for ear cleaning. He has canal stenosis from chronic otitis externa. Has been using one-to-one rubbing alcohol and white vinegar which seems to be working very well. Also has Lotrisone for outer ears. RICHARD GUERRIER MD [address] [place] [address],[place] [address], [place], [address], [facility] - [facility] 01/16/2025 09:18:14
== END 2025-03-05 11:44 | disposition home or self-care (01) ==
LOC: HO.LAB 11:43
PROVIDERS: PCP Internal Medicine; Visit Provider Internal Medicine Rheumatology
DX: M02.371 Reiter's disease, right ankle and foot (principal); Z79.899 Other long term (current) drug therapy
CPT/HCPCS: 36415; 73130; 82565; 84450; 84460; 85025; 85652; 86140

== ENCOUNTER → 2025-03-05 11:53 | Outpatient (BNV) | payer MEDICARE, BC, SELFPAY | PROVIDERS: PCP Internal Medicine; Visit Provider Radiology Diagnostic Radiology | DX: M15.4 Erosive (osteo)arthritis (principal) | CPT/HCPCS: 73130 ==

== ENCOUNTER 2025-03-21 09:39 | Outpatient (AMB) | payer MEDICARE, BC, SELFPAY ==
--- NOTE | 2025-03-21 09:41 | MHC.OFFVIS ---
Vital Signs 03/21/25 09:42 Height 5 ft 11 in Weight 194 lb 0.108 oz BMI 27.1 BP 120/70 Blood Pressure Location Rt brachial Position Sitting Pulse 87 Pulse Source Pulse Oximeter Pulse Oximetry (%) 97 Oxygen Delivery Method Room Air Intake Visit Reasons: 3 months Intake Note: Patient presents for follow up on RA today. Accompanied by: Self / Same As Patient Allergies meperidine (From Demerol) Allergy (Intermediate, Verified 03/21/25 09:45) Rash levofloxacin Allergy (Verified 03/21/25 09:45) Swelling Penicillins Allergy (Verified 03/21/25 09:45) Unknown HPI HPI 3 months: Details: Hands are swollen. Unable to make a fist. MS all days. Hard to tie shoes, open cupboard in kitchen and any fine movement. Last UTI 5 weeks ago presenting with dysuria and hematuria. He sees urology and has [facility] Medical History Diabetes type 2, controlled CAD (coronary artery disease) Surgical History Hx of cardiac catheterization (~05/2021) Social History Household Members: Spouse Housing: Apartment Do you presently have visiting nurse or other home services: No Alcohol intake: never Patient Tobacco Use Status: Former Tobacco user Tobacco use type: Cigarette Second Hand Smoke Exposure: No Advance Directives Date on File: 07/09/23 service: No Physical Exam Vital Signs: Last Vital Signs Pulse 87 03/21/25 09:42 BP 120/70 03/21/25 09:42 Pulse Ox 97 03/21/25 09:42 Oxygen Delivery Method Room Air 03/21/25 09:42 BMI result Body Mass Index 27.1 Const Other: General: Comfortable CVS: RRR Respiratory: clear to auscultation bilaterally. Good respiratory effort Skin: No lesions seen MSK: Tender right 2nd-3rd MCP with synovitis of R 2nd, 4th, IP synovitis and left 2nd MCP, left PIPs. Synovitis present right wrist with tenderness. Tender left ankle and MTP. Shoulder abduction 160 degrees bilateral. Good internal external rotation. Limited full external rotation of bilateral hips. Good knee flexion. 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 He tolerated methotrexate. He felt less stiffness on methotrexate. Need more time for full effectiveness. He is working with urology to find a cause for his recurrent UTIs. He was recently found to have kidney stones and may need a procedure to remove it. He is thinking about getting a 2nd opinion from [facility]. We discussed the importance of finding the cause for his UTIs, which will help control inflammatory arthritis as the UTIs are his trigger. We discussed the risk of immunosuppression with increasing infection wrists. I prefer conventional DMARD over biologic treatment. Patient understands. Rheumatology history: Chronic reactive arthritis affecting bilateral feet and ankle with onset 07/05/2023 while having UTI with bacteremia progressed to involving hands 07/2024. He presented to ER and received nitrofurantoin and prednisone course, with resolution of joint swelling. Diagnostic arthrocentesis right first MTP 07/29/2023 did not reveal crystals. He only had enough synovial fluid to do crystal analysis. He had multiple recurrent episodes of synovitis in bilateral ankles and feet, which responded to Depo-Medrol, prednisone course and naproxen on separate occasions. Off of naproxen he has had increase pain and stiffness. Records Officer prefers patient not take NSAIDs. [facility] 04/2024- Code(s): M02.30 - Park's disease, unspecified site Category: Medical Qualifiers: Laterality: unspecified laterality Reactive arthritis location: foot Qualified Code(s): M02.379 - Park's disease, unspecified ankle and foot Plan: Continue sulfasalazine 1500 mg twice a day Continue methotrexate 12.5 mg once weekly Continue folic acid 1 mg daily Labs for drug monitoring on high-risk medication are up-to-date Return to clinic in 3 months He will call office if his symptoms progress. 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 C Reactive Protein 3 Months Z79.899 - 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
[2025-03-21 09:42] VITALS: BP 120/70; PULSE 87; O2SAT 97; BMI 27.1
--- OUTSIDE RECORDS SUMMARY | 2025-03-21 10:42 | XMS_ITS | Clinical Summary ---
Author Organization LL [address] [place] [address] [place] [phone] Phone Care Team Providers Care Computer Animator Name Role Phone Beatriz Bee MD Primary Care Provider [phone] Allergies Active Allergy Reactions Criticality Noted Date Comments Meperidine 07/01/2016 Penicillins 07/01/2016 Medications tiotropium (Spiriva with HandiHaler) 18 mcg per inhalation capsule Place 18 mcg into inhaler and inhale. Active sacubitriL-vals kelsea (Entresto) 49-51 mg per tablet Take by mouth 2 times daily. Active ipratropium-alb uteroL (DUONEB) 0.5-2.5 mg/3 mL nebulizer solution Inhale 3 mL into the lungs once for 1 dose. Active loratadine (CLARITIN) 10 mg tablet 10 mg. Active multivitamin [...] chest tightness). 18 g 3 4 Active Wixela Inhub 100-50 mcg/dose diskus inhaler INHALE 1 PUFF BY MOUTH TWICE A DAY 180 each 3 5 Active sulfADIAZINE 500 mg tablet Take 1 tablet (500 mg total) by mouth 6 (six) times a day. Active Active Problems Problem Noted Date Diagnosed Date Alopecia 03/30/2024 Pulmonary nodules 06/11/2017 Overview (03/30/2024): CT 08/20/2010 GERD (gastroesophageal reflux disease) 7 Chronic obstructive pulmonar y disease ([facility] V24, [facility] V28) 11/09/2016 KASSANDRA (obstructive sleep apnea) 07/01/2016 Encounters Date Type Department Care Team Description 03/05/2025 Lab Requisition [facility] [address] [place] [address] Gigi Leung MD Personal history of malignant neoplasm of bladder; Calculus of kidney 02/02/2025 Lab Requisition [facility] [address] [place] [address] Gigi Leung MD Acute cystitis without hematuria 02/01/2025 8:45 AM EDT Office Visit Pulmonology - [place] [address] [facility] [address] [place] [phone] Zonia Concepcion MD Chronic obstructive pulmonary disease, unspecified COPD type ([facility] V24, [facility] V28) (Primary Dx); KASSANDRA (obstructive sleep apnea) from Last 3 Months Surgical History Surgery Date Site/Laterality Comments APPENDECTOMY PROCEDURE:APPENDECTOMY OTHER SURGICAL HISTORY PROCEDURE:cardiac cath APPENDECTOMY PROCEDURE: HISTORICAL APPENDECTOMY LITHOTRIPSY PROCEDURE: HISTORICAL LITHOTRIPSY Medical History Medical History Date Comments Asthma DX:Asthma COPD (chronic obstructive pu lmonary disease) ([facility] V24, [facility] V28) DX:COPD (chronic o bstructive pulmonary disease) ([facility]) High blood pressure DX:High bloo d pressure Arthritis DX:Arthritis Chronic obstructive pulmonar y disease ([facility] V24, [facility] V28) 11/09/2016 DX:Chronic obstructive pulm onary disease [...] Years Used Date Smoking Tobacco: Former Cigarettes 4 Q uit: 04/19/2007 Smokeless Tobacco: Never Alcohol [...] Sign Reading Time Taken Comments Blood Pressure 124/66 02/01/2025 9:01 AM EDT Pulse 84 02/01/2025 9:01 AM EDT Temperature 36.6 C (97.8 F) 02/01/2025 9:01 AM EDT Respiratory Rate 20 02/01/2025 9:01 AM EDT Oxygen Saturation 95% 02/01/2025 9:01 AM EDT Inhaled Oxygen Concentration - - Weight 89.3 kg (196 lb 12.8 oz) 02/01/2025 9:01 AM EDT Height 180.3 cm (5' 11 ) 02/01/2025 9:01 AM EDT Body Mass Index 27.45 02/01/2025 9:01 AM EDT Plan of Treatment Upcoming Encounters Date Type Department Care Team (Late st Contact Info) Description 08/02/2025 8:45 AM EDT Office Visit Pulmonology - [address] [place] [address] Zonia Concepcion MD [address] [place] [phone] Health Maintenance Due Date Last Done Comments Colorectal Cancer Screening: Colonoscopy 1950 Zoster Vaccines (2 of 2) 09/24/2020 07/30/2020 Pneumococcal Vaccine: 50+ Years (2 of 2 - PCV) 02/13/2022 02/13/2021, 10/10/2009 Abdominal Aortic Aneurysm (AAA) Screen 03/28/2022 Cholesterol Screening (Lipid Panel) 03/28/2022 Falls Risk Assessment 03/28/2022 Hepatitis C Screening 03/28/2022 Medicare Annual Wellness Visit 03/28/2022 Social Influencers of Health Screening 03/28/2022 Depression Screening 04/19/2024 COVID-19 Vaccine (2024- season) 2025 11/07/2024, 12/19/2023, 09/24/2023, Additional history exists DTaP,Tdap,and Td Vaccines (2 - Td or Tdap) 02/26/2027 02/26/2017 RSV Immunization Adult Patients Completed 02/10/2023 Influenza Vaccine Completed 11/07/2024, , 12/17/2021, Additional history exists HIB Vaccines Aged Out No longer eligi [...] Procedure Name Priority Date/Time Associated Diagnosis Comments NON-GYNECOLOGIC CYTOLOGY Routine 03/01/2025 12:00 AM EST Personal history of malignant neoplasm of bladder Calculus of kidney CULTURE URINE Routine 02/02/2025 12:00 AM EDT Acute cystitis without hematuria from Last 3 Months Results * Non-gynecologic cytology (03/01/2025 12:00 AM EST) Final Diagnosis A. Urine, Voided, ([id number]): Negative for high grade urothelial carcinoma. Acute inflammatory cells are present. 03/08/2025 3:43 PM EST [facility] at 1543 EST Specimen A Adequacy Satisfactory for evaluation 03/08/2025 3:43 PM [facility] Clinical Information History of bladder neoplasm (malignant) Z85.51 Calculus of kidney N20.0 Urine cytology with reflex UroVysion (AUC/SHGUC) 03/08/2025 3:43 PM EST [facility] Gross Description A. Urine, Voided, ([id number]): Received is one ThinPrep slide for cytology. 03/08/2025 3:43 PM [facility] Disclaimer Unless otherwise specified, all tissue is 10% NB formalin fixed and paraffin embedded. Technical pathology services provided by [facility] at [address] [place] [address] [address], [place] [address] (CLIA #[id number]/Paolo Omer MD, Blade Grader Operator) 03/08/2025 3:43 PM EST [facility] Urine Urine specimen from urethra / Unknown 03/01/2025 03/05/2025 1:29 PM EST Gigi Leung MD LAB CYTOLOGY ORDERABLES Final R esult [facility] [address] [place] [address], * (ABNORMAL) Culture urine (02/02/2025 12:00 AM EDT) Culture, Urine >=100,000 CFU/mL Enterococcus faecalis(A) LETTY 02/04/2025 9:29 AM EDT [facility] Comment: This is an edited result. Previous organism was Enterococcus species on 02/03/2025 at 0942 EDT. Urine Urine specimen obtained by clean catch procedure / Unknown 02/02/2025 02/02/2025 12:32 PM EDT Narrative Organism Antibiotic Method Susceptibility Enterococcus faecalis Benzylpenicillin LETTY 2 ug/ml: Susceptible Enterococcus faecalis Ampicillin LETTY <=2 ug/ml: Susceptible Enterococcus faecalis Ciprofloxacin LETTY 1 ug/ml: Susceptible Enterococcus faecalis Levofloxacin LETTY 1 ug/ml: Susceptible Enterococcus faecalis Linezolid LETTY 2 ug/ml: Susceptible Enterococcus faecalis Vancomycin LETTY 1 ug/ml: Susceptible Enterococcus faecalis Tetracycline LETTY <=1 ug/ml: Susceptible Enterococcus faecalis Nitrofurantoin LETTY <=16 ug/ml: Susceptible us Gigi Leung MD LAB MICROBIOLOGY - GENERAL SALINAS SCHMID Final Result [facility] [address] [place] [address], from Last 3 Months Insurance MEDICARE [facility] Care Teams Computer Animator Relationship Specialty Start Date End Date Beatriz Bee MD [address] [place] [address] PCP - General Internal Medicine 02/17/17
--- OUTSIDE RECORDS SUMMARY | 2025-03-21 10:42 | XMS_ITS | Clinical Summary ---
Author Organization [facility] Address [address] [place] [address] Care Team Providers Care Electronic Device Repairer Name Role Phone Beatriz Bee MD Primary Care Provider [phone] Allergies Active Allergy Reactions Criticality Noted Date [...] age to complete this topic Care Teams Electronic Device Repairer Relationship Specialty Start Date End Date Beatriz Bee MD [address] [place] [address] [address] [place] [address] PCP - General Internal Medicine 02/23/17
--- OUTSIDE RECORDS SUMMARY | 2025-03-21 10:42 | XMS_ITS | Encounter Summary ---
Author Organization [facility] Address [address] [place] [address] Care Team Providers Care Senior Label Specialist Name Role Phone Beatriz Bee MD Primary Care Provider [phone] Encounter Details Date Type Department Care Team (Late Contact Info) Description 05/15/2024 Lab Requisition [facility] [address] [facility] [place] [address] Gigi Leung MD [address] [place] [address] Gross hematuria Social History Tobacco [...] Department Care Team (Late Contact Info) Description 08/02/2025 8:45 AM EDT Office Visit Pulmonology - [place] [address] [facility] [address] [place] [address] Zonia Concepcion MD [address] [place] [phone] documented as of this encounter Procedures Procedure Name Priority Date/Time Associated Diagnosis Comments AP OUTSIDE CONSULT Routine 05/11/2024 12 :00 AM EST Gross hematuria documented in this encounter Results * Anatomic pathology outside consult (05/11/2024 12:00 AM EST) Final Diagnosis Urine, Voided, ([id number]): Negative for high grade urothelial carcinoma. Acute inflammation present. 05/24/2024 2:46 PM [facility] at 1446 EST Clinical Information Gross hematuria R31.0 Urine cytology with reflex UroVysion (AUC/SHGUC) 05/24/2024 2:46 PM EST [facility] Gross Description A. Urine, Voided, ([id number]): Received one ThinPrep slide for cytology. 05/24/2024 2:46 PM [facility] Disclaimer Unless otherwise specified, all tissue is 10% NB formalin fixed and paraffin embedded. Technical pathology services provided by [facility] at [address] [facility] [address] [place] [address] (CLIA #[id number]/Paolo Omer MD, Community Arts Worker) 05/24/2024 2:46 PM [facility] Tissue Urine specimen from urethra / Unknown 05/11/2024 05/15/2024 11:43 AM EST us Gigi Leung MD LAB PATHOLOGY ORDERABLES Final Result [facility] [address] [place] [address], documented in this encounter Visit Diagnoses Diagnosis Gross hematuria documented in this encounter Care Teams Senior Label Specialist Relationship Specialty Start Date End Date Beatriz Bee MD [address] [place] [address] PCP - General Internal Medicine 02/17/17 documented as of this encounter
--- OUTSIDE RECORDS SUMMARY | 2025-03-21 10:42 | XMS_ITS | Encounter Summary ---
Author Organization [facility] Address [address] [place] [address] Care Team Providers Care Aircraft Armorer Name Role Phone Beatriz Bee MD Primary Care Provider [phone] Encounter Details Date Type Department Care Team (Late Contact Info) Description 02/02/2025 Lab Requisition [facility] [address] [facility] [place] [address] Gigi Leung MD [address] [place] [address] Acute cystitis without hematuria Social History Tobacco Use Types Packs/Day [...] 8:45 AM EDT Office Visit Pulmonology - [place] [address] [facility] [address] [place] [address] Zonia Concepcion MD [address] [place] [address] documented as of this encounter Procedures Procedure Name Priority Date/Time Associated Diagnosis Comments CULTURE URINE Routine 02/02/2025 12:00 AM EDT Acute cystitis without hematuria documented in this encounter Results * (ABNORMAL) Culture urine (02/02/2025 12:00 AM EDT) Culture, Urine >=100,000 CFU/mL Enterococcus faecalis(A) LETTY 02/04/2025 9:29 AM EDT [facility] Comment: This is an [...] MICROBIOLOGY - GENERAL SALINAS SCHMID Final Result [facility] [address] [place] [address], documented in this encounter Visit Diagnoses Diagnosis Acute cystitis without hematuria documented in this encounter Care Teams Aircraft Armorer Relationship Specialty Start Date End Date Beatriz Bee MD [address] [place] [address] PCP - General Internal Medicine 02/17/17 documented as of this encounter
--- OUTSIDE RECORDS SUMMARY | 2025-03-21 10:42 | XMS_ITS | Encounter Summary ---
Author Organization [facility] Address [address] [place] [address] Care Team Providers Care Proration Clerk Name Role Phone Beatriz Bee MD Primary Care Provider [phone] Encounter Details Date Type Department Care Team (Late Contact Info) Description 03/05/2025 Lab Requisition [facility] [address] [facility] [place] [address] Gigi Leung MD [address] [place] [address] Personal history of malignant neoplasm of bladder; Calculus of kidney Social History Tobacco Use Types Packs/Day Years [...] 8:45 AM EDT Office Visit Pulmonology - [place] [address] [facility] [address] [place] [address] Zonia Concepcion MD [address] [place] [phone] documented as of this encounter Procedures Procedure Name Priority Date/Time Associated Diagnosis Comments NON-GYNECOLOGIC CYTOLOGY Routine 03/01/2025 12:00 AM EST Personal history of malignant neoplasm of bladder Calculus of kidney documented in this encounter Results * Non-gynecologic cytology (03/01/2025 12:00 AM EST) Final Diagnosis A. Urine, Voided, ([id number]): Negative for high grade urothelial carcinoma. Acute inflammatory cells are present. 03/08/2025 3:[address] [facility] at 1543 EST Specimen A Adequacy Satisfactory for evaluation 03/08/2025 3:[address] [facility] Clinical Information History of bladder neoplasm (malignant) Z85.51 Calculus of kidney N20.0 Urine cytology with reflex UroVysion (AUC/SHGUC) 03/08/2025 3:[address] [facility] Gross Description A. Urine, Voided, ([id number]): Received is one ThinPrep slide for cytology. 03/08/2025 3:43 PM [facility] Disclaimer Unless otherwise specified, all tissue is 10% NB formalin fixed and paraffin embedded. Technical pathology services provided by [facility] at [address], [place] [address] (CLIA #[id number]/Paloo Omer MD, Manager Garden) 03/08/2025 3:[address] [facility] Urine Urine specimen from urethra / Unknown 03/01/2025 03/05/2025 1:29 PM EST us Gigi Leung MD LAB CYTOLOGY ORDERABLES Final R esult [facility] [address] [place] [address], documented in this encounter Visit Diagnoses Diagnosis Personal history of malignant neoplasm of bladder Calculus of kidney documented in this encounter Care Teams Proration Clerk Relationship Specialty Start Date End Date Beatriz Bee MD [address] [place] [address] PCP - General Internal Medicine 02/17/17 documented as of this encounter
--- OUTSIDE RECORDS SUMMARY | 2025-03-21 10:42 | XMS_ITS | Encounter Summary ---
Author Organization [facility] Address [address] [place] [address] Care Team Providers Care Unloading Checker Name Role Phone Beatriz Bee MD Primary Care Provider [phone] Encounter Details Date Type Department Care Team (Late Contact Info) Description 11/20/2024 Lab Requisition [facility] [address] [facility] [place] [address] Hank Beckman PA [address] [place] [address] Gross hematuria Social History Tobacco [...] 8:45 AM EDT Office Visit Pulmonology - [place] [address] [facility] [address] [place] [address] Zonia Concepcion MD [address] [place] [phone] documented as of this encounter Procedures Procedure Name Priority Date/Time Associated Diagnosis Comments NON-GYNECOLOGIC CYTOLOGY Routine 11/10/2024 12:00 AM EDT Gross hematuria documented in this encounter Results * Non-gynecologic cytology (11/10/2024 12:00 AM EDT) Final Diagnosis A. Urine, Voided, [id number]: Negative for high grade urothelial carcinoma. Acute inflammation present. Results of UroVysion fluorescence in situ hybridization (FISH) testing: Although FISH was performed, insufficient non-obscured hybridization signals are present for evaluation and interpretation. 11/28/2024 9:07 AM EDT [facility] at 0907 EDT Specimen A Adequacy Satisfactory for evaluation 11/28/2024 9:07 AM EDT [facility] Clinical Information Gross hematuria R31.0 Urine Cytology/FISH (now) 11/28/2024 9:07 AM EDT [facility] Gross Description A. Urine, Voided, [id number]: Received one ThinPrep slide for cytology and one ThinPrep slide for UroVysion FISH 11/28/2024 9:07 AM EDT [facility] Disclaimer Unless otherwise specified, all tissue is 10% NB formalin fixed and paraffin embedded. Technical pathology services provided by [facility] at [address] [place] [address] [address], [place] [address] (CLIA #[id number]/Cherelle Omer MD, Insole And Outsole Preparer) 11/28/2024 9:07 AM EDT [facility] Urine Urine specimen from urethra / Unknown 11/10/2024 11/20/2024 8:26 AM EDT us Hank R Rk PA LAB CYTOLOGY ORDERABLES Final Result [facility] [address] [place] [address], documented in this encounter Visit Diagnoses Diagnosis Gross hematuria documented in this encounter Care Teams Unloading Checker Relationship Specialty Start Date End Date Beatriz Bee MD [address] [place] [address] PCP - General Internal Medicine 02/17/17 documented as of this encounter
--- OUTSIDE RECORDS SUMMARY | 2025-03-21 10:42 | XMS_ITS | Encounter Summary ---
Author Organization [facility] Address [address] [place] [address] Care Team Providers Care Cable Layer Name Role Phone Beatriz Bee MD Primary Care Provider [phone] Encounter Details Date Type Department Care Team (Late Contact Info) Description 07/04/2024 Lab Requisition [facility] [address] [facility] [place] [address] Alfonzo Tam PA [address] [place] [address] Gross hematuria Social History Tobacco [...] 8:45 AM EDT Office Visit Pulmonology - [place] [address] [facility] [address] [place] [address] Zonia Concepcion MD [address] [place] [phone] documented as of this encounter Procedures Procedure Name Priority Date/Time Associated Diagnosis Comments AP OUTSIDE CONSULT Routine 06/30/2024 12 :00 AM EDT Gross hematuria documented in this encounter Results * Anatomic pathology outside consult (06/30/2024 12:00 AM EDT) Final Diagnosis A. Urine, Voided, ([id number]) Negative for high grade urothelial carcinoma. Acute inflammation present. 07/05/2024 11:35 AM EDT [facility] at 1135 EDT Clinical Information Gross hematuria R31.0 Urine cytology with reflex UroVysion (AUC/SHGUC) 07/05/2024 11:35 AM EDT [facility] Gross Description A. Urine, Voided, ([id number]): Received is one ThinPrep slide for cytology. 07/05/2024 11:35 AM EDT [facility] Disclaimer Unless otherwise specified, all tissue is 10% NB formalin fixed and paraffin embedded. Technical pathology services provided by [facility] at [address], [place] [address] (CLIA #[id number]/Paolo Omer MD, Electrophysiology Tech) 07/05/2024 11:35 AM EDT [facility] Tissue Urine specimen from urethra / Unknown 06/30/2024 07/04/2024 1:01 PM EDT Alfonzo [facility]PS LAB PATHOLOGY ORDERAB LES Final Result [facility] [address] [place] [address], documented in this encounter Visit Diagnoses Diagnosis Gross hematuria documented in this encounter Care Teams Cable Layer Relationship Specialty Start Date End Date Beatriz Bee MD [address] [place] [address] PCP - General Internal Medicine 02/17/17 documented as of this encounter
--- OUTSIDE RECORDS SUMMARY | 2025-03-21 10:42 | XMS_ITS | Encounter Summary ---
Author Organization [facility] Address [address] [place] [address] Care Team Providers Care Director Telehealth Name Role Phone Beatriz Bee MD Primary Care Provider [phone] Encounter Details Date Type Department Care Team (Late Contact Info) Description 10/03/2024 Lab Requisition [facility] Lab [address] [facility] [place] [address] Hola Dangelo, JEFRY [address] [place] [address] Urinary tract infection, site not specified Social [...] 8:45 AM EDT Office Visit Pulmonology - [place] [address] [facility] [address] [place] [address] Zonia Concepcion MD [address] [place] [phone] documented as of this encounter Procedures Procedure Name Priority Date/Time Associated Diagnosis Comments CULTURE URINE Routine 10/03/2024 12:00 AM EDT Urinary tract infection, site not specified documented in this encounter Results * (ABNORMAL) Culture urine (10/03/2024 12:00 AM EDT) Culture, Urine 10,000-49,000 CFU/mL Enterococcus faecalis(A) LETTY 10/05/2024 8:53 AM EDT [facility] Comment: Edited result: Previously reported as Enterococcus species on 10/04/2024 at 1353 EDT. Urine Urine specimen obtained by clean catch procedure / Unknown 10/03/2024 10/03/2024 6:21 PM EDT Narrative Organism Antibiotic Method Susceptibility Enterococcus faecalis Benzylpenicillin LETTY 8 ug/ml: Susceptible Enterococcus faecalis Ampicillin LETTY <=2 ug/ml: Susceptible Enterococcus faecalis Ciprofloxacin LETTY 1 ug/ml: Susceptible Enterococcus faecalis Levofloxacin LETTY 2 ug/ml: Susceptible Enterococcus faecalis Linezolid LETTY 2 ug/ml: Susceptible Enterococcus faecalis Vancomycin LETTY 1 ug/ml: Susceptible Enterococcus faecalis Tetracycline LETTY <=1 ug/ml: Susceptible Enterococcus faecalis Nitrofurantoin LETTY <=16 ug/ml: Susceptible [facility] MICROBIOLOGY - [facility] RUBI BINU Final Result [facility] [address] [place] [address], documented in this encounter Visit Diagnoses Diagnosis Urinary tract infection, site not specified documented in this encounter Care Teams Director Telehealth Relationship Specialty Start Date End Date Beatriz Bee MD [address] [place] [address] PCP - General Internal Medicine 02/17/17 documented as of this encounter
--- OUTSIDE RECORDS SUMMARY | 2025-03-21 10:42 | XMS_ITS | Encounter Summary ---
Author Organization [facility] Address [address] [place] [address] Care Team Providers Care Tube Builder Name Role Phone Beatriz Bee MD Primary Care Provider [phone] Encounter Details Date Type Department Care Team (Late Contact Info) Description 04/28/2024 Lab Requisition [facility] [address] [facility] [place] [address] Gigi Leung MD [address] [place] [address] Gross hematuria Social History Tobacco [...] 8:45 AM EDT Office Visit Pulmonology - [place] [address] [facility] [address] [place] [address] Zonia Concepcion MD [address] [place] [phone] documented as of this encounter Procedures Procedure Name Priority Date/Time Associated Diagnosis Comments AP OUTSIDE CONSULT Routine 04/20/2024 12 :00 AM EST Gross hematuria documented in this encounter Results * Anatomic pathology outside consult (04/20/2024 12:00 AM EST) Final Diagnosis A. Urine, Voided, ([id number]): Negative for high grade urothelial carcinoma. Acute inflammation present. 05/01/2024 6:02 PM [facility] at 1802 EST Clinical Information Gross hematuria R31.0 Urine cytology with reflex UroVysion (AUC/SHGUC) 05/01/2024 6:02 PM [facility] Gross Description A. Urine, Voided, ([id number]): Received is one ThinPrep slide for cytology. 05/01/2024 6:02 PM [facility] Disclaimer Unless otherwise specified, all tissue is 10% NB formalin fixed and paraffin embedded. Technical pathology services provided by [facility] at [address] [place] [address] (CLIA #[id number]/Paolo Omer MD, Insulation Applicator) 05/01/2024 6:02 PM [facility] Tissue Urine specimen from urethra / Unknown 04/20/2024 04/28/2024 9:55 AM EST us Gigi Leung MD LAB PATHOLOGY ORDERABLES Final Result [facility] [address] [place] [address], documented in this encounter Visit Diagnoses Diagnosis Gross hematuria documented in this encounter Care Teams Tube Builder Relationship Specialty Start Date End Date Beatriz Bee MD [address] [place] [address] PCP - General Internal Medicine 02/17/17 documented as of this encounter
--- OUTSIDE RECORDS SUMMARY | 2025-03-21 10:42 | XMS_ITS | Encounter Summary ---
Author Organization [facility] Address [address] [place] [address] Care Team Providers Care Tufter Name Role Phone Beatriz Bee MD Primary Care Provider [phone] Encounter Details Date Type Department Care Team (Late Contact Info) Description 07/03/2024 Lab Requisition [facility] [address] [facility] [place] [address] Alfonzo Tam PA [address] [place] [address] Gross hematuria; Urinary tract infection, [...] 8:45 AM EDT Office Visit Pulmonology - [place] [address] [facility] [address] [place] [address] Zonia Concepcion MD [address] [place] [address] documented as of this encounter Procedures Procedure Name Priority Date/Time Associated Diagnosis Comments CULTURE URINE Routine 07/03/2024 9:00 AM EDT Gross hematuria Urinary tract infection, site not specified documented in this encounter Results * (ABNORMAL) Culture urine (07/03/2024 9:00 AM EDT) Culture, Urine >100,000 CFU/mL Enterococcus faecalis(A) LETTY 07/05/2024 9:38 AM EDT [facility] Comment: Edited result: Previously reported as [...] ug/ml: Susceptible Alfonzo CAPPS LAB MICROBIOLOGY - GE NERAL ORDERABLES Final Result [facility] [address] [place] [address], documented in this encounter Visit Diagnoses Diagnosis Gross hematuria Urinary tract infection, site not specified documented in this encounter Care Teams Tufter Relationship Specialty Start Date End Date Beatriz Bee MD [address] [place] [address] PCP - General Internal Medicine 02/17/17 documented as of this encounter
== END 2025-03-21 10:32 | disposition home or self-care (01) ==
LOC: HO.RHES 09:40
PROVIDERS: PCP Internal Medicine; Visit Provider Internal Medicine Rheumatology
DX: M02.3 Reiter's disease (principal); Z79.899 Other long term (current) drug therapy
CPT/HCPCS: 99214; G2211

== ENCOUNTER → 2025-03-21 09:39 | Outpatient (BNVA) | payer MEDICARE, BC, SELFPAY | PROVIDERS: PCP Internal Medicine; Visit Provider Internal Medicine Rheumatology | DX: M02.371 Reiter's disease, right ankle and foot (principal); M02.372 Reiter's disease, left ankle and foot; M02.341 Reiter's disease, right hand; M02.342 Reiter's disease, left hand; Z79.899 Other long term (current) drug therapy; Z87.891 Personal history of nicotine dependence | CPT/HCPCS: 99212 ==

== ENCOUNTER 2025-04-12 21:33 | Inpatient (IN) | payer MEDICARE, BC, SELFPAY ==
--- OUTSIDE RECORDS SUMMARY | 2023-11-18 03:00 | XMS_ITS ---
Author Organization [facility] Address [address] [place] [address] Care Team Providers Care Portable Machine Sander Name Role Phone Beatriz Bee MD Primary Care Provider Unavailabl Crista Glass Unavailable [phone] REASON FOR VISIT time chg Encounters Encounter Location Date Provider Diagnosis [facility] [address] [place] [address] 11/18/2023 Crista Jose Plan Of Treatment Next Appt Details Provider Name:Crsita Garcia , 06/25/2025 02:00:00 PM, [address] [place], [address], Progress Notes * ALEJANDRO ScottinDOB:[birth year] (74 yo M)Acc No.[id number]:11/18/2023 Progress Note Patient: Alfonzo KEVIN Provider: Carla Garcia DPM :1950 A ge:73 Y S ex:Male Date:11/18/2023 Address:[address] [place] [address] , [place], [place] Pcp:Beatriz Bee MD Subjective: * Chief Complaints: * 1 . Time chg. * Medical History: Objective: * Vitals: Assessment: Plan: * Treatment: * Images: * The named appointment provid er may or may not be the originator of this progress note, and it is not deemed complete until electronically signed by the appointment provider. Sign off status: Pending * Provider: Carla Garcia DPM Date: 0 11/18/2023 Generated for Tory Cox on: 06/13/2024 11:16 PM EST
--- OUTSIDE RECORDS SUMMARY | 2025-04-02 03:15 | XMS_ITS ---
Author Organization [facility] Address [address] [place] [address] Care Team Providers Care Commercial Lines Account Manager Name Role Phone Beatriz Bee MD Primary Care Provider UnavailCrista Corey Unavailable [phone] Allergies Allergen (clinical drug ingredient) Drug/Non Drug Allergy documented on EMR Reaction Allergy Type Onset Date Status meperidine Demerol rash Drug Allergy Active Penicillin Unknown Drug Allergy Active REASON FOR VISIT Dr Rivas Medications Medication SIG (Take, Route, Frequency, Duration) Notes Start Date End Date Status Wixela Inhub spiriva Active Loratadine 10 MG 1 tablet Orally Once a day; Duration: 30 day(s) Active Advair HFA Active Co Q 10 Active Spiriva HandiHaler 18 MCG 1 capsule by inhaling the contents of the capsule using the HandiHaler device Inhalation Once a day Active sulfaSALAzine 3000mg daily Act shannon Vitamin C Not-Taking Ammonium Lactate 12 % 1 application to affected area Externally Twice a day to dry areas of skin on feet; Duration: 30 days Active Farxiga Active Entresto 49-51 MG 1 tablet Orally Twice a day Active Naproxen 500 MG Oral; Duration: 30 Days Active Albuterol Sulfate HFA Active Encounters Encounter Location Date Provider Diagnosis [facility] [address] [place] [address] 04/02/2025 Crista Garcia Plan Of Treatment Next Appt Details Provider Name:Crista Garcia , 06/25/2025 02:00:00 PM, [address] [place], [address], Progress Notes * Idalia ALLENOB:[birth year] (74 yo M)Acc No.[id number]:04/02/2025 Progress Note Patient: Alfonzo KEVIN Provider: Carla Garcia DPM :1950 A ge:74 Y S ex:Male Date:04/02/2025 Address:[address] [place], [place] [id number] Pcp:Beatriz Bee MD Subjective: * Chief Complaints: * [address] Rivas. * Medical History: A rthritis, Asthma, Heart disease, Lung disease- COPD, Psoriasis/eczema, Measles, Mumps, Chicken pox, Primary osteoarthritis, left ankle and foot, Primary osteoarthritis, right ankle and foot, Other hammer toe(s) (acquired), left foot, Other hammer toe(s) (acquired), right foot. * Medications: T aking sulfaSALAzine , Notes to Pharmacist: 3000mg daily, Taking Entresto 49-51 MG Tablet 1 tablet Orally Twice a day , Taking Farxiga , Taking Co Q 10 , Taking Advair HFA , Taking Spiriva HandiHaler 18 MCG Capsule 1 capsule by inhaling the contents of the capsule using the HandiHaler device Inhalation Once a day , Taking Loratadine 10 MG Tablet 1 tablet Orally Once a day , Taking Wixela Inhub , Notes to Pharmacist: spiriva, Taking Albuterol Sulfate HFA , Taking Naproxen 500 MG Tablet Oral , Taking Ammonium Lactate 12 % Cream 1 application to affected area Externally Twice a day to dry areas of skin on feet , Not-Taking/PRN Vitamin C * Allergies: P enicillin, Demerol: rash. Objective: * Vitals: Assessment: Plan: * Treatment: * Images: * The named appointment provid er may or may not be the originator of this progress note, and it is not deemed complete until electronically signed by the appointment provider. Sign off status: Pending * Provider: Carla Garcia DPM Date: 06/03/2024 Generated for Tory patricia/Anne/Jeffreyitting on: 1 06/13/2024 11:17 PM EST
--- OUTSIDE RECORDS SUMMARY | 2025-04-05 10:15 | XMS_ITS ---
Author Organization [facility] Address [address] [place] [address] Care Team Providers Care Hot Pond Operator Name Role Phone Beatriz Bee MD Primary Care Provider Unavailabl Crista Glass Unavailable [phone] Rivas Encounters Encounter Location Date Provider Diagnosis [facility] [address] [place] [address] 04/05/2025 Crista Garcia Plan Of Treatment Next Appt Details Provider Name:Crista Garcia , 06/25/2025 02:00:00 PM, [address] [place], [address], Progress Notes * ALEJANDROScott LINARESinDOB:[birth year] (74 yo M)Acc No.[id number]:04/05/2025 Progress Note Patient: Alfonzo KEVIN Provider: Carla Garcia DPM :1950 A ge:74 Y S ex:Male Date:04/05/2025 Address:[address] [place] [address] , [place], [place] Pcp:Beatriz Bee MD Subjective: * Chief Complaints: * [address] Rivas. * Medical History: Objective: * Vitals: Assessment: Plan: * Treatment: * Images: * The named appointment provid er may or may not be the originator of this progress note, and it is not deemed complete until electronically signed by the appointment provider. Sign off status: Pending * Provider: Carla Garcia DPM Date: 06/06/2024 Generated for Tory Cox on: 06/13/2024 11:17 PM EST
--- NOTE | ~2025-04-12 | XR_ITS ---
CLINICAL HISTORY: cough dyspnea 1 view chest x-ray Comparison: CT/SR - CT ABDOMEN PELVIS WITHOUT IV CONTRAST - 07/06/23 01:08 EDT Findings: No consolidation or large effusion. No pneumothorax. Mild subsegmental atelectasis at the bases. Heart size is normal. No acute fracture. IMPRESSION: 1. No acute findings. This document has been electronically signed by: Lane Ortiz MD on 04/12/2025 23:26:34
--- NOTE | ~2025-04-12 | CT_ITS ---
CLINICAL HISTORY: croupy cough, stridor CT soft tissue neck without contrast Comparison: None provided Findings: The visualized intracranial contents are unremarkable. No prevertebral fluid. Epiglottis is within normal limits. Pharyngeal mucosal space and parapharyngeal fat are normal. Salivary glands are within normal limits. No sialoliths. Subcentimeter lipoma in the right parotid gland. No suspicious thyroid nodules. Visualized lung apices are clear. No acute fractures. Straightening of the cervical spine is likely positional. Multilevel degenerative changes. IMPRESSION: No acute findings. This document has been electronically signed by: Lane Ortiz MD on 04/13/2025 00:21:11
--- NOTE | ~2025-04-12 | CT_ITS ---
CLINICAL HISTORY: severe cough, resp distress CT chest without contrast Comparison: CR - XR CHEST 1V - 04/12/25 23:03 EST Findings: Normal heart size. No pericardial effusion. Aortic and coronary atherosclerosis. No aneurysm. The visualized thyroid and mediastinum are unremarkable. Subsegmental atelectasis in the right lower lobe and lingula. 3 mm subpleural solid nodule in the right middle lobe ( series 11, image [id number]). 2 mm pleural-based nodule in the right major fissure ( image 284/526). No consolidation, pleural effusion or pneumothorax. Hepatic cysts. No acute findings in the visualized upper abdomen. Mild degenerative changes of the spine. No acute fracture. IMPRESSION: 1. Scattered subsegmental atelectasis. No consolidation. 2. 2-3 mm subpleural/pleural based nodules in the right lung. Fleischner Society 2017 Guidelines for incidentally detected indeterminate nodules in persons 35 years of age or older. Multiple Solid Nodules: 5 mm or smaller nodules need no follow-up in low risk, and [address] follow-up is optional in high risk patients. This document has been electronically signed by: Lane Ortiz MD on 04/13/2025 00:23:14
[2025-04-12 21:47] VITALS: BP 147/76; PULSE 117; RESP 28; TEMP 36.4; O2SAT 90; BMI 26.5
--- NOTE | 2025-04-12 21:57 | ECG_ITS ---
Test Reason : SOB Blood Pressure : */* mmHG Vent. Rate : 114 BPM Atrial Rate : 114 BPM P-R Int : 140 ms QRS Dur : 142 ms QT Int : 374 ms P-R-T Axes : 72 -31 98 degrees QTcB Int : 515 ms Sinus tachycardia Left axis deviation Left bundle branch block Abnormal ECG When compared with ECG of 06-Jul-2023 02:51, T wave inversion less evident in Lateral leads Referred By: Wero Davis Electronically Signed By: TOI MITCHELL MD
--- NOTE | 2025-04-12 21:59 | ED_ITS ---
HPI - URI/Sore Throat General Chief Complaint: Upper Respiratory Symptoms Stated Complaint: difficulty breathing Time Seen by Provider: 04/12/25 21:57 History of Present Illness ED Provider: Wero Davis MD HPI Narrative: 74-year-old male with a history of cardiomyopathy COPD who has 1-2 days of rapidly progressing shortness of breath on exertion now he has developed abnormal barky sounding cough per the . On arrival he was hypoxic sat 90% on room air tachypneic and respiratory distress limited history. says he has denied any chest pain has not had phlegm or hemoptysis or history of PE. Related Data Home Medications ?Medication ?Instructions ?Recorded ?Confirmed atorvastatin 20 mg tablet 20 mg PO DAILY 05/12/2303/20 dapagliflozin propanediol 10 mg 10 mg PO DAILY 4 04/13/25 tablet (Farxiga) fluticasone 100 mcg-salmeterol 50 1 ea inhalation BID 05/12/23 04/13/25 mcg/dose blistr powdr for inhalation (Wixela Inhub) furosemide 20 mg tablet 20 mg PO DAILY 05/12/2303/20 sacubitril 49 mg-valsartan 51 mg 1 tab PO BID 05/12/23 04/13/25 tablet (Entresto) spironolactone 25 mg tablet 12.5 mg PO DAILY 05/12/23 04/13/25 tiotropium bromide 18 mcg capsule 1 cap inhalation MICAH LY 05/12/23 04/13/25 with inhalation device (Spiriva with HandiHaler) carvedilol 6.25 mg tablet 6.25 mg PO BID 07/06/2303/20 albuterol sulfate 90 mcg/actuation 2 puff inhalation Q ID PRN 04/13/25 04/13/25 aerosol inhaler Shortness Of Breath Or Wheez ing methotrexate sodium 2.5 mg tablet 12.5 mg PO DIRECT ED 04/13/25 04/13/25 nitrofurantoin 1 cap PO BID 04/13/25 monohydrate/macrocrystals 100 mg capsule Previous Rx's ?Medication ?Instructions ?Recorded sulfasalazine 500 mg 1.5 g (3 x 500 mg) PO BID 30 days 03/21/25 tablet,delayed release #180 tabs Allergies Allergy/AdvReac Type Severity Reaction Status Date / Time meperidine (From Demerol) Allergy Intermediate Rash Verified 04/12/25 21:49 levofloxacin Allergy Swelling Verified 04/12/25 21:49 Penicillins Allergy Unknown Verified 04/12/25 21:49 [facility] Past Medical History Medical History (Updated 04/13/25 @ 03:23 by Oliva Loera RN) CAD (coronary artery disease) Surgical History Hx of cardiac catheterization (~05/2021) Social History Social History Household Members: Spouse Housing: Apartment Do you presently have visiting nurse or other home services: No Alcohol intake: never Patient Tobacco Use Status: Former Tobacco user Tobacco use type: Cigarette e-Cigarette/Vaping Use: Former Use Second Hand Smoke Exposure: No Advance Directives Date on File: 07/09/23 service: No Physical Exam 2 Exam: Exam: Arrival exam: EXAM: Gen: Alert, [id number] respiratory distress with tachypnea. Speaking 3-4 word sentences maximally. Loud barking abnormal sounding cough but no inspiratory stridor. Patent oropharynx no obvious facial or labial swelling Head: Atraumatic Eyes: Anicteric, Normal conjunctiva. ENT: Moist mucosa, no pallor. ?Visible oropharynx, midline uvula, no stridor but abnormal sounding barky cough Neck: Supple. Skin: ?No observable rash or bruising on exposed or examined skin Respiratory: Tachypnea respiratory rate about 35, bilateral coarse wheezing inspiratory and expiratory Cardiovascular: Tachycardic, regular rhythm. No murmurs or rub. Well perfused periphery, warm extremities. No edema. ? Abdominal: No focal tenderness. Soft, no objective distension. No palpable masses or obvious organomegaly. ?No guarding, no rebound tenderness or other peritoneal findings. : No flank tenderness. Neuro: Alert. Gross movement of all extremities intact. ? Psych: Calm. Cooperative. MSK: No grossly visible deformity. Vital signs: See flowsheet Vital Signs: Vital Signs: Last Vital Signs Temp 97.1 F 04/14/25 11:53 Pulse 95 04/14/25 11:53 Resp 20 04/14/25 11:53 BP 117/66 04/14/25 11:53 Pulse Ox 91 L 04/14/25 11:53 O2 Del Method Nasal Cannula 04/14/25 11:53 O2 Flow Rate 3 04/14/25 11:53 BMI result Body Mass Index 26.5 Medications Administered Generic Name Dose Route Start Last Admin Trade Name Freq PRN Reason Stop Dose Admin Atorvastatin Calcium 20 mg 04/14/25 09:00 04/14/25 08:02 Atorvastatin Calcium 20 Mg Tablet PO 20 mg DAILY UNRULY Administration Carvedilol 6.25 mg 04/13/25 21:00 04/14/25 08:02 Carvedilol 6.25 Mg Tablet PO 6.25 mg BID UNRULY Administration Protocol Empagliflozin 10 mg 04/14/25 09:00 04/14/25 08:01 Empagliflozin 10 Mg Tablet PO 10 mg DAILY UNRULY Administration Enoxaparin Sodium 40 mg 04/13/25 09:00 04/14/25 08:02 Enoxaparin Sodium 40 Mg/0.4 Ml Syringe SUBCUT 40 mg Q24H UNRULY Administration Furosemide 20 mg 04/13/25 15:15 04/14/25 08:02 Furosemide 20 Mg Tablet PO 20 mg DAILY UNRULY Administration Protocol Guaifenesin 10 ml 04/13/25 15:10 04/14/25 05:07 Guaifenesin 200 Mg/10 Ml 10 Ml Liquid PO 10 ml Q6H PRN Administration Cough Azithromycin 500 mg/ Sodium 250 mls @ 125 mls/hr 04/14/25 01:00 04/14/25 03:14 Chloride IV Infused Q24H UNRULY Infusion Ceftriaxone Sodium 1 gm/ 50 mls @ 100 mls/hr 04/14/25 01:00 04/14/25 00:58 Sodium Chloride IV Infused Q24H UNRULY Infusion Insulin Human Lispro 0 unit 04/13/25 07:30 04/14/25 11:40 Insulin Lispro 100 Unit/Ml 3 Ml Vial SUBCUT Not Given QIDACHS [facility] Protocol Levalbuterol HCl 1.25 mg 04/13/25 20:00 04/14/25 08:44 Levalbuterol Hcl 1.25 Mg/3 Ml Vial.Neb INHALE 1.25 mg RTID UNRULY Administration Levalbuterol HCl 1.25 mg 04/13/25 16:07 04/14/25 04:13 Levalbuterol Hcl 1.25 Mg/3 Ml Vial.Neb INHALE 1.25 mg Q3H PRN Administration sob Loratadine 10 mg 04/13/25 15:15 04/14/25 08:02 Loratadine 10 Mg Tablet PO 10 mg DAILY UNRULY Administration Methotrexate 2.5 mg 04/13/25 15:15 04/13/25 16:22 Methotrexate Sodium 2.5 Mg Tablet PO 2.5 mg MoTuWeFrSa UNRULY Administration Methylprednisolone Sodium Succinate 40 mg 04/14/25 09:00 04/14/25 08:32 Methylprednisolone Sod Succ 40 Mg/Ml Vial IVPUSH 40 mg BID UNRULY Administration Sacubitril/Valsartan 1 tab 04/13/25 21:00 04/14/25 08:02 Sacubitril/Valsartan 49/51 1 Tab Tablet PO 1 tab BID UNRULY Administration Protocol Sodium Chloride 3 ml 04/13/25 08:00 04/14/25 08:03 0.9 % Sodium Chloride Flush 3 Ml Syringe IVFLUSH 3 ml QSHIFT UNRULY Administration Spironolactone 12.5 mg 04/14/25 09:00 04/14/25 08:02 Spironolactone 25 Mg Tablet PO 12.5 mg DAILY UNRULY Administration Protocol Sulfasalazine 1,500 mg 04/13/25 21:00 04/14/25 08:01 Sulfasalazine 500 Mg Tablet PO 1,500 mg BID UNRULY Administration Tiotropium [place] 2 puff 04/14/25 08:00 04/14/25 11:49 Tiotropium [place] 2.5 Mcg 1 Puff/2.5 Mcg Mist.Inhal INHALE 2 puff RDAILY UNRULY Administration Discontinued Medications Generic Name Dose Route Start Last Admin Trade Name Freq PRN Reason Stop Dose Admin Albuterol/Ipratropium 3 ml 04/12/25 21:57 04/12/25 22:16 Albuterol/Iprat 2.5/0.5mg 3 Ml Ampul.Neb INHALE 04/12/25 21:58 3 ml ONCE ONE Administration Albuterol/Ipratropium 3 ml 04/12/25 23:25 04/12/25 23:34 Albuterol/Iprat 2.5/0.5mg 3 Ml Ampul.Neb INHALE 04/12/25 23:26 3 ml ONCE ONE Administration Albuterol/Ipratropium 3 ml 04/13/25 08:00 04/13/25 15:34 Albuterol/Iprat 2.5/0.5mg 3 Ml Ampul.Neb INHALE 3 ml RQ4H WHILE AWAKE UNRULY Administration Azithromycin 500 mg 04/13/25 00:27 04/13/25 00:40 Azithromycin 500 Mg Tablet PO 04/13/25 00:28 500 mg ONCE ONE Administration Albuterol Sulfate 2.5 mg/ 0 mg 04/13/25 01:12 04/13/25 01:27 Albuterol/Ipratropium 3 ml INHALE 04/13/25 01:13 1 dose ONCE STA Administration Dexamethasone Sodium Phosphate 10 mg 04/12/25 21:57 04/12/25 22:20 Dexamethasone Sod Phosphate 10 Mg/Ml Vial IVPUSH 04/12/25 21:58 10 mg ONCE ONE Administration Epinephrine 0.5 ml 04/12/25 21:57 04/12/25 22:16 Racepinephrine Hcl 0.5 Ml Vial.Neb INHALE 04/12/25 21:58 0.5 ml ONCE ONE Administration Ceftriaxone Sodium 2 gm/ 50 mls @ 100 mls/hr 04/13/25 00:27 04/13/25 01:09 Sodium Chloride IV 04/13/25 00:56 Infused ONCE ONE Infusion Magnesium Sulfate 2 gm in 50 mls @ 150 mls/hr 04/13/25 00:33 04/13/25 01:47 Magnesium Sulfate/H2o IV 04/13/25 00:52 Infused ONCE ONE Infusion Melatonin 9 mg 04/13/25 01:13 04/13/25 01:45 Melatonin 3 Mg Tablet PO 04/13/25 01:14 9 mg ONCE STA Administration Methylprednisolone Sodium Succinate 40 mg 04/13/25 05:30 04/14/25 05:07 Methylprednisolone Sod Succ 40 Mg/Ml Vial IVPUSH 40 mg Q6H UNRULY Administration Medical Decision Making Medical Decision Making [facility] Narrative: Medical Decision Making: [age] male with progressively worsening shortness of breath in the setting of COPD cardiomyopathy thinks the baseline EF is around 45%. He does not have rales but he is tachypneic in her distress with barky cough. No inspiratory stridor but there was concern initially for the possibility of upper airway involvement. Empiric COPD treatment as well as racemic epi dexamethasone DuoNeb. I do not think he is in CHF at this time. ECG left bundle-branch block no Sgarbossa criteria Chest x-ray without infiltrate or effusion Leukocytosis 16 could be stress reaction however I think it is reasonable to cover him empirically particularly given there was neutrophil predominance and cough. Ceftriaxone azithromycin given. Empiric COPD treatment and racemic epi for upper airway noises/croupy cough Preliminary Favored Differential Diagnosis: COPD, upper airway inflammation, epiglottitis, pneumonia, CHF, pleural effusion, pneumothorax, viral syndrome, bronchitis among additional considered etiologies Testing Interpreted Independently: ECG left bundle-branch block no Sgarbossa criteria. Comparison to 2022: Left bundle-branch block unchanged Independent interpretation chest x-ray without infiltrate, normal mediastinum no effusions Radiology or Lab testing Results Reviewed: ?See below for details Consults: ?See below for details Independent Historians/External Chart Reviews: ?See below for details Social Determinants of Health Impacting MDM/Planning: ?See below for details Lab Data 04/13/25 06:37 04/13/25 06:37 Labs: Lab Results 04/12/25 04/12/25 Range/Units 22:27 22:27 WBC 16.3 H (4.8-10.8) X10*3/uL RBC 5.09 (4.60-5.80) X10*6/uL Hgb 15.6 (14.0-18.0) g/dl Hct 47.1 (42.0-52.0) % MCV 92.5 (80.0-98.0) fL MCH 30.6 (27.0-33.0) pg MCHC 33.1 (31.0-36.0) g/dl RDW 14.3 (11.0-16.0) % Plt Count 280 (160-400) X10*3/uL MPV 9.4 (9.4-12.4) fL Immature Gran % (Auto) 0.4 (0.0-0.4) % Neut % (Auto) 79.3 H (45-73) % Lymph % (Auto) 6.1 L (20-40) % [place] % (Auto) 8.8 (2-11) % Eos % (Auto) 4.8 H (0-4) % Baso % (Auto) 0.6 (0-2) % Lymph # (Auto) 1.0 L (1.2-4.9) X10*3/uL [place] # (Auto) 1.4 H (0.1-1.2) X10*3/uL Eos # (Auto) 0.8 H (0.0-0.4) X10*3/uL Baso # (Auto) 0.1 (0.0-0.2) X10*3/uL Abs Immat Gran (auto) 0.06 H (0.00-0.03) X10*3/uL Absolute Neuts (auto) 12.9 H (2.0-8.3) x10*3/uL Absolute Nucleated RBC 0.000 (0.0-0.012) X10*3/uL Nucleated RBC % (auto) 0.0 (0.0-0.2) /100WBC Sodium 139 (135-145) mmol/L Potassium 3.9 (3.3-5.1) mmol/L Chloride 105 (96-108) mmol/L Carbon Dioxide 23 (22-29) mmol/L Anion Gap 15 (12-20) BUN 16 (9-16) mg/dL Creatinine 0.92 (0.5-1.4) mg/dL Estim Creat Clear Calc 77.3 Estimated GFR > 60 Random Glucose 118 H (60-115) mg/dL Lactic Acid 1.0 (0.5-2.0) mmol/L Calcium 9.8 D (8.4-10.2) mg/dL Total Bilirubin 0.7 (0.0-1.0) mg/dL AST 35 (5-37) U/L ALT 34 (0-40) U/L Alkaline Phosphatase 73 (39-117) U/L NT-Pro-B Natriuret Pep 89.0 (<300) pg/mL Total Protein 7.3 (6.5-8.0) g/dL Albumin 4.7 (3.5-5.0) g/dL Respiratory Panel Galvez See Note Adenovirus (Rapid PCR) Not Detected (Not Detect.) B.pert (TEM-PCR) Not Detected (Not Detect.) B.parapertussis DNA PCR Not Detected (Not Detect.) C. pneumoniae DNA (PCR) Not Detected (Not Detect.) Coronavirus OC43 (PCR) Not Detected (Not Detect.) Coronavirus HKU1 (PCR) Not Detected (Not Detect.) Coronavirus 229E (PCR) Not Detected (Not Detect.) Coronavirus NL63 (PCR) Not Detected (Not Detect.) Human Metapneumovir PCR Not Detected (Not Detect.) Influenza A (RT-PCR) Not Detected (Not Detect.) Influenza A (H1) PCR Not Detected (Not Detect.) Influ A (H1/09) PCR Not Detected (Not Detect.) Influenza A (H3) PCR Not Detected (Not Detect.) Influenza Type A (PCR) NEGATIVE (Negative) Influenza B (RT-PCR) Not Detected (Not Detect.) Influenza Type B (PCR) NEGATIVE (Negative) M. pneumoniae (PCR) Not Detected (Not Detect.) Parainfluenza 1 (PCR) Not Detected (Not Detect.) Parainfluenza 2 (PCR) Not Detected (Not Detect.) Parainfluenza 3 (PCR) Not Detected (Not Detect.) Parainfluenza 4 (PCR) Not Detected (Not Detect.) RSV (PCR) Not Detected (Not Detect.) RSV RNA Qual (PCR) NEGATIVE (Negative) Entero/Rhino (PCR) Detected A (Not Detect.) SARS-CoV-2 RNA (RT-PCR) NEGATIVE Not Detected (Negative) Critical Care Time Critical Care Time Critical Care Time: Yes Total Critical Care Time: 30 Attestation: ED Critical Care: Authorized and Performed by: Wero Davis MD Total critical care time: Approximately 30 min Due to a high probability of clinically significant, life threatening deterioration, the patient required my highest level of preparedness to intervene emergently and I personally spent this critical care time directly and personally managing the patient. This critical care time included obtaining a history; examining the patient; pulse oximetry; ordering and review of studies; arranging urgent treatment with development of a management plan; evaluation of patient's response to treatment; frequent reassessment; and, discussions with other providers. This critical care time was performed to assess and manage the high probability of imminent, life-threatening deterioration that could result in multi-organ failure. It was exclusive of separately billable procedures and treating other patients and teaching time. Discharge Plan Discharge Clinical Impression: Chronic obstructive asthma with exacerbation Patient Disposition: Admitted As Inpatient Interventions: Admission Worksheet (ED) Last Done: 04/13/25 03:23 Discharge Date/Time: 04/13/25 05:21
[2025-04-12 22:16] VITALS: PULSE 113; RESP 18; O2SAT 93
[2025-04-12] MEDS: Albuterol/Iprat 2.5/0.5MG 3 ML AMPUL.NEB INHALE ×2 (22:16→23:34)
[2025-04-12 22:33] LABS: MANUAL DIFF FLAG NO
[2025-04-12 22:35] LABS: Hematocrit 47.1 % (42.0-52.0); Hemoglobin 15.6 g/dl (14.0-18.0); Imm Gran Abs Auto 0.06 X10*3/uL (0.00-0.03); Imm Gran Pct Auto 0.4 % (0.0-0.4); Lymphocytes Absolute Auto 1.0 X10*3/uL (1.2-4.9); Mean Corpuscular HGB Conc 33.1 g/dl (31.0-36.0); Mean Corpuscular Hemoglobin 30.6 pg (27.0-33.0); Mean Corpuscular Volume 92.5 fL (80.0-98.0); NRBC Abs Auto 0.000 X10*3/uL (0.0-0.012); NRBC Pct Auto 0.0 /100WBC (0.0-0.2); Platelet Count 280 X10*3/uL (160-400); Red Blood Count 5.09 X10*6/uL (4.60-5.80); White Blood Count 16.3 X10*3/uL (4.8-10.8)
[2025-04-12 22:50] LABS: Alanine Aminotransferase 34 U/L (0-40); Albumin Level 4.7 g/dL (3.5-5.0); Alkaline Phosphatase 73 U/L (39-117); Anion Gap 15 (12-20); Aspartate Amino Transferase 35 U/L (5-37); Blood Urea Nitrogen 16 mg/dL (9-16); Calcium 9.8 mg/dL (8.4-10.2); Carbon Dioxide 23 mmol/L (22-29); Chloride 105 mmol/L (96-108); Creatinine Clr Calc Pharmacy 77.3; Estimated Glomerular Filt Rate > 60; Potassium 3.9 mmol/L (3.3-5.1); Sodium 139 mmol/L (135-145); Total Protein 7.3 g/dL (6.5-8.0)
[2025-04-12 22:56] VITALS: O2SAT 90
[2025-04-12 22:57] LABS: NT Pro B Type Natriuretic Pept 89.0 pg/mL (<300)
[2025-04-12 23:11] LABS: Resp Syncy Virus RNA Qual PCR NEGATIVE (Negative); SARS COV2 PCR INHOUSE NEGATIVE (Negative)
--- OUTSIDE RECORDS SUMMARY | 2025-04-12 23:17 | XMS_ITS | Encounter Summary ---
Author Organization [facility] Address [address] [place] [address] Care Team Providers Care Level Vial Inside Grinder Name Role Phone Beatriz Bee MD Primary Care Provider [phone] Encounter Details Date Type Department Care Team (Late st Contact Info) Description 04/04/2025 Lab Requisition [facility] Lab [address] [facility] [place] [phone] Gigi Leung MD [address] [employer] [address] [phone] Acute cystitis without hematuria Social History Tobacco [...] Upcoming Encounters Date Type Department Care Team (Latest Contact Info) Description 05/04/2025 12:00 PM EST Hospital Encounter [facility] OR [address] [place] [phone] Al Vaz MD [address] [employer] [address] [phone] 05/04/2025 12:00 PM EST - 05/04/2025 12:45 PM EST Surgery [facility] OR [address] [place] [phone] Al Vaz MD [address] [place] [address] ESWL-RIGHT [[id number] (CPT )] 08/02/2025 8:45 AM EDT Office Visit Pulmonology - [place] [address] [facility] [address] [place] [phone] Zonia Concepcion MD [address] [place] [phone] Scheduled Procedures Name Priority Associated Diagnoses Date/Ti me ESWL Calculus of kidney 05/04/2025 12:00 PM EST documented as of this encounter Procedures Procedure Name Priority Date/Time Associated Diagnosis Comments CULTURE URINE Routine 04/04/2025 12:00 AM EST Acute cystitis without hematuria documented in this encounter Results * (ABNORMAL) Culture urine (04/04/2025 12:00 AM EST) Culture, Urine 50,000-100,000 CFU/mL Enterococcus faecalis(A) LETTY 04/06/2025 11:31 AM EST [facility] Comment: Edited result: Previously reported as Gram Positive Cocci on 04/05/2025 at 1320 EST. Urine Urine specimen obtained by clean catch procedure / Unknown 04/04/2025 04/04/2025 6:28 PM EST Narrative Organism Antibiotic Method Susceptibility Enterococcus faecalis Benzylpenicillin LETTY 4 ug/ml: Susceptible Enterococcus faecalis Ampicillin LETTY <=2 ug/ml: Susceptible Enterococcus faecalis Ciprofloxacin LETTY 1 ug/ml: Susceptible Enterococcus faecalis Levofloxacin LETTY 1 ug/ml: Susceptible Enterococcus faecalis Linezolid LETTY 2 ug/ml: Susceptible Enterococcus faecalis Vancomycin LETTY <=0.5 ug/ml: Susceptible Enterococcus faecalis Tetracycline LETTY <=1 ug/ml: Susceptible Enterococcus faecalis Nitrofurantoin LETTY <=16 ug/ml: Susceptible us Gigi Leung MD LAB MICROBIOLOGY - GENERAL SALINAS SCHMID Final Result [facility] [address] [place], [place] [address] [phone] documented in this encounter Visit Diagnoses Diagnosis Acute cystitis without hematuria Calculus of kidney documented in this encounter Care Teams Level Vial Inside Grinder Relationship Specialty Start Date End Date Beatriz Bee MD [address] [place] [address] PCP - General Internal Medicine 02/17/17 documented as of this encounter
--- OUTSIDE RECORDS SUMMARY | 2025-04-12 23:17 | XMS_ITS | Encounter Summary ---
Author Organization [facility] Address [address] [place] [address] Care Team Providers Care Parole Agent Name Role Phone Beatriz Bee MD Primary Care Provider Encounter Details Date Type Department Care Team (Late st Contact Info) Description 11/20/2024 Lab Requisition [facility] Lab 299 [facility] [place] [address] Hank Beckman PA [address] [place] [phone] Gross hematuria Social History Tobacco Use Types [...] Description 05/04/2025 12:00 PM EST Hospital Encounter [facility] OR [address] [place] [phone] Al Vaz MD [address] [place] [phone] 05/04/2025 12:00 PM EST - 05/04/2025 12:45 PM EST Surgery [facility] OR [address] [place] [phone] Al Vaz MD [address] [place] [phone] ESWL-RIGHT [[id number] (CPT )] 08/02/2025 8:45 AM EDT Office Visit Pulmonology - [place] [address] [place] [phone] Zonia Concepcion MD [address] [place] [phone] Scheduled Procedures Name Priority Associated Diagnoses Date/Ti me ESWL Calculus of kidney 05/04/2025 12:00 PM EST documented as of this encounter Procedures Procedure Name Priority Date/Time Associated Diagnosis Comments NON-GYNECOLOGIC CYTOLOGY Routine 11/10/2024 12:00 AM EDT Gross hematuria documented in this encounter Results * Non-gynecologic cytology (11/10/2024 12:00 AM EDT) Final Diagnosis A. Urine, Voided, [id number]: Negative for high grade urothelial carcinoma. Acute inflammation present. Results of [employer] fluorescence in situ hybridization (FISH) testing: Although FISH was performed, insufficient non-obscured hybridization signals are present for evaluation and interpretation. 11/28/2024 9:07 AM EDT [facility] at 0907 EDT Specimen A Adequacy Satisfactory for evaluation 11/28/2024 9:07 AM T [facility] Clinical Information Gross hematuria R31.0 Urine Cytology/FISH (now) 11/28/2024 9:07 AM EDT [facility] Gross Description A. Urine, Voided, [id number]: Received one ThinPrep slide for cytology and one ThinPrep slide for UroVysion FISH 11/28/2024 9:07 AM T [facility] Disclaimer Unless otherwise specified, all tissue is 10% NB formalin fixed and paraffin embedded. Technical pathology services provided by [facility] at [address], [place] [address] (CLIA #[id number]/Cherelle Omer MD, Databases Computer Consultant) 11/28/2024 9:07 AM EDT [facility] Urine Urine specimen from urethra / Unknown 11/10/2024 11/20/2024 8:26 AM EDT us Hank CAPPS LAB CYTOLOGY ORDERABLES Final Result [facility] [address] [place] [address], documented in this encounter Visit Diagnoses Diagnosis Gross hematuria Calculus of kidney documented in this encounter Care Teams Parole Agent Relationship Specialty Start Date End Date Beatriz Bee MD [address] [place] [address] PCP - General Internal Medicine 02/17/17 documented as of this encounter
--- OUTSIDE RECORDS SUMMARY | 2025-04-12 23:17 | XMS_ITS | Encounter Summary ---
Author Organization [facility] Address [address] [place] [address] Care Team Providers Care Auto Radiator Specialist Name Role Phone Beatriz Bee MD Primary Care Provider [phone] Encounter Details Date Type Department Care Team (Late st Contact Info) Description 10/03/2024 Lab Requisition [facility] Lab 299 [facility] [place] [phone] Hola Dangelo PA 100 [address]A [address] [place] [phone] Urinary tract infection, site not specified Social [...] 05/04/2025 12:00 PM EST Hospital Encounter [facility] OR [address] [place] [phone] Al Vaz MD [address] [place] [phone] 05/04/2025 12:00 PM EST - 05/04/2025 12:45 PM EST Surgery [facility] OR [address] [place] [phone] Al Vaz MD [address] [place] [address] ESWL-RIGHT [[id number] (CPT )] 08/02/2025 8:45 AM EDT Office Visit Pulmonology - [place] [address] [facility] [address] [place] [phone] Znoia Concepcion MD [address] [place] [phone] Scheduled Procedures Name Priority Associated Diagnoses Date/Ti [...] Enterococcus faecalis(A) LETTY 10/05/2024 8:53 AM EDT [facility] Comment: Edited result: Previously reported [...] Enterococcus faecalis Nitrofurantoin LETTY <=16 ug/ml: Susceptible Hola CAPPS LAB MICROBIOLOGY - GENERAL SALINAS SCHMID Final Result [facility] [address] [place], [place] [address] [phone] documented in this encounter Visit Diagnoses Diagnosis Urinary tract infection, site not specified Calculus of kidney documented in this encounter Care Teams Auto Radiator Specialist Relationship Specialty Start Date End Date Beatriz Bee MD [address] [place] [address] PCP - General Internal Medicine 02/17/17 documented as of this encounter
--- OUTSIDE RECORDS SUMMARY | 2025-04-12 23:17 | XMS_ITS | Encounter Summary ---
Author Organization [facility] Address [address] [place] [address] Care Team Providers Care Precision Grinder Name Role Phone Beatriz Bee MD Primary Care Provider [phone] Encounter Details Date Type Department Care Team (Late st Contact Info) Description 02/02/[address] [facility] Lab 299 [facility] [place] [phone] Gigi Leung MD [address] [phone] Acute cystitis without hematuria Social History Tobacco [...] Description 05/04/2025 12:00 PM EST Hospital Encounter [facility] OR [address] [place] [phone] Al Vaz MD [address] [phone] 05/04/2025 12:00 PM EST - 05/04/2025 12:45 PM EST Surgery [facility] OR [address] [place] [phone] Al Vaz MD [address] [place] [address] ESWL-RIGHT [[id number] (CPT )] 08/02/2025 8:45 AM EDT Office Visit Pulmonology - [place] [address] [facility] [address] [place] [phone] Zonia Concepcion MD [address] [place] [phone] Scheduled Procedures Name Priority Associated Diagnoses Date/Ti [...] Enterococcus faecalis(A) LETTY 02/04/2025 9:29 AM EDT [facility] Comment: This is an edited [...] MICROBIOLOGY - GENERAL SALINAS SCHMID Final Result [facility] [address] [place], [place] [address] [phone] documented in this encounter Visit Diagnoses Diagnosis Acute cystitis without hematuria Calculus of kidney documented in this encounter Care Teams Precision Grinder Relationship Specialty Start Date End Date Beatriz Bee MD [address] [place] [address] PCP - General Internal Medicine 02/17/17 documented as of this encounter
--- OUTSIDE RECORDS SUMMARY | 2025-04-12 23:17 | XMS_ITS | Encounter Summary ---
Author Organization [facility] Address [address] [place] [address] Care Team Providers Care Rn Orthopedic Name Role Phone Beatriz Bee MD Primary Care Provider [phone] Encounter Details Date Type Department Care Team (Late st Contact Info) Description 03/05/2025 Lab Requisition [facility] Lab [address] [facility] [place] [address] Gigi Leung MD 100 [facility] [place] [address] [address] Personal history of malignant neoplasm of [...] Description 05/04/2025 12:00 PM EST Hospital Encounter [facility] OR [address] [place] [phone] Al Vaz MD 100 [facility] [place] [address] [phone] 05/04/2025 12:00 PM EST - 05/04/2025 12:45 PM EST Surgery [facility] OR [address] [place] [address] Al Vaz MD [address] [place] [address] ESWL-RIGHT [[id number] (CPT )] 08/02/2025 8:45 AM EDT Office Visit Pulmonology - [place] [address] [place] [phone] Zonia Concepcion MD [address] [place] [phone] Scheduled Procedures Name Priority Associated Diagnoses Date/Ti me ESWL Calculus of kidney 05/04/2025 12:00 PM EST documented as of this encounter Procedures Procedure Name Priority Date/Time Associated Diagnosis Comments NON-GYNECOLOGIC CYTOLOGY Routine 03/01/2025 12:00 AM EST Personal history of malignant neoplasm of bladder Calculus of kidney documented in this encounter Results * Non-gynecologic cytology (03/01/2025 12:00 AM EST) Final Diagnosis A. Urine, Voided, ([id number]): Negative for high grade urothelial carcinoma. Acute inflammatory cells are present. 03/08/2025 3:43 PM EST [facility] at 1543 EST Specimen A Adequacy Satisfactory for evaluation 03/08/2025 3:43 PM EST [facility] Clinical Information History of bladder neoplasm (malignant) Z85.51 Calculus of kidney N20.0 Urine cytology with reflex UroVysion (AUC/SHGUC) 03/08/2025 3:43 PM [facility] Gross Description A. Urine, Voided, ([id number]): Received is one ThinPrep slide for cytology. 03/08/2025 3:43 PM [facility] Disclaimer Unless otherwise specified, all tissue is 10% NB formalin fixed and paraffin embedded. Technical pathology services provided by [facility] at [address], [place] [address] (CLIA #[id number]/Paolo Omer MD, Motor Vehicle Assembly Supervisor) 03/08/2025 3:43 PM EST [facility] Urine Urine specimen from urethra / Unknown 03/01/2025 03/05/2025 1:29 PM EST us Gigi Leung MD LAB CYTOLOGY ORDERABLES Final R esult [facility] [address] [place] [address], [place] [phone] documented in this encounter Visit Diagnoses Diagnosis Personal history of malignant neoplasm of bladder Calculus of kidney Calculus of kidney documented in this encounter Care Teams Rn Orthopedic Relationship Specialty Start Date End Date Beatriz Bee MD [address] [place] [address] PCP - General Internal Medicine 02/17/17 documented as of this encounter
--- OUTSIDE RECORDS SUMMARY | 2025-04-12 23:17 | XMS_ITS | Encounter Summary ---
Author Organization [facility] Address [address] [place] [address] Care Team Providers Care Drill Sharpener Operator Name Role Phone Beatriz Bee MD Primary Care Provider [phone] Encounter Details Date Type Department Care Team (Late st Contact Info) Description 05/15/[address] [facility] Lab 299 [facility] [email or web address] [address] Gigi Leung MD 100 [employer] [address] [place] [phone] Gross hematuria Social History Tobacco Use [...] Description 05/04/2025 12:00 PM EST Hospital Encounter [facility] OR [address] [place] [phone] Al Vaz MD [address] [employer] [address] [place] [phone] 05/04/2025 12:00 PM EST - 05/04/2025 12:45 PM EST Surgery [facility] OR [address] [place] [phone] Al Vaz MD [address] [place] [address] ESWL-RIGHT [[id number] (CPT )] 08/02/2025 8:45 AM EDT Office Visit Pulmonology - [place] [address] [place] [phone] Zonia Concepcion MD [address] [place] [phone] Scheduled Procedures Name Priority Associated Diagnoses Date/Ti me ESWL Calculus of kidney 05/04/2025 12:00 PM EST documented as of this encounter Procedures Procedure Name Priority Date/Time Associated Diagnosis Comments AP OUTSIDE CONSULT Routine 05/11/2024 12 :00 AM EST Gross hematuria documented in this encounter Results * Anatomic pathology outside consult (05/11/2024 12:00 AM EST) Final Diagnosis Urine, Voided, ([id number]): Negative for high grade urothelial carcinoma. Acute inflammation present. 05/24/2024 2:46 PM [facility] at 1446 EST Clinical Information Gross hematuria R31.0 Urine cytology with reflex UroVysion ([facility]) 05/24/2024 2:46 PM [facility] Gross Description A. Urine, Voided, ([id number]): Received one ThinPrep slide for cytology. 05/24/2024 2:46 PM [facility] Disclaimer Unless otherwise specified, all tissue is 10% NB formalin fixed and paraffin embedded. Technical pathology services provided by [facility] at [address], [place] [address] (CLIA #[id number]/Paolo Omer MD, Blanket Cutter Hand) 05/24/2024 2:46 PM [facility] Tissue Urine specimen from urethra / Unknown 05/11/2024 05/15/2024 11:43 AM EST us Gigi Leung MD LAB PATHOLOGY ORDERABLES Final Result [facility] ([facility]) [facility] [address] [place] [address], documented in this encounter Visit Diagnoses Diagnosis Gross hematuria Calculus of kidney documented in this encounter Care Teams Drill Sharpener Operator Relationship Specialty Start Date End Date Beatriz Bee MD [address] [place] [address] PCP - General Internal Medicine 02/17/17 documented as of this encounter
--- OUTSIDE RECORDS SUMMARY | 2025-04-12 23:17 | XMS_ITS | Continuity of Care Document ---
Author Organization [place] [facility], [facility] Address [address] [place] [address] Care Team Providers Care Digital Press Operator Name Role Phone ANNE MARIE SETH Primary Care Provider [phone] Assessment Encounter Date Assessment Date Assessment LastModified by Organization Details LastModified Time 01/15/2025 01/15/2025 74-year-old male presents for reevaluation. On examination persistent canal stenosis which inhibits view of TM fully. No obvious discharge or debris collection today. It seems that a one-to-one rubbing alcohol and white vinegar is working well for him. Continue this regimen and follow-up in 4 months. 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 47275677608 82646 Active 2020 Acquired stenosis of external ear canal secondary to inflammat ion and infection , bilateral ; Note: Date Diagnosed : 05/16/2020 5:22 PM (H61.323) Not Available [facility] 4 02:56:30 Otorrhea of bilateral ears 49882283665 56246 Active 2020 Otorrhea, bilateral ; Note: Date Diagnosed : 05/16/2020 5:22 PM (H92.13) Not Available [facility] 4 02:56:29 Eczema 30740254 Active 2020 Other specified dermatiti s; Note: Date Diagnosed : 05/16/2020 5:22 PM (L30.8) Not Available [facility] 4 02:56:30 Superfici al mycosis 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 Active 2020 Other specified superfici al mycoses; Note: Date Diagnosed : 05/16/2020 5:22 PM (B36.8) Not Available [facility] 4 02:56:27 Itching of skin 690151570 Active 2022 Other pruritus; Note: Date Diagnosed : 3 3:01 PM (L29.8) Not Available [facility] 4 02:56:28 Impacted cerumen of bilateral ears 02030448276 18750 Active 2022 Impacted cerumen, bilateral ; Note: Date Diagnosed : 3 3:00 PM (H61.23) SANJAY MINAYA PA-C 100 [facility] 100, [place], [address] , [place] AMAURI - [facility] 5 17:17:51 Chronic eczema of external auditory canal 950247785 Active 2023 Petra montiel [place] - [facility] 4 11:42:00 Sensorine ural hearing loss of bilateral ears 877587099 Active 2023 CARMELO CAROLINA 100 [facility],[address], [place], [address] , [place] - [facility] [employer] 4 11:35:19 Mixed conductiv e and sensorine ural hearing loss, bilateral 825300696 Active 2023 AGNES CAMPBELLCARMELO REYEZ 100 [facility],[place] [address], [place], [phone] , [facility] - [facility] [employer] 4 11:45:31 Disorder of left Eustachia n tube 01557136017 95204 Active 2024 Petra montiel, [place] - [facility] [employer] 5 10:45:07 Chronic mycotic otitis externa 736590599 Active 2024 ELO JULES PA-C 100 [facility],[place] [address], [place], [phone] , [facility] - [facility] [employer] 5 13:05:39 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 SANJAY MINAYA PA-C 100 [facility],[place] [address], [place], [address] , [facility] - [facility] [employer] 5 13:52:40 Benign paroxysma l positiona l vertigo 285161607 Active 2024 ELO JULES PA-C 100 [facility],[place] [address], [place], [address] , [facility] - [facility] [employer] 5 10:51:38 Bilateral external auditory canal chronic otitis externa 78193752229 64447 Active 2024 DALLIN KIRKLAND MD 100 [facility],[place] [address], [place], [address] , [facility] - [facility] [employer] 5 08:55:59 Problem Notes None recorded. Procedures Surgical History Date Name Laterality Status Provider Name and Address Organization Details Recorded Time 5 Debridement of Ear canal bilateral completed DALLIN KIRKLAND MD 100 [facility],[place] [address], [place], [address], [place] - [facility] [employer] 11/21/2024 08:42:53 5 Cerumen removal without microscope bilat completed SANJAY MINAYA PA-C 100 [facility],[address], [place], [address], [place] - [facility] [employer] 09/04/2024 17:12:03 5 Cerumen removal without microscope bilat completed Petra Cuellar [place] - [facility] [employer] 05/22/2024 10:54:37 4 Cerumen removal without microscope bilat completed Petra Cuellar [place] - [facility] [employer] 02/10/2024 13:06:49 4 Comp Audio with Tymps - 84379 & 52747 completed CARMELO CAROLINA 100 [facility] [place],[facility] 100, [place], [address], [facility] - [facility] [employer] 01/13/2024 11:35:22 4 Cerumen removal without microscope bilat completed Petra Cuellar [place] - [facility] [employer] 01/13/2024 11:56:50 Imaging Results None recorded. Procedure Notes None recorded. Medical Equipment None Reported. Allergies Allergen ID Allergen Name Allergen Category Reaction Reaction Severity Criticality Documentation Date Start Date Code Code System Note Provider Name and Address Organization Details Recorded Time 558887 Demerol medicatio n other Not available Not available 08/31/2023 90079 1 RxNorm React ion: other react ion, Unkno wn; Not Available [facility] 4 01:14:39 710568 Product containin g penicilli n (product) medicatio n other Not available Not available 08/31/2023 01804 8001 SNOMED React ion: other react ion, Unkno wn; Not Available [facility] 4 01:14:43 Medications Name Sig [...] mg capsule 11/21 completed Medicati on ID: [id number] B rand Name: malgorzata in Send Method: [...] mg tablet 11/21 completed Medicati on ID: [id number] B rand Name: caprice griffin Send Method: [...] Advair HFA 2019 active Medicati on ID: [id number] B rand Name: Advair HFA Send Method: [...] Updated DateTime 01/15/2025 180.34 cm 26.5 kg/m2 21993.55 g Trina Bales [place] - [facility] 01/15/2025 11:28:32 Social History Question Answer Notes LastModified by Organizat ion Details LastModified Time Tobacco Smoking Status Former Smoker Janel montiel [place] - [facility] 09/04/2024 13:17:25 What Type Of Gymnastic Teacher Do You Use? None [email or web address] Information not available 09/04/2024 When Did You Quit Smoking? 11-15yearssi madison [email or web address] Information not available 09/04/2024 What Is Your Current Pack Years? 10packyears [email or web address] Information not available 09/04/2024 Do You Have Any Pets? No Information not available 09/04/2024 At What Age Did You Start Smoking Tobacco? 22 Information not available 09/04/2024 Are You Passively Exposed To Smoke? No [email or web address] Information not available 09/04/2024 Are There Any Smokers In Your House? No [email or web address] Information not available 09/04/2024 How Much Tobacco Do You Smoke? No [email or web address] Information not available 09/04/2024 How Many Years Have You Smoked Tobacco? 15 [email or web address] Information not available 09/04/2024 Sex: Unknown Functional Status Question Answer Note LastModified by Organization Details LastModified Time Do you use any illicit or recreational drugs? No [email or web address] Information not available 09/04/2024 Do you or have you ever used any other forms of tobacco or nicotine? No [email or web address] Information not available 09/04/2024 What is your level of alcohol consumption? 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 noExposureToExcessiveNoise [email or web address] Infor mation not available 09/04/2024 Mental Status None recorded. Family History Nothing Reported. 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 9844361439 530227 H61.393 Chronic my cotic otitis externa 686967149 H60.399 Health Concerns Section Related Observation LastModified by Organization Detai ls LastModified Time None Recorded Concern Status LastModified by Organization Details LastModified Time None Recorded Payers Encounter Date Sequence Insurance Name Policy Number Policy Tineo Covered Member ID Tineo Member ID Guarantor Name 01/15/2025 2 [facility] (PPO) [id number] Alfonzo Aldanatin [id number] Alfonzo Garciamartin 01/15/2025 1 [place] [employer] Alfonzo Aldanatin [id number] Alfonzo F Giovani Notes Date Note Type Note Provider Name and Address Organization Details Recorded Time 01/15/2025 text/html ROS as noted in the HPI 74-year-old male presents for ear cleaning. He has canal stenosis from chronic otitis externa. Has been using one-to-one rubbing alcohol and white vinegar which seems to be working very well. Also has Lotrisone for outer ears. IRCHARD GUERRIER MD [address] [place] [address], [phone], [facility] - [facility] 01/16/2025 09:18:14
--- OUTSIDE RECORDS SUMMARY | 2025-04-12 23:17 | XMS_ITS | Encounter Summary ---
Author Organization [facility] Address [address] [place] [address] Care Team Providers Care Banana Ripening Room Supervisor Name Role Phone Beatriz Bee MD Primary Care Provider [phone] Encounter Details Date Type Department Care Team (Late st Contact Info) Description 07/04/2024 Lab Requisition [facility] Lab 299 [facility] [place] [phone] Alfonzo Tam PA [address] [employer] [address] [place] [phone] Gross hematuria Social History Tobacco Use Types [...] Description 05/04/2025 12:00 PM EST Hospital Encounter [facility] OR [address] [place] [phone] Al Vaz MD [address] [employer] [address] [place] [phone] 05/04/2025 12:00 PM EST - 05/04/2025 12:45 PM EST Surgery [facility] OR [address] [place] [phone] Al Vaz MD [address] [place] [id number] ESWL-RIGHT [[id number] (CPT )] 08/02/2025 8:45 AM EDT Office Visit Pulmonology - [place] [address] [place] [phone] Zonia Concepcion MD [address] [place] [phone] Scheduled Procedures Name Priority Associated Diagnoses Date/Ti me ESWL Calculus of kidney 05/04/2025 12:00 PM EST documented as of this encounter Procedures Procedure Name Priority Date/Time Associated Diagnosis Comments AP OUTSIDE CONSULT Routine 06/30/2024 12 :00 AM EDT Gross hematuria documented in this encounter Results * Anatomic pathology outside consult (06/30/2024 12:00 AM EDT) Final Diagnosis A. Urine, Voided, ([id number]) Negative for high grade urothelial carcinoma. Acute inflammation present. 07/05/2024 11:35 AM EDT [facility] at 1135 EDT Clinical Information Gross hematuria R31.0 Urine cytology with reflex UroVysion (AUC/SHGUC) 07/05/2024 11:35 AM EDT [facility] Gross Description A. Urine, Voided, ([id number]): Received is one ThinPrep slide for cytology. 07/05/2024 11:35 AM EDT [facility] Disclaimer Unless otherwise specified, all tissue is 10% NB formalin fixed and paraffin embedded. Technical pathology services provided by [facility] at [address], [place] [address] (CLIA #[id number]/Paolo Omer MD, Storekeeper Steward) 07/05/2024 11:35 AM EDT [facility] Tissue Urine specimen from urethra / Unknown 06/30/2024 07/04/2024 1:01 PM EDT us Alfonzo CAPPS LAB PATHOLOGY ORDERAB LES Final Result [facility] ([facility]) [facility] [address] [place] [address], [place] [phone] documented in this encounter Visit Diagnoses Diagnosis Gross hematuria Calculus of kidney documented in this encounter Care Teams Banana Ripening Room Supervisor Relationship Specialty Start Date End Date Beatriz Bee MD [address] [place] [address] PCP - General Internal Medicine 02/17/17 documented as of this encounter
--- OUTSIDE RECORDS SUMMARY | 2025-04-12 23:17 | XMS_ITS | Encounter Summary ---
Author Organization [facility] Address [address] [place] [address] Care Team Providers Care Day Care Home Provider Name Role Phone Beatriz Bee MD Primary Care Provider [phone] Encounter Details Date Type Department Care Team (Late st Contact Info) Description 04/28/2024 Lab Requisition [facility] Lab [address] [facility] [place] [phone] Gigi Leung MD [email or web address] [email or web address] [address] [place] [phone] Gross hematuria Social History Tobacco Use [...] Description 05/04/2025 12:00 PM EST Hospital Encounter [facility] OR [address] [place] [phone] Al Vaz MD [address] [place] [phone] 05/04/2025 12:00 PM EST - 05/04/2025 12:45 PM EST Surgery [facility] OR [address] [place] [phone] Al Vaz MD [address] [place] [id number] ESWL-RIGHT [[id number] (CPT )] 08/02/2025 8:45 AM EDT Office Visit Pulmonology - [place] [address] [place] [phone] Zonia Concepcion MD [address] [place] [phone] Scheduled Procedures Name Priority Associated Diagnoses Date/Ti [...] carcinoma. Acute inflammation present. 05/01/2024 6:02 PM [facility] at 1802 EST Clinical Information Gross hematuria R31.0 Urine cytology with reflex UroVysion ([facility]) 05/01/2024 6:02 PM [facility] Gross Description A. Urine, Voided, ([id number]): Received is one ThinPrep slide for cytology. 05/01/2024 6:02 PM [facility] Disclaimer Unless otherwise specified, all tissue is 10% NB formalin fixed and paraffin embedded. Technical pathology services provided by [facility] at [address], [place] [address] (CLIA #[id number]/Paolo Omer MD, Bookstore Clerk) 05/01/2024 6:02 PM [facility] Tissue Urine specimen from urethra / Unknown 04/20/2024 04/28/2024 9:55 AM EST us Gigi Leung MD LAB PATHOLOGY ORDERABLES Final Result [facility] [address] [place] [address], documented in this encounter Visit Diagnoses Diagnosis Gross hematuria Calculus of kidney documented in this encounter Care Teams Day Care Home Provider Relationship Specialty Start Date End Date Beatriz Bee MD [address] [place] [address] PCP - General Internal Medicine 02/17/17 documented as of this encounter
--- OUTSIDE RECORDS SUMMARY | 2025-04-12 23:17 | XMS_ITS | Clinical Summary ---
Author Organization [facility] Prior to 09/16/[address] [place] [id number] Care Team Providers Care Automotive Project Engineer Name Role Phone Beatriz Bee MD Primary Care Provider [phone] Allergies Active Allergy Reactions Criticality Noted Date [...] age to complete this topic Care Teams Automotive Project Engineer Relationship Specialty Start Date End Date Beatriz Bee MD [address] [place] [address] 2 [place], [place] [phone] PCP - General Internal Medicine 02/23/17
--- OUTSIDE RECORDS SUMMARY | 2025-04-12 23:17 | XMS_ITS | Clinical Summary ---
Author Organization LL [address] [place] [address] [place] [phone] Phone Care Team Providers Care Extension Work Instructor Name Role Phone Beatriz Bee MD Primary Care Provider [phone] Allergies Active Allergy Reactions Criticality Noted Date Comments Meperidine 07/01/2016 Penicillins 07/01/2016 Medications tiotropium (Spiriva with HandiHaler) 18 mcg per inhalation capsule Place 18 mcg into inhaler and inhale. Active sacubitriL-valsa rtan (Entresto) 49-51 mg per tablet Take by mouth 2 times daily. Active ipratropium-albu teroL (DUONEB) 0.5-2.5 mg/3 mL nebulizer solution Inhale [...] mouth 6 (six) times a day. Active dapagliflozin propanediol (Farxiga) 10 mg tablet Farxiga Active finasteride (PROSCAR) 5 mg tablet TAKE 1 EVERY DAY IN THE MORNING Active Active Problems Problem Noted Date Diagnosed Date Alopecia 03/30/2024 Pulmonary nodules 06/11/2017 Overview (03/30/2024): CT 08/20/2010 GERD (gastroesophageal reflux disease) 7 Chronic obstructive pulmonary disease 11/09/2016 KASSANDRA (obstructive sleep apnea) 07/01/2016 Encounters Date Type Department Care Team Description 04/04/2025 Lab Requisition [facility] Lab [address] [place] [phone] Gigi Leung MD Acute cystitis without hematuria 03/05/2025 Lab Requisition [facility] [address] [place] [phone] Gigi Leung MD Personal history of malignant neoplasm of bladder; Calculus of kidney 02/02/2025 Lab Requisition [facility] [address] [place] [phone] Gigi Leung MD Acute cystitis without hematuria 02/01/2025 8:45 AM EDT Office Visit Pulmonology - [place] [address] [place] [phone] Zonia Concepcion MD Chronic obstructive pulmonary disease, unspecified COPD type ([facility] V24, [facility] V28) (Primary Dx); KASSANDRA (obstructive sleep apnea) from Last 3 Months Surgical History Surgery Date Site/Laterality Comments OTHER SURGICAL HISTORY PROCEDURE:cardiac cath APPENDECTOMY PROCEDURE: HISTORICAL APPENDECTOMY LITHOTRIPSY PROCEDURE: HISTORICAL LITHOTRIPSY Medical History Medical History Date Comments Asthma DX:Asthma COPD (chronic obstructive pu lmonary disease) ([facility] V24, [facility] V28) DX:COPD (chronic o bstructive pulmonary disease) ([facility]) High blood pressure DX:High bloo d pressure Arthritis DX:Arthritis Chronic obstructive pulmonar y disease ([facility] V24, [facility] V28) 11/09/2016 DX:Chronic obstructive pulm onary disease ([facility]) Alopecia DX:Alopecia KASSANDRA (obstructive sleep apnea) 07/01/2016 [...] on file Sexual Orientation Not on file Last Filed Vital Signs [...] Description 05/04/2025 12:00 PM EST Hospital Encounter [facility] Main OR [address] [place] [phone] Al Vaz MD [address] [address] 05/04/2025 12:00 PM EST - 05/04/2025 12:45 PM EST Surgery [facility] OR [address] [place] [phone] Al Vaz MD [address] [place] [address] ESWL-RIGHT [[id number] (CPT )] 08/02/2025 8:45 AM EDT Office Visit Pulmonology [facility] [address] [place] [phone] Zonia Concepcion MD [address] [place] [phone] Scheduled Procedures Name Priority Associated Diagnoses Date/Ti me ESWL Calculus of kidney 05/04/2025 12:00 PM EST Health Maintenance Due Date Last Done Comments [...] on patient's age to complete this topic Goals Goal Patient Goal Type Associated Problems Recent Progress Patient-Stated? Author Autogenerat ed Goal Care Plan Autogenerated Problem No Israel Valdez Procedures Procedure Name Priority Date/Time Associated Diagnosis Comments CULTURE URINE Routine 04/04/2025 12:00 AM EST Acute cystitis without hematuria NON-GYNECOLOGIC CYTOLOGY Routine 03/01/2025 12:00 AM EST Personal history of malignant neoplasm of bladder Calculus of kidney CULTURE URINE Routine 02/02/2025 12:00 AM EDT Acute cystitis without hematuria from Last 3 Months Results * (ABNORMAL) Culture urine (04/04/2025 12:00 AM EST) Only the most recent of2 resultswithin the time period is included. Culture, Urine 50,000-100,000 CFU/mL Enterococcus faecalis(A) LETYT 04/06/2025 11:31 AM EST [facility] Comment: Edited result: Previously [...] Enterococcus faecalis Nitrofurantoin LETTY <=16 ug/ml: Susceptible Gigi Leung MD LAB MICROBIOLOGY - GENERAL ORDE RABLES Final Result Performing Organization Address City/[facility]/ZIP Co de Phone Number [facility] [address] [place] [address], [place] [phone] * Non-gynecologic cytology (03/01/2025 12:00 AM EST) Final Diagnosis A. Urine, Voided, ([id number]): Negative for high grade urothelial carcinoma. Acute inflammatory cells are present. 03/08/2025 3:43 PM EST [facility] at 1543 EST Specimen A Adequacy Satisfactory for evaluation 03/08/2025 3:43 PM EST [facility] Clinical Information History of bladder neoplasm (malignant) Z85.51 Calculus of kidney N20.0 Urine cytology with reflex UroVysion ([facility]) 03/08/2025 3:43 PM EST [facility] Gross Description A. Urine, Voided, ([id number]): Received is one ThinPrep slide for cytology. 03/08/2025 3:43 PM EST [facility] Disclaimer Unless otherwise specified, all tissue is 10% NB formalin fixed and paraffin embedded. Technical pathology services provided by [facility] at [address], [place] [address] (CLIA #[id number]/Paolo Omer MD, Ton Container Filler) 03/08/2025 3:43 PM EST [facility] Urine Urine specimen from urethra / Unknown 03/01/2025 03/05/2025 1:29 PM EST Gigi Leung MD LAB CYTOLOGY ORDERABLES Final R esult [facility] [address] [place] [address], [place] [phone] from Last 3 Months Additional Health Concerns Active Problems Noted Date Diagnosed Date Autogenerated Problem 04/06/2025 Insurance MEDICARE [facility] Care Teams Extension Work Instructor Relationship Specialty Start Date End Date Beatriz Bee MD [address] [place] [address] PCP - General Internal Medicine 02/17/17
--- OUTSIDE RECORDS SUMMARY | 2025-04-12 23:17 | XMS_ITS | Data Portability ---
Author Organization [place] - [facility], Allergy Address [address] [place] [address] Care Team Providers Care Billiard Parlor Manager Name Role Phone ANNE MARIE SETH Primary Care Provider [phone] Assessment Encounter Date Assessment Date Assessment LastModified [...] his room spinning vertigo he has positive Mes[place]-Hallpike on the left side and again with returning to sitting position. Jonn maneuver was performed today. He was provided and ATI referral for further treatment. 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 Will call if he has any recurrent symptoms following therapy. [email or web address] Not available 11/13/2024 10:51:07 11/21/2024 11/21/2024 Patient [...] this regimen and follow-up in 4 months. [email or web address] Not available 01/15/2025 13:05:31 Plan of Treatment Reminders Order Date Submit Date Provider Last Modified By Organization Details Last Modified Time Details Appointments Establish ed 15 2025 09:45A M ELO JULES PA-C Not available Not available Not available Lab culture, bacterial 2024 025 [email or web address] [facility] (Centralized Electronic Ordering - All Locations), Patient Can Go To The Location Of Their Choice, [address] 12/04/2024 15:16:01 fungus, culture, unspecifi ed specimen 2024 025 ANAHI [facility] (Centralized Electronic Ordering - All Locations), Patient Can Go To The Location Of Their Choice, [address] 12/12/2024 08:23:53 Referral None recorded. Procedures None recorded. Surgeries None recorded. Imaging None recorded. Medication Orders Ciprodex 0.3 %-0.1 % ear drops,jayjay pension 2024 025 [facility] #[id number], [address] [place], [address], 11/21/2024 08:26:26 clotrimaz ole-betam ethasone 1 %-0.05 % topical cream 2024 025 [facility] #[id number], [address] [place], [address], 01/15/2025 11:28:58 Patient TargetsNo targets recorded. Patient InstructionsNo instructions recorded. Reason for Referral None Reported. Results Created Date Observation Date Name Description Value Unit Range Abnormal Flag Note LastModifiedBy Organization Detail LastModifiedTime 11/14/1911/16/2024 ANAER OBIC AND AEROB IC CULTU RE aerobic culture Final report abnormal Not Available [facility] ([facility]) [address] [facility], [place], [address], 12/12/2024 08:23:52 11/14/19 25 11/16/2024 ANAER OBIC [...] s. Heavy growt h Not Available [facility] ([facility]) [address] [facility], [place], [address], 12/12/2024 08:23:52 11/14/19 25 11/16/2024 ANAER OBIC [...] S Tobra mycin S Not Available [facility] ([facility]) [address] [facility], [place], [address], 12/12/2024 08:23:52 11/14/19 25 11/18/2024 ANAER OBIC AND AEROB IC CULTU RE anaerobic culture Final report abnormal Not Available [facility] ([facility]) [address] [facility], [place], [address], 12/12/2024 08:23:52 11/14/19 25 11/18/2024 ANAER OBIC AND AEROB IC CULTU RE result 1 COMMEN T No anaer obic growt h in 72 hours . Not Available [facility] ([facility]) [address] [facility], [place], [address], 12/12/2024 08:23:52 11/14/19 25 11/18/2024 ANAER OBIC [...] Moder ate growt h Not Available [facility] ([facility]) [address] [place], [address], 12/12/2024 08:23:52 11/14/19 25 11/14/2024 FUNGU S CULTU RE WITH STAIN fungus stain Final report Not Available [facility] ([facility]) [address] [place], [address], 12/12/2024 08:23:53 11/14/19 25 11/14/2024 FUNGU S CULTU RE WITH STAIN result 1 COMMEN T MARISSA/C alcof luor prepa ratio n: no fungu s obser orlin. Not Available [facility] ([facility]) [address] [facility], [place], [address], 12/12/2024 08:23:53 11/14/19 25 12/12/2024 FUNGU S CULTU RE WITH STAIN fungus (mycology) culture Final report Not Available [facility] ([facility]) [address] [facility], [place], [address], 12/12/2024 08:23:53 11/14/1912/12/2024 FUNGU S CULTU RE WITH STAIN result 1 COMMEN T No yeast or mold isola sole after 4 weeks . Not Available [facility] ([facility]) [address] [facility], [place], [address], 12/12/2024 08:23:53 Result Notes None recorded. 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 76464352307 09046 Active 2019 Other acquired stenosis of external ear canal, bilateral ; Note: Date Diagnosed : 0 10:53 AM (H61.393) ELO JULES PA-C [address] [place] [address], [place], [address] , [facility] - [facility] 5 13:05:34 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 79207003891 43820 Active 2020 Acquired stenosis of external ear canal secondary to inflammat ion and infection , bilateral ; Note: Date Diagnosed : 05/16/2020 5:22 PM (H61.323) Not Available [facility] 4 02:56:30 Otorrhea of bilateral ears 47276940341 25873 Active 2020 Otorrhea, bilateral ; Note: Date Diagnosed : 05/16/2020 5:22 PM (H92.13) Not Available [facility] 4 02:56:29 Eczema 34279848 Active 2020 Other specified dermatiti s; Note: Date Diagnosed : 05/16/2020 5:22 PM (L30.8) Not Available [facility] 4 02:56:30 Superfici al mycosis 573366240 Active 2020 Other specified superfici al mycoses; Note: Date Diagnosed : 05/16/2020 5:22 PM (B36.8) Not Available [facility] 4 02:56:27 Itching of skin 369813203 Active 2022 Other pruritus; Note: Date Diagnosed : 3 3:01 PM (L29.8) Not Available [facility] 4 02:56:28 Impacted cerumen of bilateral ears 67912992518 59597 Active 2022 Impacted cerumen, bilateral ; Note: Date Diagnosed : 3 3:00 PM (H61.23) SANJAY MINAYA PA-C [address], [place], [address] , [place] - [facility] 5 17:17:51 Chronic eczema of external auditory canal 008488711 Active 2023 Deedee montiel [place] - [facility] 4 11:42:00 Sensorine ural hearing loss of bilateral ears 800736108 Active 2023 AGNES CHRISTIANSEN, AUD [address], [place], [address] , [place] - [facility] 4 11:35:19 Mixed conductiv e and sensorine ural hearing loss, bilateral 279650288 Active 2023 AGNES CHRISTIANSEN, AUD [address], [place], [address] , [place] - [facility] 4 11:45:31 Disorder of left Eustachia n tube 17226074703 30923 Active 2024 Deedee montiel [place] - [facility] 5 10:45:07 Chronic mycotic otitis externa 007309945 Active 2024 ELO JULES PA-C [address], [place], [address] , [place] [facility] 5 13:05:39 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 SANJAY MINAYA PA-C [address], [place], [address] , [place] - [facility] 5 13:52:40 Benign paroxysma l positiona l vertigo 040405586 Active 2024 ELO JULES PA-C [address],[place] [address], [place], [address] , [place] - [facility] 5 10:51:38 Bilateral external auditory canal chronic otitis externa 51799746457 40498 Active 2024 DALLIN KIRKLAND MD [address],[place] [address], [facility] [place], [address] , [place] [facility] 5 08:55:59 Problem Notes None recorded. Procedures Surgical History Date Name Laterality Status Provider Name and Address Organization Details Recorded Time 5 Debridement of Ear canal bilateral completed DALLIN KIRKLAND MD [address],[place] [address], [place], [address], [place] - [facility] 11/21/2024 08:42:53 5 Cerumen removal without microscope bilat completed SANJAY MINAYA PA-C [address],[place] [address], [place], [address], [place] [facility] 09/04/2024 17:12:03 5 Cerumen removal without microscope bilat completed Deedee Cuellar [place] - [facility] 05/22/2024 10:54:37 4 Cerumen removal without microscope bilat completed Deedee Cuellar [place] - [facility] 02/10/2024 13:06:49 4 Comp Audio with Tymps - 91748 & 51848 completed CARMELO CAROLINA [address],[place] [address], [place], [address], [place] [facility] 01/13/2024 11:35:22 4 Cerumen removal without microscope bilat completed Deedee Cuellar [place] - [facility] 01/13/2024 11:56:50 Imaging Results None recorded. Procedure Notes None recorded. Medical Equipment None Reported. Allergies Allergen ID Allergen Name Allergen Category Reaction Reaction Severity Criticality Documentation Date Start Date Code Code System Note Provider Name and Address Organization Details Recorded Time 762212 Demerol medicatio n other Not available Not available 08/31/2023 18567 1 RxNorm React ion: other react ion, Unkno wn; Not Available [facility] 4 01:14:39 163757 Product containin g penicilli n (product) medicatio n other Not available Not available 08/31/2023 68199 8001 SNOMED React ion: other react ion, Unkno wn; Not Available [facility] 4 01:14:43 Medications Name Sig Start Date [...] mg capsule 11/21 completed Medicati on ID: [id number] B rand Name: malgorzata in Send Method: [...] mg tablet 11/21 completed Medicati on ID: [id number] B rand Name: caprice ne Send Method: [...] Advair HFA 2019 active Medicati on ID: [id number] B rand Name: Advair HFA Send Method: [...] Updated DateTime 09/20/2024 180.34 cm 26.5 kg/m2 10500.55 g Violet Loza [place] [facility] 09/20/2024 09:04:44 Date Recorded Body height Body mass index (BMI) Body weight Provider Name and Address Organization Details Last Updated DateTime 10/04/2024 180.34 cm 26.5 kg/m2 19403.55 g Trina Bales [place] - [facility] 10/04/2024 12:58:54 Date Recorded Body height Body mass index (BMI) Body weight Provider Name and Address Organization Details Last Updated DateTime 11/13/2024 180.34 cm 27.2 kg/m2 91371.51 g Violet Loza [place] [facility] 11/13/2024 09:59:42 Date Recorded Body height Body mass index (BMI) Body weight Provider Name and Address Organization Details Last Updated DateTime 11/21/2024 180.34 cm 27.2 kg/m2 75026.51 g Kike Conway [place] - [facility] 11/21/2024 08:17:35 Date Recorded Body height Body mass index (BMI) Body weight Provider Name and Address Organization Details Last Updated DateTime 01/15/2025 180.34 cm 26.5 kg/m2 45132.55 g Trina Bales [place] [facility] 01/15/2025 11:28:32 Social History Question Answer Notes LastModified by Organizat ion Details LastModified Time Tobacco Smoking Status Former Smoker Janel montiel [place] - [facility] 09/04/2024 13:17:25 What Type Of Medical Sales Associate Do You Use? None [email or web address] Information not available 09/04/2024 When Did You Quit Smoking? 11-15yearssi madison dacosta [email or web address] Information not available 09/04/2024 What Is Your Current Pack Years? 10packyears [email or web address] Information not available 09/04/2024 Do You Have Any Pets? No Information not available 09/04/2024 At What Age Did You Start Smoking Tobacco? 22 [email or web address] Information not available 09/04/2024 Are You Passively Exposed To Smoke? No [email or web address] Information not available 09/04/2024 Are There Any Smokers In Your House? No [email or web address] Information not available 09/04/2024 How Much Tobacco Do You Smoke? No [email or web address] Information not available 09/04/2024 How Many Years Have You Smoked Tobacco? 15 [email or web address] Information not available 09/04/2024 Sex: Unknown Functional Status Question Answer Note LastModified by Organization Details LastModified Time Do you use any illicit or recreational drugs? No Information not available 09/04/2024 Do you or have you ever used any other forms of tobacco or nicotine? No [email or web address] Information not available 09/04/2024 What is your level of alcohol consumption? 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 noExposureToExcessiveNoise [email or web address] Infor mation not available 09/04/2024 Mental Status None recorded. Family History Nothing Reported. Medical History Condition Response Allergies/Hayfever Y Heart Problems Y Anxiety N Tonsil Infections N Emphysema Y Migraines N Thyroid Problems N COPD Y Depression N Developmental Delay N Glaucoma N Nasal or Sinus Problems Y Anemia N Immune System Disorder Y Anesthesia Complications N Heart Attack ([place]) N Other Skin Condition N Diabetes N [...] Note [id number] DEEDEE CUELLAR PA-C [facility] [address] [address] 10/13/2023 11:34:05 10/13/2023 11:44:53 Chronic eczema of external auditory canal 334053346 H60.8X9 [id number] DEEDEE CUELLAR PA-C [facility] [address] [address] 01/13/2024 10:51:57 01/13/2024 12:16:11 Impacted cerumen of bilateral ears 9628731547 421203 H61.23 Chronic ec zema of external auditory canal 598353335 H60.8X9 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 3388194683 354678 H61.393 [id number] DEEDEE CUELLAR PA-C [facility] [address] [address] 05/22/2024 10:29:29 05/22/2024 10:47:22 Chronic eczema of external auditory canal 379311116 H60.8X9 Impacted c erumen of bilateral ears 1990050595 030375 H61.23 Disorder o f left Eustachian tube 7006480547 812878 H69.92 Stenosis o f bilateral external ear canals due to and following infection 9617951743 038278 H61.323 [id number] SANJAY MINAYA PA-C [facility] [address] [address] 09/04/2024 12:57:46 09/04/2024 13:57:07 Chronic mycotic otitis externa 959453751 H60.399 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 2844031362 066706 H61.393 Impacted c erumen of bilateral ears 2878844272 130120 H61.23 912436 [id number] SANJAY MINAYA PA-C [facility] [address] [address] 09/20/2024 08:44:43 09/20/2024 09:28:02 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 6317828183 091544 H61.393 Chronic my cotic otitis externa 693003036 H60.399 Sensorineu ral hearing loss of bilateral ears 696213391 H90.3 [id number] SANJAY MINAYA PA-C [facility] [address] [address] 10/04/2024 12:44:36 10/04/2024 13:29:03 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 7078723362 036531 H61.393 Chronic my cotic otitis externa 707837163 H60.399 [id number] ELO JULES PA-C [facility] [address] [address] 11/13/2024 09:50:52 11/13/2024 10:36:33 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 8843221598 950989 H61.393 Otorrhea o f bilateral ears 7861230522 749306 H92.13 Chronic my cotic otitis externa 683703618 H60.399 Chronic ec zema of external auditory canal 243367020 H60.8X9 Benign par oxysmal positional vertigo 546870488 H81.12 31396637 [id number] DALLIN KIRKLAND MD [facility] [address] [address] 11/21/2024 08:10:01 11/21/2024 08:59:02 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 8375102538 427011 H61.393 Otorrhea o f bilateral ears 8145204926 626204 H92.13 Chronic ec zema of external auditory canal 546170261 H60.8X9 Bilateral external auditory canal chronic otitis externa 1673015632 154324 H60.313 71182353 [id number] ELO JULES PA-C [facility] [address] [address] 01/15/2025 11:19:38 01/15/2025 11:44:40 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 9129604576 729186 H61.393 Chronic my cotic otitis externa 958148786 H60.399 Health Concerns Section Related Observation LastModified by Organization Detai ls LastModified Time None Recorded Concern Status LastModified by Organization Details LastModified Time None Recorded Advance Directives Directive None Recorded Payers Insurance Date Sequence Insurance Name Policy Number Policy Tineo Covered Member ID Tineo Member ID Guarantor Name 01/15/2025 2 [place]) [id number] Alfonzo Rachel Giovani [id number] Alfonzo Rachel Giovani 01/15/2025 1 [place] Alfonzo Rachel Giovani [id number] Alfonzo Rachel Giovani 11/21/2024 2 [place] [id number] Alfonzo Rachel Giovani [id number] Alfonzo Rachel Giovani Notes Date Note Type [...] Occasional ear itchiness. EDER PIKE MD [address], [address], [place] [facility] 09/20/2024 12:07:52 10/04/2024 text/html ROS as noted in the [facility] 73-year-old male with stenotic ear canals and chronic mycotic otitis externa presents for reevaluation. He reports aural fullness and ear itchiness resolved with lotrisone placement into ear canals last visit. Ears started itching again 3 days ago. Denies ear pain, drainage, or hearing concerns. EDER PIKE MD [address], [address], [place] [facility] 10/04/2024 15:23:13 11/13/2024 text/html ROS as noted in the [facility] 74-year-old male presents for reevaluation of [...] other associated symptoms. BIMAL ALVARADO MD [address], [address], [place] [facility] 11/14/2024 08:55:23 11/21/2024 text/html Patient with collapsing external auditory canals resulting in stenosis and subsequent recurrent/chronic otitis externa. Patient has had both bacterial and fungal elements causing discharge. He has been treated with Ciprodex and clotrimazole/betam ethasone cream. Patient has been on both Ciprodex drops as well as oral prednisone (prescribed by his ex assistant/program director) for about a week, and the ears [...] ear or mastoid. DALLIN KIRKLAND MD [address], [address], [facility] - [facility] 11/21/2024 09:00:15 01/15/2025 text/html ROS as noted in the HPI 74-year-old male presents for ear cleaning. He has canal stenosis from chronic otitis externa. Has been using one-to-one rubbing alcohol and white vinegar which seems to be working very well. Also has Lotrisone for outer ears. RICHARD GUERRIER MD [address] [place] [address],[address] [address], [place], [address], [facility] - [facility] 01/16/2025 09:18:14
--- OUTSIDE RECORDS SUMMARY | 2025-04-12 23:17 | XMS_ITS | Patient Health Record ---
Author Organization [facility] Address [address] [place] [address] Care Team Providers Care Machine Bander And Cellophaner Name Role Phone Rohit VELÁSQUEZ, Beatriz Primary Care Provider Unavailabl e Black, Crista Unavailable [phone] Allergies Allergen (clinical drug ingredient) Drug/Non Drug Allergy documented on EMR Reaction Allergy Type Onset Date Status meperidine Demerol rash Drug Allergy Active Penicillin Unknown Drug Allergy Active Reason For Referral No Information Medications Medication SIG (Take, Route, Frequency, Duration) Notes Start Date End Date Status Wixela Inhub spiriva Active Loratadine 10 MG 1 tablet Orally Once a day; Duration: 30 day(s) Active Naproxen 500 MG Oral; Duration: 30 Days Active Albuterol Sulfate HFA Active Advair HFA Active Co Q 10 [...] 1 tablet Orally Twice a day Active Social History Tobacco Use: Social History Observation Description Date Details (start date - stop date) Never Smoker NA - NA Tobacco use other than smoking: Question Answer Notes Are you an other tobacco user? No Tobacco Control (Standard) Question Answer Notes Tobacco use: Nonsmoker Additional Findings: Tobacco non-user Current no nsmoker AUDIT-C (Standard) Question Answer Notes Did you have a drink containing alcohol in the p ast year? No Points 0 Interpretation Negative Problems Problem Type SNOMED Code ICD Code Onset Dates Problem Status W/U Status Risk Notes Problem Tinea unguium (185198252) Tinea unguium (B35.1) Active confirmed Vital Signs Blood pressure diastolic 73 mm Hg 01/04/2025 Height 6ft in 01/04/2025 Blood pressure systolic 120 mm Hg 01/04/2025 Weight 195 lbs 01/04/2025 BMI 26.44 kg/m2 01/04/2025 Procedures Procedure Date Ordered Date Performed Result Body Sit e 85092-DXPEGBK NAIL, 6 OR MORE 06/01/2024 N/A 10111-GIZHFTW NAIL, 6 OR MORE 09/21/2024 N/A 93486-MTKWBUW NAIL, 6 OR MORE 01/04/2025 N/A Encounters Encounter Location Date Provider Diagnosis [address] [address] 04/05/2025 Crista Black [address] [address] 06/01/2024 Crista Black Tinea unguium B35.1 ; Pain in right toe(s) M79.674 and Pain in left toe(s) M79.[address] [address] 09/21/2024 Crista Black Tinea unguium B35.1 ; Pain in right toe(s) M79.674 and Pain in left toe(s) M79.[address] [address] 01/04/2025 Crista Black Tinea unguium B35.1 ; Pain in right toe(s) M79.674 and Pain in left toe(s) M79.675 Assessments Encounter Date Diagnosis (ICD Code) Assessment Notes Treatment Notes Treatment Clinical Notes Section Notes 06/01/2024 Tinea unguium (ICD-10 - B35.1) 06/01/2024 Pain in right toe(s) (ICD-10 - M79.674) 09/21/2024 Tinea unguium (ICD-10 - B35.1) 01/04/2025 Tinea unguium (ICD-10 - B35.1) 01/04/2025 Pain in right toe(s) (ICD-10 - M79.674) 09/21/2024 Pain in right toe(s) (ICD-10 - M79.674) 06/01/2024 Pain in left toe(s) (ICD-10 - M79.675) 09/21/2024 Pain in left toe(s) (ICD-10 - M79.675) 01/04/2025 Pain in left toe(s) (ICD-10 - M79.675) Plan Of Treatment Pending Test Test Name Order Date 17870-KEMHCIW NAIL, 6 OR MORE 03/24/2021 66365-STQVBGE NAIL, 6 OR MORE 11/18/2023 57404-RSNPZIM NAIL, 6 OR MORE 02/28/2024 22042-HOIDMBA NAIL, 6 OR MORE 06/01/2024 13722-XQPOZUY NAIL, 6 OR MORE 09/21/2024 15752-EIWDLVS NAIL, 6 OR MORE 01/04/2025 Next Appt Details Provider Name:Crista Garcia , 06/25/2025 02:00:00 PM, [address] [facility], [place], [address], Insurance Providers Payer Name Payer Address Payer Phone Subscriber Number Group Number Insured Name Patient Relationship to Insured Coverage Start Date Coverage End Date Medicare National [employer]t [employer] [address] [place] [address] [id number] Alfonzo Lynch Self - patient is the insured [facility] [address] [place] [address] [id number] Alfonzo Lynch Self - patient is the [...]
[2025-04-12 23:18] VITALS: BP 105/54; PULSE 106; RESP 17; TEMP 36.8; O2SAT 93
--- OUTSIDE RECORDS SUMMARY | 2025-04-12 23:18 | XMS_ITS | Encounter Summary ---
Author Organization [facility] Address [address] [place] [address] Care Team Providers Care Furnace Checker Name Role Phone Beatriz Bee MD Primary Care Provider [phone] Encounter Details Date Type Department Care Team (Late st Contact Info) Description 07/03/[address] [facility] [address] [facility] [place] [phone] Alfonzo aTm PA [address] [employer] [address] [place] [phone] Gross hematuria; Urinary tract infection, site not [...] Encounter [facility] [address] [place] [phone] Al Vaz MD [address] [id number] 05/04/2025 12:00 PM EST - 05/04/2025 12:45 PM EST Surgery [facility] [address] [place] [phone] Al Vaz MD [address] [place] [address] [id number] [[id number] (CPT )] 08/02/2025 8:45 AM EDT Office Visit Pulmonology - [place] [address] [place] [phone] Zonia Concepcion MD [address] [place] [phone] Scheduled Procedures Name Priority Associated Diagnoses Date/Ti [...] Enterococcus faecalis(A) LETTY 07/05/2024 9:38 AM EDT [facility] Comment: Edited [...] MICROBIOLOGY - GE NERAL ORDERABLES Final Result [facility] [address] [place] [address], documented in this encounter Visit Diagnoses Diagnosis Gross hematuria Urinary tract infection, site not specified Calculus of kidney documented in this encounter Care Teams Furnace Checker Relationship Specialty Start Date End Date Beatriz Bee MD [address] [place] [address] PCP - General Internal Medicine 02/17/17 documented as of this encounter
[2025-04-12 23:35] VITALS: PULSE 106; RESP 18; O2SAT 93
--- NOTE | 2025-04-12 23:47 | PC.NURSE ---
at the end of breathing tx O2 saturation 88% 2L, placed on 3L and up to 91%. MD made aware
[2025-04-13] VITALS (13 sets, daily range): BP systolic 99–133; BP diastolic 59–73; PULSE 94–116; RESP 15–28; TEMP 36.2–37; O2SAT 92–95; BMI 27.2
[2025-04-13] MEDS: Magnesium Sulfate/H2O 2 GM/50 ML PIGGYBACK IV (01:10)
--- NOTE | 2025-04-13 01:23 | P.HPHOSP_ITS ---
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 He denied associated chest pain. Reported some runny nose. He denied fever or chills. He did not report any headache, dizziness or palpitations. He did not report any acute gastrointestinal or genitourinary symptoms. He mentioned that he has a history of recurrent UTI and nephrolithiasis. He isn't taking prednisone everyday. In the ED, he was found to have have, sinus tachycardia, tachypnea and oxygen saturation of 90% on room air. He was placed on supplemental oxygen, 3 L/min via NC. Blood workup showed leukocytosis of 16.3. There are no electrolyte imbalances. Renal function is normal. Random glucose 118. There is no lactic acidosis. LFTs are normal. Viral testing for COVID-19, influenza and RSV is negative. Soft tissue neck CT showed no acute findings. Chest CTA showed scattered subsegmental atelectasis without consolidation. There are 2-3 mm pleural/pleural-based nodule in the right lung. ECG showed left bundle-branch block (old). ED tx: Racemic epinephrine 0.5 mL, magnesium 2 g IV, DuoNeb 3 mL neb azithromycin 500 mg IV, ceftriaxone 2 g IV, dexamethasone 1 g IV Review of Systems 2 Review of Systems: All 12 systems were reviewed and normal except as noted in HPI. [facility] Medical History (Updated 04/13/25 @ 01:53 by Bora Leo MD) CAD (coronary artery disease) Surgical History Hx of cardiac catheterization (~05/2021) Social History Household Members: Spouse Housing: Apartment Do you presently have visiting nurse or other home services: No Alcohol intake: never Patient Tobacco Use Status: Former Tobacco user Tobacco use type: Cigarette Second Hand Smoke Exposure: No Advance Directives Date on File: 07/09/23 service: No Meds Allergies Allergy/AdvReac Type Severity Reaction Status Date / Time meperidine (From Demerol) Allergy Intermediate Rash Verified 04/12/25 21:49 levofloxacin Allergy Swelling Verified 04/12/25 21:49 Penicillins Allergy Unknown Verified 04/12/25 21:49 Active Medications: Current Medications Acetaminophen (Acetaminophen 325 Mg Tablet) 650 mg PO Q6H PRN PRN Reason: Pain, Mild 1-3,fever,headache Albuterol Sulfate (Albuterol Sulfate (0.083%) 2.5 Mg/3 Ml Vial.Neb) 2.5 mg INHALE Q2H PRN PRN Reason: Shortness of Breath/Wheezing Albuterol/Ipratropium (Albuterol/Iprat 2.5/0.5mg 3 Ml Ampul.Neb) 3 ml INHALE RQ4H WHILE AWAKE UNRULY Calcium Carbonate (Calcium Carbonate 750 Mg Tab.Chew) 750 mg PO Q4H PRN PRN Reason: Heartburn Dextrose (Dextrose 50 % 25 Gm/50 Ml Syringe) 25 gm IVPUSH Q15M PRN; Protocol PRN Reason: per Hypoglycemia Standing Ord. Enoxaparin Sodium (Enoxaparin Sodium 40 Mg/0.4 Ml Syringe) 40 mg SUBCUT Q24H [facility] Glucose (Glucose Gel 15 Gm Gel..Gram.) 15 gm PO Q15M PRN; Protocol PRN Reason: per Hypoglycemia Standing Ord. Insulin Human Lispro (Insulin Lispro 100 Unit/Ml 3 Ml Vial) 0 unit SUBCUT QIDACHS [facility]; Protocol Magnesium Hydroxide (Milk Of Magnesia 30 Ml Oral.Susp) 30 ml PO DAILY PRN PRN Reason: Constipation Melatonin (Melatonin 3 Mg Tablet) 6 mg PO BEDTIME PRN PRN Reason: Insomnia Methylprednisolone Sodium Succinate (Methylprednisolone Sod Succ 40 Mg/Ml Vial) 40 mg IVPUSH Q6H [facility] Sodium Chloride (0.9 % Sodium Chloride Flush 3 Ml Syringe) 3 ml IVFLUSH QSHIFT [facility] Home Medications ?Medication ?Instructions ?Recorded ?Confirmed ?Last Taken ?Type atorvastatin 20 mg tablet 20 mg PO DAILY 05/12/2307/19 1 Day Ago History ~07/08/23 dapagliflozin propanediol 10 mg 10 mg PO DAILY 4 08/09/24 1 Day Ago History tablet (Farxiga) ~07/08/23 fluticasone 100 mcg-salmeterol 50 1 ea inhalation BID 05/12/23 08/09/24 1 Day Ago History mcg/dose blistr powdr for ~07/08/23 inhalation (Moixearl Inhub) furosemide 20 mg tablet 20 mg PO DAILY 05/12/2307/19 1 Day Ago History ~07/08/23 sacubitril 49 mg-valsartan 51 mg 1 tab PO BID 05/12/23 08/09/24 1 Day Ago History tablet (Entresto) ~07/08/23 spironolactone 25 mg tablet 12.5 mg PO DAILY 05/12/23 08/09/24 1 Day Ago History ~07/08/23 tiotropium bromide 18 mcg capsule 1 cap inhalation MICAH LY 05/12/23 08/09/24 1 Day Ago History with inhalation device ~07/08/23 carvedilol 6.25 mg tablet 6.25 mg PO BID 07/06/2307/19 1 Day Ago History ~07/08/23 ketoconazole 2 % topical cream appl topical BID Unknown History Physical Exam 2 Vital Signs and Narrative: Vital Signs: Last Vital Signs Temp 98.3 F 04/12/25 23:18 Pulse 109 H 04/13/25 00:39 Resp 15 04/13/25 00:39 BP 99/64 04/13/25 00:39 Pulse Ox 93 04/13/25 00:39 O2 Del Method Nasal Cannula 04/13/25 00:39 O2 Flow Rate 3 04/13/25 00:39 BMI result Body Mass Index 26.5 General: Alert, oriented, in no acute distress. Cooperative. Afebrile. Constantly coughing. Nasal cannula in place. HEENT: Head normocephalic, atraumatic. PER, EOMI. Sclerae anicteric, conjunctiva clear. Oropharynx without erythema or exudate. Mucous membranes moist. Neck: Supple. Heart: Regular rhythm, tachycardic. No murmurs. Lungs: Tachypnea, prominent bilateral rhonchi. No crackles. Normal respiratory effort. Abdomen: Soft, non tenderness, nondistended, normoactive bowel sounds. No hepatosplenomegaly, masses or masses. Extremities: No calf tenderness bilaterally, no swelling Musculoskeletal: Full range of motion. No joint swelling, deformity, or tenderness. Normal muscle tone and strength. Skin: Warm/Dry. No pallor. No jaundice. Neurologic: Alert & oriented x4. Moving all extremities spontaneously. Normal speech. Psychological: Normal mood and affect. Thought process coherent. Results Labs 04/12/25 22:27 04/12/25 22:27 Labs: Laboratory Results - last 24 hr 04/12/25 22:27 MCV 92.5 MCH 30.6 MCHC 33.1 RDW 14.3 Plt Count 280 MPV 9.4 Immature Gran % (Auto) 0.4 Neut % (Auto) 79.3 H Lymph % (Auto) 6.1 L [place] % (Auto) 8.8 Eos % (Auto) 4.8 H Baso % (Auto) 0.6 Lymph # (Auto) 1.0 L [place] # (Auto) 1.4 H Eos # (Auto) 0.8 H Baso # (Auto) 0.1 Abs Immat Gran (auto) 0.06 H Absolute Neuts (auto) 12.9 H Absolute Nucleated RBC 0.000 Nucleated RBC % (auto) 0.0 Anion Gap 15 Estim Creat Clear Calc 77.3 Estimated GFR > 60 Random Glucose 118 H Lactic Acid 1.0 Calcium 9.8 D Total Bilirubin 0.7 AST 35 ALT 34 Alkaline Phosphatase 73 NT-Pro-B Natriuret Pep 89.0 Total Protein 7.3 Albumin 4.7 Influenza Type A (PCR) NEGATIVE Influenza Type B (PCR) NEGATIVE RSV RNA Qual (PCR) NEGATIVE SARS-CoV-2 RNA (RT-PCR) NEGATIVE Assessment and Plan (1) Acute exacerbation of COPD with asthma: Status: Acute (2) HFrEF (heart failure with reduced ejection fraction): Status: Acute Plan Alfonzo Matute is a 74 y/o man with a PMHx significant for 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 Telemetry. Pulse oximetry. Supplemental O2 to keep O2 sats above 90%. Continue bronchodilator therapy, IV steroids and empiric IV antibiotic therapy with ceftriaxone and azithromycin. Check respiratory panel. HFrEF. Continue Entresto, furosemide, spironolactone, carvedilol and Farxiga (not Jardiance). CAD. Stable. 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 Hyperlipidemia. Continue statin. RA. On methotrexate and sulfasalazine, on hold due to acute infection. Code status: Full DVT prophylaxis: Lovenox Patient will need hospitalization for at least 2 midnights for acute exacerbation of COPD treatment with vanc a dilator therapy, supplemental oxygen IV steroids and empiric IV antibiotic therapy. Quality Stroke Does the patient have a stroke diagnosis?: No VTE Prior VTE?: No VTE Risk Level:: Medical - moderate - high VTE Device Contraindication: Treatment Not Indicated VTE Drug Contraindication: N/A - Med Ordered
[2025-04-13] MEDS: Albuterol Sulfate 2.5 MG, Albuterol/Iprat 2.5/0.5MG 3 ML 3 ML INHALE (01:27)
[2025-04-13 03:43] LABS: Appearance Urine Clear; Glucose Urine UA >=1000 mg/dL (Negative); PH 5.0 (5.0-9.0); Specific Gravity - Urine >= 1.030 (1.005-1.025); UMIC TRIGGER UACC YES
[2025-04-13 03:46] LABS: UACC Culture Trigger YES
[2025-04-13 06:53] LABS: Hematocrit 43.4 % (42.0-52.0); Hemoglobin 14.5 g/dl (14.0-18.0); Imm Gran Abs Auto 0.05 X10*3/uL (0.00-0.03); Imm Gran Pct Auto 0.4 % (0.0-0.4); Lymphocytes Absolute Auto 0.7 X10*3/uL (1.2-4.9); MANUAL DIFF FLAG SCAN; Mean Corpuscular HGB Conc 33.4 g/dl (31.0-36.0); Mean Corpuscular Hemoglobin 31.0 pg (27.0-33.0); Mean Corpuscular Volume 92.7 fL (80.0-98.0); NRBC Abs Auto 0.000 X10*3/uL (0.0-0.012); NRBC Pct Auto 0.0 /100WBC (0.0-0.2); Platelet Count 283 X10*3/uL (160-400); Red Blood Count 4.68 X10*6/uL (4.60-5.80); SCAN SMEAR FLAG 1; White Blood Count 12.9 X10*3/uL (4.8-10.8)
[2025-04-13 07:16] LABS: Anion Gap 15 (12-20); Blood Urea Nitrogen 16 mg/dL (9-16); Calcium 9.1 mg/dL (8.4-10.2); Carbon Dioxide 19 mmol/L (22-29); Chloride 106 mmol/L (96-108); Creatinine Clr Calc Pharmacy 88.8; Estimated Glomerular Filt Rate > 60; Potassium 4.0 mmol/L (3.3-5.1); Sodium 136 mmol/L (135-145)
[2025-04-13] MEDS: 0.9 % Sodium Chloride Flush 3 ML SYRINGE IVFLUSH ×3 (08:10→21:54)
[2025-04-13] MEDS: Albuterol/Iprat 2.5/0.5MG 3 ML AMPUL.NEB INHALE ×3 (08:23→15:34)
[2025-04-13 08:59] LABS: Chlamydia pneumoniae PCR Not Detected (Not Detect.); Coronavirus 229E PCR Not Detected (Not Detect.); Coronavirus HKU1 PCR Not Detected (Not Detect.); Coronavirus NL63 PCR Not Detected (Not Detect.); Coronavirus OC43 PCR Not Detected (Not Detect.); RSV PCR Not Detected (Not Detect.); Rhino/Enterovirus PCR Detected (Not Detect.)
[2025-04-13 09:04] LABS: Glucose, Whole Blood 139 mg/dL (60-115)
--- NOTE | 2025-04-13 09:15 | PHA.MEDREC ---
Addendum entered by Garima Casas RPh 04/13/25 09:25: Reviewed. Went to speak to patient directly regarding his methotrexate. Patient states he takes his methotrexate as 2 days on, 1 day off then, 2 days on and so forth with one tablet daily.. He said his day to skip this week was 04/12 a . Therefore he is due for a tablet on 04/13 and another on 04/14. Then the 1 day off would be 04/15 and so on. Original Note: Pharmacy Consult ? Medication Reconciliation Pharmacy has completed the medication reconciliation. Spoke with pt and he confirmed his medications. Pt confirmed he stopped taking Folic Acid himself recently , he is taking a Nitrofurantoin 100mg cap 1 BID; pt states he has one day left worth at home, he still uses and has a Wixella inhaler, pt takes 1 puff BID and a Spiriva inhaler, pt takes 1 inh daily; pt states he was getting these at [facility] and I called [employer] and they confirmed Wixella LF: 09/22/2024 and Spiriva has claims for at least 2+ years from [employer].
[2025-04-13 10:33] LABS: Influenza A H1 PCR Not Detected (Not Detect.); Influenza A H1-2009 PCR Not Detected (Not Detect.); Influenza A H3 PCR Not Detected (Not Detect.); SARS-CoV-2 PCR Not Detected (Not Detect.)
[2025-04-13 11:35] LABS: Glucose, Whole Blood 244 mg/dL (60-115)
--- NOTE | 2025-04-13 14:15 | MHC.CM.PN ---
IMM 04/13/25, Pt. lives with his , he does not use home health services or DME. PCP is confirmed: Genevieve [facility] [facility] in [place] (used to be office of: Beatriz Bee MD). HCP is on file and confirmed: Cyndie. to pick pt up at DC, DCP: home, self care, CM to follow for DC needs.
--- NOTE | 2025-04-13 15:08 | PM.EVENT ---
Event Note Date of Service: 04/13/25 Event Note: Patient seen and examined by hospitalist team early this morning. Seen and examined again-shortness of breathe seems Physical exam similar to H&P. Assessment and plan as per H&P. Nebs, steroids antibiotics, URI positive for entero/rhinovirus Time Spent With Patient Time: Total time managing care of this patient today ____ minutes.
[2025-04-13 15:50] LABS: Glucose, Whole Blood 137 mg/dL (60-115)
[2025-04-13 21:10] LABS: Glucose, Whole Blood 158 mg/dL (60-115)
[2025-04-13] MEDS: Sacubitril/Valsartan 49/51 1 TAB TABLET PO (21:52)
[2025-04-14] VITALS (11 sets, daily range): BP systolic 114–131; BP diastolic 63–76; PULSE 90–100; RESP 18–24; TEMP 36.2–36.8; O2SAT 91–95
[2025-04-14] MEDS: guaiFENesin 200 MG/10 ML 10 ML LIQUID PO ×3 (05:07→21:53)
[2025-04-14 07:22] LABS: Glucose, Whole Blood 143 mg/dL (60-115)
[2025-04-14] MEDS: Sacubitril/Valsartan 49/51 1 TAB TABLET PO ×2 (08:02→21:49)
[2025-04-14] MEDS: 0.9 % Sodium Chloride Flush 3 ML SYRINGE IVFLUSH ×3 (08:03→21:50)
[2025-04-14 11:34] LABS: Glucose, Whole Blood 142 mg/dL (60-115)
[2025-04-14] MEDS: Tiotropium Bromide 2.5 mcg 1 PUFF/2.5 MCG MIST.INHAL 2 PUFF INHALE (11:49)
[2025-04-14 15:37] LABS: Glucose, Whole Blood 146 mg/dL (60-115)
--- NOTE | 2025-04-14 15:47 | HO.PM.IMPN ---
Subjective Subjective Date of Service: 04/14/25 Interval History: COPD exacerbation Review of Systems Patient says somewhat improving but still short of breath with minimal exertion Has cough No fever Physical Exam Exam: Exam: Appearance: Alert.? Oriented X3.? cvs: rrr, [id number]. res: air entry diminshed ,has b/l exp wheezing abd: no rebound or guarding ,nt, bs present. ext pulses present , no cyanosis . neuro: axo3 , nonfocal. Vital Signs: Vital Signs: Last Vital Signs Temp 97.1 F 04/14/25 11:53 Pulse 95 04/14/25 15:39 Resp 18 04/14/25 15:39 BP 117/66 04/14/25 11:53 Pulse Ox 91 L 04/14/25 11:53 O2 Del Method Nasal Cannula 04/14/25 11:53 O2 Flow Rate 3 04/14/25 11:53 BMI result Body Mass Index 27.2 Objective Data Active Medications Acetaminophen (Acetaminophen 325 Mg Tablet) 650 mg PO Q6H PRN PRN Reason: Pain, Mild 1-3,fever,headache Albuterol Sulfate (Albuterol Sulfate 90 Mcg 8 Gm Inhaler) 2 puff INHALE QID PRN PRN Reason: Shortness Of Breath Or Wheezing Atorvastatin Calcium (Atorvastatin Calcium 20 Mg Tablet) 20 mg PO DAILY [facility] Last Admin: 04/14/25 08:02 Dose: 20 mg Documented By: CHRISTINA Calcium Carbonate (Calcium Carbonate 750 Mg Tab.Chew) 750 mg PO Q4H PRN PRN Reason: Heartburn Carvedilol (Carvedilol 6.25 Mg Tablet) 6.25 mg PO BID [facility]; Protocol Last Admin: 04/14/25 08:02 Dose: 6.25 mg Documented By: CHRISTINA Dextrose (Dextrose 50 % 25 Gm/50 Ml Syringe) 25 gm IVPUSH Q15M PRN; Protocol PRN Reason: per Hypoglycemia Standing Ord. Empagliflozin (Empagliflozin 10 Mg Tablet) 10 mg PO DAILY [facility] Last Admin: 04/14/25 08:01 Dose: 10 mg Documented By: CHRISTINA Enoxaparin Sodium (Enoxaparin Sodium 40 Mg/0.4 Ml Syringe) 40 mg SUBCUT Q24H [facility] Last Admin: 04/14/25 08:02 Dose: 40 mg Documented By: CHRISTINA Furosemide (Furosemide 20 Mg Tablet) 20 mg PO DAILY [facility]; Protocol Last Admin: 04/14/25 08:02 Dose: 20 mg Documented By: CHRISTINA Glucose (Glucose Gel 15 Gm Gel..Gram.) 15 gm PO Q15M PRN; Protocol PRN Reason: per Hypoglycemia Standing Ord. Guaifenesin (Guaifenesin 200 Mg/10 Ml 10 Ml Liquid) 10 ml PO Q6H PRN PRN Reason: Cough Last Admin: 04/14/25 05:07 Dose: 10 ml Documented By: CHIDI Azithromycin 500 mg/ Sodium (Chloride) 250 mls @ 125 mls/hr IV Q24H [facility] Last Infusion: 04/14/25 03:14 Dose: Infused Documented By: CHIDI Ceftriaxone Sodium 1 gm/ (Sodium Chloride) 50 mls @ 100 mls/hr IV Q24H [facility] Last Infusion: 04/14/25 00:58 Dose: Infused Documented By: CHIDI Insulin Human Lispro (Insulin Lispro 100 Unit/Ml 3 Ml Vial) 0 unit SUBCUT QIDACHS [facility]; Protocol Last Admin: 04/14/25 15:45 Dose: Not Given Documented By: CHRISTINA Non-Admin Reason: No Insulin Coverage Levalbuterol HCl (Levalbuterol Hcl 1.25 Mg/3 Ml Vial.Neb) 1.25 mg INHALE RTID [facility] Last Admin: 04/14/25 15:37 Dose: 1.25 mg Documented By: BABS Levalbuterol HCl (Levalbuterol Hcl 1.25 Mg/3 Ml Vial.Neb) 1.25 mg INHALE Q3H PRN PRN Reason: sob Last Admin: 04/14/25 04:13 Dose: 1.25 mg Documented By: PHIL Loratadine (Loratadine 10 Mg Tablet) 10 mg PO DAILY [facility] Last Admin: 04/14/25 08:02 Dose: 10 mg Documented By: CHRISTINA Magnesium Hydroxide (Milk Of Magnesia 30 Ml Oral.Susp) 30 ml PO DAILY PRN PRN Reason: Constipation Melatonin (Melatonin 3 Mg Tablet) 6 mg PO BEDTIME PRN PRN Reason: Insomnia Methotrexate (Methotrexate Sodium 2.5 Mg Tablet) 2.5 mg PO MoTuWeFrSa [facility] Last Admin: 04/13/25 16:22 Dose: 2.5 mg Documented By: CATHLEEN Methylprednisolone Sodium Succinate (Methylprednisolone Sod Succ 40 Mg/Ml Vial) 40 mg IVPUSH BID [facility] Last Admin: 04/14/25 08:32 Dose: 40 mg Documented By: CHRISTINA Sacubitril/Valsartan (Sacubitril/Valsartan 1 Tab Tablet) 1 tab PO BID [facility]; Protocol Last Admin: 04/14/25 08:02 Dose: 1 tab Documented By: ABIOLAING Sodium Chloride (0.9 % Sodium Chloride Flush 3 Ml Syringe) 3 ml IVFLUSH QSHIFT [facility] Last Admin: 04/14/25 08:03 Dose: 3 ml Documented By: ABIOLAING Spironolactone (Spironolactone 25 Mg Tablet) 12.5 mg PO DAILY [facility]; Protocol Last Admin: 04/14/25 08:02 Dose: 12.5 mg Documented By: CHRISTINA Sulfasalazine (Sulfasalazine 500 Mg Tablet) 1,500 mg PO BID [facility] Last Admin: 04/14/25 08:01 Dose: 1,500 mg Documented By: ABIOLAING Tiotropium [place] (Tiotropium [place] 2.5 Mcg 1 Puff/2.5 Mcg Mist.Inhal) 2 puff INHALE RDAILY [facility] Last Admin: 04/14/25 11:49 Dose: 2 puff Documented By: SCOVILH Labs 04/13/25 06:37 04/13/25 06:37 Labs: Laboratory Results - last 24 hr 04/13/25 04/13/25 04/14/25 15:19 20:49 07:15 POC Glucose 137 H 158 H 143 H 04/14/25 04/14/25 11:17 15:30 POC Glucose 142 H 146 H Microbiology Microbiology Results: Microbiology 04/13/25 Unknown Urine Culture - Final Urine clean catch - Clean Catch Midstream No growth. 04/12/25 22:51 Blood Culture - Preliminary Blood - Venous No growth after 24 hours. 04/12/25 22:27 Blood Culture - Preliminary Blood - Venous No growth after 24 hours. 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 Telemetry. Pulse oximetry. Supplemental O2 to keep O2 sats above 90%. Continue bronchodilator therapy, IV steroids and empiric IV antibiotic therapy with ceftriaxone and azithromycin. Check respiratory panel. HFrEF. Continue Entresto, furosemide, spironolactone, carvedilol and Farxiga (not Jardiance). CAD. Stable. 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 Hyperlipidemia. Continue statin. RA. On methotrexate and sulfasalazine, on hold due to acute infection. generlaised weak: pt eval Code status: Full DVT prophylaxis: Lovenox ongoing need for stay hospitalization for acute exacerbation of COPD treatment with vanc a dilator therapy, supplemental oxygen IV steroids and empiric IV antibiotic therapy. Quality Stroke Does the patient have a stroke diagnosis?: No VTE Prior VTE?: No VTE Risk Level:: Medical - moderate - high VTE Device Contraindication: Treatment Not Indicated VTE Drug Contraindication: N/A - Med Ordered
[2025-04-14 20:18] LABS: Glucose, Whole Blood 125 mg/dL (60-115)
[2025-04-15] VITALS (11 sets, daily range): BP systolic 111–134; BP diastolic 59–72; PULSE 87–110; RESP 18–22; TEMP 36.2–36.8; O2SAT 90–93
[2025-04-15 07:11] LABS: Glucose, Whole Blood 102 mg/dL (60-115)
[2025-04-15] MEDS: Sacubitril/Valsartan 49/51 1 TAB TABLET PO ×2 (08:27→20:58)
[2025-04-15] MEDS: 0.9 % Sodium Chloride Flush 3 ML SYRINGE IVFLUSH ×2 (08:27→16:36)
[2025-04-15] MEDS: Tiotropium Bromide 2.5 mcg 1 PUFF/2.5 MCG MIST.INHAL 2 PUFF INHALE (08:30)
[2025-04-15 11:34] LABS: Glucose, Whole Blood 136 mg/dL (60-115)
--- NOTE | 2025-04-15 15:48 | HO.PM.IMPN ---
Subjective Subjective Date of Service: 04/15/25 Interval History: copd excerebation Review of Systems sob/cough seems similar no fevers Review of Systems: Yes all other systems are reviewed and are negative Physical Exam Exam: Exam: Appearance: Alert.? Oriented X3.? cvs: rrr, [id number]. res: air entry diminshed ,has b/l exp wheezing abd: no rebound or guarding ,nt, bs present. ext pulses present , no cyanosis . neuro: axo3 , nonfocal. Vital Signs: Vital Signs: Last Vital Signs Temp 97.2 F 04/15/25 11:57 Pulse 96 04/15/25 14:54 Resp 18 04/15/25 14:54 BP 125/70 04/15/25 11:57 Pulse Ox 93 04/15/25 11:57 O2 Del Method Nasal Cannula 04/15/25 11:57 O2 Flow Rate 3 04/15/25 11:57 BMI result Body Mass Index 27.2 Objective Data Active Medications Acetaminophen (Acetaminophen 325 Mg Tablet) 650 mg PO Q6H PRN PRN Reason: Pain, Mild 1-3,fever,headache Albuterol Sulfate (Albuterol Sulfate 90 Mcg 8 Gm Inhaler) 2 puff INHALE QID PRN PRN Reason: Shortness Of Breath Or Wheezing Atorvastatin Calcium (Atorvastatin Calcium 20 Mg Tablet) 20 mg PO DAILY [facility] Last Admin: 04/15/25 08:26 Dose: 20 mg Documented By: CHRISTINA Calcium Carbonate (Calcium Carbonate 750 Mg Tab.Chew) 750 mg PO Q4H PRN PRN Reason: Heartburn Carvedilol (Carvedilol 6.25 Mg Tablet) 6.25 mg PO BID [facility]; Protocol Last Admin: 04/15/25 08:26 Dose: 6.25 mg Documented By: CHRISTINA Dextrose (Dextrose 50 % 25 Gm/50 Ml Syringe) 25 gm IVPUSH Q15M PRN; Protocol PRN Reason: per Hypoglycemia Standing Ord. Empagliflozin (Empagliflozin 10 Mg Tablet) 10 mg PO DAILY [facility] Last Admin: 04/15/25 08:26 Dose: 10 mg Documented By: CHRISTINA Enoxaparin Sodium (Enoxaparin Sodium 40 Mg/0.4 Ml Syringe) 40 mg SUBCUT Q24H [facility] Last Admin: 04/15/25 08:27 Dose: 40 mg Documented By: CHRISTINA Furosemide (Furosemide 20 Mg Tablet) 20 mg PO DAILY [facility]; Protocol Last Admin: 04/15/25 08:26 Dose: 20 mg Documented By: CHRISTINA Glucose (Glucose Gel 15 Gm Gel..Gram.) 15 gm PO Q15M PRN; Protocol PRN Reason: per Hypoglycemia Standing Ord. Guaifenesin (Guaifenesin 200 Mg/10 Ml 10 Ml Liquid) 10 ml PO Q6H PRN PRN Reason: Cough Last Admin: 04/14/25 21:53 Dose: 10 ml Documented By: CHIDI Comments: per pt request. Azithromycin 500 mg/ Sodium (Chloride) 250 mls @ 125 mls/hr IV Q24H [facility] Last Infusion: 04/15/25 04:09 Dose: Infused Documented By: CHIDI Ceftriaxone Sodium 1 gm/ (Sodium Chloride) 50 mls @ 100 mls/hr IV Q24H [facility] Last Infusion: 04/15/25 01:09 Dose: Infused Documented By: CHIDI Insulin Human Lispro (Insulin Lispro 100 Unit/Ml 3 Ml Vial) 0 unit SUBCUT QIDACHS [facility]; Protocol Last Admin: 04/15/25 11:35 Dose: Not Given Documented By: CHRISTINA Non-Admin Reason: No Insulin Coverage Levalbuterol HCl (Levalbuterol Hcl 1.25 Mg/3 Ml Vial.Neb) 1.25 mg INHALE RTID [facility] Last Admin: 04/15/25 14:49 Dose: 1.25 mg Documented By: BABS Levalbuterol HCl (Levalbuterol Hcl 1.25 Mg/3 Ml Vial.Neb) 1.25 mg INHALE Q3H PRN PRN Reason: sob Last Admin: 04/14/25 04:13 Dose: 1.25 mg Documented By: PHIL Loratadine (Loratadine 10 Mg Tablet) 10 mg PO DAILY [facility] Last Admin: 04/15/25 08:26 Dose: 10 mg Documented By: CHRISTINA Magnesium Hydroxide (Milk Of Magnesia 30 Ml Oral.Susp) 30 ml PO DAILY PRN PRN Reason: Constipation Melatonin (Melatonin 3 Mg Tablet) 6 mg PO BEDTIME PRN PRN Reason: Insomnia Last Admin: 04/14/25 21:49 Dose: 6 mg Documented By: CHIDI Methotrexate (Methotrexate Sodium 2.5 Mg Tablet) 2.5 mg PO MoTuWeFrSa [facility] Last Admin: 04/14/25 16:29 Dose: 2.5 mg Documented By: CHRISTINA Methylprednisolone Sodium Succinate (Methylprednisolone Sod Succ 40 Mg/Ml Vial) 40 mg IVPUSH BID [facility] Last Admin: 04/15/25 08:27 Dose: 40 mg Documented By: CHRISTINA Sacubitril/Valsartan (Sacubitril/Valsartan 49/51 1 Tab Tablet) 1 tab PO BID [facility]; Protocol Last Admin: 04/15/25 08:27 Dose: 1 tab Documented By: CHRISTINA Sodium Chloride (0.9 % Sodium Chloride Flush 3 Ml Syringe) 3 ml IVFLUSH QSHIFT [facility] Last Admin: 04/15/25 08:27 Dose: 3 ml Documented By: CHRISTINA Spironolactone (Spironolactone 25 Mg Tablet) 12.5 mg PO DAILY [facility]; Protocol Last Admin: 04/15/25 08:26 Dose: 12.5 mg Documented By: CHRISTINA Sulfasalazine (Sulfasalazine 500 Mg Tablet) 1,500 mg PO BID [facility] Last Admin: 04/15/25 08:25 Dose: 1,500 mg Documented By: CHRISTINA Tiotropium [place] (Tiotropium [place] 2.5 Mcg 1 Puff/2.5 Mcg Mist.Inhal) 2 puff INHALE RDAILY [facility] Last Admin: 04/15/25 08:30 Dose: 2 puff Documented By: SCOVILH Labs 04/13/25 06:37 04/13/25 06:37 Labs: Laboratory Results - last 24 hr 04/14/25 04/15/25 04/15/25 20:14 07:04 11:31 POC Glucose 125 H 102 136 H Microbiology Microbiology Results: Microbiology 04/12/25 22:51 Blood Culture - Preliminary Blood - Venous No growth after 48 hours. 04/12/25 22:27 Blood Culture - Preliminary Blood - Venous No growth after 48 hours. 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 Telemetry. Pulse oximetry. Supplemental O2 to keep O2 sats above 90%. Continue bronchodilator therapy, IV steroids and empiric IV antibiotic therapy with ceftriaxone and azithromycin. Check respiratory panel. HFrEF. Continue Entresto, furosemide, spironolactone, carvedilol and Farxiga (not Jardiance). CAD. Stable. 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 Hyperlipidemia. Continue statin. RA. On methotrexate and sulfasalazine, on hold due to acute infection. generlaised weak: pt eval Code status: Full DVT prophylaxis: Lovenox ongoing need for stay hospitalization for acute exacerbation of COPD treatment with vanc a dilator therapy, supplemental oxygen IV steroids and empiric IV antibiotic therapy. Quality Stroke Does the patient have a stroke diagnosis?: No VTE Prior VTE?: No VTE Risk Level:: Medical - moderate - high VTE Device Contraindication: Treatment Not Indicated VTE Drug Contraindication: N/A - Med Ordered
[2025-04-15 16:08] LABS: Glucose, Whole Blood 169 mg/dL (60-115)
[2025-04-15] MEDS: guaiFENesin 200 MG/10 ML 10 ML LIQUID PO (16:36)
[2025-04-16] VITALS (10 sets, daily range): BP systolic 115–140; BP diastolic 61–75; PULSE 84–99; RESP 16–20; TEMP 36.1–37.1; O2SAT 88–96
[2025-04-16] MEDS: 0.9 % Sodium Chloride Flush 3 ML SYRINGE IVFLUSH ×3 (00:23→20:59)
[2025-04-16 07:43] LABS: Glucose, Whole Blood 98 mg/dL (60-115)
[2025-04-16] MEDS: Tiotropium Bromide 2.5 mcg 1 PUFF/2.5 MCG MIST.INHAL 2 PUFF INHALE (08:06)
[2025-04-16] MEDS: guaiFENesin 200 MG/10 ML 10 ML LIQUID PO ×2 (08:24→14:58)
[2025-04-16] MEDS: Sacubitril/Valsartan 49/51 1 TAB TABLET PO ×2 (08:25→20:57)
[2025-04-16 11:33] LABS: Glucose, Whole Blood 114 mg/dL (60-115)
--- NOTE | 2025-04-16 14:03 | HO.PM.IMPN ---
Subjective Subjective Date of Service: 04/16/25 Interval History: copd excerebation Review of Systems sob/cough seems similar no fevers Review of Systems: Yes all other systems are reviewed and are negative Physical Exam Exam: Exam: Appearance: Alert.? Oriented X3.? cvs: rrr, [id number]. res: air entry diminshed ,has b/l exp wheezing abd: no rebound or guarding ,nt, bs present. ext pulses present , no cyanosis . neuro: axo3 , nonfocal. Vital Signs: Vital Signs: Last Vital Signs Temp 97.5 F 04/16/25 11:14 Pulse 91 04/16/25 11:14 Resp 16 04/16/25 11:14 BP 119/61 04/16/25 11:14 Pulse Ox 95 04/16/25 11:14 O2 Del Method Nasal Cannula 04/16/25 11:14 O2 Flow Rate 2 04/16/25 11:14 BMI result Body Mass Index 27.2 Objective Data Active Medications Acetaminophen (Acetaminophen 325 Mg Tablet) 650 mg PO Q6H PRN PRN Reason: Pain, Mild 1-3,fever,headache Albuterol Sulfate (Albuterol Sulfate 90 Mcg 8 Gm Inhaler) 2 puff INHALE QID PRN PRN Reason: Shortness Of Breath Or Wheezing Atorvastatin Calcium (Atorvastatin Calcium 20 Mg Tablet) 20 mg PO DAILY [facility] Last Admin: 04/16/25 08:25 Dose: 20 mg Documented By: LEILA Calcium Carbonate (Calcium Carbonate 750 Mg Tab.Chew) 750 mg PO Q4H PRN PRN Reason: Heartburn Carvedilol (Carvedilol 6.25 Mg Tablet) 6.25 mg PO BID [facility]; Protocol Last Admin: 04/16/25 08:25 Dose: 6.25 mg Documented By: LEILA Dextrose (Dextrose 50 % 25 Gm/50 Ml Syringe) 25 gm IVPUSH Q15M PRN; Protocol PRN Reason: per Hypoglycemia Standing Ord. Empagliflozin (Empagliflozin 10 Mg Tablet) 10 mg PO DAILY [facility] Last Admin: 04/16/25 08:25 Dose: 10 mg Documented By: LEILA Enoxaparin Sodium (Enoxaparin Sodium 40 Mg/0.4 Ml Syringe) 40 mg SUBCUT Q24H [facility] Last Admin: 04/16/25 08:28 Dose: 40 mg Documented By: LEILA Furosemide (Furosemide 20 Mg Tablet) 20 mg PO DAILY [facility]; Protocol Last Admin: 04/16/25 08:25 Dose: 20 mg Documented By: LEILA Glucose (Glucose Gel 15 Gm Gel..Gram.) 15 gm PO Q15M PRN; Protocol PRN Reason: per Hypoglycemia Standing Ord. Guaifenesin (Guaifenesin 200 Mg/10 Ml 10 Ml Liquid) 10 ml PO Q6H PRN PRN Reason: Cough Last Admin: 04/16/25 08:24 Dose: 10 ml Documented By: LEILA Azithromycin 500 mg/ Sodium (Chloride) 250 mls @ 125 mls/hr IV Q24H [facility] Last Infusion: 04/16/25 03:16 Dose: Infused Documented By: DIMA Ceftriaxone Sodium 1 gm/ (Sodium Chloride) 50 mls @ 100 mls/hr IV Q24H [facility] Last Infusion: 04/16/25 01:08 Dose: Infused Documented By: DIMA Insulin Human Lispro (Insulin Lispro 100 Unit/Ml 3 Ml Vial) 0 unit SUBCUT QIDACHS [facility]; Protocol Last Admin: 04/16/25 11:38 Dose: Not Given Documented By: LEILA Non-Admin Reason: No Insulin Coverage Levalbuterol HCl (Levalbuterol Hcl 1.25 Mg/3 Ml Vial.Neb) 1.25 mg INHALE RTID [facility] Last Admin: 04/16/25 08:06 Dose: 1.25 mg Documented By: CHELSEY Levalbuterol HCl (Levalbuterol Hcl 1.25 Mg/3 Ml Vial.Neb) 1.25 mg INHALE Q3H PRN PRN Reason: sob Last Admin: 04/14/25 04:13 Dose: 1.25 mg Documented By: PHIL Loratadine (Loratadine 10 Mg Tablet) 10 mg PO DAILY [facility] Last Admin: 04/16/25 08:25 Dose: 10 mg Documented By: LEILA Magnesium Hydroxide (Milk Of Magnesia 30 Ml Oral.Susp) 30 ml PO DAILY PRN PRN Reason: Constipation Melatonin (Melatonin 3 Mg Tablet) 6 mg PO BEDTIME PRN PRN Reason: Insomnia Last Admin: 04/15/25 20:58 Dose: 6 mg Documented By: DIMA Methotrexate (Methotrexate Sodium 2.5 Mg Tablet) 2.5 mg PO MoTuWeFrSa [facility] Last Admin: 04/14/25 16:29 Dose: 2.5 mg Documented By: CHRISTINA Methylprednisolone Sodium Succinate (Methylprednisolone Sod Succ 40 Mg/Ml Vial) 40 mg IVPUSH Q24H [facility] Sacubitril/Valsartan (Sacubitril/Valsartan 49/51 1 Tab Tablet) 1 tab PO BID [facility]; Protocol Last Admin: 04/16/25 08:25 Dose: 1 tab Documented By: LEILA Sodium Chloride (0.9 % Sodium Chloride Flush 3 Ml Syringe) 3 ml IVFLUSH QSHIFT [facility] Last Admin: 04/16/25 08:32 Dose: 3 ml Documented By: LEILA Spironolactone (Spironolactone 25 Mg Tablet) 12.5 mg PO DAILY [facility]; Protocol Last Admin: 04/16/25 08:25 Dose: 12.5 mg Documented By: LEILA Sulfasalazine (Sulfasalazine 500 Mg Tablet) 1,500 mg PO BID [facility] Last Admin: 04/16/25 08:26 Dose: 1,500 mg Documented By: LEILA Tiotropium [place] (Tiotropium [place] 2.5 Mcg 1 Puff/2.5 Mcg Mist.Inhal) 2 puff INHALE RDAILY [facility] Last Admin: 04/16/25 08:06 Dose: 2 puff Documented By: SANTYIB Labs 04/13/25 06:37 04/13/25 06:37 Labs: Laboratory Results - last 24 hr 04/15/25 04/16/25 04/16/25 15:50 07:30 11:15 POC Glucose 169 H 98 114 Assessment and Plan (1) Acute exacerbation of COPD with asthma: Status: Acute Plan 74 y/o man with a PMHx significant for COPD-asthma overlap - no home O2 or daily prednisone, who presents with: Acute exacerbation of COPD in the setting of viral URI entero/Rhino. sob seems improving Pulse oximetry. Supplemental O2 to keep O2 sats above 90%. Continue bronchodilator therapy, IV steroids and empiric IV antibiotic therapy with ceftriaxone and azithromycin. Check respiratory panel. HFrEF. Continue Entresto, furosemide, spironolactone, carvedilol and Farxiga (not Jardiance). CAD. Stable. 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 Hyperlipidemia. Continue statin. RA. On methotrexate and sulfasalazine, on hold due to acute infection. generlaised weak: pt eval Code status: Full DVT prophylaxis: Lovenox ongoing need for stay hospitalization for copd excerebation-awiting rehab placement Quality Stroke Does the patient have a stroke diagnosis?: No VTE Prior VTE?: No VTE Risk Level:: Medical - moderate - high VTE Device Contraindication: Treatment Not Indicated VTE Drug Contraindication: N/A - Med Ordered
--- NOTE | 2025-04-16 14:42 | MHC.CM.PN ---
Pt. improving, anticipate DC tomorrow with no services.
[2025-04-16 16:10] LABS: Glucose, Whole Blood 112 mg/dL (60-115)
[2025-04-16 16:36] LABS: Glucose, Whole Blood 126 mg/dL (60-115)
[2025-04-16 20:32] LABS: Glucose, Whole Blood 158 mg/dL (60-115)
[2025-04-17] VITALS (10 sets, daily range): BP systolic 108–144; BP diastolic 62–78; PULSE 88–105; RESP 16–20; TEMP 36.1–36.6; O2SAT 85–94
[2025-04-17] MEDS: Tiotropium Bromide 2.5 mcg 1 PUFF/2.5 MCG MIST.INHAL 2 PUFF INHALE (08:12)
[2025-04-17] MEDS: Sacubitril/Valsartan 49/51 1 TAB TABLET PO ×2 (08:37→20:19)
[2025-04-17] MEDS: 0.9 % Sodium Chloride Flush 3 ML SYRINGE IVFLUSH ×3 (08:41→20:20)
[2025-04-17 08:42] LABS: Glucose, Whole Blood 127 mg/dL (60-115)
[2025-04-17 11:06] LABS: Glucose, Whole Blood 137 mg/dL (60-115)
[2025-04-17 15:53] LABS: Hematocrit 51.8 % (42.0-52.0); Hemoglobin 16.7 g/dl (14.0-18.0); Mean Corpuscular HGB Conc 32.2 g/dl (31.0-36.0); Mean Corpuscular Hemoglobin 31.0 pg (27.0-33.0); Mean Corpuscular Volume 96.1 fL (80.0-98.0); NRBC Abs Auto 0.000 X10*3/uL (0.0-0.012); NRBC Pct Auto 0.0 /100WBC (0.0-0.2); Platelet Count 243 X10*3/uL (160-400); Red Blood Count 5.39 X10*6/uL (4.60-5.80); White Blood Count 11.6 X10*3/uL (4.8-10.8)
[2025-04-17 16:02] LABS: Alanine Aminotransferase 43 U/L (0-40); Albumin Level 4.2 g/dL (3.5-5.0); Alkaline Phosphatase 61 U/L (39-117); Anion Gap 15 (12-20); Aspartate Amino Transferase 39 U/L (5-37); Blood Urea Nitrogen 20 mg/dL (9-16); Calcium 10.0 mg/dL (8.4-10.2); Carbon Dioxide 22 mmol/L (22-29); Chloride 107 mmol/L (96-108); Creatinine Clr Calc Pharmacy 85.6; Estimated Glomerular Filt Rate > 60; Potassium 4.5 mmol/L (3.3-5.1); Sodium 139 mmol/L (135-145); Total Protein 7.2 g/dL (6.5-8.0)
[2025-04-17 16:22] LABS: Glucose, Whole Blood 135 mg/dL (60-115)
--- NOTE | 2025-04-17 16:30 | P.PNIM_ITS ---
Subjective Subjective Date of Service: 04/17/25 Interval History: copd execerbation Review of Systems sob /cough improving no new c/o Review of Systems: Yes all other systems are reviewed and are negative Physical Exam 2 Exam: Exam: Appearance: Alert.? Oriented X3.? cvs: rrr, [id number]. res: air entry diminshed ,has b/l exp wheezing abd: no rebound or guarding ,nt, bs present. ext pulses present , no cyanosis . neuro: axo3 , nonfocal. Vital Signs: Vital Signs: Last Vital Signs Temp 97.4 F 04/17/25 16:00 Pulse 100 04/17/25 16:00 Resp 18 04/17/25 16:00 BP 144/62 H 04/17/25 16:00 Pulse Ox 91 L 04/17/25 16:00 O2 Del Method Nasal Cannula 04/17/25 16:00 O2 Flow Rate 2 04/17/25 16:00 BMI result Body Mass Index 27.2 Objective Data Active Medications Acetaminophen (Acetaminophen 325 Mg Tablet) 650 mg PO Q6H PRN PRN Reason: Pain, Mild 1-3,fever,headache Albuterol Sulfate (Albuterol Sulfate 90 Mcg 8 Gm Inhaler) 2 puff INHALE QID PRN PRN Reason: Shortness Of Breath Or Wheezing Atorvastatin Calcium (Atorvastatin Calcium 20 Mg Tablet) 20 mg PO DAILY [facility] Last Admin: 04/17/25 08:38 Dose: 20 mg Documented By: LEILA Calcium Carbonate (Calcium Carbonate 750 Mg Tab.Chew) 750 mg PO Q4H PRN PRN Reason: Heartburn Carvedilol (Carvedilol 6.25 Mg Tablet) 6.25 mg PO BID [facility]; Protocol Last Admin: 04/17/25 08:38 Dose: 6.25 mg Documented By: LEILA Dextrose (Dextrose 50 % 25 Gm/50 Ml Syringe) 25 gm IVPUSH Q15M PRN; Protocol PRN Reason: per Hypoglycemia Standing Ord. Empagliflozin (Empagliflozin 10 Mg Tablet) 10 mg PO DAILY [facility] Last Admin: 04/17/25 08:38 Dose: 10 mg Documented By: LEILA Enoxaparin Sodium (Enoxaparin Sodium 40 Mg/0.4 Ml Syringe) 40 mg SUBCUT Q24H [facility] Last Admin: 04/17/25 08:37 Dose: 40 mg Documented By: LEILA Furosemide (Furosemide 20 Mg Tablet) 20 mg PO DAILY [facility]; Protocol Last Admin: 04/17/25 08:38 Dose: 20 mg Documented By: LEILA Glucose (Glucose Gel 15 Gm Gel..Gram.) 15 gm PO Q15M PRN; Protocol PRN Reason: per Hypoglycemia Standing Ord. Guaifenesin (Guaifenesin 200 Mg/10 Ml 10 Ml Liquid) 10 ml PO Q6H PRN PRN Reason: Cough Last Admin: 04/16/25 14:58 Dose: 10 ml Documented By: LEILA Azithromycin 500 mg/ Sodium (Chloride) 250 mls @ 125 mls/hr IV Q24H [facility] Last Infusion: 04/17/25 02:38 Dose: Infused Documented By: DIMA Ceftriaxone Sodium 1 gm/ (Sodium Chloride) 50 mls @ 100 mls/hr IV Q24H [facility] Last Infusion: 04/17/25 00:37 Dose: Infused Documented By: DIMA Insulin Human Lispro (Insulin Lispro 100 Unit/Ml 3 Ml Vial) 0 unit SUBCUT QIDACHS [facility]; Protocol Last Admin: 04/17/25 11:07 Dose: Not Given Documented By: LEILA Non-Admin Reason: No Insulin Coverage Levalbuterol HCl (Levalbuterol Hcl 1.25 Mg/3 Ml Vial.Neb) 1.25 mg INHALE RTID [facility] Last Admin: 04/17/25 14:06 Dose: 1.25 mg Documented By: BABS Levalbuterol HCl (Levalbuterol Hcl 1.25 Mg/3 Ml Vial.Neb) 1.25 mg INHALE Q3H PRN PRN Reason: sob Last Admin: 04/14/25 04:13 Dose: 1.25 mg Documented By: PHIL Loratadine (Loratadine 10 Mg Tablet) 10 mg PO DAILY [facility] Last Admin: 04/17/25 08:38 Dose: 10 mg Documented By: LEILA Magnesium Hydroxide (Milk Of Magnesia 30 Ml Oral.Susp) 30 ml PO DAILY PRN PRN Reason: Constipation Melatonin (Melatonin 3 Mg Tablet) 6 mg PO BEDTIME PRN PRN Reason: Insomnia Last Admin: 04/15/25 20:58 Dose: 6 mg Documented By: DIMA Methotrexate (Methotrexate Sodium 2.5 Mg Tablet) 2.5 mg PO MoTuWeFrSa [facility] On Hold: 04/17/25 15:09 Last Admin: 04/16/25 14:54 Dose: 2.5 mg Documented By: LEILA Methylprednisolone Sodium Succinate (Methylprednisolone Sod Succ 40 Mg/Ml Vial) 40 mg IVPUSH Q24H [facility] Last Admin: 04/16/25 20:57 Dose: 40 mg Documented By: DIMA Sacubitril/Valsartan (Sacubitril/Valsartan 49/51 1 Tab Tablet) 1 tab PO BID [facility]; Protocol Last Admin: 04/17/25 08:37 Dose: 1 tab Documented By: LEILA Sodium Chloride (0.9 % Sodium Chloride Flush 3 Ml Syringe) 3 ml IVFLUSH QSHIFT [facility] Last Admin: 04/17/25 08:41 Dose: 3 ml Documented By: LEILA Spironolactone (Spironolactone 25 Mg Tablet) 12.5 mg PO DAILY [facility]; Protocol Last Admin: 04/17/25 08:38 Dose: 12.5 mg Documented By: LEILA Sulfasalazine (Sulfasalazine 500 Mg Tablet) 1,500 mg PO BID [facility] On Hold: 04/17/25 15:10 Last Admin: 04/17/25 08:38 Dose: 1,500 mg Documented By: LEILA Tiotropium [place] (Tiotropium [place] 2.5 Mcg 1 Puff/2.5 Mcg Mist.Inhal) 2 puff INHALE RDAILY [facility] Last Admin: 04/17/25 08:12 Dose: 2 puff Documented By: BABS Labs 04/17/25 15:41 04/17/25 15:41 Labs: Laboratory Results - last 24 hr 04/15/25 04/16/25 04/17/25 19:25 20:26 06:59 MCV MCH MCHC RDW Plt Count MPV Absolute Nucleated RBC Nucleated RBC % (auto) Anion Gap Estim Creat Clear Calc Estimated GFR POC Glucose 126 H 158 H 127 H Random Glucose Calcium Total Bilirubin AST ALT Alkaline Phosphatase Total Protein Albumin 04/17/25 04/17/25 04/17/25 10:59 15:41 16:16 MCV 96.1 MCH 31.0 MCHC 32.2 RDW 14.6 Plt Count 243 MPV 10.4 Absolute Nucleated RBC 0.000 Nucleated RBC % (auto) 0.0 Anion Gap 15 Estim Creat Clear Calc 85.6 Estimated GFR > 60 POC Glucose 137 H 135 H Random Glucose 126 H Calcium 10.0 D Total Bilirubin 0.6 AST 39 H ALT 43 H Alkaline Phosphatase 61 Total Protein 7.2 Albumin 4.2 Assessment and Plan (1) Acute exacerbation of COPD with asthma: Status: Acute Plan 74 y/o man with a PMHx significant for COPD-asthma overlap - no home O2 or daily prednisone, who presents with: Acute exacerbation of COPD in the setting of viral URI entero/Rhino. sob seems improving Pulse oximetry. Supplemental O2 to keep O2 sats above 90%. Continue bronchodilator therapy, IV steroids and empiric IV antibiotic therapy with ceftriaxone and azithromycin. Check respiratory panel. HFrEF. Continue Entresto, furosemide, spironolactone, carvedilol and Farxiga (not Jardiance). CAD. Stable. 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 Hyperlipidemia. Continue statin. RA. hold methotrexate and sulfasalazine due to acute infection. his home dosing of mtx is 12.5 ( 5tab x1 weekly). mild elevated lft's -moniter closely generlaised weak: pt eval-home /need oxygen eval Code status: Full DVT prophylaxis: Lovenox ongoing need for stay hospitalization for copd excerebation-waiting to go home safely/his apeartment is getting fumigated today. Quality Stroke Does the patient have a stroke diagnosis?: No VTE Prior VTE?: No VTE Risk Level:: Medical - moderate - high VTE Device Contraindication: Treatment Not Indicated VTE Drug Contraindication: N/A - Med Ordered
[2025-04-17] MEDS: Furosemide 20 MG/2 ML VIAL IVPUSH (17:09)
[2025-04-17] MEDS: guaiFENesin 200 MG/10 ML 10 ML LIQUID PO (20:25)
[2025-04-18 03:17] VITALS: BP 137/68; PULSE 86; RESP 16; TEMP 36.3; O2SAT 94
[2025-04-18 07:08] LABS: Hematocrit 47.9 % (42.0-52.0); Hemoglobin 15.8 g/dl (14.0-18.0); Mean Corpuscular HGB Conc 33.0 g/dl (31.0-36.0); Mean Corpuscular Hemoglobin 30.9 pg (27.0-33.0); Mean Corpuscular Volume 93.6 fL (80.0-98.0); NRBC Abs Auto 0.000 X10*3/uL (0.0-0.012); NRBC Pct Auto 0.0 /100WBC (0.0-0.2); Platelet Count 353 X10*3/uL (160-400); Red Blood Count 5.12 X10*6/uL (4.60-5.80); White Blood Count 11.0 X10*3/uL (4.8-10.8)
[2025-04-18 07:14] VITALS: BP 121/66; PULSE 83; RESP 20; TEMP 36.2; O2SAT 92
[2025-04-18 07:37] LABS: Alanine Aminotransferase 45 U/L (0-40); Albumin Level 4.3 g/dL (3.5-5.0); Alkaline Phosphatase 65 U/L (39-117); Anion Gap 14 (12-20); Aspartate Amino Transferase 31 U/L (5-37); Blood Urea Nitrogen 25 mg/dL (9-16); Calcium 9.6 mg/dL (8.4-10.2); Carbon Dioxide 24 mmol/L (22-29); Chloride 105 mmol/L (96-108); Creatinine Clr Calc Pharmacy 87.7; Estimated Glomerular Filt Rate > 60; Potassium 4.4 mmol/L (3.3-5.1); Sodium 139 mmol/L (135-145); Total Protein 7.2 g/dL (6.5-8.0)
[2025-04-18] MEDS: Tiotropium Bromide 2.5 mcg 1 PUFF/2.5 MCG MIST.INHAL 2 PUFF INHALE (07:52)
[2025-04-18 07:57] VITALS: PULSE 86; RESP 18; O2SAT 92
[2025-04-18] MEDS: 0.9 % Sodium Chloride Flush 3 ML SYRINGE IVFLUSH (08:05)
[2025-04-18] MEDS: Sacubitril/Valsartan 49/51 1 TAB TABLET PO (08:05)
[2025-04-18 10:41] VITALS: PULSE 86
[2025-04-18 11:02] VITALS: BP 109/54; PULSE 85; RESP 20; TEMP 36.2; O2SAT 92
--- NOTE | 2025-04-18 11:10 | P.F2F_ITS ---
Service Date Service Date: 04/18/25 Encounter Date of encounter: 04/18/25 Reasons for Services Signs and symptoms assessed: sob on exertion Reason for nursing home: medication management, medication treatment and teach disease management Reason for physical therapy: home safety and mobility and therapeutic exercises Homebound: Leaving the home is medically contraindicated at this time without the asist of a device and/or another person due th the listed conditions above and below. Reason homebound: shortness of breath with minimal effort Certification: Based on the above findings, I certify that this patient is confined to the home and needs intermittent nursing home care, physical therapy and/or speech therapy, or continues to need occupational therapy. The patient is under my care, and I have initiated the establishment of the plan of care. The patient will be followed by a physician who will periodically review the plan of care. Time Spent With Patient Time: Total time managing care of this patient today ____ minutes.
--- NOTE | 2025-04-18 11:11 | PM.DS ---
DS: Providers Provider Date of admission: 04/13/25 01:14 Date of discharge: 04/18/25 Primary care physician: Beatriz Bee MD DS: Diagnosis Discharge Diagnosis (1) Acute exacerbation of COPD with asthma: Status: Acute DS: Summary Hospital Course Hospital Course: from initial hpi: 74 years old man with a PMHx significant for COPD-asthma overlap - no home O2, HFrEF, CAD, RA on MTX and gout presents to the emergency department complaining of 2 days' history of dry cough (barky sounding) and shortness on breath. He denied associated chest pain. Reported some runny nose. He denied fever or chills. He did not report any headache, dizziness or palpitations. He did not report any acute gastrointestinal or genitourinary symptoms. He mentioned that he has a history of recurrent UTI and nephrolithiasis. He isn't taking prednisone everyday. In the ED, he was found to have have, sinus tachycardia, tachypnea and oxygen saturation of 90% on room air. He was placed on supplemental oxygen, 3 L/min via NC. Blood workup showed leukocytosis of 16.3. There are no electrolyte imbalances. Renal function is normal. Random glucose 118. There is no lactic acidosis. LFTs are normal. Viral testing for COVID-19, influenza and RSV is negative. Soft tissue neck CT showed no acute findings. Chest CTA showed scattered subsegmental atelectasis without consolidation. There are 2-3 mm pleural/pleural-based nodule in the right lung. ECG showed left bundle-branch block (old). ED tx: Racemic epinephrine 0.5 mL, magnesium 2 g IV, DuoNeb 3 mL neb azithromycin 500 mg IV, ceftriaxone 2 g IV, dexamethasone 1 g IV hospital course: Patient was admitted for acute hypoxic respiratory failure due to COPD with acute decompensation due to rhino virus infection. He was treated with IV Solu-Medrol, DuoNebs, empiric therapy with ceftriaxone azithromycin. Symptoms improved. Patient is now close to baseline but still appears to have some hypoxia likely chronic component due to COPD and he will be discharged on 2 L home O2. For chronic systolic CHF was continued on Entresto, Lasix, spironolactone, Coreg, Farxiga. For CAD remained stable. For hyperlipidemia was continue statin. For rheumatoid arthritis methotrexate was held due to acute illness he will follow up with Rheumatology as outpatient. There is mild elevation in transaminases this could be due to a viral illness, it is downtrending at time of discharge. Patient will be discharged home with VNA. Time Attestation Discharge Coordination Time (in mins): 32 Quality: Safe Use of Opioids Does Pt have an Active Cancer Diagnosis on the Problem List?: No Quality: Stroke Does the patient have a stroke diagnosis?: No Physical Exam Exam: Exam: Appearance: Alert.? Oriented X3.? cvs: rrr, [id number]. res:mild exp wheezes abd: no rebound or guarding ,nt, bs present. ext pulses present , no cyanosis . neuro: axo3 , nonfocal. Vital Signs: Vital Signs: Last Vital Signs Temp 97.2 F 04/18/25 11:02 Pulse 85 04/18/25 11:02 Resp 20 04/18/25 11:02 BP 109/54 L 04/18/25 11:02 Pulse Ox 92 04/18/25 11:02 O2 Del Method Nasal Cannula 04/18/25 11:02 O2 Flow Rate 2 04/18/25 11:02 BMI result Body Mass Index 27.2 DS: Data Data Completed and Pending Labs on day of discharge: Laboratory Results - last 24 hr 04/17/25 04/17/25 04/18/25 15:41 16:16 06:12 WBC 11.6 H 11.0 H RBC 5.39 5.12 Hgb 16.7 15.8 Hct 51.8 47.9 MCV 96.1 93.6 MCH 31.0 30.9 MCHC 32.2 33.0 RDW 14.6 14.1 Plt Count 243 353 D MPV 10.4 9.7 Absolute Nucleated RBC 0.000 0.000 Nucleated RBC % (auto) 0.0 0.0 Sodium 139 139 Potassium 4.5 4.4 Chloride 107 105 Carbon Dioxide 22 24 Anion Gap 15 14 BUN 20 H 25 H Creatinine 0.83 0.81 Estim Creat Clear Calc 85.6 87.7 Estimated GFR > 60 > 60 POC Glucose 135 H Random Glucose 126 H 123 H Calcium 10.0 D 9.6 Total Bilirubin 0.6 0.7 AST 39 H 31 ALT 43 H 45 H Alkaline Phosphatase 61 65 Total Protein 7.2 7.2 Albumin 4.2 4.3 Discharge Plan Discharge Anticipated Discharge Date/Time: 04/18/25 10:59 Patient Disposition: Home Health Service Discharge Diagnosis: copd. rhinovirus Referrals: Physician,Unknown J [Physician, Medical] - 1 Week Discharge Medications: New doxycycline monohydrate 100 mg Capsule 100 mg PO Q12H Qty: 6 0RF prednisone 20 mg tablet 40 mg PO DAILY Qty: 10 0RF Continued carvedilol 6.25 mg tablet 6.25 mg PO BID albuterol sulfate 90 mcg/actuation HFA aerosol inhaler 2 puff inhalation QID PRN (Reason: Shortness Of Breath Or Wheezing) nitrofurantoin monohyd/m-cryst 100 mg capsule 1 cap PO BID methotrexate sodium 2.5 mg tablet 12.5 mg PO DIRECTED Rx Instructions: Patient states he takes his medications as 2 days on 1 day off then 2 days on and so forth. He said his day to skip this week was 04/12 a . Therefore he is due for a tablet on 04/13 and another on 04/14. then the 1 day off would be 04/15. Patient should be taking a total of 5 tablets throughout the week. sulfasalazine 500 mg tablet,delayed release (DR/EC) 1.5 g PO BID 30 Days Qty: 180 2RF Entresto 49-51 mg tablet 1 tab PO BID furosemide 20 mg tablet 20 mg PO DAILY fluticasone propion-salmeterol [Wixela Inhub] 100-50 mcg/dose blister with device 1 ea inhalation BID Farxiga 10 mg tablet 10 mg PO DAILY atorvastatin 20 mg tablet 20 mg PO DAILY spironolactone 25 mg tablet 12.5 mg PO DAILY tiotropium bromide [Spiriva with HandiHaler] 18 mcg capsule, w/inhalation device 1 cap inhalation DAILY Discharge Orders: Discharge Order (Routine); Ordered 04/18/25 Ordered By: Gil Stallworth Diet: Advance to usual diet Activity on Discharge: As tolerated Stand Alone Forms: Patient Portal Discharge page Print Language: [place] Care Plan Goals: recovery Health Concerns: copd Plan of Treatment: 3 moree days doxy, 5 days prednsione Assessment: see above
--- NOTE | 2025-04-18 11:18 | MHC.CM.PN ---
Second IMM 04/18/25, Pt. has been medically cleared to DC, he will go home today, his will pick him up, he will have new home O2 and services from [facility].
== END 2025-04-18 13:42 | disposition home health service (06) | DRG 191 ==
LOC: HO.ED 23:14 → HO.EDOVER 04-13 01:18 → HO.IMC 04-13 03:19
PROVIDERS: Internal Medicine; Admitting Provider Internal Medicine; Emergency Provider Emergency Medicine; PCP Internal Medicine; Visit Provider Internal Medicine
DX: J44.1 Chronic obstructive pulmonary disease with (acute) exacerbation (principal); I42.9 Cardiomyopathy, unspecified; I50.22 Chronic systolic (congestive) heart failure; E78.5 Hyperlipidemia, unspecified; I25.10 Atherosclerotic heart disease of native coronary artery without angina pectoris; M06.9 Rheumatoid arthritis, unspecified; J06.9 Acute upper respiratory infection, unspecified; B97.10 Unspecified enterovirus as the cause of diseases classified elsewhere; B97.89 Other viral agents as the cause of diseases classified elsewhere; Z20.822 Contact with and (suspected) exposure to COVID-19; Z87.891 Personal history of nicotine dependence; Z79.631 Long term (current) use of antimetabolite agent; Z79.899 Other long term (current) drug therapy
CPT/HCPCS: 36415; 70490; 71045; 71250; 80048; 80053; 81001; 82947; 83036; 83605; 83880; 85025; 85027; 87040; 87086; 87633; 87637; 93005; 94640; 97161; 97530; 99285; J0456; J0696; J1100; J1650; J1938; J2919; J3475

== ENCOUNTER → 2025-04-12 21:57 | Outpatient (BNV) | payer MEDICARE, BC, SELFPAY | PROVIDERS: Admitting Provider Internal Medicine; Emergency Provider Emergency Medicine; Visit Provider Internal Medicine Cardiovascular Disease | DX: R00.0 Tachycardia, unspecified (principal); I44.7 Left bundle-branch block, unspecified | CPT/HCPCS: 93010 ==

== ENCOUNTER → 2025-04-12 21:57 | Outpatient (BNV) | payer MEDICARE, BC, SELFPAY | PROVIDERS: Emergency Provider Emergency Medicine; Visit Provider Radiology Diagnostic Radiology | DX: R05.9 Cough, unspecified (principal); J98.11 Atelectasis; R91.8 Other nonspecific abnormal finding of lung field; R06.00 Dyspnea, unspecified | CPT/HCPCS: 70490; 71045; 71250 ==

== ENCOUNTER → 2025-04-13 01:14 | Outpatient (BNV) | payer MEDICARE, BC, SELFPAY | PROVIDERS: Admitting Provider Internal Medicine; Emergency Provider Emergency Medicine; Visit Provider Internal Medicine | DX: J44.1 Chronic obstructive pulmonary disease with (acute) exacerbation (principal); I50.20 Unspecified systolic (congestive) heart failure | CPT/HCPCS: 99222; 99232; 99499 ==